=== PATIENT | male | born 1970 | race Caucasian/White ===

== ENCOUNTER 2017-05-07 11:40 | Outpatient (RCR) | payer BC, MEDICAID, SELFPAY ==
[2017-05-07 12:07] VITALS: BP 186/104; PULSE 100; RESP 18; TEMP 37; BMI 49.4
[2017-05-07 15:03] LABS: Absolute Lymphocyte Count 4.07 X10^3/ul (0.83-4.51); Absolute Neutrophil Count 6.3 X10^3/uL (2.0-7.7); Basophil# 0.03 X10^3/uL; Basophil% 0.3 % (0-1); Eosinophil# 0.48 X10^3/uL; Eosinophils% 4.2 % (0-5); Hematocrit 38.5 % (40-54); Hemoglobin 11.8 g/dl (13.0-16.5); Lymphocyte # 4.07 X10^3/ul (4.0); Lymphocyte % 35.3 % (19-41); Mean Corp Hgb Conc 30.6 g/gl (32-36); Mean Platelet Vol. 10.4 fl (6.2-12.0); Monocyte# 0.61 X10^3/uL; Monocyte% 5.3 % (0-10); Neutrophil # 6.29 X10^3/uL (2.7-7.7); Neutrophil % 54.5 % (47-70); Platelet Count 363 K/mm3 (150-450); RBC Distribution Width CV 15.9 % (11.6-14.6); RBC Distribution Width SD 49.7 fl (35.1-43.9); Red Blood Count 4.53 M/mm3 (4.6-6.2); White Blood Count 11.5 K/mm3 (4.4-11.0)
[2017-05-07 15:06] LABS: POSITIVE COUNT NO; POSITIVE DIFFERENTIAL NO; POSITIVE MORPHOLOGY NO
[2017-05-07 15:35] LABS: Hemoglobin A1c 9.8 % (4.2-6.3)
[2017-05-07 15:57] LABS: ALB/GLOB Ratio 0.7 RATIO (0.9-2.4); AST(SGOT) 13 U/L (15-37); Alanine Aminotransfer ALT/SGPT 30 U/L (12-78); Albumin, Serum 3.3 g/dL (3.4-5.0); Alkaline Phosphatase 163 U/L (45-117); Anion Gap 9 (5-15); BUN 18 mg/dL (7-18); Calcium,Total 9.5 mg/dL (8.5-10.1); Chloride 103 mmol/L (98-107); Creatinine, Serum 0.82 mg/dL (0.70-1.30); EST Glomerular Filtration Rate 108 mL/min (>60); Est Glom Filt Rate - Afr Amer 131 mL/min (>60); Estimated Creatinine Clearance 141.14 ml/min; Glucose 158 mg/dL (70-110); Potassium 4.2 mmol/L (3.5-5.1); Prealbumin 22.4 mg/dL (20.0-40.0); Protein, Total 8.3 g/dL (6.4-8.2); Sodium Level 138 mmol/L (136-145)
--- NOTE | 2017-05-07 18:00 | PCM.WC.HP ---
(1) Diabetes mellitus type 2 in obese Status: Acute Current Visit: Yes Code(s): E11.69 - Type 2 diabetes mellitus with other specified complication; E66.9 - Obesity, unspecified (2) Edema of right lower extremity Status: Acute Current Visit: Yes Code(s): R60.0 - Localized edema (3) Ulcer of right lower extremity Status: Acute Current Visit: Yes Code(s): L97.919 - Non-pressure chronic ulcer of unspecified part of right lower leg with unspecified severity (4) Diabetic foot ulcer Status: Acute Current Visit: Yes Code(s): E11.621 - Type 2 diabetes mellitus with foot ulcer; L97.509 - Non-pressure chronic ulcer of other part of unspecified foot with unspecified severity (5) Morbid obesity Status: Chronic Current Visit: Yes Code(s): E66.01 - Morbid (severe) obesity due to excess calories History of Present Illness Date of Service: 05/07/17 Chief Complaint: Right lower extremity ulcers. Right Foot Ulcer. History of Wound: Mr Gracia is a 46-year-old with past medical history of morbid obesity, hypertension, diabetes mellitus type II, left AKA and factor V Leiden deficiency. He was referred here by his primary care physician due to right lower extremity ulcers. Patient is unsure of the onset of the ulcers however he went in to see his PCP on the april and was subsequently referred here. Since discovered by his PCP he states that he has used a Band-Aid and bacitracin dressing over it. He denies any obvious discharge from the sites. He also denies tenderness around the area. He reports poorly controlled blood sugars over time with his last A1c being around 8.5. Per patient his left BKA was due to a spider bite infection. Past Medical History Past Medical History: Chronic Problems History of left below knee amputation (Chronic) Allergic rhinitis (Chronic) Morbid obesity (Chronic) GERD (gastroesophageal reflux disease) (Chronic) HTN (hypertension) (Chronic) Diabetes (Chronic) Surgical History: - - left bka. Allergies/Adverse Reactions: Allergies dapagliflozin propanediol [From [facility]] Adverse Reaction (Verified 09/23/16 09:57) Other Home Medications: Ambulatory Orders Medication Instructions Recorded Cetirizine HCl [Zyrtec] 10 mg PO DAILY 01/17/16 Hydrochlorothiazide [Hctz] 25 mg PO DAILY 01/17/16 Insulin Aspart [Novolog Flexpen] 30 unit SQ TIDCM 01/17/16 Insulin Glargine,Hum.rec.anlog 90 unit SQ BID 01/17/16 [Lantus] Lisinopril [Zestril] 40 mg PO DAILY 01/17/16 BuPROPion (XL) [Wellbutrin Xl] 150 mg PO DAILY #30 tablet.xl 01/18/16 Esomeprazole Mag Trihydrate 20 mg PO BID 05/07/17 [Nexium] Furosemide [Lasix] 40 mg PO DAILY 05/07/17 Metoprolol Tartrate 25 mg PO BID 05/07/17 Rivaroxaban [Xarelto] 20 mg PO DAILY 05/07/17 clindamycin HCl 300 mg capsule 300 mg PO Q6H #40 cap 05/09/17 - Family History Maternal - - mother with blood clots Sibling - - 2 sister with blood clots. Smoking Status: Never smoker Review of Systems Constitutional: Denies: Anorexia, Chills, Malaise Eyes: Denies: Pain, Redness, Vision Change HEENT: Denies: Difficulty Hearing, Difficulty Swallowing, Head Aches Cardiovascular: Denies: Claudication, Chest Tightness Respiratory: Denies: Hemoptysis, Shortness of Breath Gastrointestinal: Denies: Abdominal Pain, Hematemesis, Vomiting Skin: Reports: Dryness. Denies: Jaundice Neurological: Denies: Difficulty swallowing, Focal weakness - Physical Exam Vital Signs Temp Pulse Resp BP 98.6 F 100 18 186/104 H 05/07/17 12:07 05/07/17 12:07 05/07/17 12:07 05/07/17 12:07 General: Alert, Oriented x3, Cooperative, No apparent distress HEENT: Atraumatic, Normocephalic Oral: Dry Mucosa Neck: Supple, No JVD Lungs: Clear to auscultation, Normal air movement Cardiovascular: Regular rate, Regular Rhythm Abdomen: Non Tender, Obese Extremities: - - Barely pitting edema extending from the right foot to the knee. Stasis dermatitis present. Distal plascencia and lateral leg ulcers noted. Wound Measurements and Assessment WC - Nurse 1 - General Ulcer Measurement Start: 05/07/17 11:56 Freq: Status: Active Protocol: Activity Type Activity Date Activity User E-Sign Co-Sign Detail Recorded Client Recorded Date Recorded By Document 05/07/17 12:07 [facility] [id number] 05/07/17 12:35 [facility] 05/07/17 12:07 Wound Center Nurse 1 [Ulcer Assessment Protocol: WC.WD.LOC] #4- RT GR TOE PLANTAR ASPECT -Combined with other wound No -Current Size (cm) - Length 1 -Current Size (cm) - Width 0.1 -Current Size (cm) - Depth 0.1 -Total Square Cm 0.1 -Date of Last Picture (Recall this 05/07/17 field) -Photo Taken Yes -Epithelialization None Present -Tunneling No -Undermining/Tunneling No -Exudate Amt None Present (0 %) -Wound Margin Distinct, Outline Attached -Granulation Amt Large (67-100%) -Granulation Quality [place] -Slough/Fibrin No -Necrosis Amt None Present (0 %) -Structure Exposed None/Limited to Skin Breakdown -Texture (Any-wound Skin Appearance) Callus Scarring -Moisture (Any-wound Skin Appearance Dry/Scaly ) -Color (Any-wound Skin Appearance) Assessed -Temperature (Any-wound Skin No Abnormality Appearance) (Pt Warm) -Tenderness on Palpation (Any-wound No Skin Appearance) -Ulcer Cleansing Wound Cleanser -Foul Odor after Cleansing No -Anesthetic Used 4% Lidocaine Solution #3- RT LOWER PLASCENCIA -Combined with other wound No -Current Size (cm) - Length 0.5 -Current Size (cm) - Width 0.4 -Current Size (cm) - Depth 0.2 -Total Square Cm 0.20 -Date of Last Picture (Recall this 05/07/17 field) -Photo Taken Yes -Epithelialization None Present -Tunneling No -Undermining/Tunneling No -Exudate Amt Small (1-33%) -Exudate Type Serous -Wound Margin Distinct, Outline Attached -Granulation Amt None Present (0 %) -Slough/Fibrin Yes -Necrosis Amt Large (67-100%) -Necrotic Tissue Type Adherent Slough -Structure Exposed None/Limited to Skin Breakdown -Texture (Any-wound Skin Appearance) Scarring -Moisture (Any-wound Skin Appearance Maceration ) Weeping Dry/Scaly -Color (Any-wound Skin Appearance) Erythema -Temperature (Any-wound Skin No Abnormality Appearance) (Pt Warm) -Tenderness on Palpation (Any-wound No Skin Appearance) -Ulcer Cleansing Wound Cleanser -Foul Odor after Cleansing No -Anesthetic Used 4% Lidocaine Solution #2- RT LOWER LAT LEG INFERIOR -Combined with other wound No -Current Size (cm) - Length 3.3 -Current Size (cm) - Width 2.4 -Current Size (cm) - Depth 0.2 -Total Square Cm 7.92 -Date of Last Picture (Recall this 05/07/17 field) -Photo Taken Yes -Epithelialization None Present -Tunneling No -Undermining/Tunneling No -Exudate Amt Medium (34-66%) -Exudate Type Serosanguineous -Wound Margin Distinct, Outline Attached -Granulation Amt None Present (0 %) -Slough/Fibrin Yes -Necrosis Amt Large (67-100%) -Necrotic Tissue Type Adherent Slough -Structure Exposed N/A -Texture (Any-wound Skin Appearance) Scarring -Moisture (Any-wound Skin Appearance Maceration ) Weeping Dry/Scaly -Color (Any-wound Skin Appearance) Erythema -Temperature (Any-wound Skin No Abnormality Appearance) (Pt Warm) -Tenderness on Palpation (Any-wound No Skin Appearance) -Ulcer Cleansing Wound Cleanser -Foul Odor after Cleansing No -Anesthetic Used 4% Lidocaine Solution #1- RT LOWER LATERAL LEG SUPERIOR -Combined with other wound No -Current Size (cm) - Length 2.5 -Current Size (cm) - Width 1.1 -Current Size (cm) - Depth 0.2 -Total Square Cm 2.75 -Date of Last Picture (Recall this 05/07/17 field) -Photo Taken Yes -Epithelialization None Present -Tunneling No -Undermining/Tunneling No -Exudate Amt Medium (34-66%) -Exudate Type Serosanguineous -Wound Margin Distinct, Outline Attached -Granulation Amt None Present (0 %) -Slough/Fibrin Yes -Necrosis Amt Large (67-100%) -Necrotic Tissue Type Adherent Slough -Structure Exposed N/A -Texture (Any-wound Skin Appearance) Scarring -Moisture (Any-wound Skin Appearance Maceration ) Weeping Dry/Scaly -Color (Any-wound Skin Appearance) Erythema -Temperature (Any-wound Skin No Abnormality Appearance) (Pt Warm) -Tenderness on Palpation (Any-wound No Skin Appearance) -Ulcer Cleansing Wound Cleanser -Foul Odor after Cleansing No -Anesthetic Used 4% Lidocaine Solution [Edema Assessment] -Lower Limb Edema Present Yes -Right Calf (cm) 52.1 -Right Ankle (cm) 31.6 WC - Nurse 2 - General Ulcer CM Notes Start: 05/07/17 11:56 Freq: Status: Active Protocol: Activity Type Activity Date Activity User E-Sign Co-Sign Detail Recorded Client Recorded Date Recorded By Document 05/07/17 13:29 DV [id number] 05/07/17 13:35 DV 05/07/17 13:29 Wound Center Nurse 2 [Procedure/Treatment] #4- RT GR TOE PLANTAR ASPECT -Time 13:30 -Correct Patient Yes -Correct Side, Site, Position Yes -Correct Procedure Yes -Procedure Performed Yes -Type of Procedure Debridement -Clinical Debridement Subcutaneous -Post Debridement Size (cm) - Length 1.4 -Post Debridement Size (cm) - Width 0.1 -Post Debridement Size (cm) - Depth 0.1 -Total Square Cm 0.14 -Wound/Ulcer Outcome Not Healed -Ulcer Cleansing Rinsed/ Irrigated with Saline -Foul Odor after Cleansing No -Bioengineered Tissue No -Cetacaine [place] No -Bleeding Controlled with Pressure -Treatment Response Procedure Tolerated Well #3- RT LOWER PLASCENCIA -Time 13:31 -Correct Patient Yes -Correct Side, Site, Position Yes -Correct Procedure Yes -Procedure Performed Yes -Type of Procedure Debridement -Clinical Debridement Subcutaneous -Post Debridement Size (cm) - Length 0.6 -Post Debridement Size (cm) - Width 0.6 -Post Debridement Size (cm) - Depth 0.2 -Total Square Cm 0.36 -Wound/Ulcer Outcome Not Healed -Ulcer Cleansing Rinsed/ Irrigated with Saline -Foul Odor after Cleansing No -Bioengineered Tissue No -Cetacaine [place] No -Bleeding Controlled with Pressure -Treatment Response Procedure Tolerated Well #2- RT LOWER LAT LEG INFERIOR -Time 13:32 -Correct Patient Yes -Correct Side, Site, Position Yes -Correct Procedure Yes -Procedure Performed Yes -Type of Procedure Debridement -Clinical Debridement Subcutaneous -Post Debridement Size (cm) - Length 3.5 -Post Debridement Size (cm) - Width 2.6 -Post Debridement Size (cm) - Depth 0.2 -Total Square Cm 9.10 -Wound/Ulcer Outcome Not Healed -Ulcer Cleansing Rinsed/ Irrigated with Saline -Foul Odor after Cleansing No -Bioengineered Tissue No -Cetacaine [place] No -Bleeding Controlled with Pressure -Treatment Response Procedure Tolerated Well #1- RT LOWER LATERAL LEG SUPERIOR -Time 13:32 -Correct Patient Yes -Correct Side, Site, Position Yes -Correct Procedure Yes -Procedure Performed Yes -Type of Procedure Debridement -Clinical Debridement Subcutaneous -Post Debridement Size (cm) - Length 2.8 -Post Debridement Size (cm) - Width 1.4 -Post Debridement Size (cm) - Depth 0.2 -Total Square Cm 3.92 -Wound/Ulcer Outcome Not Healed -Ulcer Cleansing Rinsed/ Irrigated with Saline -Foul Odor after Cleansing No -Bioengineered Tissue No -Cetacaine [place] No -Bleeding Controlled with Pressure -Treatment Response Procedure Tolerated Well [See Physician Procedure note for Specifics] Pain Scale: 0-10 Numeric [Pain] -Is Patient Pain Free? Yes Musculoskeletal: No Muscle Wasting Debridement Note Post-Debridement Measurements/Treatment WC - Nurse 2 - General Ulcer CM Notes Start: 05/07/17 11:56 Freq: Status: Active Protocol: Activity Type Activity Date Activity User E-Sign Co-Sign Detail Recorded Client Recorded Date Recorded By Document 05/07/17 13:29 DV [id number] 05/07/17 13:35 DV 05/07/17 13:29 Wound Center Nurse 2 #4- RT GR TOE PLANTAR ASPECT -Time 13:30 -Correct Patient Yes -Correct Side, Site, Position Yes -Correct Procedure Yes -Procedure Performed Yes -Type of Procedure Debridement -Clinical Debridement Subcutaneous -Post Debridement Size (cm) - Length 1.4 -Post Debridement Size (cm) - Width 0.1 -Post Debridement Size (cm) - Depth 0.1 -Total Square Cm 0.14 -Wound/Ulcer Outcome Not Healed -Ulcer Cleansing Rinsed/ Irrigated with Saline -Foul Odor after Cleansing No -Bioengineered Tissue No -Cetacaine [place] No -Bleeding Controlled with Pressure -Treatment Response Procedure Tolerated Well #3- RT LOWER PLASCENCIA -Time 13:31 -Correct Patient Yes -Correct Side, Site, Position Yes -Correct Procedure Yes -Procedure Performed Yes -Type of Procedure Debridement -Clinical Debridement Subcutaneous -Post Debridement Size (cm) - Length 0.6 -Post Debridement Size (cm) - Width 0.6 -Post Debridement Size (cm) - Depth 0.2 -Total Square Cm 0.36 -Wound/Ulcer Outcome Not Healed -Ulcer Cleansing Rinsed/ Irrigated with Saline -Foul Odor after Cleansing No -Bioengineered Tissue No -Cetacaine [place] No -Bleeding Controlled with Pressure -Treatment Response Procedure Tolerated Well #2- RT LOWER LAT LEG INFERIOR -Time 13:32 -Correct Patient Yes -Correct Side, Site, Position Yes -Correct Procedure Yes -Procedure Performed Yes -Type of Procedure Debridement -Clinical Debridement Subcutaneous -Post Debridement Size (cm) - Length 3.5 -Post Debridement Size (cm) - Width 2.6 -Post Debridement Size (cm) - Depth 0.2 -Total Square Cm 9.10 -Wound/Ulcer Outcome Not Healed -Ulcer Cleansing Rinsed/ Irrigated with Saline -Foul Odor after Cleansing No -Bioengineered Tissue No -Cetacaine [place] No -Bleeding Controlled with Pressure -Treatment Response Procedure Tolerated Well #1- RT LOWER LATERAL LEG SUPERIOR -Time 13:32 -Correct Patient Yes -Correct Side, Site, Position Yes -Correct Procedure Yes -Procedure Performed Yes -Type of Procedure Debridement -Clinical Debridement Subcutaneous -Post Debridement Size (cm) - Length 2.8 -Post Debridement Size (cm) - Width 1.4 -Post Debridement Size (cm) - Depth 0.2 -Total Square Cm 3.92 -Wound/Ulcer Outcome Not Healed -Ulcer Cleansing Rinsed/ Irrigated with Saline -Foul Odor after Cleansing No -Bioengineered Tissue No -Cetacaine [place] No -Bleeding Controlled with Pressure -Treatment Response Procedure Tolerated Well Pain Scale: 0-10 Numeric Is Patient Pain Free? Yes Wound debrided: Inferior lateral leg ulcer Laterality: Right Type of Debridement: Excisional debridement Anesthesia Used: 4% Lidocaine Solution Depth: Down to and including healthy tissue, in the subcutaneous layer Percentage of wound debrided: 100 Instrument Used: 7mm curette, Forceps Tissue Removed: Eschar, Slough, Fibrin Severity: Fat Layer Exposed Amount of bleeding with debridement: Mild Bleeding Controlled with: Pressure Patient tolerated procedure well - Additional Wound Wound debrided: Superior lateral leg ulcer Laterality: Right Type of Debridement: Excisional debridement Anesthesia Used: 4% Lidocaine Solution Depth: Down to and including healthy tissue, in the subcutaneous layer Percentage of wound debrided: 100 Instrument Used: 5mm curette Tissue Removed: Slough,Fibrin Severity: Fat Layer Exposed Amount of bleeding with debridement: Mild Bleeding Controlled with: Pressure Patient tolerated procedure: Patient tolerated procedure well - Additional Wound Wound debrided: Distal Plascencia Ulcer Type of Debridement: Excisional debridement Anesthesia Used: 4% Lidocaine Solution Depth: Down to and including healthy tissue, in the subcutaneous layer Percentage of wound debrided: 100 Instrument Used: 5mm curette Tissue Removed: Slough, Biofilm Amount of bleeding with debridement: Mild Bleeding Controlled with: Compression and gauze Patient tolerated procedure: Patient tolerated procedure well - Additional Wound Wound debrided: Right Plantar Fissure/Ulcer Type of Debridement: Excisional debridement Anesthesia Used: 4% Lidocaine Solution Depth: Down to and including healthy tissue, in the subcutaneous layer Percentage of wound debrided: 100 Instrument Used: #15 blade Tissue Removed: Callus, Slough Amount of bleeding with debridement: Mild Bleeding Controlled with: Compression and gauze Patient tolerated procedure: Patient tolerated procedure well Assessment/Plan Active Problems Diabetes mellitus type 2 in obese (Acute) Edema of right lower extremity (Acute) Ulcer of right lower extremity (Acute) Diabetic foot ulcer (Acute) Morbid obesity (Chronic) Assessment: Right Lower extremity Ulcers most likely Venous Ulcers. DFU Grade 1 of right foot. Stasis Dermatitis of Right Lower Extremity. Poorly Controlled DM type II. Plan: Mr. Gracia presents here for wound care after being referred by his primary care physician. He is not sure of the onset and progression of his right lower extremity ulcers. He has 3 different right lower extremity ulcers most likely venous as earlier stated. He also has a right DFU grade 1. Debridement of all 4 ulcers were done today. Refer to debridement note for details. Blood work including a CBC, CMP, A1c, CRP and prealbumin were ordered. Cultures were also taken of the lateral leg inferior and superior ulcers. Venous and arterial studies requested. Apply Santyl daily to right lateral distal leg ulcers. Apply Aquacel to distal plascencia and plantar ulcers. Patient was advised on adequate/optimal blood sugar control. High protein diet. Elevate lower extremity when in bed and when seated. Avoid idle standing. Weight management. Exercise daily. Follow-up in 1 week. This note was generated with [employer] software. It may contain incorrect words, spelling, and punctuation that were not noted in checking the note before signing.
== END 2017-05-11 23:59 ==
LOC: WC 11:40
PROVIDERS: Visit Provider Internal Medicine
DX: E11.621 Type 2 diabetes mellitus with foot ulcer (principal); L97.812 Non-pressure chronic ulcer of other part of right lower leg with fat layer exposed; E11.65 Type 2 diabetes mellitus with hyperglycemia; E66.01 Morbid (severe) obesity due to excess calories; L84 Corns and callosities; R60.0 Localized edema; I87.2 Venous insufficiency (chronic) (peripheral); D68.51 Activated protein C resistance; I10 Essential (primary) hypertension; K21.9 Gastro-esophageal reflux disease without esophagitis; Z79.4 Long term (current) use of insulin; Z68.42 Body mass index [BMI] 45.0-49.9, adult; Z71.3 Dietary counseling and surveillance; Z89.612 Acquired absence of left leg above knee; Z79.899 Other long term (current) drug therapy; Z79.01 Long term (current) use of anticoagulants; L97.412 Non-pressure chronic ulcer of right heel and midfoot with fat layer exposed
CPT/HCPCS: 87070; 87184; 11042; 80053; 83036; 84134; 85025; 86140; 87075; 87077; 87186; 87205; 99213; G0463

== ENCOUNTER 2017-05-29 09:30 | Outpatient (RCR) | payer BC, MEDICAID, SELFPAY ==
[2017-05-12 01:45] VITALS: BP 186/104; PULSE 100; RESP 18; TEMP 37; BMI 49.4
[2017-05-14 08:46] VITALS: BP 184/112; PULSE 108; RESP 18; TEMP 37.4; BMI 49.4
--- NOTE | 2017-05-14 17:29 | PCM.WC.PN ---
(1) Diabetes mellitus type 2 in obese Status: Acute Current Visit: Yes Code(s): E11.69 - Type 2 diabetes mellitus with other specified complication; E66.9 - Obesity, unspecified (2) Edema of right lower extremity Status: Acute Current Visit: Yes Code(s): R60.0 - Localized edema (3) Ulcer of right lower extremity Status: Acute Current Visit: Yes Code(s): L97.919 - Non-pressure chronic ulcer of unspecified part of right lower leg with unspecified severity (4) Morbid obesity Status: Chronic Current Visit: Yes Code(s): E66.01 - Morbid (severe) obesity due to excess calories Type of Wound Date of Service: 05/14/17 Chief Complaint: Right lower extremity ulcers. Right Foot Ulcer. History of Wound: Mr Gracia is a 46-year-old with past medical history of morbid obesity, hypertension, diabetes mellitus type II, left AKA and factor V Leiden deficiency. He was referred here by his primary care physician due to right lower extremity ulcers. Patient is unsure of the onset of the ulcers however he went in to see his PCP on the april and was subsequently referred here. Since discovered by his PCP he states that he has used a Band-Aid and bacitracin dressing over it. He denies any obvious discharge from the sites. He also denies tenderness around the area. He reports poorly controlled blood sugars over time with his last A1c being around 8.5. Per patient his left BKA was due to a spider bite infection. Progress of Wound: No new complaints. Wound dressings daily as instructed. Also currently on clindamycin. - Physical Exam Vital Signs Temp Pulse Resp BP 99.3 F H 108 H 18 184/112 H 05/14/17 08:46 05/14/17 08:46 05/14/17 08:46 05/14/17 08:46 General: Alert, Oriented x3, Cooperative, No apparent distress HEENT: Atraumatic, Normocephalic Oral: Moist Mucosa Neck: Supple Lungs: Normal air movement Cardiovascular: Regular rate Extremities: No cyanosis, Edema Wound Measurements and Assessment WC - Nurse 1 - General Ulcer Measurement Start: 05/14/17 08:46 Freq: Status: Active Protocol: Activity Type Activity Date Activity User E-Sign Co-Sign Detail Recorded Client Recorded Date Recorded By Document 05/14/17 08:46 MW [id number] 05/14/17 09:02 MW 05/14/17 08:46 Wound Center Nurse 1 [Ulcer Assessment Protocol: WC.WD.LOC] #4- RT GR TOE Stanton PLANTAR ASPECT -Combined with other wound No -Current Size (cm) - Length 0 -Current Size (cm) - Width 0 -Current Size (cm) - Depth 0 -Total Square Cm 0 -Photo Taken Yes -Epithelialization Large 67-100% -Tunneling No -Undermining/Tunneling No -Circular Undermining No -Exudate Amt None Present (0 %) -Wound Margin Distinct, Outline Attached -Granulation Amt Large (67-100%) -Granulation Quality [place] -Slough/Fibrin No -Necrosis Amt None Present (0 %) -Structure Exposed N/A -Texture (Any-wound Skin Appearance) Assessed Callus -Moisture (Any-wound Skin Appearance Assessed ) -Color (Any-wound Skin Appearance) Assessed -Temperature (Any-wound Skin No Abnormality Appearance) (Pt Warm) -Tenderness on Palpation (Any-wound No Skin Appearance) -Ulcer Cleansing Rinsed/ Irrigated with Saline -Foul Odor after Cleansing No #3- RT LOWER PLASCENCIA -Combined with other wound No -Current Size (cm) - Length 0.6 -Current Size (cm) - Width 0.6 -Current Size (cm) - Depth 0.1 -Total Square Cm 0.36 -Photo Taken No -Epithelialization Small 1-33% -Tunneling No -Undermining/Tunneling No -Circular Undermining No -Exudate Amt Small (1-33%) -Exudate Type Serosanguineous -Wound Margin Distinct, Outline Attached -Granulation Amt Small (1-33%) -Granulation Quality [place] -Slough/Fibrin Yes -Necrosis Amt Large (67-100%) -Necrotic Tissue Type Adherent Slough -Structure Exposed N/A -Texture (Any-wound Skin Appearance) Assessed -Moisture (Any-wound Skin Appearance Assessed ) -Color (Any-wound Skin Appearance) Assessed -Temperature (Any-wound Skin No Abnormality Appearance) (Pt Warm) -Tenderness on Palpation (Any-wound No Skin Appearance) -Ulcer Cleansing Rinsed/ Irrigated with Saline -Foul Odor after Cleansing No -Anesthetic Used 5% Lidocaine Gel #2- INFERIOR RLE (Lateral) -Combined with other wound No -Current Size (cm) - Length 3.2 -Current Size (cm) - Width 2.5 -Current Size (cm) - Depth 0.1 -Total Square Cm 8.00 -Photo Taken No -Epithelialization Small 1-33% -Tunneling No -Undermining/Tunneling No -Circular Undermining No -Classification - Thickness Full Thickness without Exposed Support Structure -Exudate Amt Small (1-33%) -Exudate Type Serosanguineous -Wound Margin Distinct, Outline Attached -Granulation Amt Small (1-33%) -Granulation Quality [place] -Slough/Fibrin Yes -Necrosis Amt Large (67-100%) -Necrotic Tissue Type Adherent Slough -Structure Exposed N/A -Texture (Any-wound Skin Appearance) Assessed -Moisture (Any-wound Skin Appearance Assessed ) Dry/Scaly -Color (Any-wound Skin Appearance) Assessed Erythema -Temperature (Any-wound Skin No Abnormality Appearance) (Pt Warm) -Tenderness on Palpation (Any-wound No Skin Appearance) -Ulcer Cleansing Rinsed/ Irrigated with Saline -Foul Odor after Cleansing No -Anesthetic Used 5% Lidocaine Gel #1- SUPERIOR RLE (Lateral) -Combined with other wound No -Current Size (cm) - Length 2.3 -Current Size (cm) - Width 1.1 -Current Size (cm) - Depth 0.1 -Total Square Cm 2.53 -Photo Taken No -Epithelialization Small 1-33% -Tunneling No -Undermining/Tunneling No -Circular Undermining No -Classification - Thickness Full Thickness without Exposed Support Structure -Exudate Amt Small (1-33%) -Exudate Type Serosanguineous -Wound Margin Distinct, Outline Attached -Granulation Amt Small (1-33%) -Granulation Quality [place] -Slough/Fibrin Yes -Necrosis Amt Large (67-100%) -Necrotic Tissue Type Eschar -Structure Exposed N/A -Texture (Any-wound Skin Appearance) Assessed -Moisture (Any-wound Skin Appearance Assessed ) -Color (Any-wound Skin Appearance) Assessed Erythema -Temperature (Any-wound Skin No Abnormality Appearance) (Pt Warm) -Tenderness on Palpation (Any-wound No Skin Appearance) -Ulcer Cleansing Rinsed/ Irrigated with Saline -Foul Odor after Cleansing No -Anesthetic Used 5% Lidocaine Gel [Edema Assessment] -Lower Limb Edema Present Yes -Right Calf (cm) 52.7 -Right Ankle (cm) 30.6 WC - Nurse 2 - General Ulcer CM Notes Start: 05/14/17 08:46 Freq: Status: Active Protocol: Activity Type Activity Date Activity User E-Sign Co-Sign Detail Recorded Client Recorded Date Recorded By Document 05/14/17 09:25 DV [id number] 05/14/17 10:24 DV 05/14/17 09:25 Wound Center Nurse 2 [Procedure/Treatment] #4- RT GR TOE Stanton PLANTAR ASPECT -Time 09:30 -Correct Patient Yes -Correct Side, Site, Position Yes -Correct Procedure Yes -Procedure Performed No -Post Debridement Size (cm) - Length 0 -Post Debridement Size (cm) - Width 0 -Post Debridement Size (cm) - Depth 0 -Total Square Cm 0 -Wound/Ulcer Outcome Healed- Epithelialized #3- RT LOWER PLASCENCIA -Time 09:29 -Correct Patient Yes -Correct Side, Site, Position Yes -Correct Procedure Yes -Procedure Performed Yes -Type of Procedure Debridement -Clinical Debridement Subcutaneous -Post Debridement Size (cm) - Length 0.6 -Post Debridement Size (cm) - Width 0.6 -Post Debridement Size (cm) - Depth 0.2 -Total Square Cm 0.36 -Wound/Ulcer Outcome Not Healed -Ulcer Cleansing Rinsed/ Irrigated with Saline -Foul Odor after Cleansing No -Bioengineered Tissue No -Cetacaine [place] No -Bleeding Controlled with Pressure -Treatment Response Procedure Tolerated Well #2- INFERIOR RLE (Lateral) -Time 09:29 -Correct Patient Yes -Correct Side, Site, Position Yes -Correct Procedure Yes -Procedure Performed Yes -Type of Procedure Debridement -Clinical Debridement Subcutaneous -Post Debridement Size (cm) - Length 3.8 -Post Debridement Size (cm) - Width 2.8 -Post Debridement Size (cm) - Depth 0.2 -Total Square Cm 10.64 -Wound/Ulcer Outcome Not Healed -Ulcer Cleansing Rinsed/ Irrigated with Saline -Foul Odor after Cleansing No -Bioengineered Tissue No -Cetacaine [place] No -Bleeding Controlled with Pressure -Treatment Response Procedure Tolerated Well #1- SUPERIOR RLE (Lateral) -Time 09:30 -Correct Patient Yes -Correct Side, Site, Position Yes -Correct Procedure Yes -Procedure Performed Yes -Type of Procedure Debridement -Clinical Debridement Subcutaneous -Post Debridement Size (cm) - Length 2.3 -Post Debridement Size (cm) - Width 1.4 -Post Debridement Size (cm) - Depth 0.2 -Total Square Cm 3.22 -Wound/Ulcer Outcome Not Healed -Ulcer Cleansing Rinsed/ Irrigated with Saline -Foul Odor after Cleansing No -Bioengineered Tissue No -Cetacaine [place] No -Bleeding Controlled with Pressure -Treatment Response Procedure Tolerated Well [See Physician Procedure note for Specifics] Musculoskeletal: No Muscle Wasting Neurological: Cranial nerves II-XII grossly intact Debridement Note Post-Debridement Measurements/Treatment WC - Nurse 2 - General Ulcer CM Notes Start: 05/14/17 08:46 Freq: Status: Active Protocol: Activity Type Activity Date Activity User E-Sign Co-Sign Detail Recorded Client Recorded Date Recorded By Document 05/14/17 09:25 DV [id number] 05/14/17 10:24 DV 05/14/17 09:25 Wound Center Nurse 2 #4- RT GR TOE Stanton PLANTAR ASPECT -Time 09:30 -Correct Patient Yes -Correct Side, Site, Position Yes -Correct Procedure Yes -Procedure Performed No -Post Debridement Size (cm) - Length 0 -Post Debridement Size (cm) - Width 0 -Post Debridement Size (cm) - Depth 0 -Total Square Cm 0 -Wound/Ulcer Outcome Healed- Epithelialized #3- RT LOWER PLASCENCIA -Time 09:29 -Correct Patient Yes -Correct Side, Site, Position Yes -Correct Procedure Yes -Procedure Performed Yes -Type of Procedure Debridement -Clinical Debridement Subcutaneous -Post Debridement Size (cm) - Length 0.6 -Post Debridement Size (cm) - Width 0.6 -Post Debridement Size (cm) - Depth 0.2 -Total Square Cm 0.36 -Wound/Ulcer Outcome Not Healed -Ulcer Cleansing Rinsed/ Irrigated with Saline -Foul Odor after Cleansing No -Bioengineered Tissue No -Cetacaine [place] No -Bleeding Controlled with Pressure -Treatment Response Procedure Tolerated Well #2- INFERIOR RLE (Lateral) -Time 09:29 -Correct Patient Yes -Correct Side, Site, Position Yes -Correct Procedure Yes -Procedure Performed Yes -Type of Procedure Debridement -Clinical Debridement Subcutaneous -Post Debridement Size (cm) - Length 3.8 -Post Debridement Size (cm) - Width 2.8 -Post Debridement Size (cm) - Depth 0.2 -Total Square Cm 10.64 -Wound/Ulcer Outcome Not Healed -Ulcer Cleansing Rinsed/ Irrigated with Saline -Foul Odor after Cleansing No -Bioengineered Tissue No -Cetacaine [place] No -Bleeding Controlled with Pressure -Treatment Response Procedure Tolerated Well #1- SUPERIOR RLE (Lateral) -Time 09:30 -Correct Patient Yes -Correct Side, Site, Position Yes -Correct Procedure Yes -Procedure Performed Yes -Type of Procedure Debridement -Clinical Debridement Subcutaneous -Post Debridement Size (cm) - Length 2.3 -Post Debridement Size (cm) - Width 1.4 -Post Debridement Size (cm) - Depth 0.2 -Total Square Cm 3.22 -Wound/Ulcer Outcome Not Healed -Ulcer Cleansing Rinsed/ Irrigated with Saline -Foul Odor after Cleansing No -Bioengineered Tissue No -Cetacaine [place] No -Bleeding Controlled with Pressure -Treatment Response Procedure Tolerated Well Wound debrided: Right Lateral Inferior ulcer Wound Grade/Stage: Wall Stage 1 Type of Debridement: Excisional debridement Anesthesia Used: 5% Lidocaine Gel Depth: Down to and including healthy tissue, in the subcutaneous layer Percentage of wound debrided: 100 Instrument Used: 7mm curette Tissue Removed: Slough, Fibrin Amount of bleeding with debridement: Mild Bleeding Controlled with: Pressure Patient tolerated procedure well - Additional Wound Wound debrided: Right Lateral Superior Wound Wound Grade/Stage: Wall Stage 1 Type of Debridement: Excisional debridement Anesthesia Used: 5% Lidocaine Gel Depth: Down to and including healthy tissue, in the subcutaneous layer Percentage of wound debrided: 100 Instrument Used: 5mm curette Tissue Removed: Slough,Fibrin Amount of bleeding with debridement: Mild Bleeding Controlled with: Pressure Patient tolerated procedure: Patient tolerated procedure well - Additional Wound Wound debrided: Right Plascencia Wound Type of Debridement: Excisional debridement Anesthesia Used: 5% Lidocaine Gel Depth: Down to and including healthy tissue, in the subcutaneous layer Percentage of wound debrided: 100 Instrument Used: 3mm curette Tissue Removed: Slough Amount of bleeding with debridement: Mild Bleeding Controlled with: Pressure Patient tolerated procedure: Patient tolerated procedure well Assessment/Plan Active Problems Diabetes mellitus type 2 in obese (Acute) Edema of right lower extremity (Acute) Ulcer of right lower extremity (Acute) Morbid obesity (Chronic) Assessment: Right Lower extremity Ulcers most likely Venous Ulcers. DFU Grade 1 of right foot - Resolved. Stasis Dermatitis of Right Lower Extremity. Poorly Controlled DM type II. Plan: Plantar DFU has resolved. Lateral right leg ulcers with some improvement. Cultures significant for MRSA sensitive to clindamycin. He has started clindamycin already. His CRP was also significantly elevated. His A1c was 9.8 suggestive of poorly controlled diabetes. He also continues to have significantly elevated blood pressures here. He however states that at home and in his physician's office his blood pressure is within normal and reports compliance with his medication. I did discuss with the patient about following up with his primary care physicians about management of these chronic conditions. Continue Santyl daily to right lateral distal leg ulcers. Apply Aquacel to distal plascencai. Patient was advised on adequate/optimal blood sugar control. High protein diet. Elevate lower extremity when in bed and when seated. Avoid idle standing. Weight management. Exercise daily. Follow-up in 1 week. This note was generated with [employer] dictation software. It may contain incorrect words, spelling, and punctuation that were not noted in checking the note before signing.
--- NOTE | 2017-05-15 13:01 | VDLE_ITS ---
Reason For Study: Non-healing wound RIGHT LEFT GSV is normal. CFV is compressible, spontaneous, phasic, CFV is compressible, spontaneous, phasic, competent, and demonstrates normal competent and demonstrates normal augmentation. augmentation. FV is compressible, spontaneous, phasic, competent and demonstrates normal augmentation. POP V is compressible, spontaneous, phasic, competent and demonstrates normal augmentation. T/P Trunk is compressible. PTV is compressible. RT PerV is compressible. SFJ competent GSV competent SSV competent. Procedure Exam performed in department. Technically difficult due to body habitus. A preliminary report was called and/or faxed to [facility]. Interpretation Summary Deep veins of the right lower extremity are patent and compressible segmentally. There is no evidence of right lower extremity deep vein thrombosis. Valvular competence appears intact within the proximal deep venous system on the right . The right greater saphenous vein appears patent and compressible segmentally. The right sapheno-femoral junction is competent . The right greater saphenous vein appears segmentally competent. The right small saphenous vein is patent and competent. Ordering Physician: Sulema Knox Performed By: Cris Diaz RVT
--- NOTE | 2017-05-17 07:55 | LEAS_ITS ---
Arterial Study - Arterial Study Arterial Study: This is a 46-year-old male with a history of diabetes mellitus, hypertension, Leiden factor V abnormality, morbid obesity, and a prior left below-knee amputation. The patient presents with chronic nonhealing wounds to the right lower extremity. Suspecting the presence of atherosclerotic peripheral arterial occlusive disease, the patient was brought to the noninvasive vascular laboratory at this time for the purpose of noninvasive lower extremity arterial assessment. Doppler signal assessment was used to evaluate the right dorsalis pedis pulse. A triphasic waveform was noted. The right posterior tibial artery Doppler signal could not be obtained. Segmental limb pressures were obtained on the right. The right ankle pressure, as determined by dorsalis pedis pulse, was measured at 188 mmHg. The right digital pressure was measured at 176 mmHg. Pulse-volume recordings were obtained segmentally within the right lower extremity. Waveform amplitudes appeared to be satisfactory at low thigh, calf, and ankle levels, though slightly diminished at digital level. The resting right ankle-brachial index was calculated to be 1.21. The right digital-brachial index was calculated to be 1.14. Impression: Based upon the findings of this noninvasive lower extremity arterial study, there is no evidence of significant arterial occlusive disease in the right lower extremity. A triphasic waveform was noted at ankle level on the right. The resting right ankle-brachial index is normal. The right digital -brachial index is also normal.
[2017-05-22 09:23] VITALS: BP 158/97; PULSE 92; RESP 18; TEMP 37.4; BMI 49.4
--- NOTE | 2017-05-22 19:13 | PCM.WC.PN ---
(1) Diabetes mellitus type 2 in obese Status: Acute Current Visit: Yes Code(s): E11.69 - Type 2 diabetes mellitus with other specified complication; E66.9 - Obesity, unspecified (2) Edema of right lower extremity Status: Acute Current Visit: Yes Code(s): R60.0 - Localized edema (3) Ulcer of right lower extremity Status: Acute Current Visit: Yes Code(s): L97.919 - Non-pressure chronic ulcer of unspecified part of right lower leg with unspecified severity (4) Morbid obesity Status: Chronic Current Visit: Yes Code(s): E66.01 - Morbid (severe) obesity due to excess calories Type of Wound Date of Service: 05/22/17 Chief Complaint: Right lower extremity ulcers. Right Foot Ulcer. History of Wound: Mr Gracia is a 46-year-old with past medical history of morbid obesity, hypertension, diabetes mellitus type II, left AKA and factor V Leiden deficiency. He was referred here by his primary care physician due to right lower extremity ulcers. Patient is unsure of the onset of the ulcers however he went in to see his PCP on the april and was subsequently referred here. Since discovered by his PCP he states that he has used a Band-Aid and bacitracin dressing over it. He denies any obvious discharge from the sites. He also denies tenderness around the area. He reports poorly controlled blood sugars over time with his last A1c being around 8.5. Per patient his left BKA was due to a spider bite infection. Progress of Wound: No new complaints. Wound dressings daily as instructed. Discontinued clindamycin due to intolerable effects. - Physical Exam Vital Signs Temp Pulse Resp BP 99.3 F H 92 18 158/97 H 05/22/17 09:23 05/22/17 09:23 05/22/17 09:23 05/22/17 09:23 General: Alert, Oriented x3, Cooperative, No apparent distress HEENT: Atraumatic, Normocephalic Oral: Moist Mucosa Neck: Supple Lungs: Normal air movement Cardiovascular: Regular rate Extremities: Edema Skin: Ulcer/ Wound - Lower extremity Wound Measurements and Assessment WC - Nurse 1 - General Ulcer Measurement Start: 05/14/17 08:46 Freq: Status: Active Protocol: Activity Type Activity Date Activity User E-Sign Co-Sign Detail Recorded Client Recorded Date Recorded By Document 05/22/17 09:23 [facility] [id number] 05/22/17 09:38 [facility] 05/22/17 09:23 Wound Center Nurse 1 [Ulcer Assessment Protocol: WC.WD.LOC] #3 Right Plascencia -Combined with other wound No -Current Size (cm) - Length 0.6 -Current Size (cm) - Width 0.9 -Current Size (cm) - Depth 0.1 -Total Square Cm 0.54 -Photo Taken No -Epithelialization None Present -Tunneling No -Undermining/Tunneling No -Exudate Amt Small (1-33%) -Exudate Type Serous -Wound Margin Distinct, Outline Attached -Granulation Amt None Present (0 %) -Slough/Fibrin Yes -Necrosis Amt Large (67-100%) -Necrotic Tissue Type Adherent Slough -Structure Exposed N/A -Texture (Any-wound Skin Appearance) Scarring -Moisture (Any-wound Skin Appearance Weeping ) Dry/Scaly -Color (Any-wound Skin Appearance) Erythema Hemosiderin Staining -Temperature (Any-wound Skin No Abnormality Appearance) (Pt Warm) -Tenderness on Palpation (Any-wound No Skin Appearance) -Ulcer Cleansing Wound Cleanser -Foul Odor after Cleansing No -Anesthetic Used 5% Lidocaine Gel #2- INFERIOR RLE (Lateral) -Combined with other wound No -Current Size (cm) - Length 4 -Current Size (cm) - Width 2.4 -Current Size (cm) - Depth 0.2 -Total Square Cm 9.6 -Photo Taken No -Epithelialization None Present -Tunneling No -Undermining/Tunneling No -Exudate Amt Medium (34-66%) -Exudate Type Serosanguineous -Wound Margin Distinct, Outline Attached -Granulation Amt Small (1-33%) -Granulation Quality Red -Slough/Fibrin Yes -Necrosis Amt Large (67-100%) -Necrotic Tissue Type Adherent Slough -Texture (Any-wound Skin Appearance) Scarring -Moisture (Any-wound Skin Appearance Maceration ) Dry/Scaly -Color (Any-wound Skin Appearance) Erythema Hemosiderin Staining -Temperature (Any-wound Skin No Abnormality Appearance) (Pt Warm) -Tenderness on Palpation (Any-wound No Skin Appearance) -Ulcer Cleansing Wound Cleanser -Foul Odor after Cleansing No -Anesthetic Used 5% Lidocaine Gel #1- SUPERIOR RLE (Lateral) -Combined with other wound No -Current Size (cm) - Length 2.8 -Current Size (cm) - Width 1.6 -Current Size (cm) - Depth 0.2 -Total Square Cm 4.48 -Photo Taken No -Epithelialization None Present -Tunneling No -Undermining/Tunneling No -Exudate Amt Small (1-33%) -Exudate Type Serosanguineous -Wound Margin Distinct, Outline Attached -Granulation Amt Small (1-33%) -Granulation Quality Red -Slough/Fibrin Yes -Necrosis Amt Large (67-100%) -Necrotic Tissue Type Adherent Slough -Texture (Any-wound Skin Appearance) Scarring -Moisture (Any-wound Skin Appearance Maceration ) Dry/Scaly -Color (Any-wound Skin Appearance) Erythema Hemosiderin Staining -Temperature (Any-wound Skin No Abnormality Appearance) (Pt Warm) -Tenderness on Palpation (Any-wound No Skin Appearance) -Ulcer Cleansing Wound Cleanser -Foul Odor after Cleansing No -Anesthetic Used 5% Lidocaine Gel [Edema Assessment] -Lower Limb Edema Present Yes -Right Calf (cm) 52.6 -Right Ankle (cm) 30 WC - Nurse 2 - General Ulcer CM Notes Start: 05/14/17 08:46 Freq: Status: Active Protocol: Activity Type Activity Date Activity User E-Sign Co-Sign Detail Recorded Client Recorded Date Recorded By Document 05/22/17 09:45 [facility] [id number] 05/22/17 10:04 MW Document 05/22/17 10:03 DV [id number] 05/22/17 10:12 DV 05/22/17 05/22/17 09:45 10:03 Wound Center Nurse 2 [Procedure/Treatment] #3 Right Plascencia -Time 10:06 10:03 -Correct Patient Yes -Correct Side, Site, Position Yes -Correct Procedure Yes -Procedure Performed Yes -Type of Procedure Debridement -Clinical Debridement Subcutaneous -Post Debridement Size (cm) - Length 0.4 -Post Debridement Size (cm) - Width 0.4 -Post Debridement Size (cm) - Depth 0.2 -Total Square Cm 0.16 -Wound/Ulcer Outcome Not Healed -Ulcer Cleansing Rinsed/ Irrigated with Saline -Foul Odor after Cleansing No -Bioengineered Tissue No -Cetacaine [place] No -Bleeding Controlled with Pressure -Treatment Response Procedure Tolerated Well #2- INFERIOR RLE (Lateral) -Time 10:05 -Correct Patient Yes -Correct Side, Site, Position Yes -Correct Procedure Yes -Procedure Performed Yes -Type of Procedure Debridement -Clinical Debridement Subcutaneous -Post Debridement Size (cm) - Length 4.0 -Post Debridement Size (cm) - Width 2.8 -Post Debridement Size (cm) - Depth 0.2 -Total Square Cm 11.20 -Wound/Ulcer Outcome Not Healed -Ulcer Cleansing Rinsed/ Irrigated with Saline -Foul Odor after Cleansing No -Bioengineered Tissue No -Cetacaine [place] No -Bleeding Controlled with Pressure -Treatment Response Procedure Tolerated Well #1- SUPERIOR RLE (Lateral) -Time 10:07 -Correct Patient Yes -Correct Side, Site, Position Yes -Correct Procedure Yes -Procedure Performed Yes -Type of Procedure Debridement -Clinical Debridement Subcutaneous -Post Debridement Size (cm) - Length 2.0 -Post Debridement Size (cm) - Width 1.6 -Post Debridement Size (cm) - Depth 0.2 -Total Square Cm 3.20 -Wound/Ulcer Outcome Not Healed -Ulcer Cleansing Rinsed/ Irrigated with Saline -Foul Odor after Cleansing No -Bioengineered Tissue No -Cetacaine [place] No -Bleeding Controlled with Pressure -Treatment Response Procedure Tolerated Well [See Physician Procedure note for Specifics] Pain Scale: 0-10 Numeric [Pain] -Is Patient Pain Free? Yes Musculoskeletal: No Muscle Wasting Neurological: Cranial nerves II-XII grossly intact Debridement Note Post-Debridement Measurements/Treatment WC - Nurse 2 - General Ulcer CM Notes Start: 05/14/17 08:46 Freq: Status: Active Protocol: Activity Type Activity Date Activity User E-Sign Co-Sign Detail Recorded Client Recorded Date Recorded By Document 05/14/17 09:25 DV [id number] 05/14/17 10:24 DV Document 05/22/17 09:45 [facility] [id number] 05/22/17 10:04 MW Document 05/22/17 10:03 DV [id number] 05/22/17 10:12 DV 05/14/17 05/22/17 05/22/17 09:25 09:45 10:03 Wound Center Nurse 2 #4- RT GR TOE FISSURE PLANTAR ASPECT -Time 09:30 -Correct Patient Yes -Correct Side, Site, Position Yes -Correct Procedure Yes -Procedure Performed No -Post Debridement Size (cm) - Length 0 -Post Debridement Size (cm) - Width 0 -Post Debridement Size (cm) - Depth 0 -Total Square Cm 0 -Wound/Ulcer Outcome Healed- Epithelialized #3 Right Plascencia -Time 09:29 10:06 10:03 -Correct Patient Yes Yes -Correct Side, Site, Position Yes Yes -Correct Procedure Yes Yes -Procedure Performed Yes Yes -Type of Procedure Debridement Debridement -Clinical Debridement Subcutaneous Subcutaneous -Post Debridement Size (cm) - Length 0.6 0.4 -Post Debridement Size (cm) - Width 0.6 0.4 -Post Debridement Size (cm) - Depth 0.2 0.2 -Total Square Cm 0.36 0.16 -Wound/Ulcer Outcome Not Healed Not Healed -Ulcer Cleansing Rinsed/ Rinsed/ Irrigated with Irrigated with Saline Saline -Foul Odor after Cleansing No No -Bioengineered Tissue No No -Cetacaine [place] No No -Bleeding Controlled with Pressure Pressure -Treatment Response Procedure Procedure Tolerated Well Tolerated Well #2- INFERIOR RLE (Lateral) -Time : 10:05 -Correct Patient Yes Yes -Correct Side, Site, Position Yes Yes -Correct Procedure Yes Yes -Procedure Performed Yes Yes -Type of Procedure Debridement Debridement -Clinical Debridement Subcutaneous Subcutaneous -Post Debridement Size (cm) - Length 3.8 4.0 -Post Debridement Size (cm) - Width 2.8 2.8 -Post Debridement Size (cm) - Depth 0.2 0.2 -Total Square Cm 10.64 11.20 -Wound/Ulcer Outcome Not Healed Not Healed -Ulcer Cleansing Rinsed/ Rinsed/ Irrigated with Irrigated with Saline Saline -Foul Odor after Cleansing No No -Bioengineered Tissue No No -Cetacaine [place] No No -Bleeding Controlled with Pressure Pressure -Treatment Response Procedure Procedure Tolerated Well Tolerated Well #1- SUPERIOR RLE (Lateral) -Time 09:30 10:07 -Correct Patient Yes Yes -Correct Side, Site, Position Yes Yes -Correct Procedure Yes Yes -Procedure Performed Yes Yes -Type of Procedure Debridement Debridement -Clinical Debridement Subcutaneous Subcutaneous -Post Debridement Size (cm) - Length 2.3 2.0 -Post Debridement Size (cm) - Width 1.4 1.6 -Post Debridement Size (cm) - Depth 0.2 0.2 -Total Square Cm 3.22 3.20 -Wound/Ulcer Outcome Not Healed Not Healed -Ulcer Cleansing Rinsed/ Rinsed/ Irrigated with Irrigated with Saline Saline -Foul Odor after Cleansing No No -Bioengineered Tissue No No -Cetacaine [place] No No -Bleeding Controlled with Pressure Pressure -Treatment Response Procedure Procedure Tolerated Well Tolerated Well Pain Scale: 0-10 Numeric Is Patient Pain Free? Yes Wound debrided: Right Inferior leg ulcer Type of Debridement: Excisional debridement Anesthesia Used: 5% Lidocaine Gel Depth: Down to and including healthy tissue, in the subcutaneous layer Percentage of wound debrided: 100 Instrument Used: 7mm curette Tissue Removed: Slough, FIbrin Severity: Fat Layer Exposed Amount of bleeding with debridement: Mild Bleeding Controlled with: Pressure Patient tolerated procedure well - Additional Wound Wound debrided: Right Superior Leg ulcer Type of Debridement: Excisional debridement Anesthesia Used: 5% Lidocaine Gel Depth: Down to and including healthy tissue, in the subcutaneous layer Percentage of wound debrided: 100 Instrument Used: 7mm curette Tissue Removed: Slough, Fibrin Severity: Fat Layer Exposed Amount of bleeding with debridement: Mild Bleeding Controlled with: Pressure Patient tolerated procedure: Patient tolerated procedure well - Additional Wound Wound debrided: Right Plascencia Wound Type of Debridement: Excisional debridement Anesthesia Used: 5% Lidocaine Gel Depth: Down to and including healthy tissue, in the subcutaneous layer Percentage of wound debrided: 100 Instrument Used: 3mm curette Tissue Removed: Slough Amount of bleeding with debridement: Mild Bleeding Controlled with: Pressure Patient tolerated procedure: Patient tolerated procedure well Assessment/Plan Active Problems Diabetes mellitus type 2 in obese (Acute) Edema of right lower extremity (Acute) Ulcer of right lower extremity (Acute) Morbid obesity (Chronic) Assessment: Right Lower extremity Ulcers most likely Venous Ulcers. DFU Grade 1 of right foot - Resolved. Stasis Dermatitis of Right Lower Extremity. Poorly Controlled DM type II. Plan: No significant change in wound size. Patient attests to daily dressing as recommended. However, he discontinued his clindamycin due to intolerable side effects. Culture grew MRSA which is sensitive to levofloxacin. Will start on levofloxacin 750 mg daily for 1 week. His venous and vascular studies also reviewed no insufficiency. Double layer tubi obstetrics/gynecology nurse to right lower extremity. Continue Santyl daily to right lateral distal leg ulcers. Apply Aquacel to distal plascencia. Patient was advised on adequate/optimal blood sugar control. High protein diet. Elevate lower extremity when in bed and when seated. Avoid idle standing. Weight management. Exercise daily. Follow-up in 1 week. This note was generated with [employer] software. It may contain incorrect words, spelling, and punctuation that were not noted in checking the note before signing.
--- NOTE | 2017-05-22 19:20 | PN.PCM_ITS ---
(1) Diabetes mellitus type 2 in obese Status: Acute Current Visit: Yes Code(s): E11.69 - Type 2 diabetes mellitus with other specified complication; E66.9 - Obesity, unspecified (2) Edema of right lower extremity Status: Acute Current Visit: Yes Code(s): R60.0 - Localized edema (3) Ulcer of right lower extremity Status: Acute Current Visit: Yes Code(s): L97.919 - Non-pressure chronic ulcer of unspecified part of right lower leg with unspecified severity (4) Morbid obesity Status: Chronic Current Visit: Yes Code(s): E66.01 - Morbid (severe) obesity due to excess calories Type of Wound Date of Service: 05/22/17 Chief Complaint: Right lower extremity ulcers. Right Foot Ulcer. History of Wound: Mr Gracia is a 46-year-old with past medical history of morbid obesity, hypertension, diabetes mellitus type II, left AKA and factor V Leiden deficiency. He was referred here by his primary care physician due to right lower extremity ulcers. Patient is unsure of the onset of the ulcers however he went in to see his PCP on the april and was subsequently referred here. Since discovered by his PCP he states that he has used a Band- Aid and bacitracin dressing over it. He denies any obvious discharge from the sites. He also denies tenderness around the area. He reports poorly controlled blood sugars over time with his last A1c being around 8.5. Per patient his left BKA was due to a spider bite infection. Progress of Wound: No new complaints. Wound dressings daily as instructed. Discontinued clindamycin due to intolerable effects. - Physical Exam Vital Signs Temp Pulse Resp BP 99.3 F H 92 18 158/97 H 05/22/17 09:23 05/22/17 09:23 05/22/17 09:23 05/22/17 09:23 General: Alert, Oriented x3, Cooperative, No apparent distress HEENT: Atraumatic, Normocephalic Oral: Moist Mucosa Neck: Supple Lungs: Normal air movement Cardiovascular: Regular rate Extremities: Edema Skin: Ulcer/ Wound - Lower extremity Wound Measurements and Assessment WC - Nurse 1 - General Ulcer Measurement Start: 05/14/17 08:46 Freq: Status: Active Protocol: Activity Type Activity Date Activity User E-Sign Co-Sign Detail Recorded Client Recorded Date Recorded By Document 05/22/17 09:23 [facility] [id number] 05/22/17 09:38 [facility] 05/22/17 09:23 Wound Center Nurse 1 [Ulcer Assessment Protocol: WC.WD.LOC] #3 Right Plascencia -Combined with other wound No -Current Size (cm) - Length 0.6 -Current Size (cm) - Width 0.9 -Current Size (cm) - Depth 0.1 -Total Square Cm 0.54 -Photo Taken No -Epithelialization None Present -Tunneling No -Undermining/Tunneling No -Exudate Amt Small (1-33%) -Exudate Type Serous -Wound Margin Distinct, Outline Attached -Granulation Amt None Present (0 %) -Slough/Fibrin Yes -Necrosis Amt Large (67-100%) -Necrotic Tissue Type Adherent Slough -Structure Exposed N/A -Texture (Any-wound Skin Appearance) Scarring -Moisture (Any-wound Skin Appearance Weeping ) Dry/Scaly -Color (Any-wound Skin Appearance) Erythema Hemosiderin Staining -Temperature (Any-wound Skin No Abnormality Appearance) (Pt Warm) -Tenderness on Palpation (Any-wound No Skin Appearance) -Ulcer Cleansing Wound Cleanser -Foul Odor after Cleansing No -Anesthetic Used 5% Lidocaine Gel #2- INFERIOR RLE (Lateral) -Combined with other wound No -Current Size (cm) - Length 4 -Current Size (cm) - Width 2.4 -Current Size (cm) - Depth 0.2 -Total Square Cm 9.6 -Photo Taken No -Epithelialization None Present -Tunneling No -Undermining/Tunneling No -Exudate Amt Medium (34-66%) -Exudate Type Serosanguineous -Wound Margin Distinct, Outline Attached -Granulation Amt Small (1-33%) -Granulation Quality Red -Slough/Fibrin Yes -Necrosis Amt Large (67-100%) -Necrotic Tissue Type Adherent Slough -Texture (Any-wound Skin Appearance) Scarring -Moisture (Any-wound Skin Appearance Maceration ) Dry/Scaly -Color (Any-wound Skin Appearance) Erythema Hemosiderin Staining -Temperature (Any-wound Skin No Abnormality Appearance) (Pt Warm) -Tenderness on Palpation (Any-wound No Skin Appearance) -Ulcer Cleansing Wound Cleanser -Foul Odor after Cleansing No -Anesthetic Used 5% Lidocaine Gel #1- SUPERIOR RLE (Lateral) -Combined with other wound No -Current Size (cm) - Length 2.8 -Current Size (cm) - Width 1.6 -Current Size (cm) - Depth 0.2 -Total Square Cm 4.48 -Photo Taken No -Epithelialization None Present -Tunneling No -Undermining/Tunneling No -Exudate Amt Small (1-33%) -Exudate Type Serosanguineous -Wound Margin Distinct, Outline Attached -Granulation Amt Small (1-33%) -Granulation Quality Red -Slough/Fibrin Yes -Necrosis Amt Large (67-100%) -Necrotic Tissue Type Adherent Slough -Texture (Any-wound Skin Appearance) Scarring -Moisture (Any-wound Skin Appearance Maceration ) Dry/Scaly -Color (Any-wound Skin Appearance) Erythema Hemosiderin Staining -Temperature (Any-wound Skin No Abnormality Appearance) (Pt Warm) -Tenderness on Palpation (Any-wound No Skin Appearance) -Ulcer Cleansing Wound Cleanser -Foul Odor after Cleansing No -Anesthetic Used 5% Lidocaine Gel [Edema Assessment] -Lower Limb Edema Present Yes -Right Calf (cm) 52.6 -Right Ankle (cm) 30 WC - Nurse 2 - General Ulcer CM Notes Start: 05/14/17 08:46 Freq: Status: Active Protocol: Activity Type Activity Date Activity User E-Sign Co-Sign Detail Recorded Client Recorded Date Recorded By Document 05/22/17 09:45 MW [id number] 05/22/17 10:04 MW Document 05/22/17 10:03 DV [id number] 05/22/17 10:12 DV 05/22/17 05/22/17 09:45 10:03 Wound Center Nurse 2 [Procedure/Treatment] #3 Right Plascencia -Time 10:06 10:03 -Correct Patient Yes -Correct Side, Site, Position Yes -Correct Procedure Yes -Procedure Performed Yes -Type of Procedure Debridement -Clinical Debridement Subcutaneous -Post Debridement Size (cm) - Length 0.4 -Post Debridement Size (cm) - Width 0.4 -Post Debridement Size (cm) - Depth 0.2 -Total Square Cm 0.16 -Wound/Ulcer Outcome Not Healed -Ulcer Cleansing Rinsed/ Irrigated with Saline -Foul Odor after Cleansing No -Bioengineered Tissue No -Cetacaine [place] No -Bleeding Controlled with Pressure -Treatment Response Procedure Tolerated Well #2- INFERIOR RLE (Lateral) -Time 10:05 -Correct Patient Yes -Correct Side, Site, Position Yes -Correct Procedure Yes -Procedure Performed Yes -Type of Procedure Debridement -Clinical Debridement Subcutaneous -Post Debridement Size (cm) - Length 4.0 -Post Debridement Size (cm) - Width 2.8 -Post Debridement Size (cm) - Depth 0.2 -Total Square Cm 11.20 -Wound/Ulcer Outcome Not Healed -Ulcer Cleansing Rinsed/ Irrigated with Saline -Foul Odor after Cleansing No -Bioengineered Tissue No -Cetacaine [place] No -Bleeding Controlled with Pressure -Treatment Response Procedure Tolerated Well #1- SUPERIOR RLE (Lateral) -Time 10:07 -Correct Patient Yes -Correct Side, Site, Position Yes -Correct Procedure Yes -Procedure Performed Yes -Type of Procedure Debridement -Clinical Debridement Subcutaneous -Post Debridement Size (cm) - Length 2.0 -Post Debridement Size (cm) - Width 1.6 -Post Debridement Size (cm) - Depth 0.2 -Total Square Cm 3.20 -Wound/Ulcer Outcome Not Healed -Ulcer Cleansing Rinsed/ Irrigated with Saline -Foul Odor after Cleansing No -Bioengineered Tissue No -Cetacaine [place] No -Bleeding Controlled with Pressure -Treatment Response Procedure Tolerated Well [See Physician Procedure note for Specifics] Pain Scale: 0-10 Numeric [Pain] -Is Patient Pain Free? Yes Musculoskeletal: No Muscle Wasting Neurological: Cranial nerves II-XII grossly intact Debridement Note Post-Debridement Measurements/Treatment WC - Nurse 2 - General Ulcer CM Notes Start: 05/14/17 08:46 Freq: Status: Active Protocol: Activity Type Activity Date Activity User E-Sign Co-Sign Detail Recorded Client Recorded Date Recorded By Document 05/14/17 09:25 DV [id number] 05/14/17 10:24 DV Document 05/22/17 09:45 MW [id number] 05/22/17 10:04 MW Document 05/22/17 10:03 DV [id number] 05/22/17 10:12 DV 05/14/17 05/22/17 05/22/17 09:25 09:45 10:03 Wound Center Nurse 2 #4- RT GR TOE FISSURE PLANTAR ASPECT -Time 09:30 -Correct Patient Yes -Correct Side, Site, Position Yes -Correct Procedure Yes -Procedure Performed No -Post Debridement Size (cm) - Length 0 -Post Debridement Size (cm) - Width 0 -Post Debridement Size (cm) - Depth 0 -Total Square Cm 0 -Wound/Ulcer Outcome Healed- Epithelialized #3 Right Plascencia -Time 09:29 10:06 10:03 -Correct Patient Yes Yes -Correct Side, Site, Position Yes Yes -Correct Procedure Yes Yes -Procedure Performed Yes Yes -Type of Procedure Debridement Debridement -Clinical Debridement Subcutaneous Subcutaneous -Post Debridement Size (cm) - Length 0.6 0.4 -Post Debridement Size (cm) - Width 0.6 0.4 -Post Debridement Size (cm) - Depth 0.2 0.2 -Total Square Cm 0.36 0.16 -Wound/Ulcer Outcome Not Healed Not Healed -Ulcer Cleansing Rinsed/ Rinsed/ Irrigated with Irrigated with Saline Saline -Foul Odor after Cleansing No No -Bioengineered Tissue No No -Cetacaine [place] No No -Bleeding Controlled with Pressure Pressure -Treatment Response Procedure Procedure Tolerated Well Tolerated Well #2- INFERIOR RLE (Lateral) -Time : 10:05 -Correct Patient Yes Yes -Correct Side, Site, Position Yes Yes -Correct Procedure Yes Yes -Procedure Performed Yes Yes -Type of Procedure Debridement Debridement -Clinical Debridement Subcutaneous Subcutaneous -Post Debridement Size (cm) - Length 3.8 4.0 -Post Debridement Size (cm) - Width 2.8 2.8 -Post Debridement Size (cm) - Depth 0.2 0.2 -Total Square Cm 10.64 11.20 -Wound/Ulcer Outcome Not Healed Not Healed -Ulcer Cleansing Rinsed/ Rinsed/ Irrigated with Irrigated with Saline Saline -Foul Odor after Cleansing No No -Bioengineered Tissue No No -Cetacaine [place] No No -Bleeding Controlled with Pressure Pressure -Treatment Response Procedure Procedure Tolerated Well Tolerated Well #1- SUPERIOR RLE (Lateral) -Time 09:30 10:07 -Correct Patient Yes Yes -Correct Side, Site, Position Yes Yes -Correct Procedure Yes Yes -Procedure Performed Yes Yes -Type of Procedure Debridement Debridement -Clinical Debridement Subcutaneous Subcutaneous -Post Debridement Size (cm) - Length 2.3 2.0 -Post Debridement Size (cm) - Width 1.4 1.6 -Post Debridement Size (cm) - Depth 0.2 0.2 -Total Square Cm 3.22 3.20 -Wound/Ulcer Outcome Not Healed Not Healed -Ulcer Cleansing Rinsed/ Rinsed/ Irrigated with Irrigated with Saline Saline -Foul Odor after Cleansing No No -Bioengineered Tissue No No -Cetacaine [place] No No -Bleeding Controlled with Pressure Pressure -Treatment Response Procedure Procedure Tolerated Well Tolerated Well Pain Scale: 0-10 Numeric Is Patient Pain Free? Yes Wound debrided: Right Inferior leg ulcer Type of Debridement: Excisional debridement Anesthesia Used: 5% Lidocaine Gel Depth: Down to and including healthy tissue, in the subcutaneous layer Percentage of wound debrided: 100 Instrument Used: 7mm curette Tissue Removed: Slough, FIbrin Severity: Fat Layer Exposed Amount of bleeding with debridement: Mild Bleeding Controlled with: Pressure Patient tolerated procedure well - Additional Wound Wound debrided: Right Superior Leg ulcer Type of Debridement: Excisional debridement Anesthesia Used: 5% Lidocaine Gel Depth: Down to and including healthy tissue, in the subcutaneous layer Percentage of wound debrided: 100 Instrument Used: 7mm curette Tissue Removed: Slough, Fibrin Severity: Fat Layer Exposed Amount of bleeding with debridement: Mild Bleeding Controlled with: Pressure Patient tolerated procedure: Patient tolerated procedure well - Additional Wound Wound debrided: Right Plascencia Wound Type of Debridement: Excisional debridement Anesthesia Used: 5% Lidocaine Gel Depth: Down to and including healthy tissue, in the subcutaneous layer Percentage of wound debrided: 100 Instrument Used: 3mm curette Tissue Removed: Slough Amount of bleeding with debridement: Mild Bleeding Controlled with: Pressure Patient tolerated procedure: Patient tolerated procedure well Assessment/Plan Active Problems Diabetes mellitus type 2 in obese (Acute) Edema of right lower extremity (Acute) Ulcer of right lower extremity (Acute) Morbid obesity (Chronic) Assessment: Right Lower extremity Ulcers most likely Venous Ulcers. DFU Grade 1 of right foot - Resolved. Stasis Dermatitis of Right Lower Extremity. Poorly Controlled DM type II. Plan: No significant change in wound size. Patient attests to daily dressing as recommended. However, he discontinued his clindamycin due to intolerable side effects. Culture grew MRSA which is sensitive to levofloxacin. Will start on levofloxacin 750 mg daily for 1 week. His venous and vascular studies also reviewed no insufficiency. Double layer tubi drapery hand to right lower extremity. Continue Santyl daily to right lateral distal leg ulcers. Apply Aquacel to distal plascencia. Patient was advised on adequate/optimal blood sugar control. High protein diet. Elevate lower extremity when in bed and when seated. Avoid idle standing. Weight management. Exercise daily. Follow-up in 1 week. This note was generated with [employer] software. It may contain incorrect words, spelling, and punctuation that were not noted in checking the note before signing.
[2017-05-29 09:34] VITALS: BP 156/104; PULSE 94; RESP 20; TEMP 36.4; BMI 49.4
--- NOTE | 2017-05-29 10:42 | PCM.WC.PN ---
(1) Diabetes mellitus type 2 in obese Status: Acute Current Visit: Yes Code(s): E11.69 - Type 2 diabetes mellitus with other specified complication; E66.9 - Obesity, unspecified (2) Edema of right lower extremity Status: Acute Current Visit: Yes Code(s): R60.0 - Localized edema (3) Ulcer of right lower extremity Status: Acute Current Visit: Yes Code(s): L97.919 - Non-pressure chronic ulcer of unspecified part of right lower leg with unspecified severity (4) Morbid obesity Status: Chronic Current Visit: Yes Code(s): E66.01 - Morbid (severe) obesity due to excess calories Type of Wound Date of Service: 05/29/17 Chief Complaint: Right lower extremity ulcers. Right Foot Ulcer. History of Wound: Mr Gracia is a 46-year-old with past medical history of morbid obesity, hypertension, diabetes mellitus type II, left AKA and factor V Leiden deficiency. He was referred here by his primary care physician due to right lower extremity ulcers. Patient is unsure of the onset of the ulcers however he went in to see his PCP on the april and was subsequently referred here. Since discovered by his PCP he states that he has used a Band-Aid and bacitracin dressing over it. He denies any obvious discharge from the sites. He also denies tenderness around the area. He reports poorly controlled blood sugars over time with his last A1c being around 8.5. Per patient his left BKA was due to a spider bite infection. Progress of Wound: No new complaints. Stable wound - Physical Exam Vital Signs Temp Pulse Resp BP 97.5 F L 94 20 H 156/104 H 05/29/17 09:34 05/29/17 09:34 05/29/17 09:34 05/29/17 09:34 General: Alert, Oriented x3, Cooperative, No apparent distress HEENT: Atraumatic, Normocephalic Oral: Moist Mucosa Neck: Supple Lungs: Normal air movement Cardiovascular: Tachycardic Extremities: No cyanosis, Edema Skin: Ulcer/ Wound Wound Measurements and Assessment WC - Nurse 1 - General Ulcer Measurement Start: 05/14/17 08:46 Freq: Status: Active Protocol: Activity Type Activity Date Activity User E-Sign Co-Sign Detail Recorded Client Recorded Date Recorded By Document 05/29/17 09:34 DL [id number] 05/29/17 09:47 DL 05/29/17 09:34 Wound Center Nurse 1 [Ulcer Assessment Protocol: WC.WD.LOC] #3 Right Ibrahim -Current Size (cm) - Length 0.1 -Current Size (cm) - Width 0.1 -Current Size (cm) - Depth 0.1 -Total Square Cm 0.01 -Photo Taken No -Exudate Amt Small (1-33%) -Exudate Type Serosanguineous -Wound Margin Flat & Intact -Granulation Amt None Present (0 %) -Granulation Quality [place] -Necrosis Amt Small (1-33%) -Necrotic Tissue Type Adherent Slough -Structure Exposed N/A -Texture (Any-wound Skin Appearance) Scarring -Moisture (Any-wound Skin Appearance Dry/Scaly ) -Color (Any-wound Skin Appearance) Hemosiderin Staining -Temperature (Any-wound Skin No Abnormality Appearance) (Pt Warm) -Ulcer Cleansing Rinsed/ Irrigated with Saline -Foul Odor after Cleansing No -Anesthetic Used 4% Lidocaine Solution #2- INFERIOR RLE (Lateral) -Current Size (cm) - Length 4 -Current Size (cm) - Width 2.8 -Current Size (cm) - Depth 0.2 -Total Square Cm 11.2 -Photo Taken No -Exudate Amt Small (1-33%) -Exudate Type Serosanguineous -Wound Margin Distinct, Outline Attached -Granulation Amt Medium (34-66%) -Granulation Quality Red -Necrosis Amt Medium (34-66%) -Necrotic Tissue Type Adherent Slough -Structure Exposed N/A -Texture (Any-wound Skin Appearance) Scarring -Moisture (Any-wound Skin Appearance Dry/Scaly ) -Color (Any-wound Skin Appearance) Erythema Hemosiderin Staining -Temperature (Any-wound Skin No Abnormality Appearance) (Pt Warm) -Ulcer Cleansing Rinsed/ Irrigated with Saline -Foul Odor after Cleansing No -Anesthetic Used 4% Lidocaine Solution #1- SUPERIOR RLE (Lateral) -Current Size (cm) - Length 2.2 -Current Size (cm) - Width 1.4 -Current Size (cm) - Depth 0.2 -Total Square Cm 3.08 -Photo Taken No -Exudate Amt Small (1-33%) -Exudate Type Serous -Wound Margin Distinct, Outline Attached -Granulation Amt None Present (0 %) -Necrosis Amt Large (67-100%) -Necrotic Tissue Type Adherent Slough -Structure Exposed N/A -Texture (Any-wound Skin Appearance) Scarring -Moisture (Any-wound Skin Appearance Dry/Scaly ) -Color (Any-wound Skin Appearance) Erythema Hemosiderin Staining -Temperature (Any-wound Skin No Abnormality Appearance) (Pt Warm) -Ulcer Cleansing Rinsed/ Irrigated with Saline -Foul Odor after Cleansing No -Anesthetic Used 4% Lidocaine Solution [Edema Assessment] -Right Calf (cm) 50.3 -Right Ankle (cm) 30.3 WC - Nurse 2 - General Ulcer CM Notes Start: 05/14/17 08:46 Freq: Status: Active Protocol: Activity Type Activity Date Activity User E-Sign Co-Sign Detail Recorded Client Recorded Date Recorded By Document 05/29/17 10:18 DV [id number] 05/29/17 10:30 DV 05/29/17 10:18 Wound Center Nurse 2 [Procedure/Treatment] #7 Left Lower Leg Edema / Excoriation -Time 10:19 -Correct Patient Yes -Correct Side, Site, Position Yes -Procedure Performed No #4- RT GR TOE FISSURE PLANTAR ASPECT -Time 10:19 -Correct Patient Yes -Correct Side, Site, Position Yes -Correct Procedure Yes -Procedure Performed Yes -Type of Procedure Debridement -Clinical Debridement Subcutaneous -Post Debridement Size (cm) - Length 0.2 -Post Debridement Size (cm) - Width 1.2 -Post Debridement Size (cm) - Depth 0.1 -Total Square Cm 0.24 -Wound/Ulcer Outcome Not Healed -Ulcer Cleansing Rinsed/ Irrigated with Saline -Foul Odor after Cleansing No -Bioengineered Tissue No -Cetacaine Rupert No -Bleeding Controlled with Pressure -Treatment Response Procedure Tolerated Well #3 Right Ibrahim -Time 10:20 -Correct Patient Yes -Correct Side, Site, Position Yes -Correct Procedure Yes -Procedure Performed Yes -Type of Procedure Debridement -Clinical Debridement Subcutaneous -Post Debridement Size (cm) - Length 0.3 -Post Debridement Size (cm) - Width 0.3 -Post Debridement Size (cm) - Depth 0.2 -Total Square Cm 0.09 -Wound/Ulcer Outcome Not Healed -Ulcer Cleansing Rinsed/ Irrigated with Saline -Foul Odor after Cleansing No -Bioengineered Tissue No -Cetacaine Rupert No -Bleeding Controlled with Pressure -Treatment Response Procedure Tolerated Well #2- INFERIOR RLE (Lateral) -Time 10:20 -Correct Patient Yes -Correct Side, Site, Position Yes -Correct Procedure Yes -Procedure Performed Yes -Type of Procedure Debridement -Clinical Debridement Subcutaneous -Post Debridement Size (cm) - Length 3.8 -Post Debridement Size (cm) - Width 2.8 -Post Debridement Size (cm) - Depth 0.2 -Total Square Cm 10.64 -Wound/Ulcer Outcome Not Healed -Ulcer Cleansing Not Cleansed -Foul Odor after Cleansing No -Bioengineered Tissue No -Cetacaine Rupert No -Bleeding Controlled with Pressure -Treatment Response Procedure Tolerated Well #1- SUPERIOR RLE (Lateral) -Time 10:20 -Correct Patient Yes -Correct Side, Site, Position Yes -Correct Procedure Yes -Procedure Performed Yes -Type of Procedure Debridement -Clinical Debridement Subcutaneous -Post Debridement Size (cm) - Length 2.3 -Post Debridement Size (cm) - Width 1.4 -Post Debridement Size (cm) - Depth 0.2 -Total Square Cm 3.22 -Wound/Ulcer Outcome Not Healed -Ulcer Cleansing Rinsed/ Irrigated with Saline -Foul Odor after Cleansing No -Bioengineered Tissue No -Cetacaine Rupert No -Bleeding Controlled with Pressure -Treatment Response Procedure Tolerated Well [See Physician Procedure note for Specifics] Pain Scale: 0-10 Numeric [Pain] -Is Patient Pain Free? Yes Musculoskeletal: No Muscle Wasting Neurological: Cranial nerves II-XII grossly intact Debridement Note Post-Debridement Measurements/Treatment WC - Nurse 2 - General Ulcer CM Notes Start: 05/14/17 08:46 Freq: Status: Active Protocol: Activity Type Activity Date Activity User E-Sign Co-Sign Detail Recorded Client Recorded Date Recorded By Document 05/14/17 09:25 DV [id number] 05/14/17 10:24 DV Document 05/22/17 09:45 MW [id number] 05/22/17 10:04 MW Document 05/22/17 10:03 DV [id number] 05/22/17 10:12 DV Document 05/29/17 10:18 DV [id number] 05/29/17 10:30 DV 05/14/17 05/22/17 05/22/17 09:25 09:45 10:03 Wound Center Nurse 2 #7 Left Lower Leg Edema / Excoriation -Time -Correct Patient -Correct Side, Site, Position -Procedure Performed #4- RT GR TOE FISSURE PLANTAR ASPECT -Time 09:30 -Correct Patient Yes -Correct Side, Site, Position Yes -Correct Procedure Yes -Procedure Performed No -Type of Procedure -Clinical Debridement -Post Debridement Size (cm) - Length 0 -Post Debridement Size (cm) - Width 0 -Post Debridement Size (cm) - Depth 0 -Total Square Cm 0 -Wound/Ulcer Outcome Healed- Epithelialized -Ulcer Cleansing -Foul Odor after Cleansing -Bioengineered Tissue -Cetacaine Rupert -Bleeding Controlled with -Treatment Response #3 Right Ibrahim -Time : 10:06 10:03 -Correct Patient Yes Yes -Correct Side, Site, Position Yes Yes -Correct Procedure Yes Yes -Procedure Performed Yes Yes -Type of Procedure Debridement Debridement -Clinical Debridement Subcutaneous Subcutaneous -Post Debridement Size (cm) - Length 0.6 0.4 -Post Debridement Size (cm) - Width 0.6 0.4 -Post Debridement Size (cm) - Depth 0.2 0.2 -Total Square Cm 0.36 0.16 -Wound/Ulcer Outcome Not Healed Not Healed -Ulcer Cleansing Rinsed/ Rinsed/ Irrigated with Irrigated with Saline Saline -Foul Odor after Cleansing No No -Bioengineered Tissue No No -Cetacaine Rupert No No -Bleeding Controlled with Pressure Pressure -Treatment Response Procedure Procedure Tolerated Well Tolerated Well #2- INFERIOR RLE (Lateral) -Time : 10:05 -Correct Patient Yes Yes -Correct Side, Site, Position Yes Yes -Correct Procedure Yes Yes -Procedure Performed Yes Yes -Type of Procedure Debridement Debridement -Clinical Debridement Subcutaneous Subcutaneous -Post Debridement Size (cm) - Length 3.8 4.0 -Post Debridement Size (cm) - Width 2.8 2.8 -Post Debridement Size (cm) - Depth 0.2 0.2 -Total Square Cm 10.64 11.20 -Wound/Ulcer Outcome Not Healed Not Healed -Ulcer Cleansing Rinsed/ Rinsed/ Irrigated with Irrigated with Saline Saline -Foul Odor after Cleansing No No -Bioengineered Tissue No No -Cetacaine Rupert No No -Bleeding Controlled with Pressure Pressure -Treatment Response Procedure Procedure Tolerated Well Tolerated Well #1- SUPERIOR RLE (Lateral) -Time 09:30 10:07 -Correct Patient Yes Yes -Correct Side, Site, Position Yes Yes -Correct Procedure Yes Yes -Procedure Performed Yes Yes -Type of Procedure Debridement Debridement -Clinical Debridement Subcutaneous Subcutaneous -Post Debridement Size (cm) - Length 2.3 2.0 -Post Debridement Size (cm) - Width 1.4 1.6 -Post Debridement Size (cm) - Depth 0.2 0.2 -Total Square Cm 3.22 3.20 -Wound/Ulcer Outcome Not Healed Not Healed -Ulcer Cleansing Rinsed/ Rinsed/ Irrigated with Irrigated with Saline Saline -Foul Odor after Cleansing No No -Bioengineered Tissue No No -Cetacaine Rupert No No -Bleeding Controlled with Pressure Pressure -Treatment Response Procedure Procedure Tolerated Well Tolerated Well Pain Scale: 0-10 Numeric Is Patient Pain Free? Yes 05/29/17 10:18 Wound Center Nurse 2 #7 Left Lower Leg Edema / Excoriation -Time 10:19 -Correct Patient Yes -Correct Side, Site, Position Yes -Procedure Performed No #4- RT GR TOE FISSURE PLANTAR ASPECT -Time 10:19 -Correct Patient Yes -Correct Side, Site, Position Yes -Correct Procedure Yes -Procedure Performed Yes -Type of Procedure Debridement -Clinical Debridement Subcutaneous -Post Debridement Size (cm) - Length 0.2 -Post Debridement Size (cm) - Width 1.2 -Post Debridement Size (cm) - Depth 0.1 -Total Square Cm 0.24 -Wound/Ulcer Outcome Not Healed -Ulcer Cleansing Rinsed/ Irrigated with Saline -Foul Odor after Cleansing No -Bioengineered Tissue No -Cetacaine Rupert No -Bleeding Controlled with Pressure -Treatment Response Procedure Tolerated Well #3 Right Ibrahim -Time 10:20 -Correct Patient Yes -Correct Side, Site, Position Yes -Correct Procedure Yes -Procedure Performed Yes -Type of Procedure Debridement -Clinical Debridement Subcutaneous -Post Debridement Size (cm) - Length 0.3 -Post Debridement Size (cm) - Width 0.3 -Post Debridement Size (cm) - Depth 0.2 -Total Square Cm 0.09 -Wound/Ulcer Outcome Not Healed -Ulcer Cleansing Rinsed/ Irrigated with Saline -Foul Odor after Cleansing No -Bioengineered Tissue No -Cetacaine Rupert No -Bleeding Controlled with Pressure -Treatment Response Procedure Tolerated Well #2- INFERIOR RLE (Lateral) -Time 10:20 -Correct Patient Yes -Correct Side, Site, Position Yes -Correct Procedure Yes -Procedure Performed Yes -Type of Procedure Debridement -Clinical Debridement Subcutaneous -Post Debridement Size (cm) - Length 3.8 -Post Debridement Size (cm) - Width 2.8 -Post Debridement Size (cm) - Depth 0.2 -Total Square Cm 10.64 -Wound/Ulcer Outcome Not Healed -Ulcer Cleansing Not Cleansed -Foul Odor after Cleansing No -Bioengineered Tissue No -Cetacaine Rupert No -Bleeding Controlled with Pressure -Treatment Response Procedure Tolerated Well #1- SUPERIOR RLE (Lateral) -Time 10:20 -Correct Patient Yes -Correct Side, Site, Position Yes -Correct Procedure Yes -Procedure Performed Yes -Type of Procedure Debridement -Clinical Debridement Subcutaneous -Post Debridement Size (cm) - Length 2.3 -Post Debridement Size (cm) - Width 1.4 -Post Debridement Size (cm) - Depth 0.2 -Total Square Cm 3.22 -Wound/Ulcer Outcome Not Healed -Ulcer Cleansing Rinsed/ Irrigated with Saline -Foul Odor after Cleansing No -Bioengineered Tissue No -Cetacaine Rupert No -Bleeding Controlled with Pressure -Treatment Response Procedure Tolerated Well Pain Scale: 0-10 Numeric Is Patient Pain Free? Yes Wound debrided: Right Lower Extremity Inferior wound Type of Debridement: Excisional debridement Anesthesia Used: 4% Lidocaine Solution Depth: Down to and including healthy tissue, in the subcutaneous layer Percentage of wound debrided: 100 Instrument Used: 7mm curette Tissue Removed: Slough, Biofilm Amount of bleeding with debridement: Mild Bleeding Controlled with: Pressure Patient tolerated procedure well - Additional Wound Wound debrided: Right Lower Extremity Superior wound Type of Debridement: Excisional debridement Anesthesia Used: 4% Lidocaine Solution Depth: Down to and including healthy tissue, in the subcutaneous layer Percentage of wound debrided: 100 Instrument Used: 7mm curette Tissue Removed: Slough, Biofilm Amount of bleeding with debridement: Mild Bleeding Controlled with: Pressure Patient tolerated procedure: Patient tolerated procedure well - Additional Wound Wound debrided: Right Ibrahim wound Type of Debridement: Excisional debridement Anesthesia Used: 4% Lidocaine Solution Depth: Down to and including healthy tissue, in the subcutaneous layer Percentage of wound debrided: 100 Instrument Used: 5mm curette Tissue Removed: Slough Amount of bleeding with debridement: Mild Bleeding Controlled with: Pressure - Additional Wound Wound debrided: Right Foot Fissure Anesthesia Used: 4% Lidocaine Solution Depth: Down to and including healthy tissue Percentage of wound debrided: 100 Instrument Used: 5mm curette Tissue Removed: Slough, Callus Amount of bleeding with debridement: Mild Bleeding Controlled with: Pressure Patient tolerated procedure: Patient tolerated procedure well Assessment/Plan Active Problems Diabetes mellitus type 2 in obese (Acute) Edema of right lower extremity (Acute) Ulcer of right lower extremity (Acute) Morbid obesity (Chronic) Assessment: Right Lower extremity Ulcers most likely Venous Ulcers. DFU Grade 1 of right foot - Reopened. Stasis Dermatitis of Right Lower Extremity - Resolving. Poorly Controlled DM type II. Plan: No significant progress of the wound with Santyl. Will switch dressing over to Aquacel extra to all wounds with Adaptic covering. Will also apply for Epifix as i believe patient would benefit from skin substitutes. Continue double layer tubi operating engineer to right lower extremity. Patient was advised on adequate/optimal blood sugar control. High protein diet. Elevate lower extremity when in bed and when seated. Avoid idle standing. Weight management. Exercise daily. Follow-up in 1 week. This note was generated with [employer] dictation software. It may contain incorrect words, spelling, and punctuation that were not noted in checking the note before signing.
--- NOTE | 2017-05-29 10:48 | PN.PCM_ITS ---
(1) Diabetes mellitus type 2 in obese Status: Acute Current Visit: Yes Code(s): E11.69 - Type 2 diabetes mellitus with other specified complication; E66.9 - Obesity, unspecified (2) Edema of right lower extremity Status: Acute Current Visit: Yes Code(s): R60.0 - Localized edema (3) Ulcer of right lower extremity Status: Acute Current Visit: Yes Code(s): L97.919 - Non-pressure chronic ulcer of unspecified part of right lower leg with unspecified severity (4) Morbid obesity Status: Chronic Current Visit: Yes Code(s): E66.01 - Morbid (severe) obesity due to excess calories Type of Wound Date of Service: 05/29/17 Chief Complaint: Right lower extremity ulcers. Right Foot Ulcer. History of Wound: Mr Gracia is a 46-year-old with past medical history of morbid obesity, hypertension, diabetes mellitus type II, left AKA and factor V Leiden deficiency. He was referred here by his primary care physician due to right lower extremity ulcers. Patient is unsure of the onset of the ulcers however he went in to see his PCP on the april and was subsequently referred here. Since discovered by his PCP he states that he has used a Band- Aid and bacitracin dressing over it. He denies any obvious discharge from the sites. He also denies tenderness around the area. He reports poorly controlled blood sugars over time with his last A1c being around 8.5. Per patient his left BKA was due to a spider bite infection. Progress of Wound: No new complaints. Stable wound - Physical Exam Vital Signs Temp Pulse Resp BP 97.5 F L 94 20 H 156/104 H 05/29/17 09:34 05/29/17 09:34 05/29/17 09:34 05/29/17 09:34 General: Alert, Oriented x3, Cooperative, No apparent distress HEENT: Atraumatic, Normocephalic Oral: Moist Mucosa Neck: Supple Lungs: Normal air movement Cardiovascular: Tachycardic Extremities: No cyanosis, Edema Skin: Ulcer/ Wound Wound Measurements and Assessment WC - Nurse 1 - General Ulcer Measurement Start: 05/14/17 08:46 Freq: Status: Active Protocol: Activity Type Activity Date Activity User E-Sign Co-Sign Detail Recorded Client Recorded Date Recorded By Document 05/29/17 09:34 DL [id number] 05/29/17 09:47 DL 05/29/17 09:34 Wound Center Nurse 1 [Ulcer Assessment Protocol: WC.WD.LOC] #3 Right Ibrahim -Current Size (cm) - Length 0.1 -Current Size (cm) - Width 0.1 -Current Size (cm) - Depth 0.1 -Total Square Cm 0.01 -Photo Taken No -Exudate Amt Small (1-33%) -Exudate Type Serosanguineous -Wound Margin Flat & Intact -Granulation Amt None Present (0 %) -Granulation Quality Smarr -Necrosis Amt Small (1-33%) -Necrotic Tissue Type Adherent Slough -Structure Exposed N/A -Texture (Any-wound Skin Appearance) Scarring -Moisture (Any-wound Skin Appearance Dry/Scaly ) -Color (Any-wound Skin Appearance) Hemosiderin Staining -Temperature (Any-wound Skin No Abnormality Appearance) (Pt Warm) -Ulcer Cleansing Rinsed/ Irrigated with Saline -Foul Odor after Cleansing No -Anesthetic Used 4% Lidocaine Solution #2- INFERIOR RLE (Lateral) -Current Size (cm) - Length 4 -Current Size (cm) - Width 2.8 -Current Size (cm) - Depth 0.2 -Total Square Cm 11.2 -Photo Taken No -Exudate Amt Small (1-33%) -Exudate Type Serosanguineous -Wound Margin Distinct, Outline Attached -Granulation Amt Medium (34-66%) -Granulation Quality Red -Necrosis Amt Medium (34-66%) -Necrotic Tissue Type Adherent Slough -Structure Exposed N/A -Texture (Any-wound Skin Appearance) Scarring -Moisture (Any-wound Skin Appearance Dry/Scaly ) -Color (Any-wound Skin Appearance) Erythema Hemosiderin Staining -Temperature (Any-wound Skin No Abnormality Appearance) (Pt Warm) -Ulcer Cleansing Rinsed/ Irrigated with Saline -Foul Odor after Cleansing No -Anesthetic Used 4% Lidocaine Solution #1- SUPERIOR RLE (Lateral) -Current Size (cm) - Length 2.2 -Current Size (cm) - Width 1.4 -Current Size (cm) - Depth 0.2 -Total Square Cm 3.08 -Photo Taken No -Exudate Amt Small (1-33%) -Exudate Type Serous -Wound Margin Distinct, Outline Attached -Granulation Amt None Present (0 %) -Necrosis Amt Large (67-100%) -Necrotic Tissue Type Adherent Slough -Structure Exposed N/A -Texture (Any-wound Skin Appearance) Scarring -Moisture (Any-wound Skin Appearance Dry/Scaly ) -Color (Any-wound Skin Appearance) Erythema Hemosiderin Staining -Temperature (Any-wound Skin No Abnormality Appearance) (Pt Warm) -Ulcer Cleansing Rinsed/ Irrigated with Saline -Foul Odor after Cleansing No -Anesthetic Used 4% Lidocaine Solution [Edema Assessment] -Right Calf (cm) 50.3 -Right Ankle (cm) 30.3 WC - Nurse 2 - General Ulcer CM Notes Start: 05/14/17 08:46 Freq: Status: Active Protocol: Activity Type Activity Date Activity User E-Sign Co-Sign Detail Recorded Client Recorded Date Recorded By Document 05/29/17 10:18 DV [id number] 05/29/17 10:30 DV 05/29/17 10:18 Wound Center Nurse 2 [Procedure/Treatment] #7 Left Lower Leg Edema / Excoriation -Time 10:19 -Correct Patient Yes -Correct Side, Site, Position Yes -Procedure Performed No #4- RT GR TOE FISSURE PLANTAR ASPECT -Time 10:19 -Correct Patient Yes -Correct Side, Site, Position Yes -Correct Procedure Yes -Procedure Performed Yes -Type of Procedure Debridement -Clinical Debridement Subcutaneous -Post Debridement Size (cm) - Length 0.2 -Post Debridement Size (cm) - Width 1.2 -Post Debridement Size (cm) - Depth 0.1 -Total Square Cm 0.24 -Wound/Ulcer Outcome Not Healed -Ulcer Cleansing Rinsed/ Irrigated with Saline -Foul Odor after Cleansing No -Bioengineered Tissue No -Cetacaine [place] No -Bleeding Controlled with Pressure -Treatment Response Procedure Tolerated Well #3 Right Ibrahim -Time 10:20 -Correct Patient Yes -Correct Side, Site, Position Yes -Correct Procedure Yes -Procedure Performed Yes -Type of Procedure Debridement -Clinical Debridement Subcutaneous -Post Debridement Size (cm) - Length 0.3 -Post Debridement Size (cm) - Width 0.3 -Post Debridement Size (cm) - Depth 0.2 -Total Square Cm 0.09 -Wound/Ulcer Outcome Not Healed -Ulcer Cleansing Rinsed/ Irrigated with Saline -Foul Odor after Cleansing No -Bioengineered Tissue No -Cetacaine [place] No -Bleeding Controlled with Pressure -Treatment Response Procedure Tolerated Well #2- INFERIOR RLE (Lateral) -Time 10:20 -Correct Patient Yes -Correct Side, Site, Position Yes -Correct Procedure Yes -Procedure Performed Yes -Type of Procedure Debridement -Clinical Debridement Subcutaneous -Post Debridement Size (cm) - Length 3.8 -Post Debridement Size (cm) - Width 2.8 -Post Debridement Size (cm) - Depth 0.2 -Total Square Cm 10.64 -Wound/Ulcer Outcome Not Healed -Ulcer Cleansing Not Cleansed -Foul Odor after Cleansing No -Bioengineered Tissue No -Cetacaine [place] No -Bleeding Controlled with Pressure -Treatment Response Procedure Tolerated Well #1- SUPERIOR RLE (Lateral) -Time 10:20 -Correct Patient Yes -Correct Side, Site, Position Yes -Correct Procedure Yes -Procedure Performed Yes -Type of Procedure Debridement -Clinical Debridement Subcutaneous -Post Debridement Size (cm) - Length 2.3 -Post Debridement Size (cm) - Width 1.4 -Post Debridement Size (cm) - Depth 0.2 -Total Square Cm 3.22 -Wound/Ulcer Outcome Not Healed -Ulcer Cleansing Rinsed/ Irrigated with Saline -Foul Odor after Cleansing No -Bioengineered Tissue No -Cetacaine [place] No -Bleeding Controlled with Pressure -Treatment Response Procedure Tolerated Well [See Physician Procedure note for Specifics] Pain Scale: 0-10 Numeric [Pain] -Is Patient Pain Free? Yes Musculoskeletal: No Muscle Wasting Neurological: Cranial nerves II-XII grossly intact Debridement Note Post-Debridement Measurements/Treatment WC - Nurse 2 - General Ulcer CM Notes Start: 05/14/17 08:46 Freq: Status: Active Protocol: Activity Type Activity Date Activity User E-Sign Co-Sign Detail Recorded Client Recorded Date Recorded By Document 05/14/17 09:25 DV [id number] 05/14/17 10:24 DV Document 05/22/17 09:45 MW [id number] 05/22/17 10:04 MW Document 05/22/17 10:03 DV [id number] 05/22/17 10:12 DV Document 05/29/17 10:18 DV [id number] 05/29/17 10:30 DV 05/14/17 05/22/17 05/22/17 09:25 09:45 10:03 Wound Center Nurse 2 #7 Left Lower Leg Edema / Excoriation -Time -Correct Patient -Correct Side, Site, Position -Procedure Performed #4- RT GR TOE FISSURE PLANTAR ASPECT -Time 09:30 -Correct Patient Yes -Correct Side, Site, Position Yes -Correct Procedure Yes -Procedure Performed No -Type of Procedure -Clinical Debridement -Post Debridement Size (cm) - Length 0 -Post Debridement Size (cm) - Width 0 -Post Debridement Size (cm) - Depth 0 -Total Square Cm 0 -Wound/Ulcer Outcome Healed- Epithelialized -Ulcer Cleansing -Foul Odor after Cleansing -Bioengineered Tissue -Cetacaine [place] -Bleeding Controlled with -Treatment Response #3 Right Ibrahim -Time : 10:06 10:03 -Correct Patient Yes Yes -Correct Side, Site, Position Yes Yes -Correct Procedure Yes Yes -Procedure Performed Yes Yes -Type of Procedure Debridement Debridement -Clinical Debridement Subcutaneous Subcutaneous -Post Debridement Size (cm) - Length 0.6 0.4 -Post Debridement Size (cm) - Width 0.6 0.4 -Post Debridement Size (cm) - Depth 0.2 0.2 -Total Square Cm 0.36 0.16 -Wound/Ulcer Outcome Not Healed Not Healed -Ulcer Cleansing Rinsed/ Rinsed/ Irrigated with Irrigated with Saline Saline -Foul Odor after Cleansing No No -Bioengineered Tissue No No -Cetacaine [place] No No -Bleeding Controlled with Pressure Pressure -Treatment Response Procedure Procedure Tolerated Well Tolerated Well #2- INFERIOR RLE (Lateral) -Time : 10:05 -Correct Patient Yes Yes -Correct Side, Site, Position Yes Yes -Correct Procedure Yes Yes -Procedure Performed Yes Yes -Type of Procedure Debridement Debridement -Clinical Debridement Subcutaneous Subcutaneous -Post Debridement Size (cm) - Length 3.8 4.0 -Post Debridement Size (cm) - Width 2.8 2.8 -Post Debridement Size (cm) - Depth 0.2 0.2 -Total Square Cm 10.64 11.20 -Wound/Ulcer Outcome Not Healed Not Healed -Ulcer Cleansing Rinsed/ Rinsed/ Irrigated with Irrigated with Saline Saline -Foul Odor after Cleansing No No -Bioengineered Tissue No No -Cetacaine [place] No No -Bleeding Controlled with Pressure Pressure -Treatment Response Procedure Procedure Tolerated Well Tolerated Well #1- SUPERIOR RLE (Lateral) -Time 09:30 10:07 -Correct Patient Yes Yes -Correct Side, Site, Position Yes Yes -Correct Procedure Yes Yes -Procedure Performed Yes Yes -Type of Procedure Debridement Debridement -Clinical Debridement Subcutaneous Subcutaneous -Post Debridement Size (cm) - Length 2.3 2.0 -Post Debridement Size (cm) - Width 1.4 1.6 -Post Debridement Size (cm) - Depth 0.2 0.2 -Total Square Cm 3.22 3.20 -Wound/Ulcer Outcome Not Healed Not Healed -Ulcer Cleansing Rinsed/ Rinsed/ Irrigated with Irrigated with Saline Saline -Foul Odor after Cleansing No No -Bioengineered Tissue No No -Cetacaine [place] No No -Bleeding Controlled with Pressure Pressure -Treatment Response Procedure Procedure Tolerated Well Tolerated Well Pain Scale: 0-10 Numeric Is Patient Pain Free? Yes 05/29/17 10:18 Wound Center Nurse 2 #7 Left Lower Leg Edema / Excoriation -Time 10:19 -Correct Patient Yes -Correct Side, Site, Position Yes -Procedure Performed No #4- RT GR TOE FISSURE PLANTAR ASPECT -Time 10:19 -Correct Patient Yes -Correct Side, Site, Position Yes -Correct Procedure Yes -Procedure Performed Yes -Type of Procedure Debridement -Clinical Debridement Subcutaneous -Post Debridement Size (cm) - Length 0.2 -Post Debridement Size (cm) - Width 1.2 -Post Debridement Size (cm) - Depth 0.1 -Total Square Cm 0.24 -Wound/Ulcer Outcome Not Healed -Ulcer Cleansing Rinsed/ Irrigated with Saline -Foul Odor after Cleansing No -Bioengineered Tissue No -Cetacaine [place] No -Bleeding Controlled with Pressure -Treatment Response Procedure Tolerated Well #3 Right Ibrahim -Time 10:20 -Correct Patient Yes -Correct Side, Site, Position Yes -Correct Procedure Yes -Procedure Performed Yes -Type of Procedure Debridement -Clinical Debridement Subcutaneous -Post Debridement Size (cm) - Length 0.3 -Post Debridement Size (cm) - Width 0.3 -Post Debridement Size (cm) - Depth 0.2 -Total Square Cm 0.09 -Wound/Ulcer Outcome Not Healed -Ulcer Cleansing Rinsed/ Irrigated with Saline -Foul Odor after Cleansing No -Bioengineered Tissue No -Cetacaine [place] No -Bleeding Controlled with Pressure -Treatment Response Procedure Tolerated Well #2- INFERIOR RLE (Lateral) -Time 10:20 -Correct Patient Yes -Correct Side, Site, Position Yes -Correct Procedure Yes -Procedure Performed Yes -Type of Procedure Debridement -Clinical Debridement Subcutaneous -Post Debridement Size (cm) - Length 3.8 -Post Debridement Size (cm) - Width 2.8 -Post Debridement Size (cm) - Depth 0.2 -Total Square Cm 10.64 -Wound/Ulcer Outcome Not Healed -Ulcer Cleansing Not Cleansed -Foul Odor after Cleansing No -Bioengineered Tissue No -Cetacaine [place] No -Bleeding Controlled with Pressure -Treatment Response Procedure Tolerated Well #1- SUPERIOR RLE (Lateral) -Time 10:20 -Correct Patient Yes -Correct Side, Site, Position Yes -Correct Procedure Yes -Procedure Performed Yes -Type of Procedure Debridement -Clinical Debridement Subcutaneous -Post Debridement Size (cm) - Length 2.3 -Post Debridement Size (cm) - Width 1.4 -Post Debridement Size (cm) - Depth 0.2 -Total Square Cm 3.22 -Wound/Ulcer Outcome Not Healed -Ulcer Cleansing Rinsed/ Irrigated with Saline -Foul Odor after Cleansing No -Bioengineered Tissue No -Cetacaine [place] No -Bleeding Controlled with Pressure -Treatment Response Procedure Tolerated Well Pain Scale: 0-10 Numeric Is Patient Pain Free? Yes Wound debrided: Right Lower Extremity Inferior wound Type of Debridement: Excisional debridement Anesthesia Used: 4% Lidocaine Solution Depth: Down to and including healthy tissue, in the subcutaneous layer Percentage of wound debrided: 100 Instrument Used: 7mm curette Tissue Removed: Slough, Biofilm Amount of bleeding with debridement: Mild Bleeding Controlled with: Pressure Patient tolerated procedure well - Additional Wound Wound debrided: Right Lower Extremity Superior wound Type of Debridement: Excisional debridement Anesthesia Used: 4% Lidocaine Solution Depth: Down to and including healthy tissue, in the subcutaneous layer Percentage of wound debrided: 100 Instrument Used: 7mm curette Tissue Removed: Slough, Biofilm Amount of bleeding with debridement: Mild Bleeding Controlled with: Pressure Patient tolerated procedure: Patient tolerated procedure well - Additional Wound Wound debrided: Right Ibrahim wound Type of Debridement: Excisional debridement Anesthesia Used: 4% Lidocaine Solution Depth: Down to and including healthy tissue, in the subcutaneous layer Percentage of wound debrided: 100 Instrument Used: 5mm curette Tissue Removed: Slough Amount of bleeding with debridement: Mild Bleeding Controlled with: Pressure - Additional Wound Wound debrided: Right Foot Fissure Anesthesia Used: 4% Lidocaine Solution Depth: Down to and including healthy tissue Percentage of wound debrided: 100 Instrument Used: 5mm curette Tissue Removed: Slough, Callus Amount of bleeding with debridement: Mild Bleeding Controlled with: Pressure Patient tolerated procedure: Patient tolerated procedure well Assessment/Plan Active Problems Diabetes mellitus type 2 in obese (Acute) Edema of right lower extremity (Acute) Ulcer of right lower extremity (Acute) Morbid obesity (Chronic) Assessment: Right Lower extremity Ulcers most likely Venous Ulcers. DFU Grade 1 of right foot - Reopened. Stasis Dermatitis of Right Lower Extremity - Resolving. Poorly Controlled DM type II. Plan: No significant progress of the wound with Santyl. Will switch dressing over to Aquacel extra to all wounds with Adaptic covering. Will also apply for Epifix as i believe patient would benefit from skin substitutes. Continue double layer [employer] to right lower extremity. Patient was advised on adequate/optimal blood sugar control. High protein diet. Elevate lower extremity when in bed and when seated. Avoid idle standing. Weight management. Exercise daily. Follow-up in 1 week. This note was generated with [employer] dictation software. It may contain incorrect words, spelling, and punctuation that were not noted in checking the note before signing.
== END 2017-06-11 23:59 ==
LOC: WC 09:30
PROVIDERS: Visit Provider Internal Medicine
DX: E11.622 Type 2 diabetes mellitus with other skin ulcer (principal); R60.0 Localized edema; E66.01 Morbid (severe) obesity due to excess calories; Z68.42 Body mass index [BMI] 45.0-49.9, adult; Z71.3 Dietary counseling and surveillance; M79.89 Other specified soft tissue disorders; R09.89 Other specified symptoms and signs involving the circulatory and respiratory systems; D68.51 Activated protein C resistance; I10 Essential (primary) hypertension; Z89.612 Acquired absence of left leg above knee; E11.65 Type 2 diabetes mellitus with hyperglycemia; I87.2 Venous insufficiency (chronic) (peripheral); L97.812 Non-pressure chronic ulcer of other part of right lower leg with fat layer exposed
CPT/HCPCS: 11042; 87070; 87075; 87077; 87186; 87205; 93923; 93971

== ENCOUNTER 2017-06-19 11:00 | Outpatient (RCR) | payer BC, MEDICAID, SELFPAY ==
[2017-06-12 00:59] VITALS: BP 156/104; PULSE 94; RESP 20; TEMP 36.4; BMI 49.4
[2017-06-12 10:50] VITALS: BP 169/97; PULSE 84; RESP 18; TEMP 37; BMI 49.4
--- NOTE | 2017-06-12 17:38 | PCM.WC.PN ---
(1) Diabetes mellitus type 2 in obese Status: Acute Code(s): E11.69 - Type 2 diabetes mellitus with other specified complication; E66.9 - Obesity, unspecified (2) Diabetic foot ulcer Status: Acute Code(s): E11.621 - Type 2 diabetes mellitus with foot ulcer; L97.509 - Non-pressure chronic ulcer of other part of unspecified foot with unspecified severity (3) Edema of right lower extremity Status: Acute Code(s): R60.0 - Localized edema (4) Ulcer of right lower extremity Status: Acute Code(s): L97.919 - Non-pressure chronic ulcer of unspecified part of right lower leg with unspecified severity (5) Morbid obesity Status: Chronic Code(s): E66.01 - Morbid (severe) obesity due to excess calories Type of Wound Date of Service: 06/12/17 Chief Complaint: Right lower extremity ulcers. Right Foot Ulcer. History of Wound: Mr Gracia is a 46-year-old with past medical history of morbid obesity, hypertension, diabetes mellitus type II, left AKA and factor V Leiden deficiency. He was referred here by his primary care physician due to right lower extremity ulcers. Patient is unsure of the onset of the ulcers however he went in to see his PCP on the april and was subsequently referred here. Since discovered by his PCP he states that he has used a Band-Aid and bacitracin dressing over it. He denies any obvious discharge from the sites. He also denies tenderness around the area. He reports poorly controlled blood sugars over time with his last A1c being around 8.5. Per patient his left BKA was due to a spider bite infection. Progress of Wound: He has not been here in 2 weeks. Had the flu last week. No new complaints today. - Physical Exam Vital Signs Temp Pulse Resp BP 98.6 F 84 18 169/97 H 06/12/17 10:50 06/12/17 10:50 06/12/17 10:50 06/12/17 10:50 General: Alert, Oriented x3, Cooperative, No apparent distress HEENT: Atraumatic, Normocephalic Oral: Moist Mucosa Neck: Supple Lungs: Normal air movement Cardiovascular: Regular rate Extremities: No cyanosis, Edema Skin: Ulcer/ Wound Wound Measurements and Assessment WC - Nurse 1 - General Ulcer Measurement Start: 06/12/17 10:50 Freq: Status: Active Protocol: Activity Type Activity Date Activity User E-Sign Co-Sign Detail Recorded Client Recorded Date Recorded By Document 06/12/17 10:50 [facility] [id number] 06/12/17 11:04 [facility] 06/12/17 10:50 Wound Center Nurse 1 [Ulcer Assessment Protocol: WC.WD.LOC] #4- RT GR TOE FISSURE [place]ANTAR ASPECT -Combined with other wound No -Current Size (cm) - Length 0.1 -Current Size (cm) - Width 0.1 -Current Size (cm) - Depth 0.1 -Total Square Cm 0.01 -Photo Taken No -Tunneling No -Undermining/Tunneling No -Circular Undermining No -Classification - Thickness Full Thickness without Exposed Support Structure -Exudate Amt None Present (0 %) -Wound Margin Distinct, Outline Attached -Granulation Amt Medium (34-66%) -Granulation Quality [place] -Slough/Fibrin Yes -Necrosis Amt Small (1-33%) -Necrotic Tissue Type Adherent Slough -Structure Exposed N/A -Texture (Any-wound Skin Appearance) Assessed -Moisture (Any-wound Skin Appearance Assessed ) -Color (Any-wound Skin Appearance) Assessed -Temperature (Any-wound Skin No Abnormality Appearance) (Pt Warm) -Tenderness on Palpation (Any-wound No Skin Appearance) -Ulcer Cleansing Rinsed/ Irrigated with Saline -Foul Odor after Cleansing No -Anesthetic Used 5% Lidocaine Gel #3 Right [place] -Combined with other wound No -Current Size (cm) - Length 0 -Current Size (cm) - Width 0 -Current Size (cm) - Depth 0 -Total Square Cm 0 -Photo Taken Yes -Tunneling No -Undermining/Tunneling No -Circular Undermining No -Wound Margin Distinct, Outline Attached -Granulation Amt Large (67-100%) -Granulation Quality [place] -Slough/Fibrin No -Necrosis Amt None Present (0 %) -Texture (Any-wound Skin Appearance) Assessed -Moisture (Any-wound Skin Appearance Assessed ) -Color (Any-wound Skin Appearance) Assessed -Temperature (Any-wound Skin No Abnormality Appearance) (Pt Warm) -Tenderness on Palpation (Any-wound No Skin Appearance) #2- INFERIOR RLE (Lateral) -Combined with other wound No -Current Size (cm) - Length 4 -Current Size (cm) - Width 2.9 -Current Size (cm) - Depth 0.3 -Total Square Cm 11.6 -Photo Taken No -Epithelialization Small 1-33% -Tunneling No -Undermining/Tunneling No -Circular Undermining No -Classification - Thickness Full Thickness without Exposed Support Structure -Exudate Amt Small (1-33%) -Exudate Type Serosanguineous -Wound Margin Thickened & Rolled Under -Granulation Amt Small (1-33%) -Granulation Quality [place] -Slough/Fibrin Yes -Necrosis Amt Large (67-100%) -Necrotic Tissue Type Adherent Slough -Structure Exposed N/A -Texture (Any-wound Skin Appearance) Assessed -Moisture (Any-wound Skin Appearance Assessed ) -Color (Any-wound Skin Appearance) Assessed -Temperature (Any-wound Skin No Abnormality Appearance) (Pt Warm) -Tenderness on Palpation (Any-wound No Skin Appearance) -Ulcer Cleansing Rinsed/ Irrigated with Saline -Foul Odor after Cleansing No -Anesthetic Used 5% Lidocaine Gel #1- SUPERIOR RLE (Lateral) -Combined with other wound No -Current Size (cm) - Length 2.2 -Current Size (cm) - Width 1.5 -Current Size (cm) - Depth 0.3 -Total Square Cm 3.30 -Photo Taken No -Epithelialization Small 1-33% -Tunneling No -Undermining/Tunneling No -Circular Undermining No -Classification - Thickness Full Thickness without Exposed Support Structure -Exudate Amt Small (1-33%) -Exudate Type Serosanguineous -Wound Margin Thickened & Rolled Under -Granulation Amt Small (1-33%) -Granulation Quality [place] -Slough/Fibrin Yes -Necrosis Amt Large (67-100%) -Necrotic Tissue Type Adherent Slough -Structure Exposed N/A -Texture (Any-wound Skin Appearance) Assessed -Moisture (Any-wound Skin Appearance Assessed ) -Color (Any-wound Skin Appearance) Assessed -Temperature (Any-wound Skin No Abnormality Appearance) (Pt Warm) -Tenderness on Palpation (Any-wound No Skin Appearance) -Ulcer Cleansing Rinsed/ Irrigated with Saline -Foul Odor after Cleansing No -Anesthetic Used 5% Lidocaine Gel [Edema Assessment] -Lower Limb Edema Present Yes -Right Calf (cm) 54.1 -Right Ankle (cm) 31.7 WC - Nurse 2 - General Ulcer CM Notes Start: 06/12/17 10:50 Freq: Status: Active Protocol: Activity Type Activity Date Activity User E-Sign Co-Sign Detail Recorded Client Recorded Date Recorded By Document 06/12/17 12:17 DV [id number] 06/12/17 12:25 DV 06/12/17 12:17 Wound Center Nurse 2 [Procedure/Treatment] #4- RT GR TOE FISSURE PLANTAR ASPECT -Time 12:21 -Correct Patient Yes -Procedure Performed No -Post Debridement Size (cm) - Length 0 -Post Debridement Size (cm) - Width 0 -Post Debridement Size (cm) - Depth 0 -Total Square Cm 0 -Wound/Ulcer Outcome Healed- Epithelialized #3 Right Ibrahim -Time 12:22 -Correct Patient Yes -Procedure Performed No -Post Debridement Size (cm) - Length 0 -Post Debridement Size (cm) - Width 0 -Post Debridement Size (cm) - Depth 0 -Total Square Cm 0 -Wound/Ulcer Outcome Healed- Epithelialized #2- INFERIOR RLE (Lateral) -Time 12:19 -Correct Patient Yes -Correct Side, Site, Position Yes -Correct Procedure Yes -Procedure Performed Yes -Type of Procedure Debridement -Clinical Debridement Subcutaneous -Post Debridement Size (cm) - Length 4.0 -Post Debridement Size (cm) - Width 2.8 -Post Debridement Size (cm) - Depth 0.3 -Total Square Cm 11.20 -Wound/Ulcer Outcome Not Healed -Ulcer Cleansing Rinsed/ Irrigated with Saline -Foul Odor after Cleansing No -Bioengineered Tissue No -Cetacaine [place] No -Bleeding Controlled with Pressure -Treatment Response Procedure Tolerated Well #1- SUPERIOR RLE (Lateral) -Time 12:18 -Correct Patient Yes -Correct Side, Site, Position Yes -Correct Procedure Yes -Procedure Performed Yes -Type of Procedure Debridement -Clinical Debridement Subcutaneous -Post Debridement Size (cm) - Length 2.1 -Post Debridement Size (cm) - Width 1.6 -Post Debridement Size (cm) - Depth 0.2 -Total Square Cm 3.36 -Wound/Ulcer Outcome Not Healed -Ulcer Cleansing Rinsed/ Irrigated with Saline -Foul Odor after Cleansing No -Bioengineered Tissue No -Cetacaine [place] No -Bleeding Controlled with Pressure -Treatment Response Procedure Tolerated Well [See Physician Procedure note for Specifics] Pain Scale: 0-10 Numeric [Pain] -Is Patient Pain Free? Yes Neurological: Cranial nerves II-XII grossly intact Psych/Mental Status: Normal Affect Debridement Note Post-Debridement Measurements/Treatment WC - Nurse 2 - General Ulcer CM Notes Start: 06/12/17 10:50 Freq: Status: Active Protocol: Activity Type Activity Date Activity User E-Sign Co-Sign Detail Recorded Client Recorded Date Recorded By Document 06/12/17 12:17 DV [id number] 06/12/17 12:25 DV 06/12/17 12:17 Wound Center Nurse 2 #4- RT GR TOE FISSURE PLANTAR ASPECT -Time 12:21 -Correct Patient Yes -Procedure Performed No -Post Debridement Size (cm) - Length 0 -Post Debridement Size (cm) - Width 0 -Post Debridement Size (cm) - Depth 0 -Total Square Cm 0 -Wound/Ulcer Outcome Healed- Epithelialized #3 Right Ibrahim -Time 12:22 -Correct Patient Yes -Procedure Performed No -Post Debridement Size (cm) - Length 0 -Post Debridement Size (cm) - Width 0 -Post Debridement Size (cm) - Depth 0 -Total Square Cm 0 -Wound/Ulcer Outcome Healed- Epithelialized #2- INFERIOR RLE (Lateral) -Time 12:19 -Correct Patient Yes -Correct Side, Site, Position Yes -Correct Procedure Yes -Procedure Performed Yes -Type of Procedure Debridement -Clinical Debridement Subcutaneous -Post Debridement Size (cm) - Length 4.0 -Post Debridement Size (cm) - Width 2.8 -Post Debridement Size (cm) - Depth 0.3 -Total Square Cm 11.20 -Wound/Ulcer Outcome Not Healed -Ulcer Cleansing Rinsed/ Irrigated with Saline -Foul Odor after Cleansing No -Bioengineered Tissue No -Cetacaine [place] No -Bleeding Controlled with Pressure -Treatment Response Procedure Tolerated Well #1- SUPERIOR RLE (Lateral) -Time 12:18 -Correct Patient Yes -Correct Side, Site, Position Yes -Correct Procedure Yes -Procedure Performed Yes -Type of Procedure Debridement -Clinical Debridement Subcutaneous -Post Debridement Size (cm) - Length 2.1 -Post Debridement Size (cm) - Width 1.6 -Post Debridement Size (cm) - Depth 0.2 -Total Square Cm 3.36 -Wound/Ulcer Outcome Not Healed -Ulcer Cleansing Rinsed/ Irrigated with Saline -Foul Odor after Cleansing No -Bioengineered Tissue No -Cetacaine [place] No -Bleeding Controlled with Pressure -Treatment Response Procedure Tolerated Well Pain Scale: 0-10 Numeric Is Patient Pain Free? Yes Wound debrided: Right lateral leg superior Wound Grade/Stage: Wall II Type of Debridement: Excisional debridement Anesthesia Used: 5% Lidocaine Gel Depth: Down to and including healthy tissue, in the subcutaneous layer Percentage of wound debrided: 100 Instrument Used: 5mm curette Tissue Removed: Soft, fibrin and devitalized tissue Severity: Fat Layer Exposed Amount of bleeding with debridement: Mild Bleeding Controlled with: Pressure Patient tolerated procedure well - Additional Wound Wound debrided: Right lateral leg inferior Wound Grade/Stage: Wall II Type of Debridement: Excisional debridement Anesthesia Used: 5% Lidocaine Gel Depth: Down to and including healthy tissue, in the subcutaneous layer Percentage of wound debrided: 100 Instrument Used: 5mm curette Tissue Removed: Slough, fibrin and devitalized tissue Severity: Fat Layer Exposed Amount of bleeding with debridement: Mild Bleeding Controlled with: Pressure Patient tolerated procedure: Patient tolerated procedure well Assessment/Plan Assessment: Right Lower extremity Ulcers most Ulcers. Wall II. DFU Grade 1 of right foot - Healed. Stasis Dermatitis of Right Lower Extremity - Resolving. Poorly Controlled DM type II. Plan: Patient has not been here in 2 weeks and has not had any supplies. He states the supplies were just delivered about 2 days prior to his visit. I believe he has inconsistently dressed his wound. No significant progress also no deterioration since last visit. Still significant edema. Debridement done as documented above. Continue Aquacel silver daily with Adaptic covering. Cultures did grow strep agalactiae due to his history of poorly controlled diabetes I believe he will benefit from antibiotics. Prescription for Augmentin for 7 days given. Still in the process of getting Purapply/Skin Sub.. Edema management with SurePress. Patient was advised on adequate/optimal blood sugar control. he is following up with endocrinology. High protein diet. Elevate lower extremity when in bed and when seated. Avoid idle standing. Weight management. Exercise daily. Follow-up in 1 week. This note was generated with [employer] software. It may contain incorrect words, spelling, and punctuation that were not noted in checking the note before signing.
--- NOTE | 2017-06-12 17:45 | PN.PCM_ITS ---
(1) Diabetes mellitus type 2 in obese Status: Acute Code(s): E11.69 - Type 2 diabetes mellitus with other specified complication; E66.9 - Obesity, unspecified (2) Diabetic foot ulcer Status: Acute Code(s): E11.621 - Type 2 diabetes mellitus with foot ulcer; L97.509 - Non-pressure chronic ulcer of other part of unspecified foot with unspecified severity (3) Edema of right lower extremity Status: Acute Code(s): R60.0 - Localized edema (4) Ulcer of right lower extremity Status: Acute Code(s): L97.919 - Non-pressure chronic ulcer of unspecified part of right lower leg with unspecified severity (5) Morbid obesity Status: Chronic Code(s): E66.01 - Morbid (severe) obesity due to excess calories Type of Wound Date of Service: 06/12/17 Chief Complaint: Right lower extremity ulcers. Right Foot Ulcer. History of Wound: Mr Gracia is a 46-year-old with past medical history of morbid obesity, hypertension, diabetes mellitus type II, left AKA and factor V Leiden deficiency. He was referred here by his primary care physician due to right lower extremity ulcers. Patient is unsure of the onset of the ulcers however he went in to see his PCP on the april and was subsequently referred here. Since discovered by his PCP he states that he has used a Band- Aid and bacitracin dressing over it. He denies any obvious discharge from the sites. He also denies tenderness around the area. He reports poorly controlled blood sugars over time with his last A1c being around 8.5. Per patient his left BKA was due to a spider bite infection. Progress of Wound: He has not been here in 2 weeks. Had the flu last week. No new complaints today. - Physical Exam Vital Signs Temp Pulse Resp BP 98.6 F 84 18 169/97 H 06/12/17 10:50 06/12/17 10:50 06/12/17 10:50 06/12/17 10:50 General: Alert, Oriented x3, Cooperative, No apparent distress HEENT: Atraumatic, Normocephalic Oral: Moist Mucosa Neck: Supple Lungs: Normal air movement Cardiovascular: Regular rate Extremities: No cyanosis, Edema Skin: Ulcer/ Wound Wound Measurements and Assessment WC - Nurse 1 - General Ulcer Measurement Start: 06/12/17 10:50 Freq: Status: Active Protocol: Activity Type Activity Date Activity User E-Sign Co-Sign Detail Recorded Client Recorded Date Recorded By Document 06/12/17 10:50 [facility] [id number] 06/12/17 11:04 [facility] 06/12/17 10:50 Wound Center Nurse 1 [Ulcer Assessment Protocol: WC.WD.LOC] #4- RT GR TOE FISSURE PLANTAR ASPECT -Combined with other wound No -Current Size (cm) - Length 0.1 -Current Size (cm) - Width 0.1 -Current Size (cm) - Depth 0.1 -Total Square Cm 0.01 -Photo Taken No -Tunneling No -Undermining/Tunneling No -Circular Undermining No -Classification - Thickness Full Thickness without Exposed Support Structure -Exudate Amt None Present (0 %) -Wound Margin Distinct, Outline Attached -Granulation Amt Medium (34-66%) -Granulation Quality [place] -Slough/Fibrin Yes -Necrosis Amt Small (1-33%) -Necrotic Tissue Type Adherent Slough -Structure Exposed N/A -Texture (Any-wound Skin Appearance) Assessed -Moisture (Any-wound Skin Appearance Assessed ) -Color (Any-wound Skin Appearance) Assessed -Temperature (Any-wound Skin No Abnormality Appearance) (Pt Warm) -Tenderness on Palpation (Any-wound No Skin Appearance) -Ulcer Cleansing Rinsed/ Irrigated with Saline -Foul Odor after Cleansing No -Anesthetic Used 5% Lidocaine Gel #3 Right Ibrahim -Combined with other wound No -Current Size (cm) - Length 0 -Current Size (cm) - Width 0 -Current Size (cm) - Depth 0 -Total Square Cm 0 -Photo Taken Yes -Tunneling No -Undermining/Tunneling No -Circular Undermining No -Wound Margin Distinct, Outline Attached -Granulation Amt Large (67-100%) -Granulation Quality [place] -Slough/Fibrin No -Necrosis Amt None Present (0 %) -Texture (Any-wound Skin Appearance) Assessed -Moisture (Any-wound Skin Appearance Assessed ) -Color (Any-wound Skin Appearance) Assessed -Temperature (Any-wound Skin No Abnormality Appearance) (Pt Warm) -Tenderness on Palpation (Any-wound No Skin Appearance) #2- INFERIOR RLE (Lateral) -Combined with other wound No -Current Size (cm) - Length 4 -Current Size (cm) - Width 2.9 -Current Size (cm) - Depth 0.3 -Total Square Cm 11.6 -Photo Taken No -Epithelialization Small 1-33% -Tunneling No -Undermining/Tunneling No -Circular Undermining No -Classification - Thickness Full Thickness without Exposed Support Structure -Exudate Amt Small (1-33%) -Exudate Type Serosanguineous -Wound Margin Thickened & Rolled Under -Granulation Amt Small (1-33%) -Granulation Quality [place] -Slough/Fibrin Yes -Necrosis Amt Large (67-100%) -Necrotic Tissue Type Adherent Slough -Structure Exposed N/A -Texture (Any-wound Skin Appearance) Assessed -Moisture (Any-wound Skin Appearance Assessed ) -Color (Any-wound Skin Appearance) Assessed -Temperature (Any-wound Skin No Abnormality Appearance) (Pt Warm) -Tenderness on Palpation (Any-wound No Skin Appearance) -Ulcer Cleansing Rinsed/ Irrigated with Saline -Foul Odor after Cleansing No -Anesthetic Used 5% Lidocaine Gel #1- SUPERIOR RLE (Lateral) -Combined with other wound No -Current Size (cm) - Length 2.2 -Current Size (cm) - Width 1.5 -Current Size (cm) - Depth 0.3 -Total Square Cm 3.30 -Photo Taken No -Epithelialization Small 1-33% -Tunneling No -Undermining/Tunneling No -Circular Undermining No -Classification - Thickness Full Thickness without Exposed Support Structure -Exudate Amt Small (1-33%) -Exudate Type Serosanguineous -Wound Margin Thickened & Rolled Under -Granulation Amt Small (1-33%) -Granulation Quality [place] -Slough/Fibrin Yes -Necrosis Amt Large (67-100%) -Necrotic Tissue Type Adherent Slough -Structure Exposed N/A -Texture (Any-wound Skin Appearance) Assessed -Moisture (Any-wound Skin Appearance Assessed ) -Color (Any-wound Skin Appearance) Assessed -Temperature (Any-wound Skin No Abnormality Appearance) (Pt Warm) -Tenderness on Palpation (Any-wound No Skin Appearance) -Ulcer Cleansing Rinsed/ Irrigated with Saline -Foul Odor after Cleansing No -Anesthetic Used 5% Lidocaine Gel [Edema Assessment] -Lower Limb Edema Present Yes -Right Calf (cm) 54.1 -Right Ankle (cm) 31.7 WC - Nurse 2 - General Ulcer CM Notes Start: 06/12/17 10:50 Freq: Status: Active Protocol: Activity Type Activity Date Activity User E-Sign Co-Sign Detail Recorded Client Recorded Date Recorded By Document 06/12/17 12:17 DV [id number] 06/12/17 12:25 DV 06/12/17 12:17 Wound Center Nurse 2 [Procedure/Treatment] #4- RT GR TOE FISSURE PLANTAR ASPECT -Time 12:21 -Correct Patient Yes -Procedure Performed No -Post Debridement Size (cm) - Length 0 -Post Debridement Size (cm) - Width 0 -Post Debridement Size (cm) - Depth 0 -Total Square Cm 0 -Wound/Ulcer Outcome Healed- Epithelialized #3 Right Ibrahim -Time 12:22 -Correct Patient Yes -Procedure Performed No -Post Debridement Size (cm) - Length 0 -Post Debridement Size (cm) - Width 0 -Post Debridement Size (cm) - Depth 0 -Total Square Cm 0 -Wound/Ulcer Outcome Healed- Epithelialized #2- INFERIOR RLE (Lateral) -Time 12:19 -Correct Patient Yes -Correct Side, Site, Position Yes -Correct Procedure Yes -Procedure Performed Yes -Type of Procedure Debridement -Clinical Debridement Subcutaneous -Post Debridement Size (cm) - Length 4.0 -Post Debridement Size (cm) - Width 2.8 -Post Debridement Size (cm) - Depth 0.3 -Total Square Cm 11.20 -Wound/Ulcer Outcome Not Healed -Ulcer Cleansing Rinsed/ Irrigated with Saline -Foul Odor after Cleansing No -Bioengineered Tissue No -Cetacaine Stonewall No -Bleeding Controlled with Pressure -Treatment Response Procedure Tolerated Well #1- SUPERIOR RLE (Lateral) -Time 12:18 -Correct Patient Yes -Correct Side, Site, Position Yes -Correct Procedure Yes -Procedure Performed Yes -Type of Procedure Debridement -Clinical Debridement Subcutaneous -Post Debridement Size (cm) - Length 2.1 -Post Debridement Size (cm) - Width 1.6 -Post Debridement Size (cm) - Depth 0.2 -Total Square Cm 3.36 -Wound/Ulcer Outcome Not Healed -Ulcer Cleansing Rinsed/ Irrigated with Saline -Foul Odor after Cleansing No -Bioengineered Tissue No -Cetacaine Stonewall No -Bleeding Controlled with Pressure -Treatment Response Procedure Tolerated Well [See Physician Procedure note for Specifics] Pain Scale: 0-10 Numeric [Pain] -Is Patient Pain Free? Yes Neurological: Cranial nerves II-XII grossly intact Psych/Mental Status: Normal Affect Debridement Note Post-Debridement Measurements/Treatment WC - Nurse 2 - General Ulcer CM Notes Start: 06/12/17 10:50 Freq: Status: Active Protocol: Activity Type Activity Date Activity User E-Sign Co-Sign Detail Recorded Client Recorded Date Recorded By Document 06/12/17 12:17 DV [id number] 06/12/17 12:25 DV 06/12/17 12:17 Wound Center Nurse 2 #4- RT GR TOE FISSURE PLANTAR ASPECT -Time 12:21 -Correct Patient Yes -Procedure Performed No -Post Debridement Size (cm) - Length 0 -Post Debridement Size (cm) - Width 0 -Post Debridement Size (cm) - Depth 0 -Total Square Cm 0 -Wound/Ulcer Outcome Healed- Epithelialized #3 Right Ibrahim -Time 12:22 -Correct Patient Yes -Procedure Performed No -Post Debridement Size (cm) - Length 0 -Post Debridement Size (cm) - Width 0 -Post Debridement Size (cm) - Depth 0 -Total Square Cm 0 -Wound/Ulcer Outcome Healed- Epithelialized #2- INFERIOR RLE (Lateral) -Time 12:19 -Correct Patient Yes -Correct Side, Site, Position Yes -Correct Procedure Yes -Procedure Performed Yes -Type of Procedure Debridement -Clinical Debridement Subcutaneous -Post Debridement Size (cm) - Length 4.0 -Post Debridement Size (cm) - Width 2.8 -Post Debridement Size (cm) - Depth 0.3 -Total Square Cm 11.20 -Wound/Ulcer Outcome Not Healed -Ulcer Cleansing Rinsed/ Irrigated with Saline -Foul Odor after Cleansing No -Bioengineered Tissue No -Cetacaine Stonewall No -Bleeding Controlled with Pressure -Treatment Response Procedure Tolerated Well #1- SUPERIOR RLE (Lateral) -Time 12:18 -Correct Patient Yes -Correct Side, Site, Position Yes -Correct Procedure Yes -Procedure Performed Yes -Type of Procedure Debridement -Clinical Debridement Subcutaneous -Post Debridement Size (cm) - Length 2.1 -Post Debridement Size (cm) - Width 1.6 -Post Debridement Size (cm) - Depth 0.2 -Total Square Cm 3.36 -Wound/Ulcer Outcome Not Healed -Ulcer Cleansing Rinsed/ Irrigated with Saline -Foul Odor after Cleansing No -Bioengineered Tissue No -Cetacaine Stonewall No -Bleeding Controlled with Pressure -Treatment Response Procedure Tolerated Well Pain Scale: 0-10 Numeric Is Patient Pain Free? Yes Wound debrided: Right lateral leg superior Wound Grade/Stage: Wall II Type of Debridement: Excisional debridement Anesthesia Used: 5% Lidocaine Gel Depth: Down to and including healthy tissue, in the subcutaneous layer Percentage of wound debrided: 100 Instrument Used: 5mm curette Tissue Removed: Soft, fibrin and devitalized tissue Severity: Fat Layer Exposed Amount of bleeding with debridement: Mild Bleeding Controlled with: Pressure Patient tolerated procedure well - Additional Wound Wound debrided: Right lateral leg inferior Wound Grade/Stage: Wall II Type of Debridement: Excisional debridement Anesthesia Used: 5% Lidocaine Gel Depth: Down to and including healthy tissue, in the subcutaneous layer Percentage of wound debrided: 100 Instrument Used: 5mm curette Tissue Removed: Slough, fibrin and devitalized tissue Severity: Fat Layer Exposed Amount of bleeding with debridement: Mild Bleeding Controlled with: Pressure Patient tolerated procedure: Patient tolerated procedure well Assessment/Plan Assessment: Right Lower extremity Ulcers most Ulcers. Wall II. DFU Grade 1 of right foot - Healed. Stasis Dermatitis of Right Lower Extremity - Resolving. Poorly Controlled DM type II. Plan: Patient has not been here in 2 weeks and has not had any supplies. He states the supplies were just delivered about 2 days prior to his visit. I believe he has inconsistently dressed his wound. No significant progress also no deterioration since last visit. Still significant edema. Debridement done as documented above. Continue Aquacel silver daily with Adaptic covering. Cultures did grow strep agalactiae due to his history of poorly controlled diabetes I believe he will benefit from antibiotics. Prescription for Augmentin for 7 days given. Still in the process of getting Purapply/Skin Sub.. Edema management with SurePress. Patient was advised on adequate/ optimal blood sugar control. he is following up with endocrinology. High protein diet. Elevate lower extremity when in bed and when seated. Avoid idle standing. Weight management. Exercise daily. Follow-up in 1 week. This note was generated with [employer]ams[employer] software. It may contain incorrect words, spelling, and punctuation that were not noted in checking the note before signing.
== END 2017-07-09 23:59 ==
LOC: WC 11:00
PROVIDERS: Visit Provider Internal Medicine
DX: E11.621 Type 2 diabetes mellitus with foot ulcer (principal); R60.0 Localized edema; E66.01 Morbid (severe) obesity due to excess calories; Z68.42 Body mass index [BMI] 45.0-49.9, adult; Z71.3 Dietary counseling and surveillance; L97.812 Non-pressure chronic ulcer of other part of right lower leg with fat layer exposed; D68.51 Activated protein C resistance; I10 Essential (primary) hypertension; Z89.512 Acquired absence of left leg below knee; E11.65 Type 2 diabetes mellitus with hyperglycemia; E11.51 Type 2 diabetes mellitus with diabetic peripheral angiopathy without gangrene
CPT/HCPCS: 11042

== ENCOUNTER 2018-11-05 12:00 | Outpatient (RCR) | payer MEDICAID, SELFPAY ==
--- NOTE | 2018-07-22 13:59 | HP.PTEVAL_ITS ---
Patient's Visit Information MARK GRIFFIN is a 48 year old M referred to Physical Therapy by CHANTAL HARRIS with a diagnosis of BILATERAL KNEE AMPUTATION. Date of Evaluation: 07/22/18 Physical Therapist: Noel Jreonimo PT, Cert MDT, [facility] - Visit Plan Frequency: 2x /Week Duration: 8WEEKS Plan: INTIATE WALKING IN ll BAR TRANSTION TO WALKER ABLE,TRANSFERS ,BALANCE TRAINING,BLE/BUE STRENGTHENING,ENDURANCE. S/P BILATERAL BKA. W/C LEVEL WITH MOBLITY - Subjective Findings: This 48 y/o male presenst to physical therapy with S/P bilateral below knee amputation.Patient underwent s/p left BKA 2016,then most recent under s/p BKA 11/[address] Cannon at [facility] .Patient d/c to [facility] for about 1 month. Patient d/c to home with sister who is a nurse. Parient uses slide board for transfers to bed and w/c to bedside commode.Patient has walk in shower but is sponge, Patient Independant with dressing. HOME SITUTATION with ramp for entrance. Patient denies parathesia/tingling, No phatom pain left none on right. Patient unable to ambulate since recent s/p right BKA. Patient had bacterial infection. Patient bilateral BKA affects QOL function ,unable to ambulate ,and ADL'S.DME: bedside commode,walker ,QC, old w/c. SOCIAL: lives ith sister. VOCATION: disablity - Objective POSTURE: posterior pelvic tilt. MOBLITY: w/c manual. AROM: knee flexion 0- 100 degrees ,hip flexion 95 degrees,abd 40 degrees. MMT: quads/hams 4/5 ,hip flexion 4-/5,abd 4-/5. NEURO: sensation intact. BALANCE: sitting balance good -. BED MOBLITY: supine-sit mod Independant. TRANSFERS: slide to WC-MAT CGA,sit -carpenter assistant installer ll bars max assist ,with min assist of 2 person. GAIT: ambulated in ll bars 10 'x1 with CGA with w/c follow. STANDING BALNCE: poor+ in ll bars - Goals Goal 1:: Patient to be HEP. Goal Time Frame: 6-8 Weeks Goal 2:: Patient to improve sit-stand transfers with SBA. Goal Time Frame: 6-8 Weeks Goal 3:: Patient improve gait with fww 100 'x2 with SBA with bilateral prothesis Goal Time Frame: 6-8 Weeks Goal 4:: Patient improve LFES score by 10 points to improve QOL Goal Time Frame: 6-8 Weeks Goal 5:: Patient to improve standing balance with fww fair Goal Time Frame: 6-8 Weeks - Rehabilitation Potential Physical Therapy Diagnosis: Patient has biltateral s/p BKA with impairments with unbale to ambulate with FWW,decrease trsnafers,stength ,balance impairs ADL'S thus benifit from skilled PT . Patient also will benifit from manual w/c. Rehabilitation Potential: Fair - Anticipated Interventions Patient/Client Instruction: Educate patient on: Condition, Plan of Care For the Purpose of:: To improve muscle performance and motor function, To improve ability to perform ADL's, To increase tolerance to activity/condition/position, To improve performance and independence with ADL's, To improve ability of physical actions for home/community/work/leisure, To improve gait and locomotor functions, To improve endurance, To improve balance, To improve safety with gait, To assume or resume ADL's, To prevent re-injury, To improve tolerance to ADL's Therapeutic Exercise to Include: Strength training, Endurance training, Balance training, Gait and locomotor training For the Purpose of:: To increase oxygenation perfusion, To improve muscle performance and motor function, To improve ability to perform ADL's, To increase tolerance to activity/condition/position, To improve performance and independence with ADL's, To decrease level of supervision to perform tasks, To improve ability of physical actions for home/community/work/leisure, To improve gait and locomotor functions, To improve endurance, To improve balance, To improve safety with gait, To assume or resume ADL's, To improve ability to perform tasks related to life management, To improve tolerance to ADL's Functional Training to Include: Gait training For the Purpose of:: To improve muscle performance and motor function, To improve ability to perform ADL's, To increase tolerance to activity/condition/position, To decrease level of supervision to perform tasks, To improve ability of physical actions for home/community/work/leisure, To improve gait and locomotor functions, To improve endurance, To improve balance, To improve ability to perform tasks related to life management Thank you for the opportunity to evaluate your patient. For Medicare and Medicare HMO plans, please review the plan of care and approve it. It will need to be FAXED BACK to us at [phone] for Medicare purposes. For Medicare only, by signing this I certify the plan of care. Please let me know if there are questions or concerns regarding this plan of care. Physician Signature: Date:
--- NOTE | 2019-01-15 15:40 | HP.PTDCNRP_ITS ---
HP - Discharge Summary (1) - Patient Information MARK GRIFFIN was seen in my office for initial evaluation on 07/22/18. The following Plan of Care was established for this patient: Initial Frequency: 2x /Week Initial Duration: 8WEEKS - Anticipated Interventions Patient/Client Instruction: Educate patient on: Condition, Plan of Care For the Purpose of:: To improve muscle performance and motor function, To impro ve ability to perform ADL's, To increase tolerance to activity/condition/position, To improve performance and independence with ADL's, To improve ability of physical actions for home/community/work/leisure, To improve gait and locomotor functions, To improve endurance, To improve balance, To improve safety with gait, To assume or resume ADL's, To prevent re-injury, To improve tolerance to ADL's Therapeutic Exercise to Include: Strength training, Endurance training, Balance training, Gait and locomotor training For the Purpose of:: To increase oxygenation perfusion, To improve muscle performance and motor function, To improve ability to perform ADL's, To increase tolerance to activity/condition/position, To improve performance and independen ce with ADL's, To decrease level of supervision to perform tasks, To improve ability of physical actions for home/community/work/leisure, To improve gait and locomotor functions, To improve endurance, To improve balance, To improve safety with gait, To assume or resume ADL's, To improve ability to perform tasks related to life management, To improve tolerance to ADL's Functional Training to Include: Gait training For the Purpose of:: To improve muscle performance and motor function, To improve ability to perform ADL's, To increase tolerance to activity/condition/position, To decrease level of supervision to perform tasks, To improve ability of physical actions for home/community/work/leisure, To improve gait and locomotor functions, To improve endurance, To improve balance, To improve ability to perform tasks related to life management This patient was last seen in our office 07/22/18. Pertinent comments regarding their Physical therapy will appear below: Patient seen for PT for bilateral BKA for strengthening ,gait,transfers and balance. Pateint progresses well with ambulating with FWW and increasing endurance.Thus is d/c from PT. At this point I will be discontinuing this patient from physical therapy. I would be happy to see this patient again in the future if found appropriate by the physician. Thank you! Noel Jeronimo, PT, Cert MDT, [facility]
== END 2018-11-05 19:00 | disposition home or self-care (01) ==
LOC: PT 12:00
DX: Z89.512 Acquired absence of left leg below knee (principal); Z89.511 Acquired absence of right leg below knee
CPT/HCPCS: 97110; 97116; 97163

== ENCOUNTER 2019-10-07 11:47 | Outpatient (RCR) | payer MEDICAID, SELFPAY ==
[2019-10-07 12:30] VITALS: BP 174/76; PULSE 66; RESP 18; TEMP 37.3; BMI 48.0
--- NOTE | 2019-10-07 13:38 | PCM.WC.HP ---
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 (2) Diabetes mellitus type 2 in obese Status: Chronic Current Visit: Yes Code(s): E11.69 - Type 2 diabetes mellitus with other specified complication; E66.9 - Obesity, unspecified (3) Ulcer of right lower extremity Status: Chronic Current Visit: Yes Code(s): L97.919 - Non-pressure chronic ulcer of unspecified part of right lower leg with unspecified severity (4) Morbid obesity Status: Chronic Current Visit: Yes Code(s): E66.01 - Morbid (severe) obesity due to excess calories History of Present Illness Date of Service: 10/07/19 Chief Complaint: Right stump Ulcer History of Wound: Mr. Gracia is a 49 yo last seen here about 2 years ago. 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 He initially had a left lower extremity amputation. Over the last couple of weeks, he reports increased drainage from the stump area. States it worsened with the warmer weather. he had televisits with his PCP howeever measures so far no helpful. History of Type 2 DM and Last A1C about 3 months ago was 8 per patient. He feels well and denies chills, fever, nausea, vomiting or change in bowel habit. 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 Diabetes mellitus type 2 in obese (Chronic) Ulcer of right lower extremity (Chronic) History of left below knee amputation (Chronic) Allergic rhinitis (Chronic) Morbid obesity (Chronic) GERD (gastroesophageal reflux disease) (Chronic) HTN (hypertension) (Chronic) Diabetes (Chronic) Surgical History: - - left bka. Allergies/Adverse Reactions: Allergies dapagliflozin propanediol [From [facility]] Adverse Reaction (Verified 08/05/17 13:01) Other Home Medications: Ambulatory Orders Medication Instructions Recorded Hydrochlorothiazide [Hctz] 25 mg PO DAILY 01/17/16 Lisinopril [Zestril] 40 mg PO DAILY 01/17/16 Rivaroxaban [Xarelto] 20 mg PO DAILY 05/07/17 allopurinol 100 mg tablet 100 mg PO BID tab 06/10/17 Humulin R U-500 (Conc) Kwikpen 500 135 unit SC .COMPLEX #18 ml NS 07/16/17 unit/mL (3 mL) subcutaneous metoprolol tartrate 100 mg tablet 100 mg PO BID 07/16/17 - Family History Maternal Family History: Family History (Last Reviewed 08/05/17 @ 13:02 by Brooklyn Pleitez) Unknown Arthritis Cancer Diabetes Heart disease Hypertension CVA (cerebral vascular accident) - - mother with blood clots Sibling Family History: Family History (Last Reviewed 08/05/17 @ 13:02 by Brooklyn Pleitez) Unknown Arthritis Cancer Diabetes Heart disease Hypertension CVA (cerebral vascular accident) - - 2 sister with blood clots. Smoking Status: Never smoker Review of Systems Constitutional: Denies: Anorexia, Chills, Fever Eyes: Denies: Blurred vision, Pain, Redness HEENT: Denies: Difficulty Hearing, Difficulty Swallowing Cardiovascular: Denies: Chest Pain, Claudication Respiratory: Denies: Cough, Hemoptysis Gastrointestinal: Denies: Abdominal Pain, Hematemesis, Vomiting Genitourinary: Denies: Dysuria Skin: Denies: Jaundice - Physical Exam Vital Signs Temp Pulse Resp BP 99.1 F 66 18 174/76 H 10/07/19 12:30 10/07/19 12:30 10/07/19 12:30 10/07/19 12:30 General: Alert, Oriented x3, Cooperative, No apparent distress HEENT: Atraumatic, Normocephalic Oral: Moist Mucosa Neck: Supple Lungs: Normal air movement Cardiovascular: Regular rate, Regular Rhythm, Normal S1, Normal S2 Abdomen: Soft, Non Tender, Obese Extremities: No cyanosis Skin: Ulcer/ Wound Wound Measurements and Assessment WC - Nurse 1 - General Ulcer Measurement Start: 10/07/19 12:24 Freq: Status: Active Protocol: Activity Type Activity Date Activity User E-Sign Co-Sign Detail Recorded Client Recorded Date Recorded By Document 10/07/19 12:30 DV [id number] 10/07/19 12:36 DV 10/07/19 12:30 Wound Center Nurse 1 [Ulcer Assessment] #5 Right Stump Cluster -Combined with other wound No -Current Size (cm) - Length 9.0 -Current Size (cm) - Width 6.5 -Current Size (cm) - Depth 0.1 -Total Square Cm 58.50 -Date of Last Picture (Recall this 10/07/19 field) -Photo Taken Yes -Epithelialization None Present -Tunneling No -Undermining/Tunneling No -Circular Undermining No -Classification - Thickness Full Thickness without Exposed Support Structure -Exudate Amt Large -Exudate Type Serosanguineous -Wound Margin Indistinct, Non -Visible -Granulation Amt None Present (0 %) -Granulation Quality N/A -Slough/Fibrin Yes -Necrosis Amt Small (1-33%) -Necrotic Tissue Type Adherent Slough -Structure Exposed None/Limited to Skin Breakdown -Texture (Any-wound Skin Appearance) Assessed, Localized Edema ,Scarring,Rash -Color (Any-wound Skin Appearance) No Abnormality, Assessed -Temperature (Any-wound Skin No Abnormality Appearance) (Pt Warm) -Foul Odor after Cleansing Yes -Anesthetic Used 4% Lidocaine Solution Musculoskeletal: No Muscle Wasting Neurological: Cranial nerves II-XII grossly intact Psych/Mental Status: Normal Affect Debridement Note Wound debrided: Right Stump Anesthesia Used: 4% Lidocaine Solution Depth: Down to and including healthy tissue, in the subcutaneous layer Percentage of wound debrided: 100 Instrument Used: 5mm curette Tissue Removed: Slough and devitalized tissue Severity: Fat Layer Exposed Amount of bleeding with debridement: Mild Bleeding Controlled with: Pressure Patient tolerated procedure well Assessment/Plan Active Problems (Last Reviewed 08/05/17 @ 13:02 by Brooklyn Pleitez) 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 Diabetes mellitus type 2 in obese (Chronic) Ulcer of right lower extremity (Chronic) Morbid obesity (Chronic) Assessment: Same as above. Plan: Debridement done as documented above. Procedure was well-tolerated. Cultures taken due to significant foul order. X-ray also ordered to rule out possible stump infection/osteomyelitis. CBC, CMP, CRP, ESR and A1c ordered. For now, Aquasol extra twice daily. Absorbent dressing over top to help with drainage. He was advised to hold off using his prosthesis due to increased risk for irritation. Optimal diabetes control also strongly recommended. Increase protein intake. His questions were answered and he was advised to call with any further questions or concerns. Follow-up in a week. This note was generated with [employer] dictation software. It may contain incorrect words, spelling, and punctuation that were not noted in checking the note before signing. Multi Select Codes - Visit Charges Office Visit/Consults: 81159 OV L4 Est - Integumentary Integumentary CPT Codes: 83371 Milagros subq tissue 20 sq cm/< - Please refer to clinical note for sq cm debrided.
--- NOTE | 2019-10-07 13:57 | RAD_ITS ---
STUDY: X-RAY - RIGHT KNEE REASON FOR EXAM: Male, 49 years old. RT STUMP ULCER TECHNIQUE: 3 view(s) of the knee. COMPARISON: None. FINDINGS: The patient is status post below knee amputation. Diffuse soft tissue swelling. Faint calcifications in the distal portion of the stump. RAD/Knee 1 or 2 Views IMPRESSION: Status post below knee amputation with diffuse soft tissue swelling and the faint calcifications along the distal portion of the stump. Electronically Signed: Tad Dubois, at 15:40 EDT , Service support ,
[2019-10-07 14:56] LABS: Absolute Lymphocyte Count 4.63 X10^3/uL (0.83-4.51); Absolute Neutrophil Count 7.3 X10^3/uL (2.0-7.7); Basophil# 0.08 X10^3/uL; Basophil% 0.6 % (0-1); Eosinophil# 0.29 X10^3/uL; Eosinophils% 2.2 % (0-5); Hematocrit 39.8 % (40-54); Hemoglobin 11.7 g/dL (13.0-16.5); Lymphocyte # 4.63 X10^3/ul (4.0); Lymphocyte % 34.9 % (19-41); Mean Corp Hgb Conc 29.4 g/dL (32-36); Mean Corpuscular Hgb 24.5 pg (27.0-32.0); Mean Corpuscular Volume 83.3 fL (80-94); Mean Platelet Vol. 10.5 fl (6.2-12.0); Monocyte# 0.93 X10^3/uL; NRBC Flagged by Analyzer 0.2 % (0-5); Neutrophil # 7.27 X10^3/uL (2.7-7.7); Neutrophil % 54.8 % (47-70); Platelet Count 409 K/mm3 (150-450); RBC Distribution Width CV 15.9 % (11.6-14.6); RBC Distribution Width SD 47.9 fl (35.1-43.9); Red Blood Count 4.78 M/mm3 (4.6-6.2); White Blood Count 13.3 K/mm3 (4.4-11.0)
[2019-10-07 15:17] LABS: Erythrocyte Sedimentation Rate 74 mm/hr (0-15)
[2019-10-07 15:22] LABS: Hemoglobin A1c 9.2 % (3.8-5.6)
[2019-10-07 16:03] LABS: ALB/GLOB Ratio 0.7 RATIO (0.9-2.4); AST(SGOT) 12 U/L (15-37); Alanine Aminotransfer ALT/SGPT 24 U/L (16-61); Albumin, Serum 3.4 g/dL (3.2-5.0); Alkaline Phosphatase 173 U/L (45-117); Anion Gap 6 (5-15); BUN 33 mg/dL (7-18); BUN/Creat Ratio 23.9 RATIO (10-20); Calcium,Total 9.1 mg/dL (8.5-10.1); Chloride 106 mmol/L (98-107); Creatinine, Serum 1.38 mg/dL (0.70-1.30); EST Glomerular Filtration Rate 59 mL/min (>60); Est Glom Filt Rate - Afr Amer 71 mL/min (>60); Estimated Creatinine Clearance 81.24 ml/min; Globulin 5.2 g/dL (2.2-4.2); Glucose 93 mg/dL (74-106); Protein, Total 8.6 g/dL (6.4-8.2); Sodium Level 138 mmol/L (136-145)
== END 2019-10-10 23:59 ==
LOC: WC 11:47
PROVIDERS: Referring Provider Internal Medicine; Visit Provider Internal Medicine
DX: E11.621 Type 2 diabetes mellitus with foot ulcer (principal); R60.0 Localized edema; E66.01 Morbid (severe) obesity due to excess calories; Z68.42 Body mass index [BMI] 45.0-49.9, adult; L97.812 Non-pressure chronic ulcer of other part of right lower leg with fat layer exposed; I10 Essential (primary) hypertension; K21.9 Gastro-esophageal reflux disease without esophagitis; Z82.3 Family history of stroke; Z82.49 Family history of ischemic heart disease and other diseases of the circulatory system; Z89.512 Acquired absence of left leg below knee; Z89.611 Acquired absence of right leg above knee
CPT/HCPCS: 11042; 36415; 73560; 80053; 83036; 85025; 85652; 86140; 87070; 87075; 87076; 87077; 87186; 87205; 99212; G0463

== ENCOUNTER 2019-11-04 11:30 | Outpatient (RCR) | payer MEDICAID, SELFPAY ==
[2019-10-11 00:36] VITALS: BP 174/76; PULSE 66; RESP 18; TEMP 37.3
[2019-10-14 10:08] VITALS: BP 175/94; PULSE 69; RESP 18; TEMP 36.8; BMI 48.0
--- NOTE | 2019-10-14 12:15 | PCM.WC.PN ---
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 (2) Diabetes mellitus type 2 in obese Status: Chronic Current Visit: Yes Code(s): E11.69 - Type 2 diabetes mellitus with other specified complication; E66.9 - Obesity, unspecified (3) Morbid obesity Status: Chronic Current Visit: Yes Code(s): E66.01 - Morbid (severe) obesity due to excess calories Type of Wound Date of Service: 10/14/19 Chief Complaint: Right stump Ulcer History of Wound: Mr. Gracia is a 49 yo last seen here about 2 years ago. 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 He initially had a left lower extremity amputation. Over the last couple of weeks, he reports increased drainage from the stump area. States it worsened with the warmer weather. he had televisits with his PCP howeever measures so far no helpful. History of Type 2 DM and Last A1C about 3 months ago was 8 per patient. He feels well and denies chills, fever, nausea, vomiting or change in bowel habit. Progress of Wound: No new concerns. Foul smell significantly improved. Drainage also said to have improved. - Physical Exam Vital Signs Temp Pulse Resp BP 98.2 F 69 18 175/94 H 10/14/19 10:08 10/14/19 10:08 10/14/19 10:08 10/14/19 10:08 General: Alert, Oriented x3, Cooperative, No apparent distress HEENT: Atraumatic, Normocephalic Oral: Moist Mucosa Neck: Supple Lungs: Normal air movement Abdomen: Non Tender, Obese Extremities: No cyanosis, Edema Skin: Ulcer/ Wound Wound Measurements and Assessment WC - Nurse 1 - General Ulcer Measurement Start: 10/14/19 10:08 Freq: Status: Active Protocol: Activity Type Activity Date Activity User E-Sign Co-Sign Detail Recorded Client Recorded Date Recorded By Document 10/14/19 10:08 DV [id number] 10/14/19 10:12 DV 10/14/19 10:08 Wound Center Nurse 1 [Ulcer Assessment] #5 Right Stump Cluster -Combined with other wound No -Current Size (cm) - Length 9.2 -Current Size (cm) - Width 8.2 -Current Size (cm) - Depth 0.1 -Total Square Cm 75.44 WC - Nurse 2 - General Ulcer CM Notes Start: 10/14/19 10:08 Freq: Status: Active Protocol: Activity Type Activity Date Activity User E-Sign Co-Sign Detail Recorded Client Recorded Date Recorded By Document 10/14/19 10:36 MW [id number] 10/14/19 10:41 MW 10/14/19 10:36 Wound Center Nurse 2 [Procedure/Treatment] -Time 10:39 -Correct Patient Yes -Correct Side, Site, Position Yes -Correct Procedure Yes -Procedure Performed Yes -Type of Procedure Debridement -Clinical Debridement Subcutaneous -Post Debridement Size (cm) - Length 9.0 -Post Debridement Size (cm) - Width 7.0 -Post Debridement Size (cm) - Depth 0.1 -Total Square Cm 63.00 -Wound/Ulcer Outcome Not Healed -Ulcer Cleansing Rinsed/ Irrigated with Saline -Foul Odor after Cleansing No -Bioengineered Tissue No -Bleeding Controlled with Pressure -Offloading No -Treatment Response Procedure Tolerated Well [See Physician Procedure note for Specifics] Pain Scale: 0-10 Numeric [Pain] -Is Patient Pain Free? Yes Musculoskeletal: No Muscle Wasting Neurological: Cranial nerves II-XII grossly intact Psych/Mental Status: Normal Affect Debridement Note Post-Debridement Measurements/Treatment JANETT - Nurse 2 - General Ulcer CM Notes Start: 10/14/19 10:08 Freq: Status: Active Protocol: Activity Type Activity Date Activity User E-Sign Co-Sign Detail Recorded Client Recorded Date Recorded By Document 10/14/19 10:36 MW [id number] 10/14/19 10:41 MW 10/14/19 10:36 Wound Center Nurse 2 #5 Right Stump Cluster -Time 10:39 -Correct Patient Yes -Correct Side, Site, Position Yes -Correct Procedure Yes -Procedure Performed Yes -Type of Procedure Debridement -Clinical Debridement Subcutaneous -Post Debridement Size (cm) - Length 9.0 -Post Debridement Size (cm) - Width 7.0 -Post Debridement Size (cm) - Depth 0.1 -Total Square Cm 63.00 -Wound/Ulcer Outcome Not Healed -Ulcer Cleansing Rinsed/ Irrigated with Saline -Foul Odor after Cleansing No -Bioengineered Tissue No -Bleeding Controlled with Pressure -Offloading No -Treatment Response Procedure Tolerated Well Pain Scale: 0-10 Numeric Is Patient Pain Free? 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 Diabetes mellitus type 2 in obese (Chronic) Morbid obesity (Chronic) Assessment: Same as above. Plan: Debridement done as documented above. Procedure was well-tolerated. Improvement noted in the past week. Drainage has improved as well. Cultures and labs reviewed. X-ray also reviewed. No concern for osteomyelitis but soft tissue edema. Elevated CRP and ESR as well. Will start on cefdinir and metronidazole per culture and sensitivity. Continue Aquacel extra daily to twice daily with Adaptic over top. He was advised to hold off using his prosthesis due to increased risk for irritation. Optimal diabetes control also strongly recommended. Increase protein intake. His questions were answered and he was advised to call with any further questions or concerns. Follow-up in a week. This note was generated with [employer] software. It may contain incorrect words, spelling, and punctuation that were not noted in checking the note before signing. [id number]: [id number] Milagros subq tissue 20 sq cm/< Add On Codes: [id number] Milagros subq tissue add-on - Additional Sq Cm debrided, please refer to clinical note.
--- NOTE | 2019-10-14 12:55 | WC ---
Spoke with the [facility] ([phone]) They are shipping his supplies today 10/14/19
[2019-10-21 11:34] VITALS: BP 149/79; PULSE 61; RESP 18; TEMP 37; BMI 48.0
--- NOTE | 2019-10-21 13:53 | PCM.WC.PN ---
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 (2) Diabetes mellitus type 2 in obese Status: Chronic Current Visit: Yes Code(s): E11.69 - Type 2 diabetes mellitus with other specified complication; E66.9 - Obesity, unspecified (3) Morbid obesity Status: Chronic Current Visit: Yes Code(s): E66.01 - Morbid (severe) obesity due to excess calories Type of Wound Date of Service: 10/21/19 Chief Complaint: Right stump Ulcer History of Wound: Mr. Gracia is a 49 yo last seen here about 2 years ago. 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 He initially had a left lower extremity amputation. Over the last couple of weeks, he reports increased drainage from the stump area. States it worsened with the warmer weather. he had televisits with his PCP howeever measures so far no helpful. History of Type 2 DM and Last A1C about 3 months ago was 8 per patient. He feels well and denies chills, fever, nausea, vomiting or change in bowel habit. Progress of Wound: No new concerns. Significant area of dryness and minimal area of ulcertion noted. - Physical Exam Vital Signs Temp Pulse Resp BP 98.6 F 61 18 149/79 H 10/21/19 11:34 10/21/19 11:34 10/21/19 11:34 10/21/19 11:34 General: Alert, Oriented x3, Cooperative, No apparent distress HEENT: Atraumatic, Normocephalic Oral: Moist Mucosa Neck: Supple Lungs: Normal air movement Abdomen: Non Tender, Obese Extremities: No cyanosis Wound Measurements and Assessment WC - Nurse 1 - General Ulcer Measurement Start: 10/14/19 10:08 Freq: Status: Active Protocol: Activity Type Activity Date Activity User E-Sign Co-Sign Detail Recorded Client Recorded Date Recorded By Document 10/21/19 11:34 PL [id number] 10/21/19 11:50 PL 10/21/19 11:34 Wound Center Nurse 1 [Ulcer Assessment] #5 Right Stump Cluster -Current Size (cm) - Length 0.2 -Current Size (cm) - Width 0.2 -Current Size (cm) - Depth 0.1 -Total Square Cm 0.04 -Photo Taken No -Tunneling No -Undermining/Tunneling No -Circular Undermining No -Exudate Amt None Present -Granulation Amt Large (67-100%) -Granulation Quality Lely -Slough/Fibrin No -Texture (Any-wound Skin Appearance) No Abnormality -Moisture (Any-wound Skin Appearance No Abnormality ) -Color (Any-wound Skin Appearance) No Abnormality -Temperature (Any-wound Skin No Abnormality Appearance) (Pt Warm) -Ulcer Cleansing Rinsed/ Irrigated with Saline -Foul Odor after Cleansing No WC - Nurse 2 - General Ulcer CM Notes Start: 10/14/19 10:08 Freq: Status: Active Protocol: Activity Type Activity Date Activity User E-Sign Co-Sign Detail Recorded Client Recorded Date Recorded By Document 10/21/19 12:17 MW [id number] 10/21/19 12:18 MW 10/21/19 12:17 Wound Center Nurse 2 [Procedure/Treatment] -Time 12:18 -Correct Patient Yes -Correct Side, Site, Position Yes -Correct Procedure Yes -Procedure Performed No -Wound/Ulcer Outcome Not Healed -Ulcer Cleansing Rinsed/ Irrigated with Saline -Foul Odor after Cleansing No -Bioengineered Tissue No -Bleeding Controlled with NA -Offloading No -Treatment Response Procedure Tolerated Well [See Physician Procedure note for Specifics] Pain Scale: 0-10 Numeric [Pain] -Is Patient Pain Free? Yes Musculoskeletal: No Muscle Wasting Neurological: Cranial nerves II-XII grossly intact Psych/Mental Status: Normal Affect Debridement Note Post-Debridement Measurements/Treatment WC - Nurse 2 - General Ulcer CM Notes Start: 10/14/19 10:08 Freq: Status: Active Protocol: Activity Type Activity Date Activity User E-Sign Co-Sign Detail Recorded Client Recorded Date Recorded By Document 10/14/19 10:36 MW [id number] 10/14/19 10:41 MW Document 10/21/19 12:17 MW [id number] 10/21/19 12:18 MW 10/14/19 10/21/19 10:36 12:17 Wound Center Nurse 2 #5 Right Stump Cluster -Time 10:39 12:18 -Correct Patient Yes Yes -Correct Side, Site, Position Yes Yes -Correct Procedure Yes Yes -Procedure Performed Yes No -Type of Procedure Debridement -Clinical Debridement Subcutaneous -Post Debridement Size (cm) - Length 9.0 -Post Debridement Size (cm) - Width 7.0 -Post Debridement Size (cm) - Depth 0.1 -Total Square Cm 63.00 -Wound/Ulcer Outcome Not Healed Not Healed -Ulcer Cleansing Rinsed/ Rinsed/ Irrigated with Irrigated with Saline Saline -Foul Odor after Cleansing No No -Bioengineered Tissue No No -Bleeding Controlled with Pressure NA -Offloading No No -Treatment Response Procedure Procedure Tolerated Well Tolerated Well Pain Scale: 0-10 Numeric Is Patient Pain Free? 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 Diabetes mellitus type 2 in obese (Chronic) Morbid obesity (Chronic) Assessment: Same as above. Plan: Improving. Area of dryness with minimal ulceration. No debridement completed today. Switch to aquaphor daily with adaptic over top. Change 3 - 4 x daily. He was advised to hold off using his prosthesis due to increased risk for irritation. Optimal diabetes control also strongly recommended. Increase protein intake. His questions were answered and he was advised to call with any further questions or concerns. Follow-up in 2 weeks. This note was generated with [employer] software. It may contain incorrect words, spelling, and punctuation that were not noted in checking the note before signing. Office Visits / Consults: [id number] REPLACED BY [facility] Est
[2019-11-04 11:35] VITALS: BP 133/81; PULSE 69; RESP 18; TEMP 37.1; BMI 48.0
--- NOTE | 2019-11-04 13:46 | PCM.WC.PN ---
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 (2) Diabetes mellitus type 2 in obese Status: Chronic Current Visit: Yes Code(s): E11.69 - Type 2 diabetes mellitus with other specified complication; E66.9 - Obesity, unspecified (3) Morbid obesity Status: Chronic Current Visit: Yes Code(s): E66.01 - Morbid (severe) obesity due to excess calories Type of Wound Date of Service: 11/04/19 Chief Complaint: Right stump Ulcer History of Wound: Mr. Gracia is a 49 yo last seen here about 2 years ago. 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 He initially had a left lower extremity amputation. Over the last couple of weeks, he reports increased drainage from the stump area. States it worsened with the warmer weather. he had televisits with his PCP howeever measures so far no helpful. History of Type 2 DM and Last A1C about 3 months ago was 8 per patient. He feels well and denies chills, fever, nausea, vomiting or change in bowel habit. Progress of Wound: Appears more moist today with some areas of breakdown. Patient states that he has been sweating a lot. - Physical Exam Vital Signs Temp Pulse Resp BP 98.7 F 69 18 133/81 H 11/04/19 11:35 11/04/19 11:35 11/04/19 11:35 11/04/19 11:35 General: Alert, Oriented x3, Cooperative, No apparent distress HEENT: Atraumatic, Normocephalic Oral: Moist Mucosa Neck: Supple Lungs: Normal air movement Abdomen: Non Tender, Obese Extremities: No cyanosis Skin: Ulcer/ Wound Wound Measurements and Assessment WC - Nurse 1 - General Ulcer Measurement Start: 10/14/19 10:08 Freq: Status: Active Protocol: Activity Type Activity Date Activity User E-Sign Co-Sign Detail Recorded Client Recorded Date Recorded By Document 11/04/19 11:35 [id number] 11/04/19 11:47 Document 11/04/19 11:49 [facility] [id number] 11/04/19 11:49 BMF 11/04/19 11/04/19 11:35 11:49 Wound Center Nurse 1 [Ulcer Assessment] #5 Right Stump Cluster -Combined with other wound No -Current Size (cm) - Length 0.1 -Current Size (cm) - Width 0.1 -Current Size (cm) - Depth 0.1 -Total Square Cm 0.01 -Date of Last Picture (Recall this 11/04/19 field) -Photo Taken Yes -Epithelialization Large 67-100% -Tunneling No -Undermining/Tunneling No -Circular Undermining No -Exudate Amt None Present -Slough/Fibrin Yes -Necrosis Amt Small (1-33%) -Necrotic Tissue Type Adherent Slough -Texture (Any-wound Skin Appearance) Assessed -Moisture (Any-wound Skin Appearance Assessed,Dry/ ) Scaly -Color (Any-wound Skin Appearance) Assessed -Temperature (Any-wound Skin No Abnormality Appearance) (Pt Warm) -Tenderness on Palpation (Any-wound No Skin Appearance) -Ulcer Cleansing soapy water -Foul Odor after Cleansing No -Anesthetic Used 4% Lidocaine Solution [Edema Assessment] -Lower Limb Edema Present Yes -Right Calf (cm) 46.3 WC - Nurse 2 - General Ulcer CM Notes Start: 10/14/19 10:08 Freq: Status: Active Protocol: Activity Type Activity Date Activity User E-Sign Co-Sign Detail Recorded Client Recorded Date Recorded By Document 11/04/19 12:15 DV [id number] 11/04/19 12:19 DV 11/04/19 12:15 Wound Center Nurse 2 [Procedure/Treatment] #5 Right Stump Cluster -Time 12:16 -Correct Patient Yes -Correct Side, Site, Position Yes -Correct Procedure Yes -Procedure Performed Yes -Type of Procedure Debridement -Clinical Debridement Subcutaneous -Post Debridement Size (cm) - Length 2.0 -Post Debridement Size (cm) - Width 5.0 -Post Debridement Size (cm) - Depth 0.1 -Total Square Cm 10.00 -Wound/Ulcer Outcome Not Healed -Ulcer Cleansing Rinsed/ Irrigated with Saline -Foul Odor after Cleansing No -Bleeding Controlled with Pressure -Offloading No -Treatment Response Procedure Tolerated Well [See Physician Procedure note for Specifics] Pain Scale: 0-10 Numeric [Pain] -Is Patient Pain Free? Yes Musculoskeletal: No Muscle Wasting Neurological: Cranial nerves II-XII grossly intact Psych/Mental Status: Normal Affect Debridement Note Post-Debridement Measurements/Treatment WC - Nurse 2 - General Ulcer CM Notes Start: 10/14/19 10:08 Freq: Status: Active Protocol: Activity Type Activity Date Activity User E-Sign Co-Sign Detail Recorded Client Recorded Date Recorded By Document 10/14/19 10:36 MW [id number] 10/14/19 10:41 MW Document 10/21/19 12:17 MW [id number] 10/21/19 12:18 MW Document 11/04/19 12:15 DV [id number] 11/04/19 12:19 DV 10/14/19 10/21/19 11/04/19 10:36 12:17 12:15 Wound Center Nurse 2 #5 Right Stump Cluster -Time 10:39 12:18 12:16 -Correct Patient Yes Yes Yes -Correct Side, Site, Position Yes Yes Yes -Correct Procedure Yes Yes Yes -Procedure Performed Yes No Yes -Type of Procedure Debridement Debridement -Clinical Debridement Subcutaneous Subcutaneous -Post Debridement Size (cm) - Length 9.0 2.0 -Post Debridement Size (cm) - Width 7.0 5.0 -Post Debridement Size (cm) - Depth 0.1 0.1 -Total Square Cm 63.00 10.00 -Wound/Ulcer Outcome Not Healed Not Healed Not Healed -Ulcer Cleansing Rinsed/ Rinsed/ Rinsed/ Irrigated with Irrigated with Irrigated with Saline Saline Saline -Foul Odor after Cleansing No No No -Bioengineered Tissue No No -Bleeding Controlled with Pressure NA Pressure -Offloading No No No -Treatment Response Procedure Procedure Procedure Tolerated Well Tolerated Well Tolerated Well Pain Scale: 0-10 Numeric Is Patient Pain Free? 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 Diabetes mellitus type 2 in obese (Chronic) Morbid obesity (Chronic) Assessment: Same as above. Plan: Now appears really moist with some/minimal area of breakdown. Debridement done as documented above, procedure was well-tolerated. Aquacel with Adaptic over top. He was advised to hold off using his prosthesis due to increased risk for irritation. Also advised to work closely with his prosthesis company ([employer]). Optimal diabetes control also strongly recommended. Increase protein intake. His questions were answered and he was advised to call with any further questions or concerns. Follow-up in 2 weeks me and in 1 week for nurse visit. This note was generated with [employer] dictation software. It may contain incorrect words, spelling, and punctuation that were not noted in checking the note before signing. [id number]: [id number] Milagros subq tissue 20 sq cm/<
== END 2019-11-09 23:59 ==
LOC: WC 11:30
PROVIDERS: Referring Provider Internal Medicine; Visit Provider Internal Medicine
DX: L97.112 Non-pressure chronic ulcer of right thigh with fat layer exposed (principal); E11.69 Type 2 diabetes mellitus with other specified complication; E66.01 Morbid (severe) obesity due to excess calories; Z89.611 Acquired absence of right leg above knee
CPT/HCPCS: 11042; 11045; 99213; G0463

== ENCOUNTER 2019-11-18 10:11 | Outpatient (RCR) | payer MEDICAID, SELFPAY ==
[2019-11-10 00:32] VITALS: BP 133/81; PULSE 69; RESP 18; TEMP 37.1
== END 2019-12-10 23:59 ==
LOC: WC 10:11
PROVIDERS: Referring Provider Internal Medicine; Visit Provider Internal Medicine
DX: Z09 Encounter for follow-up examination after completed treatment for conditions other than malignant neoplasm (principal)

== ENCOUNTER 2019-11-25 16:12 | Inpatient (IN) | payer MEDICAID, SELFPAY ==
[2019-11-25] VITALS (10 sets, daily range): BP systolic 117–143; BP diastolic 71–86; PULSE 73–78; RESP 18–28; TEMP 36.3–37.3; O2SAT 86–99; BMI 72.7; BMI 70.2
--- NOTE | 2019-11-25 16:35 | ED.DCSUM_ITS ---
History of Present Illness Chief Complaint: Complaint Informant: Patient Narrative: Patient is a 49-year-old male who presents to the emergency department for abdominal distention as well as feeling like he is not completely emptying his bladder. This is been present over the past 2 to 3 days. Denies ever having had before in the past. No known aggravating or relieving factors. Denies any abdominal pain. He has been slightly nauseous but denies vomiting. He has had a few episodes of diarrhea but this is been nonbloody and not black. He denies any dysuria or hematuria. He states whenever he is able to go he has no problems. He denies any fevers or chills. No shortness of breath. Does feel like the distention is pushing up on his diaphragm but denies any significant chest pain. Patient has a history of double leg amputations due to infections. He denies smoking, drinking or drug use. Past Medical History - Allergies and Home Meds Allergies/Adverse Reactions: Allergies dapagliflozin propanediol [From [facility]] Adverse Reaction (Verified 08/05/17 13:01) Other Primary Care Physician: Arian Couch MD [Primary Care Provider] - Past Medical History: - - Diabetes, hypertension Surgical History: - - left bka. Smoking Status: Never smoker Alcohol: None Drugs: None - Family History Maternal Family History: Family History (Last Reviewed 08/05/17 @ 13:02 by Brooklyn Pleitez) Unknown Arthritis Cancer Diabetes Heart disease Hypertension CVA (cerebral vascular accident) Family History: Reports: - - mother with blood clots Sibling Family History: Family History (Last Reviewed 08/05/17 @ 13:02 by Brooklyn Pleitez) Unknown Arthritis Cancer Diabetes Heart disease Hypertension CVA (cerebral vascular accident) Family History: Reports: - - 2 sister with blood clots. Review of Systems All systems negative except as indicated General: Denies: Chills, Fever, Sweats Eyes: Denies: Visual changes - bilaterally, Diplopia ENT: Denies: Rhinorrhea, Sore throat Cardiovascular: Denies: Chest pain, Palpitations Respiratory: Denies: Dyspnea, Cough, Dyspnea on exertion Gastrointestinal: Reports: - - Distention. Denies: Abdominal pain, Nausea, Vomiting, Diarrhea, Melena, Hematochezia Genitourinary: Denies: Dysuria, Hematuria, Frequency Musculoskeletal: Denies: Back pain, Extremity Pain Skin: Denies: Rash, Wounds Neurological: Denies: Headache, Weakness, Numbness Physical Exam Vital Signs/Narrative: Vital Signs Temp Pulse Resp BP Pulse Ox 11/25/19 16:16 97.3 F L 73 22 H 133/73 H 86 11/25/19 16:12 97.3 F L 74 22 H 133/73 H 98 Inital Vital Signs reviewed: Yes General: Well nourished, Well developed, Obese - Morbidly obese, No Acute Distress Head: Normocephalic, Atraumatic Eyes: Perrl, EOMI ENT: Moist mucous membranes, No rhinorrhea Neck: Supple, Nontender Cardiovascular: Regular rate, Regular rhythm, No murmurs Respiratory: No distress, CTA bilaterally, Chest nontender Abdomen: Nontender, - - Morbidly obese abdomen. Abdomen is distended. No significant pain with palpation. Exam is limited due to body habitus. Back: Nontender, Normal Inspection. Negative for: CVA tenderness, Spinal tenderness Extremities: Nontender, No edema, - - Bilateral leg amputation Skin: Normal color, No rash Neurological: Alert, Oriented x3, Cranial nerves II-XII grossly intact, Normal Strength, Normal Sensation Psychological: Normal affect, Normal Mood Diagnostic/Tx/Re-eval - EKG Initial EKG Interpretation: - - Rate of 76 bpm in normal sinus rhythm. RI interval of 224. Otherwise normal intervals. Normal axis. No ST elevations or depressions appreciated. No T wave abnormalities. No prior EKG for comparison. - Medical Decision Making Patient presents emerge department for feeling like his abdomen distended and cannot completely empty his bladder. Physical exam is difficult to assess due to body habitus. Upon arrival to the emergency department he had some hypoxia trying to get to the bed but this resolved once he sat down. Denies chest pain or shortness of breath. Will check basic lab work at this time pain he is denying any abdominal pain at this time. Fuentes catheter was inserted and over 1 L of urine was obtained. He is feeling better after the bladder is decompressed. His creatinine did double. His troponin is also elevated. This could likely be related to his acute urinary retention but I do want to bring him in the hospital to make sure his troponin is trending downward. EKG did not show any signs of acute ischemia. Low concern for PE and he is on Xarelto. If patient continues to have any hypoxia that he could benefit from a CTA once VIOLETTE resolves. Patient otherwise has been stable throughout ED stay. He is agreeable to staying in the hospital at this time. We will give a dose of aspirin here in the ED. ED Disposition - Plan for ED Patient: Disposition: Acute Care Hospital [facility] Diagnosis: Acute urinary retention, Acute kidney injury, Hyperglycemia, Elevated troponin Referrals: Arian Couch MD [Primary Care Provider] -
[2019-11-25 16:58] LABS: Bacteria 0 SEEN /hpf (None Seen); Mucous, Urine 0 SEEN /hpf (<or=2+)
[2019-11-25 17:00] LABS: Absolute Lymphocyte Count 4.91 X10^3/uL (0.83-4.51); Absolute Neutrophil Count 7.1 X10^3/uL (2.0-7.7); Basophil# 0.08 X10^3/uL; Basophil% 0.6 % (0-1); Eosinophil# 0.17 X10^3/uL; Eosinophils% 1.3 % (0-5); Hematocrit 40.9 % (40-54); Hemoglobin 11.7 g/dL (13.0-16.5); Lymphocyte # 4.91 X10^3/ul (4.0); Mean Corp Hgb Conc 28.6 g/dL (32-36); Mean Corpuscular Hgb 24.2 pg (27.0-32.0); Mean Corpuscular Volume 84.5 fL (80-94); Mean Platelet Vol. 10.6 fl (6.2-12.0); Monocyte# 0.92 X10^3/uL; Monocyte% 6.9 % (0-10); NRBC Flagged by Analyzer 0.3 % (0-5); Neutrophil # 7.08 X10^3/uL (2.7-7.7); Neutrophil % 53.4 % (47-70); Platelet Count 406 K/mm3 (150-450); RBC Distribution Width CV 17.6 % (11.6-14.6); RBC Distribution Width SD 52.2 fl (35.1-43.9); Red Blood Count 4.84 M/mm3 (4.6-6.2); White Blood Count 13.3 K/mm3 (4.4-11.0)
[2019-11-25 17:00] LABS: Color, Urine Yellow (Yellow); Glucose, Dipstick 250 mg/dl (Normal); Ketone-Dipstick Negative (Negative); Leukocyte Esterase-Dipstick Negative /ul (Negative); Nitrite-Dipstick Negative (Negative); Occult Blood-Urine Negative /ul (Negative); Protein-Dipstick 30 mg/dl (Negative); Specific Gravity, Urine 1.015 (1.002-1.030); Urine Bilirubin Dipstick Negative (Negative); Urine Clarity Clear (Clear); Urine Urobilinogen Normal (Normal)
[2019-11-25 17:16] LABS: ALB/GLOB Ratio 0.7 RATIO (0.9-2.4); AST(SGOT) 12 U/L (15-37); Alanine Aminotransfer ALT/SGPT 22 U/L (16-61); Albumin, Serum 3.5 g/dL (3.2-5.0); Alkaline Phosphatase 232 U/L (45-117); Anion Gap 6 (5-15); BUN 65 mg/dL (7-18); BUN/Creat Ratio 24.3 RATIO (10-20); Calcium,Total 8.3 mg/dL (8.5-10.1); Chloride 104 mmol/L (98-107); Creatinine, Serum 2.68 mg/dL (0.70-1.30); EST Glomerular Filtration Rate 27 mL/min (>60); Est Glom Filt Rate - Afr Amer 33 mL/min (>60); Estimated Creatinine Clearance 41.83 ml/min; Glucose 336 mg/dL (74-106); Lipase 65 U/L (73-393); Potassium 5.5 mmol/L (3.5-5.1); Protein, Total 8.5 g/dL (6.4-8.2); Sodium Level 133 mmol/L (136-145)
--- NOTE | 2019-11-25 17:35 | EKG12_ITS ---
Test Reason : Blood Pressure : / mmHG Vent. Rate : 076 BPM Atrial Rate : 076 BPM P-R Int : 224 ms QRS Dur : 098 ms QT Int : 392 ms P-R-T Axes : 089 015 100 degrees QTc Int : 441 ms Atrial Flutter Low voltage QRS Possible Inferior infarct , age undetermined Cannot rule out Anterior infarct , age undetermined Abnormal ECG Confirmed by MATTHEW LAURENT, DENISA ([id number]), editor producer HU ROMANO ([id number]) on 11/29/2019 11:00:28 AM Referred By: NOVA Confirmed By:DENISA CASTRO MD
[2019-11-25 17:52] LABS: Squamous Epithelial Cells - UA 0-5 SEEN /hpf (0-5)
[2019-11-25 17:53] LABS: White Blood Cells 0-5 SEEN /hpf (0-5)
[2019-11-25 17:55] LABS: Red Blood Cells-Urine 0-5 SEEN /hpf (0-5)
--- NOTE | 2019-11-25 17:57 | RAD_ITS ---
STUDY: X-RAY CHEST REASON FOR EXAM: Male, 49 years old. C/O DIFFICULTY URINATING, BLOATING IN ABD. TECHNIQUE: Portable chest COMPARISON: None. FINDINGS: There are mild bilateral pulmonary opacities. There is no demonstrated pleural abnormality. There is cardiomegaly. Normal mediastinum and wendy. Normal visualized pulmonary arteries. Normal visualized aortic arch and descending thoracic aorta. Normal visualized thoracic spine. Normal visualized ribs, clavicles, and shoulders. There is no demonstrated abnormality of the visualized soft tissue structures of the upper abdomen. RAD/Chest 1 View (Portable) IMPRESSION: Cardiomegaly Mild bilateral pulmonary opacities cannot exclude atypical viral pneumonia versus pulmonary venous congestion Electronically Signed: Vladimir Colin, at 18:22 EDT Tel , Service support ,
--- NOTE | 2019-11-25 18:29 | HP.PCM_ITS ---
History of Present Illness Date of Admission: 11/25/19 Chief Complaint: difficulty urinating The patient is a 49 year old M with an extensive PMH as outlined. He was admitted via the ED on 11/25/2019 with a complaint of inability to fully urinate and also feeling of abdominal distention. Patient states this has been going on for the past few days when he goes to the bathroom but feels like he is not able to fully urinate as the urine amount he passes a scanty. He denies any other symptoms and denies any burning with urination, any dark urine no blood in his urine. He denies any chest pain, nausea vomiting or diarrhea or decreased intake. Review of systems otherwise negative. In the ED, vitals showed temperature of 98 Fahrenheit with blood pressure of 142/86, respiratory rate of 18 and pulse rate of 74. He was saturating 97% on 2 L of oxygen. Sodium was 133 and potassium was 5.5 with creatinine of 2.68. Calcium was 8.3 and initial troponin was 0.362. BC showed WBC of 13.3 with hemoglobin of 11.7 and platelets of 406. Chest x-ray showed mild bilateral pulmonary opacities and cannot exclu de atypical viral pneumonia versus pulmonary vascular congestion. EKG showed normal sinus rhythm with first-degree heart block. He has been admitted to be managed for VIOLETTE and elevated troponin likely due to decreased clearance. 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 Diabetes mellitus type 2 in obese (Chronic) Ulcer of right lower extremity (Chronic) History of left below knee amputation (Chronic) Allergic rhinitis (Chronic) Morbid obesity (Chronic) GERD (gastroesophageal reflux disease) (Chronic) HTN (hypertension) (Chronic) Diabetes (Chronic) Medical History: Medical History (Last Reviewed 08/05/17 @ 13:02 by Brooklyn Pleitez) Diabetes type 2, uncontrolled E11.65 Dx : 2010 last exacerbation : DKA : never Hypoglycemic episode : never ER visit : never GERD (gastroesophageal reflux disease) K21.9 Gout M10.9 H/O blood clots Z86.718 Hearing problem H91.90 Neuropathy G62.9 Pneumonia J18.9 Seasonal allergies J30.2 HTN (hypertension) I10 Allergies dapagliflozin propanediol [From [facility]] Adverse Reaction (Verified 08/05/17 13:01) Other Home Medications: Ambulatory Orders Medication Instructions Recorded Hydrochlorothiazide [Hctz] 25 mg PO DAILY 01/17/16 Lisinopril [Zestril] 40 mg PO DAILY 01/17/16 metoprolol tartrate 100 mg tablet 100 mg PO BID 07/16/17 Allopurinol [Zyloprim] 300 mg PO DAILY 11/25/19 Atorvastatin Calcium [Lipitor] 40 mg PO QHS 11/25/19 Cetirizine HCl 10 mg PO DAILY 11/25/19 Esomeprazole Mag Trihydrate 20 mg PO DAILY 11/25/19 [Nexium] Insulin Regular, Human [Humulin R 135 unit SQ BIDAC 11/25/19 U-500 Kwikpen] Rivaroxaban [Xarelto] 20 mg PO DINNER 11/25/19 buPROPion XL [Wellbutrin Xl] 150 mg PO DAILY 11/25/19 metFORMIN HCl [Glucophage] 1,000 mg PO BIDCM 11/25/19 Surgical History: Surgical History (Last Reviewed 08/05/17 @ 13:02 by Brooklyn Pleitez) Amputated left leg Z89.612 Surgical History: - - left bka. Smoking Status: Never smoker Alcohol: None Drugs: None - *Family History Maternal Family History: Family History (Last Reviewed 08/05/17 @ 13:02 by Brooklyn Pleitez) Unknown Arthritis Cancer Diabetes Heart disease Hypertension CVA (cerebral vascular accident) History Items: - - mother with blood clots Sibling Family History: Family History (Last Reviewed 08/05/17 @ 13:02 by Brooklyn Pleitez) Unknown Arthritis Cancer Diabetes Heart disease Hypertension CVA (cerebral vascular accident) History Items: - - 2 sister with blood clots. Review of Systems Constitutional: Denies: Chills, Fever, Malaise, Weakness, Weight Change Eyes: Denies: Blurred vision HEENT: Denies: Head Aches, Sinus Congestion, Sinus Drainage Cardiovascular: Denies: Chest Pain, Palpitations Respiratory: Denies: Cough, Shortness of Breath, Shortness of breath at rest, Shortness of breath upon exertion, Sputum production Gastrointestinal: Denies: Abdominal Pain, Nausea, Vomiting Genitourinary: Denies: Dysuria Musculoskeletal: Denies: Joint Pain, Joint Tenderness Skin: Denies: Rash, Wounds Neurological: Denies: Numbness, Tingling, Focal weakness Psychiatric: Denies: Anxiety, Depression, Homicidal Ideations, Suicidal Ideations Hematologic/ Lymphatic: Denies: Easy Bruising, Easy Bleeding VTE Information - Inpt Only VTE Present on Admission: No VTE Pharm Prophylaxis ordered?: Yes Patient Problems: Active and Suspected Problems (Last Reviewed 08/05/17 @ 13:02 by Brooklyn Pleitez) Acute urinary retention (Acute) Acute kidney injury (Acute) Hyperglycemia (Acute) Elevated troponin (Acute) - Physical Exam Vitals/I&O's: Vital Signs Temp Pulse Resp BP Pulse Ox 97.3 F L 76 28 H 143/80 H 99 11/25/19 16:16 11/25/19 17:25 11/25/19 17:25 11/25/19 17:25 11/25/19 17:25 Oxygen Flow Rate (L/min) 2 Oxygen Delivery Method Nasal Cannula Weight: 597 lb 7.243 oz Body Mass Index (BMI) 72.7 Intake and Output for Last 24 Hours 11/23/19 11/24/19 11/25/19 23:59 23:59 23:59 Output Total 1000 / 1000 Balance -1000 / -1000 General: Alert, Oriented x3, Cooperative, - - super morbid obesity HEENT: Atraumatic, PERRLA, EOMI, Normocephalic Oral: Moist Mucosa Neck: Supple, No JVD, Negative Carotid Bruits, Negative Hepatojugular Reflux, No Nodes Lungs: - - decreased breath sounds bibasally, no wheezes or crackles. On 2L of oxygen. Cardiovascular: Regular rate, Regular Rhythm, Normal S1, Normal S2, No murmurs Abdomen: Bowel Sounds Present, Soft, Non Tender, Non-Distended, No Hepato- splenomegaly Extremities: No clubbing, No cyanosis, No edema, Capillary Refill Less than 3 Seconds Skin: No rashes, No breakdown Musculoskeletal: - - bilateral LE above knee amputation Lymphatic: No Cervical, Supraclavicular, or Inguinal Adenopathy Neurological: Cranial nerves II-XII grossly intact, Neuro grossly intact, Motor Exam 5/5 strength throughout Psych/Mental Status: Normal Affect, Appropriate, Alert and oriented to time, place, person, mood and affect Laboratory Results 07/16/20 16:36: WBC 13.3 H, RBC 4.84, Hgb 11.7 L, Hct 40.9, MCV 84.5, MCH 24.2 L , MCHC 28.6 L, RDW Std Deviation 52.2 H, RDW Coeff of Lucy 17.6 H, Plt Count 406, MPV 10.6, Immature Gran % (Auto) 0.800, Neut % (Auto) 53.4, Lymph % (Auto) 37 .0, [place] % (Auto) 6.9, Eos % (Auto) 1.3, Baso % (Auto) 0.6, Absolute Neuts (auto) 7.1, Absolute Lymphs (auto) 4.91 H, Nucleated RBC % 0.3 11/25/19 16:36: Sodium 133 L, Potassium 5.5 H, Chloride 104, Carbon Dioxide 23.0, Anion Gap 6, BUN 65 H, Creatinine 2.68 H, Estim Creat Clear Calc 41.83, Est GFR (MDRD) Af Amer 33 L, Est GFR (MDRD) Non-Af 27 L, BUN/Creatinine Ratio 24.3 H, Glucose 336 H, Calcium 8.3 L, Total Bilirubin 0.60, AST 12 L, ALT 22, Alkaline Phosphatase 232 H, Troponin I 0.362 H, Total Protein 8.5 H, Albumin 3.5, Globulin 5.0 H, Albumin/Globulin Ratio 0.7 L, Lipase 65 L 11/25/19 16:53: Urine Color Yellow, Urine Clarity Clear, Urine pH 5.0, Ur Specific [place] 1.015, Urine Protein 30 H, Urine Glucose (UA) 250 H, Urine Ketones Negative, Urine Occult Blood Negative, Urine Nitrite Negative, Urine Bilirubin Negative, Urine Urobilinogen Normal, Ur Leukocyte Esterase Negative, Urine RBC 0-5 SEEN, Urine WBC 0-5 SEEN, Ur Squamous Epith Cells 0-5 SEEN, Urine Bacteria 0 SEEN, Urine Mucus 0 SEEN Diagnostic Data Chest X-Ray 11/25/19 17:57 IMPRESSION: Cardiomegaly Mild bilateral pulmonary opacities cannot exclude atypical viral pneumonia versus pulmonary venous congestion Electronically Signed: Vladimir Colin, at 18:22 EDT Tel , Service support , Assessment/Plan All Active Problems (Last Reviewed 08/05/17 @ 13:02 by Brooklyn Pleitez) Acute urinary retention (Acute) Acute kidney injury (Acute) Hyperglycemia (Acute) Elevated troponin (Acute) Edema of right lower extremity (Acute) Diabetic foot ulcer (Acute) Bilateral pulmonary embolism (Acute) 49 y/o admitted with a complaint of inability to urinate 1. VIOLETTE likely obstructive * says he wasnt able to urinate; had catheter placed in the ED with drainage of over 1L of u rine * Cr is 2.68 * check urine electrolytes and renal USG * keep catheter in place. * if cr doesnt trend down, to consider nephrology consult * check TSH * 2. Hyperkalemia: due to VIOLETTE. K is 5.5. Give sodium kayexalate and monitor 3. Elevated troponin * Initial troponin was 0.362. This likely due to decreased clearance from VIOLETTE as patient has no cardiac symptoms whatsoever. * Will cycle troponins. EKG showed no acute ST changes. * Consider cardiology consult if creatinine trends upwards. * 4. History of DVT due to factor V Leiden deficiency: On Xarelto. 5. Type 2 diabetes mellitus: on regular insulin 135 units bid. ISS. Accuchecks achs. Hold metformin 6. Hypertension: on metoprolol and HCTZ. hold lisinopril o/a of VIOLETTE 7. Undiagnosed sleep apnea: * With patient's super morbid obesity, he likely has undiagnosed sleep apnea. * He was saturating at 86% with ambulation when he came in but when he rested saturation went up to the 90s. * He is currently on 2 L of oxygen. * CXR did show mild bilateral pulmonary opacities, cannote xclude atypica viral pneumonia vs pulmonary venous congestion. Wbc was 13.3, but it appears to be chronically elevated. Will check BNP as well. * Will need pulmonology follow-up upon discharge for diagnosis and management. * 8. Super morbid obesity: Complicates acute care, expected recovery and management. DVT prophylaxis: on xarelto. Will hold for now due to VIOLETTE. start heparin drip if needed Code status: full code * Patient counseled extensively about different types of CODE STATUS including full code, DNR CCA and DNR CCA. Patient elects to be full code. * Total [id number]-hf-[id number] time 17 minutes. Inpatient E&M: 22819 Init Hosp L3 Procedures: 67643 Advncd Care Plan 30 Min
[2019-11-25] MEDS: Aspirin 81 MG TAB.CHEW PO (18:33)
[2019-11-25] MEDS: 0.9% Normal Saline 1,000 ML 150 ML IV (20:48)
[2019-11-25] MEDS: 0.9% Saline Lock 10 ML Syringe IV (20:49)
[2019-11-25 21:25] LABS: BNP,B-Type NATRIURETIC PEPTIDE 111.3 pg/mL (0-100)
[2019-11-25] MEDS: Sodium Polystyrene Sulfonate 15 GM/60 ML UDC 30 GM PO (21:30)
[2019-11-25] MEDS: Insulin Lispro 100 UNIT/ML INSULN.PEN SC (21:38)
[2019-11-25] MEDS: Metoprolol Tartrate 100 MG Tablet PO (21:38)
[2019-11-25] MEDS: Atorvastatin Calcium 40 MG Tablet PO (21:39)
[2019-11-25 21:41] LABS: PSA,Total- Diagnostic 0.06 ng/mL (0.0-4.0)
[2019-11-25 22:56] LABS: Bedside Glucose 180 mg/dL (70-110)
[2019-11-25 23:03] LABS: International Normalized Ratio 1.2; Prothrombin Time (Protime)PT. 15.1 SECONDS (11.7-14.9)
[2019-11-25] MEDS: Heparin Injection (Vial) 5,000 UNIT/ML VIAL 15000 UNIT IV (23:49)
[2019-11-25] MEDS: HEPARIN/D5w 25,000 UNITS 25,000 UNITS/250 ML IV.SOLN. 22 UNITS IV (23:54)
[2019-11-25] MEDS: 0.9% Normal Saline 1,000 ML 125 ML IV (23:56)
[2019-11-26] VITALS (13 sets, daily range): BP systolic 97–130; BP diastolic 49–68; PULSE 73–77; RESP 18–22; TEMP 36.9–37.2; O2SAT 94–98
[2019-11-26 02:30] LABS: Probe Check PASS; Specimen Processing Control PASS
[2019-11-26 02:42] LABS: Absolute Lymphocyte Count 4.62 X10^3/uL (0.83-4.51); Absolute Neutrophil Count 9.3 X10^3/uL (2.0-7.7); Basophil# 0.08 X10^3/uL; Basophil% 0.5 % (0-1); Eosinophil# 0.26 X10^3/uL; Eosinophils% 1.7 % (0-5); Hematocrit 38.3 % (40-54); Hemoglobin 10.9 g/dL (13.0-16.5); Lymphocyte # 4.62 X10^3/ul (4.0); Lymphocyte % 29.8 % (19-41); Mean Corp Hgb Conc 28.5 g/dL (32-36); Mean Corpuscular Volume 84.4 fL (80-94); Mean Platelet Vol. 10.8 fl (6.2-12.0); Monocyte# 1.11 X10^3/uL; Monocyte% 7.2 % (0-10); NRBC Flagged by Analyzer 0.2 % (0-5); Neutrophil # 9.33 X10^3/uL (2.7-7.7); Neutrophil % 60.2 % (47-70); Platelet Count 379 K/mm3 (150-450); RBC Distribution Width CV 17.1 % (11.6-14.6); RBC Distribution Width SD 52.1 fl (35.1-43.9); Red Blood Count 4.54 M/mm3 (4.6-6.2); White Blood Count 15.5 K/mm3 (4.4-11.0)
[2019-11-26 03:00] LABS: Anion Gap 6 (5-15); BUN 68 mg/dL (7-18); BUN/Creat Ratio 27.4 RATIO (10-20); Calcium,Total 7.9 mg/dL (8.5-10.1); Chloride 108 mmol/L (98-107); Creatinine, Serum 2.48 mg/dL (0.70-1.30); EST Glomerular Filtration Rate 30 mL/min (>60); Est Glom Filt Rate - Afr Amer 36 mL/min (>60); Estimated Creatinine Clearance 45.21 ml/min; Glucose 224 mg/dL (74-106); Potassium 5.8 mmol/L (3.5-5.1); Sodium Level 135 mmol/L (136-145)
--- NOTE | 2019-11-26 05:55 | EKG12_ITS ---
Test Reason : AM EKG Blood Pressure : / mmHG Vent. Rate : 072 BPM Atrial Rate : 079 BPM P-R Int : 198 ms QRS Dur : 086 ms QT Int : 386 ms P-R-T Axes : 074 042 091 degrees QTc Int : 422 ms Sinus rhythm with marked sinus arrhythmia Low voltage QRS Borderline ECG When compared with ECG of 25-NOV-2019 17:53, MANUAL COMPARISON REQUIRED, DATA IS UNCONFIRMED Confirmed by MATTHEW LAURENT, DENISA ([id number]), market editor HU ROMANO ([id number]) on 11/29/2019 11:10:53 AM Referred By: MARQUISE Confirmed By:DENISA CASTRO MD
--- NOTE | 2019-11-26 05:55 | ECHOCS_ITS ---
Reason For Study: Elevated troponin Procedure This was a 2D Doppler, Color Flow transthoracic echocardiogram. The study was technically difficult. The study was technically limited. Exam performed portable in patient room. Left Ventricle Normal LV size. Left ventricular systolic function is normal. No regional wall motion abnormalities noted. Right Ventricle The right ventricle is not well visualized. Atria The left atrium is not well visualized. The right atrium is not well visualized. Mitral Valve Mitral valve not well visualized. Tricuspid Valve The tricuspid valve is not well visualized. Great Vessels The pulmonary is not well visualized. Pericardium/Pleural No pericardial effusion. Medication Diluted definity 2ml given slow IV push to enhance endocardial definition. MMode/2D Measurements & Calculations LVIDd: 4.4 cm IVSd: 1.4 cm Ao root diam: 4.3 cm LVIDs: 2.9 cm LVPWd: 2.0 cm FS: 34.8 % LA dimension(2D): 5.4 cm Doppler Measurements & Calculations MV E max manolo: 84.2 cm/sec Ao V2 max: 102.9 cm/sec PA V2 max: 78.3 cm/sec Ao max P.2 mmHg TR max manolo: 267.7 cm/sec TR max P.7 mmHg Interpretation Summary Normal LV size. Left ventricular systolic function is normal. The study was technically limited. The study was technically difficult. Limited views were obtained. Contrast injection was performed. Ordering Physician: Princess Maki Referring Physician: Arian Couch Performed By: Elizabeth Flores RDCS
--- NOTE | 2019-11-26 06:12 | NURSING ---
This RN removed pt prosthetic bases from legs. Legs wiped down with bath wipes. Insides of bases wiped with bath wipes and left on table to dry.
[2019-11-26 06:13] LABS: Partial Thromboplast Time 55.5 Seconds (24.1-36.2)
[2019-11-26] MEDS: 0.9% Normal Saline 1,000 ML 125 ML IV ×2 (08:20→17:05)
[2019-11-26 08:40] LABS: Bedside Glucose 260 mg/dL (70-110)
[2019-11-26] MEDS: Insulin Lispro 100 UNIT/ML INSULN.PEN SC ×4 (09:32→21:25)
[2019-11-26] MEDS: Loratadine 10 MG Tablet PO (09:32)
[2019-11-26] MEDS: Pantoprazole Sodium 20 MG Tablet PO (09:32)
[2019-11-26] MEDS: Aspirin 81 MG TAB.CHEW PO (09:32)
[2019-11-26] MEDS: Glucerna Shake 120 ML LIQUID 60 ML PO (09:33)
[2019-11-26] MEDS: buPROPion (XL) 150 MG TABLET.XL PO (09:34)
[2019-11-26] MEDS: Metoprolol Tartrate 100 MG Tablet PO (09:34)
[2019-11-26] MEDS: Allopurinol 300 MG Tablet PO (09:34)
--- NOTE | 2019-11-26 09:47 | CT_ITS ---
STUDY: CT ABDOMEN AND PELVIS WITHOUT CONTRAST REASON FOR EXAM: Male, 49 years old. HYDRONEPHROSIS? AB PAIN AND DYSURIA RADIATION DOSAGE (If Supplied By Facility): CTDIvol = ( 19.72 ) mGy, DLP = ( 2574.50 ) mGycm TECHNIQUE: Transaxial images were obtained from the dome of the diaphragm to the symphysis pubis without oral contrast, and without intravenous contrast. Sagittal and coronal images were reconstructed. Limited examination due to the patient''s body habitus. Individualized dose optimization techniques were used for this CT. COMPARISON: None. FINDINGS: Small right pleural effusion with right basilar atelectasis and/or infiltration. Coronary artery calcification. Normal liver. Findings suggestive of gallstones. Normal spleen. Normal pancreas. Normal bilateral adrenal glands. Normal right kidney. Normal left kidney. No evidence of hydronephrosis. Normal visualized stomach. Normal small intestine. Normal colon. The appendix is visualized and appears normal. CT/Abdomen/Pelvis without Cont IMPRESSION: Limited examination. No evidence of hydronephrosis. Small right pleural effusion with right basilar atelectasis and/or infiltration. Findings suggestive of gallstones. Electronically Signed: Tad Dubois, at 10:53 EDT , Service support ,
[2019-11-26] MEDS: Sodium Polystyrene Sulfonate 15 GM/60 ML UDC 30 GM PO (10:33)
[2019-11-26] MEDS: Tamsulosin HCl 0.4 MG Capsule PO (10:33)
[2019-11-26] MEDS: HEPARIN/D5w 25,000 UNITS 25,000 UNITS/250 ML IV.SOLN. 22 UNITS IV (11:42)
--- NOTE | 2019-11-26 11:53 | PN_ITS ---
<Cesia Blanchard - Last Filed: 11/26/19 12:13> Patient Problems: Active and Suspected Problems (Last Reviewed 08/05/17 @ 13:02 by Brooklyn Pleitez) Acute urinary retention (Acute) Acute kidney injury (Acute) Hyperglycemia (Acute) Elevated troponin (Acute) Subjective: Patient seen and examined. Denies abdominal pain. Fuentes in place and draining. Denies history of difficulty urinating. Denies shortness of breath, chest pain. - Physical Exam Vitals/I&O's: Vital Signs Temp Pulse Resp BP Pulse Ox 98.6 F 73 18 117/67 96 11/26/19 09:29 11/26/19 11:07 11/26/19 09:29 11/26/19 09:29 11/26/19 09:29 Oxygen Flow Rate (L/min) 2 Oxygen Delivery Method Nasal Cannula Weight: 589 lb 9.6 oz Body Mass Index (BMI) 70.2 Intake and Output for Last 24 Hours 11/24/19 11/25/19 11/26/19 23:59 23:59 23:59 Intake Total 760 / 760 1450.0 / 1450.0 Output Total 1400 / 1400 100 / 100 Balance -640 / -640 1350.0 / 1350.0 General: Alert, Oriented x3, Cooperative HEENT: Atraumatic, PERRLA, EOMI, Normocephalic Oral: Dry Mucosa Neck: Supple, No JVD, Negative Carotid Bruits Lungs: Clear to auscultation, Diminished Cardiovascular: Regular rate, No murmurs Abdomen: Bowel Sounds Present, Soft, Non Tender, Non-Distended, Obese Extremities: No clubbing, No cyanosis, No edema Skin: No rashes, No breakdown Musculoskeletal: No Tenderness to Palpation of Joints or Extremities, - - BL AKA Neurological: Cranial nerves II-XII grossly intact, Neuro grossly intact Psych/Mental Status: Normal Affect, Appropriate Laboratory Results 11/25/19 16:36: WBC 13.3 H, RBC 4.84, Hgb 11.7 L, Hct 40.9, MCV 84.5, MCH 24.2 L , MCHC 28.6 L, RDW Std Deviation 52.2 H, RDW Coeff of Lucy 17.6 H, Plt Count 406, MPV 10.6, Immature Gran % (Auto) 0.800, Neut % (Auto) 53.4, Lymph % (Auto) 37.0, [place] % (Auto) 6.9, Eos % (Auto) 1.3, Baso % (Auto) 0.6, Absolute Neuts (auto) 7.1, Absolute Lymphs (auto) 4.91 H, Nucleated RBC % 0.3 11/25/19 16:36: Sodium 133 L, Potassium 5.5 H, Chloride 104, Carbon Dioxide 23.0, Anion Gap 6, BUN 65 H, Creatinine 2.68 H, Estim Creat Clear Calc 41.83, Est GFR (MDRD) Af Amer 33 L, Est GFR (MDRD) Non-Af 27 L, BUN/Creatinine Ratio 24.3 H, Glucose 336 H, Calcium 8.3 L, Total Bilirubin 0.60, AST 12 L, ALT 22, Alkaline Phosphatase 232 H, Troponin I 0.362 H, Total Protein 8.5 H, Albumin 3.5, Globulin 5.0 H, Albumin/Globulin Ratio 0.7 L, Lipase 65 L 11/25/19 16:53: Urine Color Yellow, Urine Clarity Clear, Urine pH 5.0, Ur Specific Marcell 1.015, Urine Protein 30 H, Urine Glucose (UA) 250 H, Urine Ketones Negative, Urine Occult Blood Negative, Urine Nitrite Negative, Urine Bilirubin Negative, Urine Urobilinogen Normal, Ur Leukocyte Esterase Negative, Urine RBC 0-5 SEEN, Urine WBC 0-5 SEEN, Ur Squamous Epith Cells 0-5 SEEN, Urine Bacteria 0 SEEN, Urine Mucus 0 SEEN 11/25/19 20:30: Troponin I 0.366 H, Total PSA 0.06 11/25/19 20:30: B-Natriuretic Peptide 111.3 H 11/25/19 21:37: POC Glucose 180 H 11/25/19 22:40: Troponin I 0.371 H 11/25/19 22:40: PT 15.1 H, INR 1.2, APTT 26.0 11/25/19 23:38: COVID-19 (ELLY) Not Detected 11/26/19 02:33: Sodium 135 L, Potassium 5.8 H, Chloride 108 H, Carbon Dioxide 21.0, Anion Gap 6, BUN 68 H, Creatinine 2.48 H, Estim Creat Clear Calc 45.21, Est GFR (MDRD) Af Amer 36 L, Est GFR (MDRD) Non-Af 30 L, BUN/Creatinine Ratio 27.4 H, Glucose 224 H, Calcium 7.9 L 11/26/19 02:33: WBC 15.5 H, RBC 4.54 L, Hgb 10.9 L, Hct 38.3 L, MCV 84.4, MCH 24.0 L, MCHC 28.5 L, RDW Std Deviation 52.1 H, RDW Coeff of Lucy 17.1 H, Plt Count 379, MPV 10.8, Immature Gran % (Auto) 0.600, Neut % (Auto) 60.2, Lymph % (Auto) 29.8, [place] % (Auto) 7.2, Eos % (Auto) 1.7, Baso % (Auto) 0.5, Absolute Neuts (auto) 9.3 H, Absolute Lymphs (auto) 4.62 H, Nucleated RBC % 0.2 11/26/19 02:33: Troponin I 0.215 H 11/26/19 05:50: APTT 55.5 H 11/26/19 08:10: POC Glucose 260 H Current Medications Allopurinol (Zyloprim) 300 mg PO DAILY [facility] Last Admin: 11/26/19 09:34 Dose: 300 mg Documented by: Aspirin (Aspirin, Baby) 81 mg PO DAILY@0800 [facility] Last Admin: 11/26/19 09:32 Dose: 81 mg Documented by: Atorvastatin Calcium (Lipitor) 40 mg PO QHS [facility] Last Admin: 11/25/19 21:39 Dose: 40 mg Documented by: Bupropion HCl (Wellbutrin Xl) 150 mg PO DAILY [facility] Last Admin: 11/26/19 09:34 Dose: 150 mg Documented by: Dextrose (D50w Syringe) 0 gm IV X1 PRN; Protocol PRN Reason: Hypoglycemia Glucagon () 1 mg IM .X1 PRN PRN Reason: Hypoglycemia Heparin Sodium (Porcine) (Heparin Na) 0 unit IV UD PRN; Protocol Sodium Chloride () 250 mls @ 15 mls/hr IV .[id number] PRN PRN Reason: Saline Flush Sodium Chloride () 250 mls @ 15 mls/hr IV .[id number] PRN PRN Reason: Additional IVPB Infusion Sodium Chloride () 1,000 mls @ 125 mls/hr IV .Q8H [facility] Last Admin: 11/26/19 08:20 Dose: 125 mls/hr Documented by: Heparin Sodium/Dextrose () 25,000 units in 250 mls @ 22 mls/hr IV .[id number] [facility]; Protocol Last Admin: 11/26/19 11:42 Dose: 2,200 units/hr, 22 mls/hr Documented by: Insulin Human Lispro (Humalog Kwikpen ([facility])) 0 unit SC ACHS [facility]; Protocol Last Admin: 11/26/19 11:36 Dose: 6 u Documented by: Insulin Human Regular (Humulin R U-500 ([facility])) 135 units SC BIDAC [facility] Last Admin: 11/26/19 09:33 Dose: 135 units Documented by: Loratadine (Claritin) 10 mg PO DAILY [facility] Last Admin: 11/26/19 09:32 Dose: 10 mg Documented by: Metoprolol Tartrate (Lopressor (Beta Ezra)) 100 mg PO BID [facility] Last Admin: 11/26/19 09:34 Dose: 100 mg Documented by: Nitroglycerin (Nitrostat) 0.4 mg SUBLINGUAL Q5M PRN PRN Reason: CARDIAC/CHEST PAIN Nutritional Formula (Lactose Free) (Glucerna Shake) 60 ml PO TIDCM [facility] Last Admin: 11/26/19 11:37 Dose: Not Given Documented by: Nystatin (Mycostatin Powder) 1 applic TOPICAL BID [facility]; Protocol Pantoprazole Sodium (Protonix) 20 mg PO DAILY [facility] Last Admin: 11/26/19 09:32 Dose: 20 mg Documented by: Sodium Chloride () 10 - 40 ml IV UD PRN PRN Reason: SALINE FLUSH Last Admin: 11/25/19 20:49 Dose: 10 ml Documented by: Tamsulosin HCl (Flomax) 0.4 mg PO DAILY@1730 [facility] Last Admin: 11/26/19 10:33 Dose: 0.4 mg Documented by: Medical Necessity - Tobacco Use Smoking Status: Never smoker Assessment/Plan All Active Problems (Last Reviewed 08/05/17 @ 13:02 by Brooklyn Pleitez) Acute urinary retention (Acute) Acute kidney injury (Acute) Hyperglycemia (Acute) Elevated troponin (Acute) Edema of right lower extremity (Acute) Diabetic foot ulcer (Acute) Bilateral pulmonary embolism (Acute) 1. Acute kidney injury with hyperkalemia, suspect obstructive uropathy-patient presented with urinary retention. Fuentes placed on admission with 1 L of urine drained. Repeat Kayexalate given for potassium 5.8. Creatinine trending down. CT of abdomen and pelvis shows no evidence of hydronephrosis, small right pleural effusion with right basilar atelectasis. Gallstones. Initiated on Flomax. Continue Fuentes with voiding trial prior to discharge. Renal ultrasound pending. Trend BMP. Urine studies pending. 2. Abnormal troponin-troponin did not trend. EKG without ST-T changes. Patient denies chest pain, shortness of breath or other cardiac symptoms. Echocardiogram pending. 3. Acute hypoxia with small right pleural effusion-suspect secondary to mild fluid overload related to #1. Continue supplement oxygen to maintain O2 at or above 90%. Patient may have chronic hypoxia related to MAICOL and super morbid obesity as well. 4. Type 2 diabetes mellitus-metformin on hold. Accu-Cheks with sliding scale insulin. Continue home insulin regimen. 5. Hypertension-stable. HCTZ, lisinopril on hold due to acute kidney injury. Continue metoprolol regimen. 6. Hyperlipidemia-continue statin. 7. Factor V Leiden deficiency-on Xarelto. Xarelto on hold pending improvement in kidney function. Continue heparin drip. 8. MAICOL-continue home CPAP regimen. 9. Super morbid obesity-encouraged diet and lifestyle modifications. Dietitian consult. 10. 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 Complicated by super morbid obesity. PT/OT. 11. Depression-continue bupropion regimen. 12. Gout-continue allopurinol. 13. GERD-continue omeprazole regimen. 14. Mild leukocytosis-appears chronic. No evidence of infectious etiology. DVT prophylaxis-heparin drip, continue home Xarelto regimen when kidney function improves. This patient was seen by JESS Huynh under the supervision of Dr. Barrera. <Lenin Barrera - Last Filed: 11/26/19 14:27> - Physical Exam Vitals/I&O's: Vital Signs Temp Pulse Resp BP Pulse Ox 98.6 F 73 18 117/67 96 11/26/19 09:29 11/26/19 11:07 11/26/19 09:29 11/26/19 09:29 11/26/19 09:29 Oxygen Flow Rate (L/min) 2 Oxygen Delivery Method Nasal Cannula Weight: 267.438 kg Body Mass Index (BMI) 70.2 Intake and Output for Last 24 Hours 11/24/19 11/25/19 11/26/19 23:59 23:59 23:59 Intake Total 760 / 760 1473.1 / 1473.1 Output Total 1400 / 1400 100 / 100 Balance -640 / -640 1373.1 / 1373.1 Laboratory Results 11/25/19 16:36: WBC 13.3 H, RBC 4.84, Hgb 11.7 L, Hct 40.9, MCV 84.5, MCH 24.2 L , MCHC 28.6 L, RDW Std Deviation 52.2 H, RDW Coeff of Lucy 17.6 H, Plt Count 406, MPV 10.6, Immature Gran % (Auto) 0.800, Neut % (Auto) 53.4, Lymph % (Auto) 37.0, [place] % (Auto) 6.9, Eos % (Auto) 1.3, Baso % (Auto) 0.6, Absolute Neuts (auto) 7.1, Absolute Lymphs (auto) 4.91 H, Nucleated RBC % 0.3 11/25/19 16:36: Sodium 133 L, Potassium 5.5 H, Chloride 104, Carbon Dioxide 23.0, Anion Gap 6, BUN 65 H, Creatinine 2.68 H, Estim Creat Clear Calc 41.83, Est GFR (MDRD) Af Amer 33 L, Est GFR (MDRD) Non-Af 27 L, BUN/Creatinine Ratio 24.3 H, Glucose 336 H, Calcium 8.3 L, Total Bilirubin 0.60, AST 12 L, ALT 22, Alkaline Phosphatase 232 H, Troponin I 0.362 H, Total Protein 8.5 H, Albumin 3.5, Globulin 5.0 H, Albumin/Globulin Ratio 0.7 L, Lipase 65 L 11/25/19 16:53: Urine Color Yellow, Urine Clarity Clear, Urine pH 5.0, Ur Specific Marcell 1.015, Urine Protein 30 H, Urine Glucose (UA) 250 H, Urine Ketones Negative, Urine Occult Blood Negative, Urine Nitrite Negative, Urine Bilirubin Negative, Urine Urobilinogen Normal, Ur Leukocyte Esterase Negative, Urine RBC 0-5 SEEN, Urine WBC 0-5 SEEN, Ur Squamous Epith Cells 0-5 SEEN, Urine Bacteria 0 SEEN, Urine Mucus 0 SEEN 11/25/19 20:30: Troponin I 0.366 H, Total PSA 0.06 11/25/19 20:30: B-Natriuretic Peptide 111.3 H 11/25/19 21:37: POC Glucose 180 H 11/25/19 22:40: Troponin I 0.371 H 11/25/19 22:40: PT 15.1 H, INR 1.2, APTT 26.0 11/25/19 23:38: COVID-19 (ELLY) Not Detected 11/26/19 02:33: Sodium 135 L, Potassium 5.8 H, Chloride 108 H, Carbon Dioxide 21.0, Anion Gap 6, BUN 68 H, Creatinine 2.48 H, Estim Creat Clear Calc 45.21, Est GFR (MDRD) Af Amer 36 L, Est GFR (MDRD) Non-Af 30 L, BUN/Creatinine Ratio 27.4 H, Glucose 224 H, Calcium 7.9 L 11/26/19 02:33: WBC 15.5 H, RBC 4.54 L, Hgb 10.9 L, Hct 38.3 L, MCV 84.4, MCH 24.0 L, MCHC 28.5 L, RDW Std Deviation 52.1 H, RDW Coeff of Lucy 17.1 H, Plt Count 379, MPV 10.8, Immature Gran % (Auto) 0.600, Neut % (Auto) 60.2, Lymph % (Auto) 29.8, [place] % (Auto) 7.2, Eos % (Auto) 1.7, Baso % (Auto) 0.5, Absolute Neuts (auto) 9.3 H, Absolute Lymphs (auto) 4.62 H, Nucleated RBC % 0.2 11/26/19 02:33: Troponin I 0.215 H 11/26/19 05:50: APTT 55.5 H 11/26/19 08:10: POC Glucose 260 H 11/26/19 11:35: POC Glucose 313 H 11/26/19 12:02: APTT 39.8 H Current Medications Allopurinol (Zyloprim) 300 mg PO DAILY [facility] Last Admin: 11/26/19 09:34 Dose: 300 mg Documented by: Aspirin (Aspirin, Baby) 81 mg PO DAILY@0800 [facility] Last Admin: 11/26/19 09:32 Dose: 81 mg Documented by: Atorvastatin Calcium (Lipitor) 40 mg PO QHS [facility] Last Admin: 11/25/19 21:39 Dose: 40 mg Documented by: Bupropion HCl (Wellbutrin Xl) 150 mg PO DAILY [facility] Last Admin: 11/26/19 09:34 Dose: 150 mg Documented by: Dextrose (D50w Syringe) 0 gm IV X1 PRN; Protocol PRN Reason: Hypoglycemia Glucagon () 1 mg IM .X1 PRN PRN Reason: Hypoglycemia Heparin Sodium (Porcine) (Heparin Na) 0 unit IV UD PRN; Protocol Last Admin: 11/26/19 12:44 Dose: 5,000 unit Documented by: Sodium Chloride () 250 mls @ 15 mls/hr IV .[id number] PRN PRN Reason: Saline Flush Sodium Chloride () 250 mls @ 15 mls/hr IV .[id number] PRN PRN Reason: Additional IVPB Infusion Sodium Chloride () 1,000 mls @ 125 mls/hr IV .Q8H [facility] Last Admin: 11/26/19 08:20 Dose: 125 mls/hr Documented by: Heparin Sodium/Dextrose () 25,000 units in 250 mls @ 22 mls/hr IV .[id number] [facility]; Protocol Last Titration: 11/26/19 12:45 Dose: 2,400 units/hr, 24 mls/hr Documented by: Insulin Human Lispro (Humalog Kwikpen ([facility])) 0 unit SC ACHS [facility]; Protocol Last Admin: 11/26/19 11:36 Dose: 6 u Documented by: Insulin Human Regular (Humulin R U-500 ([facility])) 135 units SC BIDAC [facility] Last Admin: 11/26/19 09:33 Dose: 135 units Documented by: Loratadine (Claritin) 10 mg PO DAILY [facility] Last Admin: 11/26/19 09:32 Dose: 10 mg Documented by: Metoprolol Tartrate (Lopressor (Beta Ezra)) 100 mg PO BID [facility] Last Admin: 11/26/19 09:34 Dose: 100 mg Documented by: Nitroglycerin (Nitrostat) 0.4 mg SUBLINGUAL Q5M PRN PRN Reason: CARDIAC/CHEST PAIN Nystatin (Mycostatin Powder) 1 applic TOPICAL BID [facility]; Protocol Pantoprazole Sodium (Protonix) 20 mg PO DAILY [facility] Last Admin: 11/26/19 09:32 Dose: 20 mg Documented by: Sodium Chloride () 10 - 40 ml IV UD PRN PRN Reason: SALINE FLUSH Last Admin: 11/25/19 20:49 Dose: 10 ml Documented by: Tamsulosin HCl (Flomax) 0.4 mg PO DAILY@1730 [facility] Last Admin: 11/26/19 10:33 Dose: 0.4 mg Documented by: Assessment/Plan This patient was seen in conjunction with JESS Huynh . I have independently interviewed and examined the patient and reviewed pertinent historical, laboratory, and other data. Please refer to JESS Huynh note for details of this patient's presentation, findings, and recommendations. I have reviewed JESS Huynh note and concur with documented findings. In brief, patient is a 49-year-old gentleman admitted with abdominal pain. Found to be in acute kidney injury suspected to be secondary to urinary retention Fuentes catheter was placed admitted to monitored bed for further management Physical Examination: GENERAL: cooperative HEENT: Atraumatic; EYES; Anicteric, Normal Conjunctiva NECK; supple, normal thyroid, RESPIRATORY: Diminished to auscultation CARDIOVASCULAR: Regular S1 S2, GI: soft, normoactive bowel sounds, : No Renal angle tenderness; EXTREMITIES: Bilateral AKA NEURO: Awake; no lateralizing signs. SKIN: No Rash PSYCH; Flat affect Assessment: 1. Acute kidney injury 2. Obstructive uropathy 3. Hyperkalemia 4. Elevated troponin secondary to demand ischemia 5. Diabetes mellitus type 2 6. Essential hypertension 7. Factor V Leyden deficiency on Xarelto 8. Dyslipidemia 9. Morbid obesity with BMI of 71.8 10. Depression 11. Gout 12. Suspected obstructive sleep apnea 13. GERD Recommendations: 1. I have discussed the results of my overview and impressions with the patient 2. Options for management were reviewed Inpatient E&M: [id number] [facility] L[facility]
[2019-11-26 12:05] LABS: Bedside Glucose 313 mg/dL (70-110)
[2019-11-26 12:20] LABS: Partial Thromboplast Time 39.8 Seconds (24.1-36.2)
[2019-11-26] MEDS: Heparin Injection (Vial) 5,000 UNIT/ML VIAL IV ×2 (12:44→19:53)
--- NOTE | 2019-11-26 13:00 | CASEMGMT ---
RN JOSE ROASTMASTER CM to room to meet with patient for initial transition planning/care coordination assessment. RN JOSE introduced self and role at [facility]. Pt voices understanding and consents to assessment at this time. Pt resting in bed in no distress at this time. Pt is A/O at this time and answers all questions appropriately. Care providers, pharmacy, and demographics verified/updated at this time. PCP: Dr Couch--@ [facility] in [place] Specialists: none Preferred Pharmacy: [facility] Insurance: [employer] Prescription Benefit: Yes Living Will/HPOA: Pt does not currently have LW/HCPOA and declines info at this time. Pt made aware that he can contact as an out-pt and make appt in the future if he decides he would like to talk with someone about this or would like to utilize [facility] social work for advanced directive completion. Given Route [employer] card with information and contact number. Pt expresses understanding. LNOK: SisterYolande Living Arrangements: Lives with his sister, his sister's 2 kids, and his nephew, Armand, who he is legal guardian for. Armand's mother (pt's other sister) . Pt states he is independent w/ADL's and he and his family share home mgmt tasks. Transportation: Sister DME: Has: Bilat leg prosthetics, raised toilet seat, cane, grab bars, walker, w/c, CPAP, glucometer. Pt states no need for further DME at this time. HHC/SNF: Hx of [facility] and HHC-does not remember name of agency. Pt declines need for HHC or OP therapy. Pt wishes to return home and states has no concerns with going home at time of discharge. CM to follow for any discharge planning/needs. Pt voices no concerns/needs at this time. Advised pt to ask for CM if any questions/concerns/needs arise. Voices understanding. PLAN: Home w/family support and discharge plans in place. Jared PENALOZA RN, CM
[2019-11-26 15:28] LABS: Urea Nitrogen, Urine 173 mg/dL (NO RANGE EST.)
[2019-11-26 16:31] LABS: Bedside Glucose 358 mg/dL (70-110)
[2019-11-26 19:36] LABS: Partial Thromboplast Time 46.8 Seconds (24.1-36.2)
[2019-11-26] MEDS: HEPARIN/D5w 25,000 UNITS 25,000 UNITS/250 ML IV.SOLN. 25 UNITS IV (21:22)
[2019-11-26] MEDS: Atorvastatin Calcium 40 MG Tablet PO (21:26)
[2019-11-26] MEDS: Nystatin Powder 15gm Bottle 1 APPLIC TOPICAL (21:28)
[2019-11-26 21:41] LABS: Bedside Glucose 252 mg/dL (70-110)
[2019-11-27] VITALS (12 sets, daily range): BP systolic 90–123; BP diastolic 43–73; PULSE 56–79; RESP 18; TEMP 36.3–36.7; O2SAT 92–98
[2019-11-27] MEDS: 0.9% Normal Saline 1,000 ML 125 ML IV ×2 (00:59→08:06)
[2019-11-27 02:59] LABS: Partial Thromboplast Time 49.8 Seconds (24.1-36.2)
[2019-11-27 03:07] LABS: Anion Gap 5 (5-15); BUN 76 mg/dL (7-18); BUN/Creat Ratio 23.7 RATIO (10-20); Calcium,Total 7.9 mg/dL (8.5-10.1); Chloride 107 mmol/L (98-107); Creatinine, Serum 3.21 mg/dL (0.70-1.30); EST Glomerular Filtration Rate 22 mL/min (>60); Est Glom Filt Rate - Afr Amer 27 mL/min (>60); Estimated Creatinine Clearance 34.93 ml/min; Glucose 164 mg/dL (74-106); Potassium 5.3 mmol/L (3.5-5.1); Sodium Level 136 mmol/L (136-145)
[2019-11-27 03:11] LABS: Hematocrit 36.2 % (40-54); Hemoglobin 10.4 g/dL (13.0-16.5); Mean Corp Hgb Conc 28.7 g/dL (32-36); Mean Corpuscular Hgb 24.6 pg (27.0-32.0); Mean Corpuscular Volume 85.6 fL (80-94); Mean Platelet Vol. 10.7 fl (6.2-12.0); Platelet Count 372 K/mm3 (150-450); RBC Distribution Width CV 17.4 % (11.6-14.6); RBC Distribution Width SD 53.8 fl (35.1-43.9); Red Blood Count 4.23 M/mm3 (4.6-6.2); White Blood Count 13.5 K/mm3 (4.4-11.0)
[2019-11-27 03:12] LABS: Scan Indicated on CBC? Y/N NO
[2019-11-27] MEDS: Heparin Injection (Vial) 5,000 UNIT/ML VIAL IV ×2 (03:37→17:51)
--- NOTE | 2019-11-27 04:49 | NURSING ---
Pt Heparin gtt was placed on hold and then resumed at 2500 units/hr until this RN could clarify with physician whether it was okay to run heparin gtt at 2600 units/hr as the pump flagged the rate and above upper limit.
[2019-11-27] MEDS: HEPARIN/D5w 25,000 UNITS 25,000 UNITS/250 ML IV.SOLN. 26 UNITS IV (08:07)
[2019-11-27] MEDS: Aspirin 81 MG TAB.CHEW PO (08:13)
[2019-11-27 08:20] LABS: Bedside Glucose 123 mg/dL (70-110)
[2019-11-27] MEDS: Metoprolol Tartrate 100 MG Tablet PO (09:04)
[2019-11-27] MEDS: Allopurinol 300 MG Tablet PO (09:04)
[2019-11-27] MEDS: buPROPion (XL) 150 MG TABLET.XL PO (09:04)
[2019-11-27] MEDS: Pantoprazole Sodium 20 MG Tablet PO (09:04)
[2019-11-27] MEDS: Loratadine 10 MG Tablet PO (09:05)
[2019-11-27] MEDS: Nystatin Powder 15gm Bottle 1 APPLIC TOPICAL ×2 (09:06→21:19)
[2019-11-27 10:35] LABS: Partial Thromboplast Time 48.5 Seconds (24.1-36.2)
--- NOTE | 2019-11-27 10:37 | PN_ITS ---
<Cesia Blanchard - Last Filed: 11/27/19 11:02> Patient Problems: Active and Suspected Problems (Last Reviewed 08/05/17 @ 13:02 by Brooklyn Pleitez) Acute urinary retention (Acute) Acute kidney injury (Acute) Hyperglycemia (Acute) Elevated troponin (Acute) Subjective: Patient seen and examined. Denies current complaints. Creatinine increased today. Nephrology consulted. - Physical Exam Vitals/I&O's: Vital Signs Temp Pulse Resp BP Pulse Ox 97.4 F L 79 18 123/73 H 98 11/27/19 08:30 11/27/19 09:04 11/27/19 08:30 11/27/19 09:04 11/27/19 08:30 Oxygen Flow Rate (L/min) 2 Oxygen Delivery Method Nasal Cannula Weight: 589 lb 9.597 oz Body Mass Index (BMI) 70.2 Intake and Output for Last 24 Hours 11/25/19 11/26/19 11/27/19 23:59 23:59 23:59 Intake Total 760 / 760 3700.0 / 3700.0 2782.91 / 2782.91 Output Total 1400 / 1400 325 / 325 75 / 75 Balance -640 / -640 3375.0 / 3375.0 2707.91 / 2707.91 General: Alert, Oriented x3, Cooperative HEENT: Atraumatic, PERRLA, EOMI, Normocephalic Neck: Supple, No JVD, Negative Carotid Bruits Lungs: Clear to auscultation, Diminished Cardiovascular: Regular rate, No murmurs Abdomen: Bowel Sounds Present, Soft, Non Tender, Non-Distended, Obese Extremities: No clubbing, No cyanosis, No edema, Capillary Refill Less than 3 Seconds Skin: No rashes, No breakdown Musculoskeletal: No Tenderness to Palpation of Joints or Extremities, - - BL AKA Neurological: Cranial nerves II-XII grossly intact, Neuro grossly intact Psych/Mental Status: Normal Affect, Appropriate Laboratory Results 11/26/19 08:30: Urine Creatinine 388.00 11/26/19 08:30: Urine Urea Nitrogen 173 11/26/19 11:35: POC Glucose 313 H 11/26/19 12:02: APTT 39.8 H 11/26/19 15:51: POC Glucose 358 H 11/26/19 19:15: APTT 46.8 H 11/26/19 21:11: POC Glucose 252 H 11/27/19 02:37: WBC 13.5 H, RBC 4.23 L, Hgb 10.4 L, Hct 36.2 L, MCV 85.6, MCH 24.6 L, MCHC 28.7 L, RDW Std Deviation 53.8 H, RDW Coeff of Lucy 17.4 H, Plt Count 372, MPV 10.7 11/27/19 02:37: Sodium 136, Potassium 5.3 H, Chloride 107, Carbon Dioxide 24.0, Anion Gap 5, BUN 76 H, Creatinine 3.21 H, Estim Creat Clear Calc 34.93, Est GFR (MDRD) Af Amer 27 L, Est GFR (MDRD) Non-Af 22 L, BUN/Creatinine Ratio 23.7 H, Glucose 164 H, Calcium 7.9 L 11/27/19 02:37: APTT 49.8 H 11/27/19 08:11: POC Glucose 123 H 11/27/19 10:11: APTT 48.5 H Current Medications Allopurinol (Zyloprim) 300 mg PO DAILY [facility] Last Admin: 11/27/19 09:04 Dose: 300 mg Documented by: Aspirin (Aspirin, Baby) 81 mg PO DAILY@0800 [facility] Last Admin: 11/27/19 08:13 Dose: 81 mg Documented by: Atorvastatin Calcium (Lipitor) 40 mg PO QHS [facility] Last Admin: 11/26/19 21:26 Dose: 40 mg Documented by: Bupropion HCl (Wellbutrin Xl) 150 mg PO DAILY [facility] Last Admin: 11/27/19 09:04 Dose: 150 mg Documented by: Dextrose (D50w Syringe) 0 gm IV X1 PRN; Protocol PRN Reason: Hypoglycemia Glucagon () 1 mg IM .X1 PRN PRN Reason: Hypoglycemia Heparin Sodium (Porcine) (Heparin Na) 0 unit IV UD PRN; Protocol Last Admin: 11/27/19 03:37 Dose: 1,000 unit Documented by: Sodium Chloride () 250 mls @ 15 mls/hr IV .[id number] PRN PRN Reason: Saline Flush Sodium Chloride () 250 mls @ 15 mls/hr IV .[id number] PRN PRN Reason: Additional IVPB Infusion Sodium Chloride () 1,000 mls @ 125 mls/hr IV .Q8H [facility] Last Admin: 11/27/19 08:06 Dose: 125 mls/hr Documented by: Heparin Sodium/Dextrose () 25,000 units in 250 mls @ 22 mls/hr IV .[id number] [facility]; Protocol Last Admin: 11/27/19 08:07 Dose: 2,600 units/hr, 26 mls/hr Documented by: Sodium Chloride () 250 mls @ 15 mls/hr IV .[id number] PRN PRN Reason: Saline Flush Sodium Chloride () 250 mls @ 15 mls/hr IV .[id number] PRN PRN Reason: Additional IVPB Infusion Insulin Human Lispro (Humalog Kwikpen ([facility])) 0 unit SC ACHS [facility]; Protocol Last Admin: 11/27/19 08:12 Dose: Not Given Documented by: Insulin Human Regular (Humulin R U-500 ([facility])) 135 units SC BIDAC [facility] Last Admin: 11/27/19 08:13 Dose: 135 units Documented by: Loratadine (Claritin) 10 mg PO DAILY [facility] Last Admin: 11/27/19 09:05 Dose: 10 mg Documented by: Metoprolol Tartrate (Lopressor (Beta Ezra)) 100 mg PO BID [facility] Last Admin: 11/27/19 09:04 Dose: 100 mg Documented by: Nitroglycerin (Nitrostat) 0.4 mg SUBLINGUAL Q5M PRN PRN Reason: CARDIAC/CHEST PAIN Nystatin (Mycostatin Powder) 1 applic TOPICAL BID [facility]; Protocol Last Admin: 11/27/19 09:06 Dose: 1 applicatio Documented by: Pantoprazole Sodium (Protonix) 20 mg PO DAILY [facility] Last Admin: 11/27/19 09:04 Dose: 20 mg Documented by: Sodium Chloride () 10 - 40 ml IV UD PRN PRN Reason: SALINE FLUSH Last Admin: 11/25/19 20:49 Dose: 10 ml Documented by: Sodium Chloride () 10 - 40 ml IV UD PRN PRN Reason: SALINE FLUSH Tamsulosin HCl (Flomax) 0.4 mg PO DAILY@1730 [facility] Last Admin: 11/26/19 10:33 Dose: 0.4 mg Documented by: Medical Necessity - Tobacco Use Smoking Status: Never smoker Assessment/Plan All Active Problems (Last Reviewed 08/05/17 @ 13:02 by Brooklyn Pleitez) Acute urinary retention (Acute) Acute kidney injury (Acute) Hyperglycemia (Acute) Elevated troponin (Acute) Edema of right lower extremity (Acute) Diabetic foot ulcer (Acute) Bilateral pulmonary embolism (Acute) 1. Acute kidney injury with hyperkalemia, suspect obstructive uropathy-patient presented with urinary retention. Fuentes placed on admission with 1 L of urine drained. Potassium trending down. CT of abdomen and pelvis shows no evidence of hydronephrosis, small right pleural effusion with right basilar atelectasis. Gallstones. Initiated on Flomax. Continue Fuentes with voiding trial prior to discharge. Urine sodium pending to complete FENA. Given increased creatinine this morning, nephrology consult placed. 2. Abnormal troponin-troponin did not trend. EKG without ST-T changes. Patient denies chest pain, shortness of breath or other cardiac symptoms. Echocardiogram demonstrates normal left ventricular systolic function. No regional wall motion abnormalities. Technically difficult study due to patient habitus. 3. Acute hypoxia with small right pleural effusion-suspect secondary to mild fluid overload related to #1. Continue supplement oxygen to maintain O2 at or above 90%. Patient may have chronic hypoxia related to MAICOL and super morbid obesity as well. Will complete home oxygen testing prior to discharge. 4. Type 2 diabetes mellitus-metformin on hold. Accu-Cheks with sliding scale insulin. Continue home insulin regimen. 5. Hypertension-stable. HCTZ, lisinopril on hold due to acute kidney injury. Continue metoprolol regimen. 6. Hyperlipidemia-continue statin. 7. Factor V Leiden deficiency-on Xarelto. Xarelto on hold pending improvement in kidney function. Continue heparin drip. 8. MAICOL-continue home CPAP regimen. 9. Super morbid obesity-encouraged diet and lifestyle modifications. Dietitian consult. 10. 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 Complicated by super morbid obesity. PT/OT. 11. Depression-continue bupropion regimen. 12. Gout-continue allopurinol. 13. GERD-continue omeprazole regimen. 14. Mild leukocytosis-appears chronic. No evidence of infectious etiology. DVT prophylaxis-heparin drip, continue home Xarelto regimen when kidney function improves. This patient was seen by JESS Huynh under the supervision of Dr. Barrera. <Lenin Barrera - Last Filed: 11/27/19 11:41> - Physical Exam Vitals/I&O's: Vital Signs Temp Pulse Resp BP Pulse Ox 97.4 F L 79 18 123/73 H 98 11/27/19 08:30 11/27/19 09:04 11/27/19 08:30 11/27/19 09:04 11/27/19 08:30 Oxygen Flow Rate (L/min) 2 Oxygen Delivery Method Nasal Cannula Weight: 267.438 kg Body Mass Index (BMI) 70.2 Intake and Output for Last 24 Hours 11/25/19 11/26/19 11/27/19 23:59 23:59 23:59 Intake Total 760 / 760 3700.0 / 3700.0 2850.94 / 2850.94 Output Total 1400 / 1400 325 / 325 75 / 75 Balance -640 / -640 3375.0 / 3375.0 2775.94 / 2775.94 Laboratory Results 11/26/19 08:30: Urine Creatinine 388.00 11/26/19 08:30: Urine Urea Nitrogen 173 11/26/19 11:35: POC Glucose 313 H 11/26/19 12:02: APTT 39.8 H 11/26/19 15:51: POC Glucose 358 H 11/26/19 19:15: APTT 46.8 H 11/26/19 21:11: POC Glucose 252 H 11/27/19 02:37: WBC 13.5 H, RBC 4.23 L, Hgb 10.4 L, Hct 36.2 L, MCV 85.6, MCH 24.6 L, MCHC 28.7 L, RDW Std Deviation 53.8 H, RDW Coeff of Lucy 17.4 H, Plt Count 372, MPV 10.7 11/27/19 02:37: Sodium 136, Potassium 5.3 H, Chloride 107, Carbon Dioxide 24.0, Anion Gap 5, BUN 76 H, Creatinine 3.21 H, Estim Creat Clear Calc 34.93, Est GFR (MDRD) Af Amer 27 L, Est GFR (MDRD) Non-Af 22 L, BUN/Creatinine Ratio 23.7 H, Glucose 164 H, Calcium 7.9 L 11/27/19 02:37: APTT 49.8 H 11/27/19 08:11: POC Glucose 123 H 11/27/19 10:11: APTT 48.5 H Current Medications Allopurinol (Zyloprim) 300 mg PO DAILY [facility] Last Admin: 11/27/19 09:04 Dose: 300 mg Documented by: Aspirin (Aspirin, Baby) 81 mg PO DAILY@0800 [facility] Last Admin: 11/27/19 08:13 Dose: 81 mg Documented by: Atorvastatin Calcium (Lipitor) 40 mg PO QHS [facility] Last Admin: 11/26/19 21:26 Dose: 40 mg Documented by: Bupropion HCl (Wellbutrin Xl) 150 mg PO DAILY [facility] Last Admin: 11/27/19 09:04 Dose: 150 mg Documented by: Dextrose (D50w Syringe) 0 gm IV X1 PRN; Protocol PRN Reason: Hypoglycemia Glucagon () 1 mg IM .X1 PRN PRN Reason: Hypoglycemia Heparin Sodium (Porcine) (Heparin Na) 0 unit IV UD PRN; Protocol Last Admin: 11/27/19 03:37 Dose: 1,000 unit Documented by: Sodium Chloride () 250 mls @ 15 mls/hr IV .[id number] PRN PRN Reason: Saline Flush Sodium Chloride () 250 mls @ 15 mls/hr IV .[id number] PRN PRN Reason: Additional IVPB Infusion Sodium Chloride () 1,000 mls @ 125 mls/hr IV .Q8H [facility] Last Admin: 11/27/19 08:06 Dose: 125 mls/hr Documented by: Heparin Sodium/Dextrose () 25,000 units in 250 mls @ 22 mls/hr IV .[id number] [facility]; Protocol Last Titration: 11/27/19 10:44 Dose: 2,700 units/hr, 27 mls/hr Documented by: Sodium Chloride () 250 mls @ 15 mls/hr IV .[id number] PRN PRN Reason: Saline Flush Sodium Chloride () 250 mls @ 15 mls/hr IV .[id number] PRN PRN Reason: Additional IVPB Infusion Insulin Human Lispro (Humalog Kwikpen ([facility])) 0 unit SC ACHS [facility]; Protocol Last Admin: 11/27/19 08:12 Dose: Not Given Documented by: Insulin Human Regular (Humulin R U-500 ([facility])) 135 units SC BIDAC [facility] Last Admin: 11/27/19 08:13 Dose: 135 units Documented by: Loratadine (Claritin) 10 mg PO DAILY [facility] Last Admin: 11/27/19 09:05 Dose: 10 mg Documented by: Metoprolol Tartrate (Lopressor (Beta Ezra)) 100 mg PO BID [facility] Last Admin: 11/27/19 09:04 Dose: 100 mg Documented by: Nitroglycerin (Nitrostat) 0.4 mg SUBLINGUAL Q5M PRN PRN Reason: CARDIAC/CHEST PAIN Nystatin (Mycostatin Powder) 1 applic TOPICAL BID [facility]; Protocol Last Admin: 11/27/19 09:06 Dose: 1 applicatio Documented by: Pantoprazole Sodium (Protonix) 20 mg PO DAILY [facility] Last Admin: 11/27/19 09:04 Dose: 20 mg Documented by: Sodium Chloride () 10 - 40 ml IV UD PRN PRN Reason: SALINE FLUSH Last Admin: 11/25/19 20:49 Dose: 10 ml Documented by: Sodium Chloride () 10 - 40 ml IV UD PRN PRN Reason: SALINE FLUSH Tamsulosin HCl (Flomax) 0.4 mg PO DAILY@1730 [facility] Last Admin: 11/26/19 10:33 Dose: 0.4 mg Documented by: Assessment/Plan This patient was seen in conjunction with JESS Huynh . I have independently interviewed and examined the patient and reviewed pertinent historical, laboratory, and other data. Please refer to JESS Huynh note for details of this patient's presentation, findings, and recommendations. I have reviewed JESS Huynh note and concur with documented findings. In brief, patient is a 49-year-old gentleman admitted with abdominal pain. Found to be in acute kidney injury suspected to be secondary to urinary retention Fuentes catheter was placed admitted to monitored bed for further management 11/27/2019: Patient seen kidney function did worsen, consult subsequently placed to nephrology Physical Examination: GENERAL: cooperative HEENT: Atraumatic; EYES; Anicteric, Normal Conjunctiva NECK; supple, normal thyroid, RESPIRATORY: Diminished to auscultation CARDIOVASCULAR: Regular S1 S2, GI: soft, normoactive bowel sounds, : No Renal angle tenderness; EXTREMITIES: Bilateral AKA NEURO: Awake; no lateralizing signs. SKIN: No Rash PSYCH; Flat affect Assessment: 1. Acute kidney injury 2. Obstructive uropathy 3. Hyperkalemia 4. Elevated troponin secondary to demand ischemia 5. Diabetes mellitus type 2 6. Essential hypertension 7. Factor V Leyden deficiency on Xarelto 8. Dyslipidemia 9. Morbid obesity with BMI of 71.8 10. Depression 11. Gout 12. Suspected obstructive sleep apnea 13. GERD Recommendations: 1. I have discussed the results of my overview and impressions with the patient 2. Options for management were reviewed Inpatient E&M: [id number] [facility] [email or web address] Hosp L3
[2019-11-27] MEDS: Insulin Lispro 100 UNIT/ML INSULN.PEN SC ×3 (11:52→21:13)
[2019-11-27 12:05] LABS: Bedside Glucose 184 mg/dL (70-110)
[2019-11-27] MEDS: Tamsulosin HCl 0.4 MG Capsule PO (16:20)
[2019-11-27 17:08] LABS: Urine Sodium 17 mmol/L (Not Establ.)
[2019-11-27 17:18] LABS: Partial Thromboplast Time 43.2 Seconds (24.1-36.2)
[2019-11-27 17:31] LABS: Bedside Glucose 185 mg/dL (70-110)
[2019-11-27] MEDS: HEPARIN/D5w 25,000 UNITS 25,000 UNITS/250 ML IV.SOLN. 28 UNITS IV (17:39)
--- NOTE | 2019-11-27 18:09 | CON.PCM_ITS ---
Consultation - Renal PCP/ Referring MD: Requesting physician: [] Primary care physician: Dr. Arian Couch MD - History of Present Illness History of Present Illness: The patient is a 49 year old M PMH of morbid obesity , B/L AKA,DM, HTN. Pt presented because he was not able to urinate. Pt was found to have VIOLETTE with Cr 2.6 mg/dL at presentation Kidney function improved with putting rodriguez cath with 1L of immediate urine return. IVF NS started at 125 cc/hr Kidney function holley improved to 2.5 mg/dL next day however, SCr increased to 3.2 today. oliguric. brown dark urine in rodriguez cath CT abd/pelvis is negative for hydronephrosis No IV contrast exposure. No NSAIDs use ROS: 12 systems review is negative - Allergies Allergies: Allergies sulfamethoxazole [From Bactrim] Allergy (Verified 11/25/19 20:07) NEEDS FOLLOW-UP trimethoprim [From Bactrim] Allergy (Verified 11/25/19 20:07) NEEDS FOLLOW-UP dapagliflozin propanediol [From Farxiga] Adverse Reaction (Verified 08/05/17 13:01) Other - Current Medications Current Medications: Current Medications Allopurinol (Zyloprim) 300 mg PO DAILY [facility] Last Admin: 11/27/19 09:04 Dose: 300 mg Documented by: Aspirin (Aspirin, Baby) 81 mg PO DAILY@0800 [facility] Last Admin: 11/27/19 08:13 Dose: 81 mg Documented by: Atorvastatin Calcium (Lipitor) 40 mg PO QHS [facility] Last Admin: 11/26/19 21:26 Dose: 40 mg Documented by: Bupropion HCl (Wellbutrin Xl) 150 mg PO DAILY [facility] Last Admin: 11/27/19 09:04 Dose: 150 mg Documented by: Dextrose (D50w Syringe) 0 gm IV X1 PRN; Protocol PRN Reason: Hypoglycemia Glucagon () 1 mg IM .X1 PRN PRN Reason: Hypoglycemia Heparin Sodium (Porcine) (Heparin Na) 0 unit IV UD PRN; Protocol Last Admin: 11/27/19 17:51 Dose: 1,000 unit Documented by: Heparin Sodium/Dextrose () 25,000 units in 250 mls @ 22 mls/hr IV .[id number]; Protocol Last Admin: 11/27/19 17:39 Dose: 2,800 units/hr, 28 mls/hr Documented by: Sodium Chloride () 250 mls @ 15 mls/hr IV .[id number] PRN PRN Reason: Additional IVPB Infusion Insulin Human Lispro (Humalog Kwikpen ([facility])) 0 unit SC ACHS [facility]; Protocol Last Admin: 11/27/19 16:21 Dose: 2 u Documented by: Insulin Human Regular (Humulin R U-500 ([facility])) 135 units SC BIDAC [facility] Last Admin: 11/27/19 16:22 Dose: 135 units Documented by: Loratadine (Claritin) 10 mg PO DAILY [facility] Last Admin: 11/27/19 09:05 Dose: 10 mg Documented by: Metoprolol Tartrate (Lopressor (Beta Ezra)) 100 mg PO BID [facility] Last Admin: 11/27/19 09:04 Dose: 100 mg Documented by: Nitroglycerin (Nitrostat) 0.4 mg SUBLINGUAL Q5M PRN PRN Reason: CARDIAC/CHEST PAIN Nystatin (Mycostatin Powder) 1 applic TOPICAL BID [facility]; Protocol Last Admin: 11/27/19 09:06 Dose: 1 applicatio Documented by: Pantoprazole Sodium (Protonix) 20 mg PO DAILY [facility] Last Admin: 11/27/19 09:04 Dose: 20 mg Documented by: Sodium Chloride () 10 - 40 ml IV UD PRN PRN Reason: SALINE FLUSH Tamsulosin HCl (Flomax) 0.4 mg PO DAILY@1730 [facility] Last Admin: 11/27/19 16:20 Dose: 0.4 mg Documented by: - Past Medical History Past Medical History (Chronic Problems): Chronic Problems (Last Reviewed 08/05/17 @ 13:02 by Brooklyn Pleitez) 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 Diabetes mellitus type 2 in obese (Chronic) Ulcer of right lower extremity (Chronic) History of left below knee amputation (Chronic) Allergic rhinitis (Chronic) Morbid obesity (Chronic) GERD (gastroesophageal reflux disease) (Chronic) HTN (hypertension) (Chronic) Diabetes (Chronic) - Past Surgical History Surgical History: - - left bka. - Social History Smoking Status: Never smoker Alcohol: None Drugs: None - Family History Maternal Family History: Family History (Last Reviewed 08/05/17 @ 13:02 by Brooklyn Pleitez) Unknown Arthritis Cancer Diabetes Heart disease Hypertension CVA (cerebral vascular accident) History Items: - - mother with blood clots Sibling Family History: Family History (Last Reviewed 08/05/17 @ 13:02 by Brooklyn Pleitez) Unknown Arthritis Cancer Diabetes Heart disease Hypertension CVA (cerebral vascular accident) History Items: - - 2 sister with blood clots. Patient Problems: Active and Suspected Problems (Last Reviewed 08/05/17 @ 13:02 by Brooklyn Pleitez) Acute urinary retention (Acute) Acute kidney injury (Acute) Hyperglycemia (Acute) Elevated troponin (Acute) - Physical Exam Vitals/I&O's: Vital Signs Temp Pulse Resp BP Pulse Ox 97.6 F L 77 18 109/62 94 11/27/19 14:30 11/27/19 14:30 11/27/19 14:30 11/27/19 14:30 11/27/19 14:30 Oxygen Flow Rate (L/min) 1 Oxygen Delivery Method Nasal Cannula Weight: 267.438 kg Body Mass Index (BMI) 70.2 Intake and Output for Last 24 Hours 11/25/19 11/26/19 11/27/19 23:59 23:59 23:59 Intake Total 760 / 760 3700.0 / 3700.0 4632.91 / 4632.91 Output Total 1400 / 1400 325 / 325 375 / 375 Balance -640 / -640 3375.0 / 3375.0 4257.91 / 4257.91 General: Alert, Oriented x3 HEENT: Atraumatic Neck: Supple, No JVD Lungs: Clear to auscultation, Normal air movement, No rhonchi, No wheeze Cardiovascular: Regular rate, Regular Rhythm, Normal S1, Normal S2 Abdomen: Bowel Sounds Present, Non Tender, - - abdominal wall edema Extremities: No edema - +1 edema of his thighs Skin: No rashes Musculoskeletal: No Tenderness to Palpation of Joints or Extremities Lymphatic: No Cervical, Supraclavicular, or Inguinal Adenopathy Neurological: Neuro grossly intact Psych/Mental Status: Appropriate Laboratory Results 11/26/19 16:40: Ur Random Sodium 11/26/19 19:15: APTT 46.8 H 11/26/19 21:11: POC Glucose 252 H 11/27/19 02:37: WBC 13.5 H, RBC 4.23 L, Hgb 10.4 L, Hct 36.2 L, MCV 85.6, MCH 24.6 L, MCHC 28.7 L, RDW Std Deviation 53.8 H, RDW Coeff of Lucy 17.4 H, Plt Count 372, MPV 10.7 11/27/19 02:37: Sodium 136, Potassium 5.3 H, Chloride 107, Carbon Dioxide 24.0, Anion Gap 5, BUN 76 H, Creatinine 3.21 H, Estim Creat Clear Calc 34.93, Est GFR (MDRD) Af Amer 27 L, Est GFR (MDRD) Non-Af 22 L, BUN/Creatinine Ratio 23.7 H, Glucose 164 H, Calcium 7.9 L 11/27/19 02:37: APTT 49.8 H 11/27/19 08:11: POC Glucose 123 H 11/27/19 10:11: APTT 48.5 H 11/27/19 11:50: POC Glucose 184 H 11/27/19 16:18: POC Glucose 185 H 11/27/19 16:40: Ur Random Sodium Pending 11/27/19 17:01: APTT 43.2 H Current Medications Allopurinol (Zyloprim) 300 mg PO DAILY [facility] Last Admin: 11/27/19 09:04 Dose: 300 mg Documented by: Aspirin (Aspirin, Baby) 81 mg PO DAILY@0800 [facility] Last Admin: 11/27/19 08:13 Dose: 81 mg Documented by: Atorvastatin Calcium (Lipitor) 40 mg PO QHS [facility] Last Admin: 11/26/19 21:26 Dose: 40 mg Documented by: Bupropion HCl (Wellbutrin Xl) 150 mg PO DAILY [facility] Last Admin: 11/27/19 09:04 Dose: 150 mg Documented by: Dextrose (D50w Syringe) 0 gm IV X1 PRN; Protocol PRN Reason: Hypoglycemia Glucagon () 1 mg IM .X1 PRN PRN Reason: Hypoglycemia Heparin Sodium (Porcine) (Heparin Na) 0 unit IV UD PRN; Protocol Last Admin: 11/27/19 17:51 Dose: 1,000 unit Documented by: Heparin Sodium/Dextrose () 25,000 units in 250 mls @ 22 mls/hr IV .[id number] [facility]; Protocol Last Admin: 11/27/19 17:39 Dose: 2,800 units/hr, 28 mls/hr Documented by: Sodium Chloride () 250 mls @ 15 mls/hr IV .[id number] PRN PRN Reason: Additional IVPB Infusion Insulin Human Lispro (Humalog Kwikpen ([facility])) 0 unit SC ACHS [facility]; Protocol Last Admin: 11/27/19 16:21 Dose: 2 u Documented by: Insulin Human Regular (Humulin R U-500 ([facility])) 135 units SC BIDAC [facility] Last Admin: 11/27/19 16:22 Dose: 135 units Documented by: Loratadine (Claritin) 10 mg PO DAILY [facility] Last Admin: 11/27/19 09:05 Dose: 10 mg Documented by: Metoprolol Tartrate (Lopressor (Beta Ezra)) 100 mg PO BID [facility] Last Admin: 11/27/19 09:04 Dose: 100 mg Documented by: Nitroglycerin (Nitrostat) 0.4 mg SUBLINGUAL Q5M PRN PRN Reason: CARDIAC/CHEST PAIN Nystatin (Mycostatin Powder) 1 applic TOPICAL BID [facility]; Protocol Last Admin: 11/27/19 09:06 Dose: 1 applicatio Documented by: Pantoprazole Sodium (Protonix) 20 mg PO DAILY [facility] Last Admin: 11/27/19 09:04 Dose: 20 mg Documented by: Sodium Chloride () 10 - 40 ml IV UD PRN PRN Reason: SALINE FLUSH Tamsulosin HCl (Flomax) 0.4 mg PO DAILY@1730 [facility] Last Admin: 11/27/19 16:20 Dose: 0.4 mg Documented by: Assessment/Plan All Active Problems (Last Reviewed 08/05/17 @ 13:02 by Brooklyn Pleitez) Acute urinary retention (Acute) Acute kidney injury (Acute) Hyperglycemia (Acute) Elevated troponin (Acute) Edema of right lower extremity (Acute) Diabetic foot ulcer (Acute) Bilateral pulmonary embolism (Acute) 1- VIOLETTE on CKD stage 3. Baseline SCR ~ 1.12 Sep 2019 CKD is likely DNP UA showed 30 protein. FeUrea 1.7% indicating prerenal azotemia Will resume IV NS at 150 cc/hr Avoid diuretics Continue holding ACEI No need for UTILITY DRIVER Continue to monitor RFP daily 2- HTN: well controlled continue holding ACEI/HCTZ Might add Norvasc if BP increases 3- Acute urinary retention continue rodriguez cath 4- edema likely from right side HF right ventricle was not visualized by echo Monitor while on IVF Thank you for the consult Renal team will continue to follow Please call if any question at [phone] Toribio Soto MD
[2019-11-27] MEDS: Furosemide 40 MG/4 ML Vial IV (18:20)
[2019-11-27] MEDS: 0.9% Saline Lock 10 ML Syringe IV (18:21)
[2019-11-27 18:42] LABS: Urine Sodium 19 mmol/L (Not Establ.)
[2019-11-27] MEDS: 0.9% Normal Saline 1,000 ML 150 ML IV (18:44)
--- NOTE | 2019-11-27 18:56 | NURSING ---
Fuentes flushed per Dr. Soto order w/ sterile saline 20cc. Saline inserted w/ no resistance and then drained through Fuentes catheter.
[2019-11-27] MEDS: Atorvastatin Calcium 40 MG Tablet PO (21:14)
[2019-11-27 22:10] LABS: Bedside Glucose 181 mg/dL (70-110)
[2019-11-28] VITALS (16 sets, daily range): BP systolic 95–133; BP diastolic 43–70; PULSE 73–81; RESP 18; TEMP 36.3–36.9; O2SAT 93–96
[2019-11-28 00:11] LABS: Partial Thromboplast Time 52.4 Seconds (24.1-36.2)
[2019-11-28] MEDS: Heparin Injection (Vial) 5,000 UNIT/ML VIAL IV ×2 (00:49→15:38)
[2019-11-28] MEDS: 0.9% Normal Saline 1,000 ML 150 ML IV ×4 (01:31→22:44)
[2019-11-28] MEDS: HEPARIN/D5w 25,000 UNITS 25,000 UNITS/250 ML IV.SOLN. 29 UNITS IV ×2 (03:17→11:51)
[2019-11-28 06:52] LABS: Hemoglobin 10.1 g/dL (13.0-16.5); Mean Corp Hgb Conc 28.1 g/dL (32-36); Mean Corpuscular Hgb 24.5 pg (27.0-32.0); Mean Corpuscular Volume 87.4 fL (80-94); Mean Platelet Vol. 10.3 fl (6.2-12.0); Platelet Count 328 K/mm3 (150-450); RBC Distribution Width SD 56.8 fl (35.1-43.9); Red Blood Count 4.12 M/mm3 (4.6-6.2); White Blood Count 13.3 K/mm3 (4.4-11.0)
[2019-11-28 07:01] LABS: Partial Thromboplast Time 58.1 Seconds (24.1-36.2)
[2019-11-28 07:13] LABS: Anion Gap 6 (5-15); BUN 84 mg/dL (7-18); Calcium,Total 7.7 mg/dL (8.5-10.1); Chloride 107 mmol/L (98-107); EST Glomerular Filtration Rate 17 mL/min (>60); Est Glom Filt Rate - Afr Amer 21 mL/min (>60); Estimated Creatinine Clearance 28.03 ml/min; Glucose 165 mg/dL (74-106); Potassium 5.9 mmol/L (3.5-5.1); Sodium Level 135 mmol/L (136-145)
[2019-11-28] MEDS: Insulin Lispro 100 UNIT/ML INSULN.PEN SC ×2 (07:56→11:50)
[2019-11-28] MEDS: Pantoprazole Sodium 20 MG Tablet PO (09:19)
[2019-11-28] MEDS: Loratadine 10 MG Tablet PO (09:19)
[2019-11-28] MEDS: Allopurinol 300 MG Tablet PO (09:19)
[2019-11-28] MEDS: buPROPion (XL) 150 MG TABLET.XL PO (09:19)
[2019-11-28] MEDS: Aspirin 81 MG TAB.CHEW PO (09:19)
[2019-11-28] MEDS: Nystatin Powder 15gm Bottle 1 APPLIC TOPICAL ×2 (11:50→21:46)
[2019-11-28 11:54] LABS: Anion Gap 9 (5-15); BUN 84 mg/dL (7-18); BUN/Creat Ratio 21.2 RATIO (10-20); Calcium,Total 7.5 mg/dL (8.5-10.1); Chloride 105 mmol/L (98-107); Creatinine, Serum 3.96 mg/dL (0.70-1.30); EST Glomerular Filtration Rate 17 mL/min (>60); Est Glom Filt Rate - Afr Amer 21 mL/min (>60); Estimated Creatinine Clearance 28.31 ml/min; Glucose 174 mg/dL (74-106); Potassium 5.5 mmol/L (3.5-5.1); Sodium Level 134 mmol/L (136-145)
--- NOTE | 2019-11-28 12:38 | PCM.PROGNOTE ---
<Cesia Blanchard - Last Filed: 11/28/19 12:45> Patient Problems: Active and Suspected Problems (Last Reviewed 08/05/17 @ 13:02 by Brooklyn Pleitez) Acute urinary retention (Acute) Acute kidney injury (Acute) Hyperglycemia (Acute) Elevated troponin (Acute) Subjective: Patient seen and examined. States he is uncomfortable due to sitting in bed. Discussed with PT assisting patient up to chair. Otherwise patient denies complaints. - Physical Exam Vitals/I&O's: Vital Signs Temp Pulse Resp BP Pulse Ox 97.7 F L 76 18 95/47 L 96 11/28/19 07:30 11/28/19 11:00 11/28/19 07:30 11/28/19 10:04 11/28/19 07:30 Oxygen Flow Rate (L/min) 2 Oxygen Delivery Method Nasal Cannula Weight: 589 lb 9.597 oz Body Mass Index (BMI) 70.2 Intake and Output for Last 24 Hours 11/26/19 11/27/19 11/28/19 23:59 23:59 23:59 Intake Total 3700.0 / 3700.0 4732.91 / 4732.91 2738.43 / 2738.43 Output Total 325 / 325 475 / 475 150 / 150 Balance 3375.0 / 3375.0 4257.91 / 4257.91 2588.43 / 2588.43 General: Alert, Oriented x3, Cooperative HEENT: Atraumatic, PERRLA, EOMI, Normocephalic Neck: Supple, No JVD, Negative Carotid Bruits Lungs: Clear to auscultation, Diminished Cardiovascular: Regular rate, No murmurs Abdomen: Bowel Sounds Present, Soft, Non Tender, Non-Distended, Obese Extremities: No clubbing, No cyanosis, No edema Skin: No rashes, No breakdown Musculoskeletal: No Tenderness to Palpation of Joints or Extremities, - - Bilateral AKA Neurological: Cranial nerves II-XII grossly intact, Neuro grossly intact Psych/Mental Status: Normal Affect, Appropriate Laboratory Results 11/26/19 16:40: Ur Random Sodium 11/27/19 16:18: POC Glucose 185 H 11/27/19 16:40: Ur Random Sodium 11/27/19 17:01: APTT 43.2 H 11/27/19 21:10: POC Glucose 181 H 11/27/19 23:48: APTT 52.4 H 11/28/19 06:40: WBC 13.3 H, RBC 4.12 L, Hgb 10.1 L, Hct 36.0 L, MCV 87.4, MCH 24.5 L, MCHC 28.1 L, RDW Std Deviation 56.8 H, RDW Coeff of Lucy 18.0 H, Plt Count 328, MPV 10.3 11/28/19 06:40: Sodium 135 L, Potassium 5.9 H, Chloride 107, Carbon Dioxide 22.0, Anion Gap 6, BUN 84 H, Creatinine 4.00 H, Estim Creat Clear Calc 28.03, Est GFR (MDRD) Af Amer 21 L, Est GFR (MDRD) Non-Af 17 L, BUN/Creatinine Ratio 21.0 H, Glucose 165 H, Calcium 7.7 L 11/28/19 06:40: APTT 58.1 H 11/28/19 11:33: Sodium 134 L, Potassium 5.5 H, Chloride 105, Carbon Dioxide 20.0 L, Anion Gap 9, BUN 84 H, Creatinine 3.96 H, Estim Creat Clear Calc 28.31, Est GFR (MDRD) Af Amer 21 L, Est GFR (MDRD) Non-Af 17 L, BUN/Creatinine Ratio 21.2 H, Glucose 174 H, Calcium 7.5 L Current Medications Allopurinol (Zyloprim) 300 mg PO DAILY [facility] Last Admin: 11/28/19 09:19 Dose: 300 mg Documented by: Aspirin (Aspirin, Baby) 81 mg PO DAILY@0800 [facility] Last Admin: 11/28/19 09:19 Dose: 81 mg Documented by: Atorvastatin Calcium (Lipitor) 40 mg PO QHS [facility] Last Admin: 11/27/19 21:14 Dose: 40 mg Documented by: Bupropion HCl (Wellbutrin Xl) 150 mg PO DAILY [facility] Last Admin: 11/28/19 09:19 Dose: 150 mg Documented by: Dextrose (D50w Syringe) 0 gm IV X1 PRN; Protocol PRN Reason: Hypoglycemia Glucagon () 1 mg IM .X1 PRN PRN Reason: Hypoglycemia Heparin Sodium (Porcine) (Heparin Na) 0 unit IV UD PRN; Protocol Last Admin: 11/28/19 00:49 Dose: 1,000 unit Documented by: Heparin Sodium/Dextrose () 25,000 units in 250 mls @ 22 mls/hr IV .[id number] [facility]; Protocol Last Admin: 11/28/19 11:51 Dose: 2,900 units/hr, 29 mls/hr Documented by: Sodium Chloride () 250 mls @ 15 mls/hr IV .[id number] PRN PRN Reason: Additional IVPB Infusion Sodium Chloride () 1,000 mls @ 150 mls/hr IV .[id number] [facility] Last Admin: 11/28/19 09:17 Dose: 150 mls/hr Documented by: Insulin Human Lispro (Humalog Kwikpen ([facility])) 0 unit SC ACHS [facility]; Protocol Last Admin: 11/28/19 11:50 Dose: 2 u Documented by: Insulin Human Regular (Humulin R U-500 ([facility])) 135 units SC BIDAC [facility] Last Admin: 11/28/19 07:57 Dose: 135 units Documented by: Loratadine (Claritin) 10 mg PO DAILY [facility] Last Admin: 11/28/19 09:19 Dose: 10 mg Documented by: Metoprolol Tartrate (Lopressor (Beta Ezra)) 100 mg PO BID [facility] Last Admin: 11/28/19 10:04 Dose: Not Given Documented by: Nitroglycerin (Nitrostat) 0.4 mg SUBLINGUAL Q5M PRN PRN Reason: CARDIAC/CHEST PAIN Nystatin (Mycostatin Powder) 1 applic TOPICAL BID [facility]; Protocol Last Admin: 11/28/19 11:50 Dose: 1 applicatio Documented by: Pantoprazole Sodium (Protonix) 20 mg PO DAILY [facility] Last Admin: 11/28/19 09:19 Dose: 20 mg Documented by: Sodium Chloride () 10 - 40 ml IV UD PRN PRN Reason: SALINE FLUSH Last Admin: 11/27/19 18:21 Dose: 10 ml Documented by: Tamsulosin HCl (Flomax) 0.4 mg PO DAILY@1730 [facility] Last Admin: 11/27/19 16:20 Dose: 0.4 mg Documented by: Medical Necessity - Tobacco Use Smoking Status: Never smoker Assessment/Plan All Active Problems (Last Reviewed 08/05/17 @ 13:02 by Brooklyn Pleitez) Acute urinary retention (Acute) Acute kidney injury (Acute) Hyperglycemia (Acute) Elevated troponin (Acute) Edema of right lower extremity (Acute) Diabetic foot ulcer (Acute) Bilateral pulmonary embolism (Acute) 1. Acute kidney injury with hyperkalemia on chronic kidney disease stage III, acute urinary retention-patient presented with urinary retention. Fuentes placed on admission with 1 L of urine drained. CT of abdomen and pelvis shows no evidence of hydronephrosis, small right pleural effusion with right basilar atelectasis. Gallstones. Initiated on Flomax. Continue Fuentes with voiding trial prior to discharge. FENA 1.7%. Nephrology consulted. Continue IV fluids per nephrology as suspect prerenal. Trend BMP. 2. Abnormal troponin-troponin did not trend. EKG without ST-T changes. Patient denies chest pain, shortness of breath or other cardiac symptoms. Echocardiogram demonstrates normal left ventricular systolic function. No regional wall motion abnormalities. Technically difficult study due to patient habitus. 3. Acute hypoxia with small right pleural effusion-suspect secondary to mild fluid overload related to #1. Continue supplement oxygen to maintain O2 at or above 90%. Patient may have chronic hypoxia related to MAICOL and super morbid obesity as well. Will complete home oxygen testing prior to discharge. Patient denies shortness of breath. 4. Type 2 diabetes mellitus-metformin on hold. Accu-Cheks with sliding scale insulin. Continue home insulin regimen. 5. Hypertension-stable. HCTZ, lisinopril on hold due to acute kidney injury. Continue metoprolol regimen. 6. Hyperlipidemia-continue statin. 7. Factor V Leiden deficiency-on Xarelto. Xarelto on hold pending improvement in kidney function. Continue heparin drip. 8. MAICOL-continue home CPAP regimen. 9. Super morbid obesity-encouraged diet and lifestyle modifications. Dietitian consult. 10. 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 Complicated by super morbid obesity. PT/OT. 11. Depression-continue bupropion regimen. 12. Gout-continue allopurinol. 13. GERD-continue omeprazole regimen. 14. Mild leukocytosis-appears chronic. No evidence of infectious etiology. DVT prophylaxis-heparin drip, continue home Xarelto regimen when kidney function improves. This patient was seen by JESS Huynh under the supervision of Dr. Barrera. <Lenin Barrera - Last Filed: 11/28/19 13:34> - Physical Exam Vitals/I&O's: Vital Signs Temp Pulse Resp BP Pulse Ox 97.7 F L 76 18 95/47 L 96 11/28/19 07:30 11/28/19 11:00 11/28/19 07:30 11/28/19 10:04 11/28/19 07:30 Oxygen Flow Rate (L/min) 2 Oxygen Delivery Method Nasal Cannula Weight: 267.438 kg Body Mass Index (BMI) 70.2 Intake and Output for Last 24 Hours 11/26/19 11/27/19 11/28/19 23:59 23:59 23:59 Intake Total 3700.0 / 3700.0 4732.91 / 4732.91 2738.43 / 2738.43 Output Total 325 / 325 475 / 475 150 / 150 Balance 3375.0 / 3375.0 4257.91 / 4257.91 2588.43 / 2588.43 Laboratory Results 11/26/19 16:40: Ur Random Sodium 11/27/19 16:18: POC Glucose 185 H 11/27/19 16:40: Ur Random Sodium 11/27/19 17:01: APTT 43.2 H 11/27/19 21:10: POC Glucose 181 H 11/27/19 23:48: APTT 52.4 H 11/28/19 06:40: WBC 13.3 H, RBC 4.12 L, Hgb 10.1 L, Hct 36.0 L, MCV 87.4, MCH 24.5 L, MCHC 28.1 L, RDW Std Deviation 56.8 H, RDW Coeff of Lucy 18.0 H, Plt Count 328, MPV 10.3 11/28/19 06:40: Sodium 135 L, Potassium 5.9 H, Chloride 107, Carbon Dioxide 22.0, Anion Gap 6, BUN 84 H, Creatinine 4.00 H, Estim Creat Clear Calc 28.03, Est GFR (MDRD) Af Amer 21 L, Est GFR (MDRD) Non-Af 17 L, BUN/Creatinine Ratio 21.0 H, Glucose 165 H, Calcium 7.7 L 11/28/19 06:40: APTT 58.1 H 11/28/19 11:33: Sodium 134 L, Potassium 5.5 H, Chloride 105, Carbon Dioxide 20.0 L, Anion Gap 9, BUN 84 H, Creatinine 3.96 H, Estim Creat Clear Calc 28.31, Est GFR (MDRD) Af Amer 21 L, Est GFR (MDRD) Non-Af 17 L, BUN/Creatinine Ratio 21.2 H, Glucose 174 H, Calcium 7.5 L Current Medications Allopurinol (Zyloprim) 300 mg PO DAILY [facility] Last Admin: 11/28/19 09:19 Dose: 300 mg Documented by: Aspirin (Aspirin, Baby) 81 mg PO DAILY@0800 [facility] Last Admin: 11/28/19 09:19 Dose: 81 mg Documented by: Atorvastatin Calcium (Lipitor) 40 mg PO QHS [facility] Last Admin: 11/27/19 21:14 Dose: 40 mg Documented by: Bupropion HCl (Wellbutrin Xl) 150 mg PO DAILY [facility] Last Admin: 11/28/19 09:19 Dose: 150 mg Documented by: Dextrose (D50w Syringe) 0 gm IV X1 PRN; Protocol PRN Reason: Hypoglycemia Glucagon () 1 mg IM .X1 PRN PRN Reason: Hypoglycemia Heparin Sodium (Porcine) (Heparin Na) 0 unit IV UD PRN; Protocol Last Admin: 11/28/19 00:49 Dose: 1,000 unit Documented by: Heparin Sodium/Dextrose () 25,000 units in 250 mls @ 22 mls/hr IV .[id number] [facility]; Protocol Last Admin: 11/28/19 11:51 Dose: 2,900 units/hr, 29 mls/hr Documented by: Sodium Chloride () 250 mls @ 15 mls/hr IV .[id number] PRN PRN Reason: Additional IVPB Infusion Sodium Chloride () 1,000 mls @ 150 mls/hr IV .Q6H40M [facility] Last Admin: 11/28/19 09:17 Dose: 150 mls/hr Documented by: Insulin Human Lispro (Humalog Kwikpen ([facility])) 0 unit SC ACHS [facility]; Protocol Last Admin: 11/28/19 11:50 Dose: 2 u Documented by: Insulin Human Regular (Humulin R U-500 ([facility])) 135 units SC BIDAC [facility] Last Admin: 11/28/19 07:57 Dose: 135 units Documented by: Loratadine (Claritin) 10 mg PO DAILY [facility] Last Admin: 11/28/19 09:19 Dose: 10 mg Documented by: Metoprolol Tartrate (Lopressor (Beta Ezra)) 100 mg PO BID [facility] Last Admin: 11/28/19 10:04 Dose: Not Given Documented by: Nitroglycerin (Nitrostat) 0.4 mg SUBLINGUAL Q5M PRN PRN Reason: CARDIAC/CHEST PAIN Nystatin (Mycostatin Powder) 1 applic TOPICAL BID [facility]; Protocol Last Admin: 11/28/19 11:50 Dose: 1 applicatio Documented by: Pantoprazole Sodium (Protonix) 20 mg PO DAILY [facility] Last Admin: 11/28/19 09:19 Dose: 20 mg Documented by: Sodium Chloride () 10 - 40 ml IV UD PRN PRN Reason: SALINE FLUSH Last Admin: 11/27/19 18:21 Dose: 10 ml Documented by: Tamsulosin HCl (Flomax) 0.4 mg PO DAILY@1730 [facility] Last Admin: 11/27/19 16:20 Dose: 0.4 mg Documented by: Assessment/Plan This patient was seen in conjunction with JESS Huynh . I have independently interviewed and examined the patient and reviewed pertinent historical, laboratory, and other data. Please refer to JESS Huynh note for details of this patient's presentation, findings, and recommendations. I have reviewed JESS Huynh note and concur with documented findings. In brief, patient is a 49-year-old gentleman admitted with abdominal pain. Found to be in acute kidney injury suspected to be secondary to urinary retention Fuentes catheter was placed admitted to monitored bed for further management 11/27/2019: Patient seen kidney function did worsen, consult subsequently placed to nephrology 11/28/2019: Patient seen, kidney function continues to worsen. Potassium up to 5.9. An order was given for patient to receive Kayexalate repeat potassium ordered for subsequent monitoring Physical Examination: GENERAL: cooperative HEENT: Atraumatic; EYES; Anicteric, Normal Conjunctiva NECK; supple, normal thyroid, RESPIRATORY: Diminished to auscultation CARDIOVASCULAR: Regular S1 S2, GI: soft, normoactive bowel sounds, : No Renal angle tenderness; EXTREMITIES: Bilateral AKA NEURO: Awake; no lateralizing signs. SKIN: No Rash PSYCH; Flat affect Assessment: 1. Acute kidney injury 2. Obstructive uropathy 3. Hyperkalemia 4. Elevated troponin secondary to demand ischemia 5. Diabetes mellitus type 2 6. Essential hypertension 7. Factor V Leyden deficiency on Xarelto 8. Dyslipidemia 9. Morbid obesity with BMI of 71.8 10. Depression 11. Gout 12. Suspected obstructive sleep apnea 13. GERD Recommendations: 1. I have discussed the results of my overview and impressions with the patient 2. Options for management were reviewed Inpatient E&M: [id number] [facility] L[facility]
[2019-11-28 13:58] LABS: Partial Thromboplast Time 52.5 Seconds (24.1-36.2)
[2019-11-28] MEDS: Sodium Polystyrene Sulfonate 15 GM/60 ML UDC 30 GM PO (14:57)
[2019-11-28] MEDS: Tamsulosin HCl 0.4 MG Capsule PO (16:06)
[2019-11-28 16:51] LABS: Anion Gap 8 (5-15); BUN 88 mg/dL (7-18); BUN/Creat Ratio 23.6 RATIO (10-20); Calcium,Total 7.5 mg/dL (8.5-10.1); Chloride 106 mmol/L (98-107); Creatinine, Serum 3.73 mg/dL (0.70-1.30); EST Glomerular Filtration Rate 19 mL/min (>60); Est Glom Filt Rate - Afr Amer 23 mL/min (>60); Estimated Creatinine Clearance 30.06 ml/min; Glucose 156 mg/dL (74-106); Potassium 5.2 mmol/L (3.5-5.1); Sodium Level 135 mmol/L (136-145)
[2019-11-28 17:03] LABS: Bedside Glucose 177 mg/dL (70-110)
[2019-11-28 17:03] LABS: Bedside Glucose 153 mg/dL (70-110)
[2019-11-28 17:03] LABS: Bedside Glucose 157 mg/dL (70-110)
[2019-11-28 17:05] LABS: Bedside Glucose 146 mg/dL (70-110)
[2019-11-28] MEDS: HEPARIN/D5w 25,000 UNITS 25,000 UNITS/250 ML IV.SOLN. 30 UNITS IV (21:29)
[2019-11-28] MEDS: Atorvastatin Calcium 40 MG Tablet PO (21:46)
[2019-11-28 21:54] LABS: Partial Thromboplast Time 53.2 Seconds (24.1-36.2)
[2019-11-28 22:51] LABS: Bedside Glucose 90 mg/dL (70-110)
[2019-11-29] VITALS (13 sets, daily range): BP systolic 98–141; BP diastolic 68–85; PULSE 71–89; RESP 20–22; TEMP 36.6–36.8; O2SAT 93–96
--- NOTE | 2019-11-29 01:06 | PCM.HOSP.N ---
Hospitalist Note Discussed patient case with pharmacy as ongoing heparin drip which has never been therapeutic secondary to his morbidly obese status, currently at max allowance on pump. Reviewed renal function and history with pharmacist and he recommended d/c heparin drip and transition to eliquis 2.5 mg BID with first dose now.
[2019-11-29] MEDS: APIXABAN 2.5 MG TABLET PO ×3 (01:21→22:17)
[2019-11-29] MEDS: 0.9% Normal Saline 1,000 ML 150 ML IV ×2 (05:03→11:49)
[2019-11-29 07:01] LABS: Anion Gap 8 (5-15); BUN 88 mg/dL (7-18); BUN/Creat Ratio 24.9 RATIO (10-20); Calcium,Total 7.1 mg/dL (8.5-10.1); Chloride 107 mmol/L (98-107); Creatinine, Serum 3.53 mg/dL (0.70-1.30); EST Glomerular Filtration Rate 20 mL/min (>60); Est Glom Filt Rate - Afr Amer 24 mL/min (>60); Estimated Creatinine Clearance 31.76 ml/min; Glucose 83 mg/dL (74-106); Potassium 4.9 mmol/L (3.5-5.1); Sodium Level 136 mmol/L (136-145)
[2019-11-29 07:01] LABS: Bedside Glucose 85 mg/dL (70-110)
[2019-11-29] MEDS: Aspirin 81 MG TAB.CHEW PO (09:21)
[2019-11-29] MEDS: Nystatin Powder 15gm Bottle 1 APPLIC TOPICAL (09:22)
[2019-11-29] MEDS: Pantoprazole Sodium 20 MG Tablet PO (09:22)
[2019-11-29] MEDS: Allopurinol 300 MG Tablet PO (09:22)
[2019-11-29] MEDS: buPROPion (XL) 150 MG TABLET.XL PO (09:22)
[2019-11-29] MEDS: Metoprolol Tartrate 100 MG Tablet PO ×2 (09:25→22:18)
[2019-11-29] MEDS: Loratadine 10 MG Tablet PO (09:36)
--- NOTE | 2019-11-29 09:41 | CASEMGMT ---
Patient did not do well with therapy yesterday. LEE met with patient, introduced self and role at [facility]. SW asked about d/c plan as it sounds like he did not do well with therapy yesterday. He said he just needs to get up out of the bed. He also said when he doesn't have his prosthetics on for a little while his legs swell and it takes a little while for legs to fit back in appropriately. LEE told him SW will continue to follow in the event he needs a shelter. He said he hopes not. Marybeth HERCULES MSW
[2019-11-29 11:56] LABS: Bedside Glucose 135 mg/dL (70-110)
--- NOTE | 2019-11-29 13:11 | PN_ITS ---
<Cesia Blanchard - Last Filed: 11/29/19 13:15> Patient Problems: Active and Suspected Problems (Last Reviewed 08/05/17 @ 13:02 by Brooklyn Pleitez) Acute urinary retention (Acute) Acute kidney injury (Acute) Hyperglycemia (Acute) Elevated troponin (Acute) Subjective: Patient seen and examined. Voices frustration that he has not been able to get out of bed. PT has attempted multiple times. His prosthetics are not fitting currently due to stump swelling. Creatinine trending down. - Physical Exam Vitals/I&O's: Vital Signs Temp Pulse Resp BP Pulse Ox 98.0 F 86 20 H 121/68 H 94 11/29/19 09:35 11/29/19 09:35 11/29/19 09:35 11/29/19 09:35 11/29/19 09:35 Oxygen Flow Rate (L/min) 2 Oxygen Delivery Method Nasal Cannula Weight: 589 lb 9.597 oz Body Mass Index (BMI) 70.2 Intake and Output for Last 24 Hours 11/27/19 11/28/19 11/29/19 23:59 23:59 23:59 Intake Total 4732.91 / 4732.91 5415.93 / 5415.93 2595.5 / 2595.5 Output Total 475 / 475 425 / 475 1050 / 1050 Balance 4257.91 / 4257.91 4990.93 / 4940.93 1545.5 / 1545.5 General: Alert, Oriented x3, Cooperative HEENT: Atraumatic, PERRLA, EOMI, Normocephalic Neck: Supple, No JVD, Negative Carotid Bruits Lungs: Clear to auscultation, Normal air movement Cardiovascular: Regular rate, No murmurs Abdomen: Bowel Sounds Present, Soft, Non Tender, Non-Distended, Obese Extremities: No clubbing, No cyanosis, Edema - Nonpitting lower extremity Skin: No rashes, No breakdown Musculoskeletal: No Tenderness to Palpation of Joints or Extremities, - - Bilateral AKA Neurological: Cranial nerves II-XII grossly intact, Neuro grossly intact Psych/Mental Status: Normal Affect, Appropriate Laboratory Results 11/28/19 06:48: POC Glucose 153 H 11/28/19 07:54: POC Glucose 157 H 11/28/19 11:48: POC Glucose 177 H 11/28/19 13:35: APTT 52.5 H 11/28/19 16:02: POC Glucose 146 H 11/28/19 16:31: Sodium 135 L, Potassium 5.2 H, Chloride 106, Carbon Dioxide 2 1.0, Anion Gap 8, BUN 88 H, Creatinine 3.73 H, Estim Creat Clear Calc 30.06, Est GFR (MDRD) Af Amer 23 L, Est GFR (MDRD) Non-Af 19 L, BUN/Creatinine Ratio 23.6 H , Glucose 156 H, Calcium 7.5 L 11/28/19 21:33: POC Glucose 90 11/28/19 21:38: APTT 53.2 H 11/29/19 06:20: Sodium 136, Potassium 4.9, Chloride 107, Carbon Dioxide 21.0, Anion Gap 8, BUN 88 H, Creatinine 3.53 H, Estim Creat Clear Calc 31.76, Est GFR (MDRD) Af Amer 24 L, Est GFR (MDRD) Non-Af 20 L, BUN/Creatinine Ratio 24.9 H, Glucose 83, Calcium 7.1 L 11/29/19 06:54: POC Glucose 85 11/29/19 11:49: POC Glucose 135 H Current Medications Allopurinol (Zyloprim) 300 mg PO DAILY [facility] Last Admin: 11/29/19 09:22 Dose: 300 mg Documented by: Apixaban (Eliquis) 2.5 mg PO BID [facility] Last Admin: 11/29/19 09:22 Dose: 2.5 mg Documented by: Aspirin (Aspirin, Baby) 81 mg PO DAILY@0800 [facility] Last Admin: 11/29/19 09:21 Dose: 81 mg Documented by: Atorvastatin Calcium (Lipitor) 40 mg PO QHS [facility] Last Admin: 11/28/19 21:46 Dose: 40 mg Documented by: Bupropion HCl (Wellbutrin Xl) 150 mg PO DAILY [facility] Last Admin: 11/29/19 09:22 Dose: 150 mg Documented by: Dextrose (D50w Syringe) 0 gm IV X1 PRN; Protocol PRN Reason: Hypoglycemia Glucagon () 1 mg IM .X1 PRN PRN Reason: Hypoglycemia Sodium Chloride () 250 mls @ 15 mls/hr IV .[id number] PRN PRN Reason: Additional IVPB Infusion Sodium Chloride () 1,000 mls @ 150 mls/hr IV .Q6H40M [facility] Last Admin: 11/29/19 11:49 Dose: 150 mls/hr Documented by: Insulin Human Lispro (Humalog Kwikpen ([facility])) 0 unit SC ACHS [facility]; Protocol Last Admin: 11/29/19 11:50 Dose: Not Given Documented by: Insulin Human Regular (Humulin R U-500 ([facility])) 135 units SC BIDAC [facility] Last Admin: 11/29/19 09:37 Dose: Not Given Documented by: Loratadine (Claritin) 10 mg PO DAILY [facility] Last Admin: 11/29/19 09:36 Dose: 10 mg Documented by: Metoprolol Tartrate (Lopressor (Beta Ezra)) 100 mg PO BID [facility] Last Admin: 11/29/19 09:25 Dose: 100 mg Documented by: Nitroglycerin (Nitrostat) 0.4 mg SUBLINGUAL Q5M PRN PRN Reason: CARDIAC/CHEST PAIN Nystatin (Mycostatin Powder) 1 applic TOPICAL BID [facility]; Protocol Last Admin: 11/29/19 09:22 Dose: 1 applicatio Documented by: Pantoprazole Sodium (Protonix) 20 mg PO DAILY [facility] Last Admin: 11/29/19 09:22 Dose: 20 mg Documented by: Sodium Chloride () 10 - 40 ml IV UD PRN PRN Reason: SALINE FLUSH Last Admin: 11/27/19 18:21 Dose: 10 ml Documented by: Tamsulosin HCl (Flomax) 0.4 mg PO DAILY@1730 [facility] Last Admin: 11/28/19 16:06 Dose: 0.4 mg Documented by: Medical Necessity - Tobacco Use Smoking Status: Never smoker Assessment/Plan All Active Problems (Last Reviewed 08/05/17 @ 13:02 by Brooklyn Pleitez) Acute urinary retention (Acute) Acute kidney injury (Acute) Hyperglycemia (Acute) Elevated troponin (Acute) 1. Acute kidney injury with hyperkalemia on chronic kidney disease stage III, acute urinary retention-patient presented with urinary retention. Fuentes placed on admission with 1 L of urine drained. CT of abdomen and pelvis shows no evidence of hydronephrosis, small right pleural effusion with right basilar atelectasis. Gallstones. Initiated on Flomax. Continue Fuentes with voiding trial prior to discharge. FENA 1.7%. Nephrology consulted. Continue IV fluids per nephrology as suspect prerenal. Trend BMP. Creatinine trending down today. Will discuss case with nephrology today as patient's sister who is an [employer] reports frustration with slow improvement. 2. Abnormal troponin-troponin did not trend. EKG without ST-T changes. Patient denies chest pain, shortness of breath or other cardiac symptoms. Echocardiogram demonstrates normal left ventricular systolic function. No regional wall motion abnormalities. Technically difficult study due to patient habitus. 3. Acute hypoxia with small right pleural effusion-suspect secondary to mild fluid overload related to #1. Continue supplement oxygen to maintain O2 at or above 90%. Patient may have chronic hypoxia related to MAICOL and super morbid obesity as well. Will complete home oxygen testing prior to discharge. Patient denies shortness of breath. 4. Type 2 diabetes mellitus-metformin on hold. Accu-Cheks with sliding scale insulin. Continue home insulin regimen. 5. Hypertension-stable. HCTZ, lisinopril on hold due to acute kidney injury. Continue metoprolol regimen. 6. Hyperlipidemia-continue statin. 7. Factor V Leiden deficiency-transition from Xarelto to Eliquis given renal function. 8. MAICOL-continue home CPAP regimen. 9. Super morbid obesity-encouraged diet and lifestyle modifications. Dietitian consult. 10. 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 Complicated by super morbid obesity. PT/OT. 11. Depression-continue bupropion regimen. 12. Gout-continue allopurinol. 13. GERD-continue omeprazole regimen. 14. Mild leukocytosis-appears chronic. No evidence of infectious etiology. DVT prophylaxis-Eliquis This patient was seen by JESS Huynh under the supervision of Dr. Vnison. <Mari Vinson E - Last Filed: 11/29/19 13:30> - Physical Exam Vitals/I&O's: Vital Signs Temp Pulse Resp BP Pulse Ox 98.0 F 86 20 H 121/68 H 94 11/29/19 09:35 11/29/19 09:35 11/29/19 09:35 11/29/19 09:35 11/29/19 09:35 Oxygen Flow Rate (L/min) 2 Oxygen Delivery Method Nasal Cannula Weight: 589 lb 9.597 oz Body Mass Index (BMI) 70.2 Intake and Output for Last 24 Hours 11/27/19 11/28/19 11/29/19 23:59 23:59 23:59 Intake Total 4732.91 / 4732.91 5415.93 / 5415.93 2595.5 / 2595.5 Output Total 475 / 475 425 / 475 1050 / 1050 Balance 4257.91 / 4257.91 4990.93 / 4940.93 1545.5 / 1545.5 Laboratory Results 11/28/19 06:48: POC Glucose 153 H 11/28/19 07:54: POC Glucose 157 H 11/28/19 11:48: POC Glucose 177 H 11/28/19 13:35: APTT 52.5 H 11/28/19 16:02: POC Glucose 146 H 11/28/19 16:31: Sodium 135 L, Potassium 5.2 H, Chloride 106, Carbon Dioxide 21.0, Anion Gap 8, BUN 88 H, Creatinine 3.73 H, Estim Creat Clear Calc 30.06, Est GFR (MDRD) Af Amer 23 L, Est GFR (MDRD) Non-Af 19 L, BUN/Creatinine Ratio 2 3.6 H, Glucose 156 H, Calcium 7.5 L 11/28/19 21:33: POC Glucose 90 11/28/19 21:38: APTT 53.2 H 11/29/19 06:20: Sodium 136, Potassium 4.9, Chloride 107, Carbon Dioxide 21.0, Anion Gap 8, BUN 88 H, Creatinine 3.53 H, Estim Creat Clear Calc 31.76, Est GFR (MDRD) Af Amer 24 L, Est GFR (MDRD) Non-Af 20 L, BUN/Creatinine Ratio 24.9 H, Glucose 83, Calcium 7.1 L 11/29/19 06:54: POC Glucose 85 11/29/19 11:49: POC Glucose 135 H Current Medications Allopurinol (Zyloprim) 300 mg PO DAILY [facility] Last Admin: 11/29/19 09:22 Dose: 300 mg Documented by: Apixaban (Eliquis) 2.5 mg PO BID [facility] Last Admin: 11/29/19 09:22 Dose: 2.5 mg Documented by: Aspirin (Aspirin, Baby) 81 mg PO DAILY@0800 [facility] Last Admin: 11/29/19 09:21 Dose: 81 mg Documented by: Atorvastatin Calcium (Lipitor) 40 mg PO QHS [facility] Last Admin: 11/28/19 21:46 Dose: 40 mg Documented by: Bupropion HCl (Wellbutrin Xl) 150 mg PO DAILY [facility] Last Admin: 11/29/19 09:22 Dose: 150 mg Documented by: Dextrose (D50w Syringe) 0 gm IV X1 PRN; Protocol PRN Reason: Hypoglycemia Glucagon () 1 mg IM .X1 PRN PRN Reason: Hypoglycemia Sodium Chloride () 250 mls @ 15 mls/hr IV .[id number] PRN PRN Reason: Additional IVPB Infusion Sodium Chloride () 1,000 mls @ 150 mls/hr IV .Q6H40M [facility] Last Admin: 11/29/19 11:49 Dose: 150 mls/hr Documented by: Insulin Human Lispro (Humalog Kwikpen ([facility])) 0 unit SC ACHS [facility]; Protocol Last Admin: 11/29/19 11:50 Dose: Not Given Documented by: Insulin Human Regular (Humulin R U-500 ([facility])) 135 units SC BIDAC [facility] Last Admin: 11/29/19 09:37 Dose: Not Given Documented by: Loratadine (Claritin) 10 mg PO DAILY [facility] Last Admin: 11/29/19 09:36 Dose: 10 mg Documented by: Metoprolol Tartrate (Lopressor (Beta Ezra)) 100 mg PO BID [facility] Last Admin: 11/29/19 09:25 Dose: 100 mg Documented by: Nitroglycerin (Nitrostat) 0.4 mg SUBLINGUAL Q5M PRN PRN Reason: CARDIAC/CHEST PAIN Nystatin (Mycostatin Powder) 1 applic TOPICAL BID [facility]; Protocol Last Admin: 11/29/19 09:22 Dose: 1 applicatio Documented by: Pantoprazole Sodium (Protonix) 20 mg PO DAILY [facility] Last Admin: 11/29/19 09:22 Dose: 20 mg Documented by: Sodium Chloride () 10 - 40 ml IV UD PRN PRN Reason: SALINE FLUSH Last Admin: 11/27/19 18:21 Dose: 10 ml Documented by: Tamsulosin HCl (Flomax) 0.4 mg PO DAILY@1730 [facility] Last Admin: 11/28/19 16:06 Dose: 0.4 mg Documented by: Assessment/Plan Hospitalist note: I am seeing this patient in conjunction with Cesia Blanchard. I independently seen and examined the patient. Progress note above, laboratory data and imaging studies reviewed and I concur with above treatment plan. Apart from frustration being unable to get out of bed, he has no complaints. He has been on oxygen at 3 L. At home, he has been on CPAP at night only. He denied worsening shortness of breath. Denied abdominal pain, nausea or vomiting. His vital signs are stab le. - Physical Exam General: Alert, Oriented x3, Cooperative, No apparent distress. HEENT: Atraumatic, PERRLA, EOMI. Neck: Supple, No JVD, Negative Carotid Bruits, Trachea Midline, Thyroid Normal. Lungs: Diminished breath sounds bilateral, otherwise clear, No rhonchi, No wheeze, No rales. Cardiovascular: Regular rate, Regular Rhythm, Normal S1, Normal S2, PMI Normal. Abdomen: Bowel Sounds Present, Soft, Non Tender, Non-Distended, No Hepato- splenomegaly, morbidly obese. Extremities: Status post below right knee amputation, status post above left knee amputation, edema at the amputation stump bilaterally. Skin: No rashes, No breakdown Neurological: Cranial nerves are intact, neuro grossly intact Vital Signs are stable. Assessment and plan: #1 acute kidney injury/hyperkalemia: Unclear if this patient had a history of chronic kidney disease. Admission creatinine was 2.68, went up to 4 and it is trending down. Today's creatinine is 3.53. Patient does have small amount of urine output, urine is very dark, unsatisfactory urine output. CT scan abdomen pelvis without contrast revealed normal kidneys, no evidence of hydronephrosis, revealed small right pleural effusion. Nephrology on the case. Patient remained on IV fluids. Nephrotoxic medications held. Plan to continue same treatment, awaiting nephrology recommendations, repeat BMP tomorrow morning. #2 abnormal cardiac enzymes: Likely due to acute kidney injury. EKG revealed normal sinus rhythm, low voltage QRS, no acute segment changes. Troponin is trending down. 2D echocardiogram revealed normal LV size and function, no evidence of regional wall abnormalities. Patient denied any chest pain throughout admission. He is on aspirin, statins and metoprolol. No indication for any further cardiac work-up at this time. #3 hypoxia: Multifactorial secondary to #1 in addition to history of obstructive sleep apnea and morbid obesity. Patient uses CPAP at home at night mainly. He has been on oxygen, at 2 L. Plan as above. #5 other chronic medical problems: Stable, continue current medications as above. This note was generated with [employer] dictation software. It may contain incorrect words, spelling, and punctuation that were not noted in checking the note before signing. Inpatient E&M: 72297 Subs Hosp L2
--- NOTE | 2019-11-29 13:21 | PCM.PN.REN ---
Patient Problems: Active and Suspected Problems (Last Reviewed 08/05/17 @ 13:02 by Brooklyn Pleitez) Acute urinary retention (Acute) Acute kidney injury (Acute) Hyperglycemia (Acute) Elevated troponin (Acute) Subjective: no cp some sob - Physical Exam Vitals/I&O's: Vital Signs Temp Pulse Resp BP Pulse Ox 98.0 F 86 20 H 121/68 H 94 11/29/19 09:35 11/29/19 09:35 11/29/19 09:35 11/29/19 09:35 11/29/19 09:35 Oxygen Flow Rate (L/min) 2 Oxygen Delivery Method Nasal Cannula Weight: 267.438 kg Body Mass Index (BMI) 70.2 Intake and Output for Last 24 Hours 11/27/19 11/28/19 11/29/19 23:59 23:59 23:59 Intake Total 4732.91 / 4732.91 5415.93 / 5415.93 2595.5 / 2595.5 Output Total 475 / 475 425 / 475 1050 / 1050 Balance 4257.91 / 4257.91 4990.93 / 4940.93 1545.5 / 1545.5 General: Alert, Cooperative HEENT: Atraumatic Neck: Supple Lungs: Clear to auscultation Cardiovascular: Regular rate, Regular Rhythm, Normal S1, Normal S2 Abdomen: Soft, Non Tender, Obese Extremities: No clubbing Skin: No rashes Laboratory Results 11/28/19 06:48: POC Glucose 153 H 11/28/19 07:54: POC Glucose 157 H 11/28/19 11:48: POC Glucose 177 H 11/28/19 13:35: APTT 52.5 H 11/28/19 16:02: POC Glucose 146 H 11/28/19 16:31: Sodium 135 L, Potassium 5.2 H, Chloride 106, Carbon Dioxide 21.0, Anion Gap 8, BUN 88 H, Creatinine 3.73 H, Estim Creat Clear Calc 30.06, Est GFR (MDRD) Af Amer 23 L, Est GFR (MDRD) Non-Af 19 L, BUN/Creatinine Ratio 23.6 H, Glucose 156 H, Calcium 7.5 L 11/28/19 21:33: POC Glucose 90 11/28/19 21:38: APTT 53.2 H 11/29/19 06:20: Sodium 136, Potassium 4.9, Chloride 107, Carbon Dioxide 21.0, Anion Gap 8, BUN 88 H, Creatinine 3.53 H, Estim Creat Clear Calc 31.76, Est GFR (MDRD) Af Amer 24 L, Est GFR (MDRD) Non-Af 20 L, BUN/Creatinine Ratio 24.9 H, Glucose 83, Calcium 7.1 L 11/29/19 06:54: POC Glucose 85 11/29/19 11:49: POC Glucose 135 H Current Medications Allopurinol (Zyloprim) 300 mg PO DAILY [facility] Last Admin: 11/29/19 09:22 Dose: 300 mg Documented by: Apixaban (Eliquis) 2.5 mg PO BID [facility] Last Admin: 11/29/19 09:22 Dose: 2.5 mg Documented by: Aspirin (Aspirin, Baby) 81 mg PO DAILY@0800 [facility] Last Admin: 11/29/19 09:21 Dose: 81 mg Documented by: Atorvastatin Calcium (Lipitor) 40 mg PO QHS [facility] Last Admin: 11/28/19 21:46 Dose: 40 mg Documented by: Bupropion HCl (Wellbutrin Xl) 150 mg PO DAILY [facility] Last Admin: 11/29/19 09:22 Dose: 150 mg Documented by: Dextrose (D50w Syringe) 0 gm IV X1 PRN; Protocol PRN Reason: Hypoglycemia Glucagon () 1 mg IM .X1 PRN PRN Reason: Hypoglycemia Sodium Chloride () 250 mls @ 15 mls/hr IV .[id number] PRN PRN Reason: Additional IVPB Infusion Sodium Chloride () 1,000 mls @ 150 mls/hr IV .Q6H40M [facility] Last Admin: 11/29/19 11:49 Dose: 150 mls/hr Documented by: Insulin Human Lispro (Humalog Kwikpen ([facility])) 0 unit SC ACHS [facility]; Protocol Last Admin: 11/29/19 11:50 Dose: Not Given Documented by: Insulin Human Regular (Humulin R U-500 ([facility])) 135 units SC BIDAC [facility] Last Admin: 11/29/19 09:37 Dose: Not Given Documented by: Loratadine (Claritin) 10 mg PO DAILY [facility] Last Admin: 11/29/19 09:36 Dose: 10 mg Documented by: Metoprolol Tartrate (Lopressor (Beta Ezra)) 100 mg PO BID [facility] Last Admin: 11/29/19 09:25 Dose: 100 mg Documented by: Nitroglycerin (Nitrostat) 0.4 mg SUBLINGUAL Q5M PRN PRN Reason: CARDIAC/CHEST PAIN Nystatin (Mycostatin Powder) 1 applic TOPICAL BID [facility]; Protocol Last Admin: 11/29/19 09:22 Dose: 1 applicatio Documented by: Pantoprazole Sodium (Protonix) 20 mg PO DAILY [facility] Last Admin: 11/29/19 09:22 Dose: 20 mg Documented by: Sodium Chloride () 10 - 40 ml IV UD PRN PRN Reason: SALINE FLUSH Last Admin: 11/27/19 18:21 Dose: 10 ml Documented by: Tamsulosin HCl (Flomax) 0.4 mg PO DAILY@1730 [facility] Last Admin: 11/28/19 16:06 Dose: 0.4 mg Documented by: Medical Necessity - Tobacco Use Smoking Status: Never smoker Assessment/Plan All Active Problems (Last Reviewed 08/05/17 @ 13:02 by Brooklyn Pleitez) Acute urinary retention (Acute) Acute kidney injury (Acute) Hyperglycemia (Acute) Elevated troponin (Acute) Edema of right lower extremity (Acute) Diabetic foot ulcer (Acute) Bilateral pulmonary embolism (Acute) VIOLETTE CKD baseline 1.3 Proteinuria Obstructive uropathy the patient has some hypervolemia stop ivf check renal US repeat UA urology consult will need voiding trial and further eval of obstructive uropathy can use diuretics prn spot urine protein/creatinine avoid nephrotoxins BP ok d/w patient and CLAIMS ADJUSTER
[2019-11-29 14:06] LABS: BNP,B-Type NATRIURETIC PEPTIDE 74.4 pg/mL (0-100)
[2019-11-29 16:16] LABS: Mucous, Urine 0 SEEN /hpf (<or=2+); Squamous Epithelial Cells - UA 0 SEEN /hpf (0-5)
[2019-11-29 16:23] LABS: Color, Urine Red (Yellow); Glucose, Dipstick 100 mg/dl (Normal); Ketone-Dipstick 5 mg/dl (Negative); Leukocyte Esterase-Dipstick 25 /ul (Negative); Nitrite-Dipstick Negative (Negative); Occult Blood-Urine 250 /ul (Negative); Protein-Dipstick 500 mg/dl (Negative); Urine Bilirubin Dipstick Negative (Negative); Urine Clarity Turbid (Clear); Urine Urobilinogen Normal (Normal)
[2019-11-29] MEDS: Insulin Lispro 100 UNIT/ML INSULN.PEN SC ×2 (16:56→22:17)
[2019-11-29] MEDS: Tamsulosin HCl 0.4 MG Capsule PO (16:58)
[2019-11-29 17:03] LABS: Red Blood Cells-Urine > 100 SEEN /hpf (0-5); White Blood Cells 10-25 SEEN /hpf (0-5)
[2019-11-29 17:04] LABS: Bacteria 1+ /hpf (None Seen)
[2019-11-29 17:06] LABS: Bedside Glucose 210 mg/dL (70-110)
[2019-11-29 18:48] LABS: Protein, Urine (Random) 3595.7 mg/dL (<11.9)
[2019-11-29] MEDS: Atorvastatin Calcium 40 MG Tablet PO (22:18)
[2019-11-29 22:56] LABS: Bedside Glucose 212 mg/dL (70-110)
[2019-11-30] VITALS (14 sets, daily range): BP systolic 101–112; BP diastolic 54–65; PULSE 56–74; RESP 16–20; TEMP 36.6–36.7; O2SAT 94–96
[2019-11-30 06:40] LABS: Hematocrit 35.1 % (40-54); Hemoglobin 10.3 g/dL (13.0-16.5); Mean Corp Hgb Conc 29.3 g/dL (32-36); Mean Corpuscular Hgb 24.5 pg (27.0-32.0); Mean Corpuscular Volume 83.6 fL (80-94); Mean Platelet Vol. 10.6 fl (6.2-12.0); Platelet Count 358 K/mm3 (150-450); RBC Distribution Width CV 17.5 % (11.6-14.6); White Blood Count 12.4 K/mm3 (4.4-11.0)
[2019-11-30 07:23] LABS: Anion Gap 7 (5-15); BUN 104 mg/dL (7-18); BUN/Creat Ratio 29.5 RATIO (10-20); Calcium,Total 7.7 mg/dL (8.5-10.1); Chloride 108 mmol/L (98-107); Creatinine, Serum 3.52 mg/dL (0.70-1.30); EST Glomerular Filtration Rate 20 mL/min (>60); Est Glom Filt Rate - Afr Amer 24 mL/min (>60); Estimated Creatinine Clearance 31.85 ml/min; Glucose 194 mg/dL (74-106); Potassium 5.5 mmol/L (3.5-5.1); Sodium Level 135 mmol/L (136-145)
[2019-11-30] MEDS: Insulin Lispro 100 UNIT/ML INSULN.PEN SC ×3 (08:42→17:06)
[2019-11-30] MEDS: Pantoprazole Sodium 20 MG Tablet PO (08:43)
[2019-11-30] MEDS: Loratadine 10 MG Tablet PO (08:43)
[2019-11-30] MEDS: APIXABAN 2.5 MG TABLET PO ×2 (08:43→21:55)
[2019-11-30] MEDS: Allopurinol 300 MG Tablet PO (08:44)
[2019-11-30] MEDS: Nystatin Powder 15gm Bottle 1 APPLIC TOPICAL ×2 (08:44→21:55)
[2019-11-30] MEDS: Aspirin 81 MG TAB.CHEW PO (08:44)
[2019-11-30] MEDS: buPROPion (XL) 150 MG TABLET.XL PO (08:44)
[2019-11-30] MEDS: Metoprolol Tartrate 100 MG Tablet PO (08:46)
[2019-11-30 09:11] LABS: Bedside Glucose 226 mg/dL (70-110)
[2019-11-30] MEDS: Sodium Polystyrene Sulfonate 15 GM/60 ML UDC 30 GM PO (11:34)
[2019-11-30] MEDS: 0.9% Saline Lock 10 ML Syringe IV ×3 (11:35→17:13)
[2019-11-30 11:46] LABS: Bedside Glucose 211 mg/dL (70-110)
--- NOTE | 2019-11-30 12:25 | PN_ITS ---
<Cesia Blanchard - Last Filed: 11/30/19 12:46> Patient Problems: Active and Suspected Problems (Last Reviewed 08/05/17 @ 13:02 by Brooklyn Pleitez) Acute urinary retention (Acute) Acute kidney injury (Acute) Hyperglycemia (Acute) Elevated troponin (Acute) Subjective: Patient seen and examined. Reports he feels tired this morning. Complains of shortness of breath with repositioning while lying flat. Denies shortness of breath while sitting up at rest. - Physical Exam Vitals/I&O's: Vital Signs Temp Pulse Resp BP Pulse Ox 98.1 F 63 18 101/65 95 11/30/19 10:22 11/30/19 10:22 11/30/19 10:22 11/30/19 10:22 11/30/19 10:22 Oxygen Flow Rate (L/min) 2 Oxygen Delivery Method Nasal Cannula Weight: 589 lb 9.597 oz Body Mass Index (BMI) 70.2 Intake and Output for Last 24 Hours 11/28/19 11/29/19 11/30/19 23:59 23:59 23:59 Intake Total 5415.93 / 5415.93 3688.0 / 3688.0 360 / 360 Output Total 425 / 475 2000 / 1999 400 / 400 Balance 4990.93 / 4940.93 1688.0 / 1688.0 -40 / -40 General: Alert, Oriented x3, Cooperative HEENT: Atraumatic, PERRLA, EOMI, Normocephalic Neck: Supple, No JVD, Negative Carotid Bruits Lungs: Clear to auscultation, Normal air movement Abdomen: Bowel Sounds Present, Soft, Non Tender, Non-Distended, Obese Extremities: No clubbing, No cyanosis, Capillary Refill Less than 3 Seconds, Edema - Nonpitting lower extremity, abdominal Skin: No rashes, No breakdown Musculoskeletal: No Tenderness to Palpation of Joints or Extremities, - - Bilateral AKA Neurological: Cranial nerves II-XII grossly intact, Neuro grossly intact Psych/Mental Status: Normal Affect, Appropriate Laboratory Results 11/29/19 06:20: B-Natriuretic Peptide 74.4 11/29/19 16:55: POC Glucose 210 H 11/29/19 22:07: POC Glucose 212 H 11/29/19 : Urine Creatinine 49.40 11/29/19 : U Random Total Protein 3595.7 H 11/29/19 : Urine Color Red, Urine Clarity Turbid, Urine pH 7.0, Ur Specific Francis 1.010, Urine Protein 500 H, Urine Glucose (UA) 100 H, Urine Ketones 5 H, Urine Occult Blood 250 H, Urine Nitrite Negative, Urine Bilirubin Negative, Urine Urobilinogen Normal, Ur Leukocyte Esterase 25 H, Urine RBC > 100 SEEN, Urine WBC 10-25 SEEN, Ur Squamous Epith Cells 0 SEEN, Urine Bacteria 1+, Urine Mucus 0 SEEN 11/30/19 06:27: WBC 12.4 H, RBC 4.20 L, Hgb 10.3 L, Hct 35.1 L, MCV 83.6, MCH 24.5 L, MCHC 29.3 L, RDW Std Deviation 53.0 H, RDW Coeff of Lucy 17.5 H, Plt Count 358, MPV 10.6 11/30/19 06:27: Sodium 135 L, Potassium 5.5 H, Chloride 108 H, Carbon Dioxide 20.0 L, Anion Gap 7, BUN 104 H*, Creatinine 3.52 H, Estim Creat Clear Calc 31.85, Est GFR (MDRD) Af Amer 24 L, Est GFR (MDRD) Non-Af 20 L, BUN/Creatinine Ratio 29.5 H, Glucose 194 H, Calcium 7.7 L 11/30/19 08:40: POC Glucose 226 H 11/30/19 11:33: POC Glucose 211 H Current Medications Allopurinol (Zyloprim) 300 mg PO DAILY [facility] Last Admin: 11/30/19 08:44 Dose: 300 mg Documented by: Apixaban (Eliquis) 2.5 mg PO BID [facility] Last Admin: 11/30/19 08:43 Dose: 2.5 mg Documented by: Aspirin (Aspirin, Baby) 81 mg PO DAILY@0800 [facility] Last Admin: 11/30/19 08:44 Dose: 81 mg Documented by: Atorvastatin Calcium (Lipitor) 40 mg PO QHS [facility] Last Admin: 11/29/19 22:18 Dose: 40 mg Documented by: Bupropion HCl (Wellbutrin Xl) 150 mg PO DAILY [facility] Last Admin: 11/30/19 08:44 Dose: 150 mg Documented by: Dextrose (D50w Syringe) 0 gm IV X1 PRN; Protocol PRN Reason: Hypoglycemia Glucagon () 1 mg IM .X1 PRN PRN Reason: Hypoglycemia Sodium Chloride () 250 mls @ 15 mls/hr IV .[id number] PRN PRN Reason: Additional IVPB Infusion Insulin Human Lispro (Humalog Kwikpen (Bk)) 0 unit SC ACHS [facility]; Protocol Last Admin: 11/30/19 11:35 Dose: 4 u Documented by: Insulin Human Regular (Humulin R U-500 (Bk)) 135 units SC BIDAC [facility] Last Admin: 11/30/19 08:43 Dose: 135 units Documented by: Loratadine (Claritin) 10 mg PO DAILY [facility] Last Admin: 11/30/19 08:43 Dose: 10 mg Documented by: Metoprolol Tartrate (Lopressor (Beta Ezra)) 100 mg PO BID [facility] Last Admin: 11/30/19 08:46 Dose: 100 mg Documented by: Nitroglycerin (Nitrostat) 0.4 mg SUBLINGUAL Q5M PRN PRN Reason: CARDIAC/CHEST PAIN Nystatin (Mycostatin Powder) 1 applic TOPICAL BID [facility]; Protocol Last Admin: 11/30/19 08:44 Dose: 1 applicatio Documented by: Pantoprazole Sodium (Protonix) 20 mg PO DAILY [facility] Last Admin: 11/30/19 08:43 Dose: 20 mg Documented by: Sodium Chloride () 10 - 40 ml IV UD PRN PRN Reason: SALINE FLUSH Last Admin: 11/30/19 11:35 Dose: 10 ml Documented by: Tamsulosin HCl (Flomax) 0.4 mg PO DAILY@1730 [facility] Last Admin: 11/29/19 16:58 Dose: 0.4 mg Documented by: Medical Necessity - Tobacco Use Smoking Status: Never smoker Assessment/Plan All Active Problems (Last Reviewed 08/05/17 @ 13:02 by Brooklyn Pleitez) Acute urinary retention (Acute) Acute kidney injury (Acute) Hyperglycemia (Acute) Elevated troponin (Acute) 1. Acute kidney injury with hyperkalemia on chronic kidney disease stage III, acute urinary retention-patient presented with urinary retention. Fuentes placed on admission with 1 L of urine drained. CT of abdomen and pelvis shows no evidence of hydronephrosis, small right pleural effusion with right basilar atelectasis. Gallstones. Initiated on Flomax. Continue Fuentes with voiding trial prior to discharge. FENA 1.7%. Nephrology consulted. Creatinine slightly improved. Trend BMP. SPEP/UPEP/TRISTAN ordered. Given patient report of increased abdominal swelling and shortness of breath while lying flat, will give Lasix x1. Kayexalate x1 for hyperkalemia. 2. Abnormal troponin-troponin did not trend. EKG without ST-T changes. Patient denies chest pain, shortness of breath or other cardiac symptoms. Echocardiogram demonstrates normal left ventricular systolic function. No regional wall motion abnormalities. Technically difficult study due to patient habitus. 3. Acute hypoxia with small right pleural effusion-suspect secondary to mild fluid overload related to #1. Continue supplement oxygen to maintain O2 at or above 90%. Patient may have chronic hypoxia related to MAICOL and super morbid obesity as well. Will complete home oxygen testing prior to discharge. Will give Lasix x1 given increased dyspnea with position changes/lying flat. Repeat chest x-ray. 4. Type 2 diabetes mellitus-metformin on hold. Accu-Cheks with sliding scale insulin. Continue home insulin regimen. 5. Hypertension-stable. HCTZ, lisinopril on hold due to acute kidney injury. Continue metoprolol regimen. 6. Hyperlipidemia-continue statin. 7. Factor V Leiden deficiency-transition from Xarelto to Eliquis given renal function. 8. MAICOL-continue home CPAP regimen. 9. Super morbid obesity-encouraged diet and lifestyle modifications. Dietitian consult. 10. 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 Complicated by super morbid obesity. PT/OT. 11. Depression-continue bupropion regimen. 12. Gout-continue allopurinol. 13. GERD-continue omeprazole regimen. 14. Mild leukocytosis-appears chronic. No evidence of infectious etiology. DVT prophylaxis-Eliquis This patient was seen by JESS Huynh under the supervision of Dr. Vinson. <Mari Vinson E - Last Filed: 11/30/19 13:17> - Physical Exam Vitals/I&O's: Vital Signs Temp Pulse Resp BP Pulse Ox 98.1 F 63 18 101/65 95 11/30/19 10:22 11/30/19 10:22 11/30/19 10:22 11/30/19 10:22 11/30/19 10:22 Oxygen Flow Rate (L/min) 2 Oxygen Delivery Method Nasal Cannula Weight: 589 lb 9.597 oz Body Mass Index (BMI) 70.2 Intake and Output for Last 24 Hours 11/28/19 11/29/19 11/30/19 23:59 23:59 23:59 Intake Total 5415.93 / 5415.93 3688.0 / 3688.0 360 / 360 Output Total 425 / 475 1999 / 1999 400 / 400 Balance 4990.93 / 4940.93 1688.0 / 1688.0 -40 / -40 Laboratory Results 11/29/19 06:20: B-Natriuretic Peptide 74.4 11/29/19 16:55: POC Glucose 210 H 11/29/19 22:07: POC Glucose 212 H 11/29/19 : Urine Creatinine 49.40 11/29/19 : U Random Total Protein 3595.7 H 11/29/19 : Urine Color Red, Urine Clarity Turbid, Urine pH 7.0, Ur Specific Francis 1.010, Urine Protein 500 H, Urine Glucose (UA) 100 H, Urine Ketones 5 H, Urine Occult Blood 250 H, Urine Nitrite Negative, Urine Bilirubin Negative, Urine Urobilinogen Normal, Ur Leukocyte Esterase 25 H, Urine RBC > 100 SEEN, Urine WBC 10-25 SEEN, Ur Squamous Epith Cells 0 SEEN, Urine Bacteria 1+, Urine Mucus 0 SEEN 11/30/19 06:27: WBC 12.4 H, RBC 4.20 L, Hgb 10.3 L, Hct 35.1 L, MCV 83.6, MCH 24.5 L, MCHC 29.3 L, RDW Std Deviation 53.0 H, RDW Coeff of Lucy 17.5 H, Plt Count 358, MPV 10.6 11/30/19 06:27: Sodium 135 L, Potassium 5.5 H, Chloride 108 H, Carbon Dioxide 20.0 L, Anion Gap 7, BUN 104 H*, Creatinine 3.52 H, Estim Creat Clear Calc 31.85, Est GFR (MDRD) Af Amer 24 L, Est GFR (MDRD) Non-Af 20 L, BUN/Creatinine Ratio 29.5 H, Glucose 194 H, Calcium 7.7 L 11/30/19 08:40: POC Glucose 226 H 11/30/19 11:33: POC Glucose 211 H Current Medications Allopurinol (Zyloprim) 300 mg PO DAILY [facility] Last Admin: 11/30/19 08:44 Dose: 300 mg Documented by: Apixaban (Eliquis) 2.5 mg PO BID [facility] Last Admin: 11/30/19 08:43 Dose: 2.5 mg Documented by: Aspirin (Aspirin, Baby) 81 mg PO DAILY@0800 [facility] Last Admin: 11/30/19 08:44 Dose: 81 mg Documented by: Atorvastatin Calcium (Lipitor) 40 mg PO QHS [facility] Last Admin: 11/29/19 22:18 Dose: 40 mg Documented by: Bupropion HCl (Wellbutrin Xl) 150 mg PO DAILY [facility] Last Admin: 11/30/19 08:44 Dose: 150 mg Documented by: Dextrose (D50w Syringe) 0 gm IV X1 PRN; Protocol PRN Reason: Hypoglycemia Glucagon () 1 mg IM .X1 PRN PRN Reason: Hypoglycemia Sodium Chloride () 250 mls @ 15 mls/hr IV .[id number] PRN PRN Reason: Additional IVPB Infusion Insulin Human Lispro (Humalog Kwikpen ([facility])) 0 unit SC ACHS [facility]; Protocol Last Admin: 11/30/19 11:35 Dose: 4 u Documented by: Insulin Human Regular (Humulin R U-500 (Bk)) 135 units SC BIDAC [facility] Last Admin: 11/30/19 08:43 Dose: 135 units Documented by: Loratadine (Claritin) 10 mg PO DAILY [facility] Last Admin: 11/30/19 08:43 Dose: 10 mg Documented by: Metoprolol Tartrate (Lopressor (Beta Ezra)) 100 mg PO BID [facility] Last Admin: 11/30/19 08:46 Dose: 100 mg Documented by: Nitroglycerin (Nitrostat) 0.4 mg SUBLINGUAL Q5M PRN PRN Reason: CARDIAC/CHEST PAIN Nystatin (Mycostatin Powder) 1 applic TOPICAL BID [facility]; Protocol Last Admin: 11/30/19 08:44 Dose: 1 applicatio Documented by: Pantoprazole Sodium (Protonix) 20 mg PO DAILY [facility] Last Admin: 11/30/19 08:43 Dose: 20 mg Documented by: Sodium Chloride () 10 - 40 ml IV UD PRN PRN Reason: SALINE FLUSH Last Admin: 11/30/19 13:08 Dose: 10 ml Documented by: Tamsulosin HCl (Flomax) 0.4 mg PO DAILY@1730 [facility] Last Admin: 11/29/19 16:58 Dose: 0.4 mg Documented by: Assessment/Plan Hospitalist note: I am seeing this patient in conjunction with Cesia Blanchard. I independently seen and examined the patient. Progress note above, laboratory data reviewed and I concur with above plan. Patient complained of shortness of breath upon laying flat or trying to move. Apart from that, no new complaints. He has been afebrile, blood pressure and heart rate are stable, pulse ox is 95% on 2 L. - Physical Exam General: Alert, Oriented x3, Cooperative, No apparent distress. HEENT: Atraumatic, PERRLA, EOMI. Neck: Supple, No JVD, Negative Carotid Bruits, Trachea Midline, Thyroid Normal. Lungs: Diminished breath sounds bilateral, otherwise clear, No rhonchi, No wheeze, No rales. Cardiovascular: Regular rate, Regular Rhythm, Normal S1, Normal S2, PMI Normal. Abdomen: Bowel Sounds Present, Soft, Non Tender, Non-Distended, No Hepato- splenomegaly, morbidly obese. Extremities: Status post below right knee amputation, status post above left knee amputation, edema at the amputation stump bilaterally. Skin: No rashes, No breakdown Neurological: Cranial nerves are intact, neuro grossly intact Vital Signs are stable. Assessment and plan: #1 acute kidney injury/hyperkalemia: Unclear if this patient had a history of chronic kidney disease. Admission creatinine was 2.68, went up to 4 and it is trending down. Today's creatinine is 3.52, remained almost the same as yesterday but BUN is trending up. Potassium start to go up again which is 5.5 today. Patient does have small amount of urine output, urine is very dark, unsatisfactory urine output. CT scan abdomen pelvis without contrast revealed normal kidneys, no evidence of hydronephrosis, revealed small right pleural effusion. Nephrology on the case. Serum protein electrophoresis and urine protein electrophoresis ordered. Patient will receive IV Lasix as well as Kayexalate today, repeat BMP tomorrow morning. We are awaiting nephrology accommodations today. #2 abnormal cardiac enzymes: Likely due to acute kidney injury. EKG revealed normal sinus rhythm, low voltage QRS, no acute segment changes. Troponin is t rending down. 2D echocardiogram revealed normal LV size and function, no evidence of regional wall abnormalities. Patient denied any chest pain throughout admission. He is on aspirin, statins and metoprolol. No indication for any further cardiac work-up at this time. #3 hypoxia: Multifactorial secondary to #1 in addition to history of obstructive sleep apnea and morbid obesity. Patient uses CPAP at home at night mainly. He has been on oxygen, at 2 L. Plan as above. #5 other chronic medical problems: Stable, continue current medications as above. This note was generated with [employer] dictation software. It may contain incorrect words, spelling, and punctuation that were not noted in checking the note before signing. Inpatient E&M: 29587 Subs Hosp L2
--- NOTE | 2019-11-30 12:51 | RAD_ITS ---
STUDY: X-RAY CHEST REASON FOR EXAM: Male, 49 years old. Hypoxia TECHNIQUE: 2 AP portable views COMPARISON: 11/25/2019 FINDINGS: EKG leads overlie the chest Lungs are expanded, development of interstitial edema since the previous study suggesting pulmonary vascular congestion. There is no demonstrated pleural abnormality. Normal size heart. Normal mediastinum and wendy. Normal visualized pulmonary arteries. Normal visualized aortic arch and descending thoracic aorta. There are diffuse degenerative changes of the visualized thoracic spine. Normal visualized ribs, clavicles, and shoulders. There is no demonstrated abnormality of the visualized soft tissue structures of the upper abdomen. RAD/Chest 1 View (Portable) IMPRESSION: Development of diffuse interstitial edema since the previous study, follow-up recommended to assure resolution Electronically Signed: Braden Stringer MD at 13:14 EDT , Service support ,
[2019-11-30] MEDS: Furosemide 40 MG/4 ML Vial IV ×2 (13:08→17:13)
--- NOTE | 2019-11-30 13:15 | PN.RENAL_ITS ---
Patient Problems: Active and Suspected Problems (Last Reviewed 08/05/17 @ 13:02 by Brooklyn Pleitez) Acute urinary retention (Acute) Acute kidney injury (Acute) Hyperglycemia (Acute) Elevated troponin (Acute) Subjective: has some orthopnea no n/v - Physical Exam Vitals/I&O's: Vital Signs Temp Pulse Resp BP Pulse Ox 98.1 F 63 18 101/65 95 11/30/19 10:22 11/30/19 10:22 11/30/19 10:22 11/30/19 10:22 11/30/19 10:22 Oxygen Flow Rate (L/min) 2 Oxygen Delivery Method Nasal Cannula Weight: 267.438 kg Body Mass Index (BMI) 70.2 Intake and Output for Last 24 Hours 11/28/19 11/29/19 11/30/19 23:59 23:59 23:59 Intake Total 5415.93 / 5415.93 3688.0 / 3688.0 360 / 360 Output Total 425 / 475 1999 / 1999 400 / 400 Balance 4990.93 / 4940.93 1688.0 / 1688.0 -40 / -40 General: Alert, Cooperative HEENT: Atraumatic, EOMI Neck: Supple Lungs: Clear to auscultation, Normal air movement Cardiovascular: Regular rate, Regular Rhythm, Normal S1, Normal S2 Abdomen: Bowel Sounds Present, Soft, Obese Extremities: - - b/l aka Laboratory Results 11/29/19 06:20: B-Natriuretic Peptide 74.4 11/29/19 16:55: POC Glucose 210 H 11/29/19 22:07: POC Glucose 212 H 11/29/19 : Urine Creatinine 49.40 11/29/19 : U Random Total Protein 3595.7 H 11/29/19 : Urine Color Red, Urine Clarity Turbid, Urine pH 7.0, Ur Specific [place] 1.010, Urine Protein 500 H, Urine Glucose (UA) 100 H, Urine Ketones 5 H, Urine Occult Blood 250 H, Urine Nitrite Negative, Urine Bilirubin Negative, Urine Urobilinogen Normal, Ur Leukocyte Esterase 25 H, Urine RBC > 100 SEEN, Urine WBC 10-25 SEEN, Ur Squamous Epith Cells 0 SEEN, Urine Bacteria 1+, Urine Mucus 0 SEEN 11/30/19 06:27: WBC 12.4 H, RBC 4.20 L, Hgb 10.3 L, Hct 35.1 L, MCV 83.6, MCH 24.5 L, MCHC 29.3 L, RDW Std Deviation 53.0 H, RDW Coeff of Lucy 17.5 H, Plt Count 358, MPV 10.6 11/30/19 06:27: Sodium 135 L, Potassium 5.5 H, Chloride 108 H, Carbon Dioxide 20.0 L, Anion Gap 7, BUN 104 H*, Creatinine 3.52 H, Estim Creat Clear Calc 31.85, Est GFR (MDRD) Af Amer 24 L, Est GFR (MDRD) Non-Af 20 L, BUN/Creatinine Ratio 29.5 H, Glucose 194 H, Calcium 7.7 L 11/30/19 08:40: POC Glucose 226 H 11/30/19 11:33: POC Glucose 211 H Current Medications Allopurinol (Zyloprim) 300 mg PO DAILY [facility] Last Admin: 11/30/19 08:44 Dose: 300 mg Documented by: Apixaban (Eliquis) 2.5 mg PO BID [facility] Last Admin: 11/30/19 08:43 Dose: 2.5 mg Documented by: Aspirin (Aspirin, Baby) 81 mg PO DAILY@0800 [facility] Last Admin: 11/30/19 08:44 Dose: 81 mg Documented by: Atorvastatin Calcium (Lipitor) 40 mg PO QHS [facility] Last Admin: 11/29/19 22:18 Dose: 40 mg Documented by: Bupropion HCl (Wellbutrin Xl) 150 mg PO DAILY [facility] Last Admin: 11/30/19 08:44 Dose: 150 mg Documented by: Dextrose (D50w Syringe) 0 gm IV X1 PRN; Protocol PRN Reason: Hypoglycemia Glucagon () 1 mg IM .X1 PRN PRN Reason: Hypoglycemia Sodium Chloride () 250 mls @ 15 mls/hr IV .[id number] PRN PRN Reason: Additional IVPB Infusion Insulin Human Lispro (Humalog Kwikpen ([facility])) 0 unit SC ACHS [facility]; Protocol Last Admin: 11/30/19 11:35 Dose: 4 u Documented by: Insulin Human Regular (Humulin R U-500 (Bk)) 135 units SC BIDAC [facility] Last Admin: 11/30/19 08:43 Dose: 135 units Documented by: Loratadine (Claritin) 10 mg PO DAILY [facility] Last Admin: 11/30/19 08:43 Dose: 10 mg Documented by: Metoprolol Tartrate (Lopressor (Beta Ezra)) 50 mg PO BID [facility] Nitroglycerin (Nitrostat) 0.4 mg SUBLINGUAL Q5M PRN PRN Reason: CARDIAC/CHEST PAIN Nystatin (Mycostatin Powder) 1 applic TOPICAL BID [facility]; Protocol Last Admin: 11/30/19 08:44 Dose: 1 applicatio Documented by: Pantoprazole Sodium (Protonix) 20 mg PO DAILY [facility] Last Admin: 11/30/19 08:43 Dose: 20 mg Documented by: Sodium Chloride () 10 - 40 ml IV UD PRN PRN Reason: SALINE FLUSH Last Admin: 11/30/19 13:08 Dose: 10 ml Documented by: Tamsulosin HCl (Flomax) 0.4 mg PO DAILY@1730 [facility] Last Admin: 11/29/19 16:58 Dose: 0.4 mg Documented by: Medical Necessity - Tobacco Use Smoking Status: Never smoker Assessment/Plan All Active Problems (Last Reviewed 08/05/17 @ 13:02 by Brooklyn Pleitez) Acute urinary retention (Acute) Acute kidney injury (Acute) Hyperglycemia (Acute) Elevated troponin (Acute) VIOLETTE multifactorial obstructive uropathy with possible superimposed prerenal VIOLETTE with ACEI/diuretic/possible HF CKD baseline 1.38 Hyperkalemia Proteinuria not nephrotic Obstructive uropathy the patient has some hypervolemia lasix iv Kayexalate 30 grams hold ACEI and hctz renal US cannot be done per radiology department urology consult will need voiding trial and further eval of obstructive uropathy can use diuretics prn spot urine protein/creatinine less than one gram check 24 hour collection spep upep check serologies further w/u per clinical course avoid nephrotoxins BP too low decrease metoprolol d/w patient and MUSIC WRITER
--- NOTE | 2019-11-30 15:34 | EKG12_ITS ---
Test Reason : ARRYTHMIA Blood Pressure : / mmHG Vent. Rate : 059 BPM Atrial Rate : 234 BPM P-R Int : 000 ms QRS Dur : 080 ms QT Int : 408 ms P-R-T Axes : 000 -36 067 degrees QTc Int : 403 ms Atrial fibrillation Left axis deviation Low voltage QRS Abnormal ECG When compared with ECG of 26-NOV-2019 05:23, Atrial fibrillation has replaced Sinus rhythm QRS axis Shifted left Confirmed by EUGENIO MINER ([id number]), legal editor SAHLINI HURT ([id number]) on 12/06/2019 12:44:47 PM Referred By: OLYA Confirmed By:EUGENIO MINER
--- NOTE | 2019-11-30 15:45 | CASEMGMT ---
Patient did not do well with therapy again today. SW spoke with patient and explained that his insurance can take awhile to give authorization for nursing homes. SW explained that he did not do well with therapy again today. SW explained it would be best if we planned for him to go to a [facility] and if he was better at discharge he could go home. However, if he doesn't improve enough to go home at least we have it in place. He was in agreement with this plan. He asked SW to call his sister regarding which facility. SW called patient's sister, Vanesa. SW explained above and she understood. She agreed with plan as she said he has to be able to do everything for himself of he cannot return to her home. She asked about [facility] and SW told her that he is over their weight limit. SW told her about a place in [place] that said they would be willing to look at the referral. She was okay with this referral being made. She also mentioned [facility] in [place]. She agreed to allow SW to make referrals to places that are willing to accept patients at patient's weight. LEE called [facility] and they would be willing to look at the referral. Phone number is [phone] and fax is [phone]. SW faxed referral. SW called [facility] and their weight limit is 350 lbs. LEE called [facility] and spoke with Edelmira. They are willing to look at the referral. Phone number is [phone] and fax is [phone]. LEE called [facility] and they would look at referral. LEE faxed referral to [facility]. Plan: SNF pending accepting facility and insurance approval. Referrals were sent out to 3 facilities. SW will continue to search for accepting facilities tomorrow. Marybeth HERCULES TAR WORKER
[2019-11-30] MEDS: Tamsulosin HCl 0.4 MG Capsule PO (17:06)
[2019-11-30 17:31] LABS: Bedside Glucose 202 mg/dL (70-110)
[2019-11-30 18:30] LABS: Anion Gap 8 (5-15); BUN 106 mg/dL (7-18); BUN/Creat Ratio 29.2 RATIO (10-20); Calcium,Total 7.7 mg/dL (8.5-10.1); Chloride 107 mmol/L (98-107); Creatinine, Serum 3.63 mg/dL (0.70-1.30); EST Glomerular Filtration Rate 19 mL/min (>60); Est Glom Filt Rate - Afr Amer 23 mL/min (>60); Estimated Creatinine Clearance 30.89 ml/min; Glucose 198 mg/dL (74-106); Potassium 5.4 mmol/L (3.5-5.1); Sodium Level 134 mmol/L (136-145)
[2019-11-30] MEDS: Atorvastatin Calcium 40 MG Tablet PO (21:55)
[2019-12-01] VITALS (14 sets, daily range): BP systolic 94–137; BP diastolic 54–66; PULSE 63–78; RESP 13–19; TEMP 36.1–36.6; O2SAT 92–97
--- NOTE | 2019-12-01 01:04 | NURSING ---
During nursing round at 00:40, this RN noted that Fuentes bag clamp was open; therefore urine drained into ice basin. 24 hour urine needing to be started over d/t urine mixing with water in basin.
[2019-12-01 01:11] LABS: Bedside Glucose 130 mg/dL (70-110)
[2019-12-01 05:38] LABS: Anion Gap 7 (5-15); BUN 109 mg/dL (7-18); BUN/Creat Ratio 27.5 RATIO (10-20); Calcium,Total 7.6 mg/dL (8.5-10.1); Chloride 106 mmol/L (98-107); Creatinine, Serum 3.96 mg/dL (0.70-1.30); EST Glomerular Filtration Rate 17 mL/min (>60); Est Glom Filt Rate - Afr Amer 21 mL/min (>60); Estimated Creatinine Clearance 28.31 ml/min; Glucose 68 mg/dL (74-106); Potassium 4.8 mmol/L (3.5-5.1); Sodium Level 134 mmol/L (136-145)
[2019-12-01 09:49] LABS: HIV - WCH Non-Reactive (Nonreactive)
--- NOTE | 2019-12-01 10:04 | CASEMGMT ---
LEE received a call from [facility][1] and they are not able to accept patient. LEE received a call from [facility] and they are not able to accept patient as they do not have any male beds available. LEE called [facility] and [facility]. They were willing to look at the referral so referral faxed to both places. LEE also called [facility] and [facility] and they are not able to accept patient due to him being over their weight limit. LEE still has referrals out to [facility], [facility], [facility], and [facility]. LEE will continue to work on placement for patient. Marybeth HERCULES MSW
[2019-12-01] MEDS: APIXABAN 2.5 MG TABLET PO ×2 (10:53→21:19)
[2019-12-01] MEDS: Allopurinol 300 MG Tablet PO (10:53)
[2019-12-01] MEDS: Metoprolol Tartrate 50 MG Tablet PO ×2 (10:53→21:18)
[2019-12-01] MEDS: Loratadine 10 MG Tablet PO (10:54)
[2019-12-01] MEDS: Pantoprazole Sodium 20 MG Tablet PO (10:54)
[2019-12-01] MEDS: Aspirin 81 MG TAB.CHEW PO (10:54)
[2019-12-01] MEDS: Nystatin Powder 15gm Bottle 1 APPLIC TOPICAL ×2 (10:54→21:20)
[2019-12-01] MEDS: buPROPion (XL) 150 MG TABLET.XL PO (10:54)
--- NOTE | 2019-12-01 10:54 | CASEMGMT ---
Addendum entered by Marybeth Dejesus 12/01/19 11:23: Received call from [facility] and they are not able to accept patient. SW called [facility] and [facility] and [facility] are willing to look at the referral. LEE faxed referral to [facility]. Marybeth HERCULES LEAF CONDITIONER Addendum entered by Marybeth Dejesus 12/01/19 11:02: SW called [facility] regarding referral and they are full until the end of next week. Marybeth CARROLL Original Note: SW left a message for [facility] regarding referral. SW called [facility] and they were willing to look at the referral. SW faxed referral to [facility]. Marybeth CARROLL
[2019-12-01 11:21] LABS: Bedside Glucose 104 mg/dL (70-110)
--- NOTE | 2019-12-01 12:31 | PCM.PN.REN ---
Patient Problems: Active and Suspected Problems (Last Reviewed 08/05/17 @ 13:02 by Brooklyn Pleitez) Acute urinary retention (Acute) Acute kidney injury (Acute) Hyperglycemia (Acute) Elevated troponin (Acute) Subjective: no more sob no cp - Physical Exam Vitals/I&O's: Vital Signs Temp Pulse Resp BP Pulse Ox 97.8 F 78 18 135/66 H 95 12/01/19 10:41 12/01/19 12:11 12/01/19 10:41 12/01/19 10:53 12/01/19 10:41 Oxygen Flow Rate (L/min) 2 Oxygen Delivery Method Nasal Cannula Weight: 267.438 kg Body Mass Index (BMI) 70.2 Intake and Output for Last 24 Hours 11/29/19 11/30/19 12/01/19 23:59 23:59 23:59 Intake Total 3688.0 / 3688.0 1220 / 1220 120 / 120 Output Total 2000 / 2000 600 / 600 75 / 75 Balance 1688.0 / 1688.0 620 / 620 45 / 45 General: Alert, Cooperative HEENT: Atraumatic, EOMI Oral: Moist Mucosa Neck: Supple Lungs: Clear to auscultation, Normal air movement Cardiovascular: Regular rate, Regular Rhythm, Normal S1, Normal S2 Abdomen: Bowel Sounds Present, Soft, Non Tender Extremities: No clubbing Skin: No rashes Laboratory Results 11/30/19 13:04: Total Protein (PEP) Pending, Albumin (PEP) Pending, Globulin (PEP) Pending, Albumin/Globulin (PEP) Pending, Bqmmy-6-Yginblsdk Pending, Schfl-4-Syebjkxcq Pending, Beta Globulins Pending, Gamma Globulins Pending, M-Sadiq Pending, Urine Total Protein Pending, Urine Albumin Pending, U Qudfp-1-Ioswprqh Pending, U Uvzbs-1-Acbgwuyv Pending, U Beta Globulin Pending, U Gamma Globulin Pending, U PEP M-Sadiq Pending, c-ANCA Antibody Pending, p-ANCA Antibody Pending, Glomerular Base Memb Ab Pending, Complement C3 Pending, Complement C4 Pending, Hepatitis A IgM Ab Pending, Hepatitis A Ab Total Pending, Hep Bs Antigen Pending, Hep B Core Total Ab Pending, Hep B Core IgM Ab Pending 11/30/19 13:04: TRISTAN Screen Pending, CANDI-1 Antibody Pending, SS-A/Ro IgG Antibody Pending, SS-B/La IgG Antibody Pending, Sm (Hinds) Antibody Pending, TRAINING ASSOCIATE Antibody Pending, Scl-70 Scleroderma Ab Pending, Double Strand DNA Ab Pending, Centromere B Antibody Pending 11/30/19 13:04: Hepatitis A IgM Ab Cancelled, Hepatitis A Ab Total Cancelled, Hepatitis A Interp Cancelled, Hep Bs Antigen Cancelled, Hep Bs Ag Confirmation Cancelled, Hep B Surface Ag Comm Cancelled, Hep Bs Antibody Interp Cancelled, Hep B Core Total Ab Cancelled, Hep B Core IgM Ab Cancelled, Hepatitis C Ab Confirm Cancelled, Hep C Confirm Com 1 Cancelled 11/30/19 13:04: HIV 1&2 Antibody Non-Reactive 11/30/19 13:04: RPR Pending 11/30/19 13:04: ANCA Immunofluorescen Cancelled, c-ANCA Antibody Cancelled, Atypical p-ANCA Cancelled, p-ANCA Antibody Cancelled, Glomerular Base Memb Ab Cancelled, Complement C3 Cancelled, Complement C4 Cancelled, Hepatitis A IgM Ab Cancelled, Hepatitis A Ab Total Cancelled, Hepatitis A Interp Cancelled, Hep Bs Antigen Cancelled, Hep Bs Ag Confirmation Cancelled, Hep B Surface Ag Comm Cancelled, Hep Bs Antibody Interp Cancelled, Hep B Core Total Ab Cancelled, Hep B Core IgM Ab Cancelled, Hepatitis C Ab Confirm Cancelled, Hep C Confirm Com 1 Cancelled 11/30/19 17:00: POC Glucose 202 H 11/30/19 17:30: Sodium 134 L, Potassium 5.4 H, Chloride 107, Carbon Dioxide 19.0 L, Anion Gap 8, BUN 106 H*, Creatinine 3.63 H, Estim Creat Clear Calc 30.89, Est GFR (MDRD) Af Amer 23 L, Est GFR (MDRD) Non-Af 19 L, BUN/Creatinine Ratio 29.2 H, Glucose 198 H, Calcium 7.7 L 11/30/19 21:47: POC Glucose 130 H 12/01/19 04:50: Sodium 134 L, Potassium 4.8, Chloride 106, Carbon Dioxide 21.0, Anion Gap 7, BUN 109 H*, Creatinine 3.96 H, Estim Creat Clear Calc 28.31, Est GFR (MDRD) Af Amer 21 L, Est GFR (MDRD) Non-Af 17 L, BUN/Creatinine Ratio 27.5 H, Glucose 68 L, Calcium 7.6 L 12/01/19 11:07: POC Glucose 104 Current Medications Allopurinol (Zyloprim) 300 mg PO DAILY [facility] Last Admin: 12/01/19 10:53 Dose: 300 mg Documented by: Apixaban (Eliquis) 2.5 mg PO BID [facility] Last Admin: 12/01/19 10:53 Dose: 2.5 mg Documented by: Aspirin (Aspirin, Baby) 81 mg PO DAILY@0800 [facility] Last Admin: 12/01/19 10:54 Dose: 81 mg Documented by: Atorvastatin Calcium (Lipitor) 40 mg PO QHS [facility] Last Admin: 11/30/19 21:55 Dose: 40 mg Documented by: Bupropion HCl (Wellbutrin Xl) 150 mg PO DAILY [facility] Last Admin: 12/01/19 10:54 Dose: 150 mg Documented by: Dextrose (D50w Syringe) 0 gm IV X1 PRN; Protocol PRN Reason: Hypoglycemia Glucagon () 1 mg IM .X1 PRN PRN Reason: Hypoglycemia Sodium Chloride () 250 mls @ 15 mls/hr IV .[id number] PRN PRN Reason: Additional IVPB Infusion Insulin Human Lispro (Humalog Kwikpen ([facility])) 0 unit SC ACHS [facility]; Protocol Last Admin: 12/01/19 11:08 Dose: Not Given Documented by: Insulin Human Regular (Humulin R U-500 ([facility])) 135 units SC BIDAC [facility] Last Admin: 12/01/19 10:52 Dose: Not Given Documented by: Loratadine (Claritin) 10 mg PO DAILY [facility] Last Admin: 12/01/19 10:54 Dose: 10 mg Documented by: Metoprolol Tartrate (Lopressor (Beta Ezra)) 50 mg PO BID [facility] Last Admin: 12/01/19 10:53 Dose: 50 mg Documented by: Nitroglycerin (Nitrostat) 0.4 mg SUBLINGUAL Q5M PRN PRN Reason: CARDIAC/CHEST PAIN Nystatin (Mycostatin Powder) 1 applic TOPICAL BID [facility]; Protocol Last Admin: 12/01/19 10:54 Dose: 1 applicatio Documented by: Pantoprazole Sodium (Protonix) 20 mg PO DAILY [facility] Last Admin: 12/01/19 10:54 Dose: 20 mg Documented by: Sodium Chloride () 10 - 40 ml IV UD PRN PRN Reason: SALINE FLUSH Last Admin: 11/30/19 17:13 Dose: 10 ml Documented by: Tamsulosin HCl (Flomax) 0.4 mg PO DAILY@1730 [facility] Last Admin: 11/30/19 17:06 Dose: 0.4 mg Documented by: Medical Necessity - Tobacco Use Smoking Status: Never smoker Assessment/Plan All Active Problems (Last Reviewed 08/05/17 @ 13:02 by Brooklyn Pleitez) Acute urinary retention (Acute) Acute kidney injury (Acute) Hyperglycemia (Acute) Elevated troponin (Acute) VIOLETTE multifactorial obstructive uropathy with possible superimposed prerenal VIOLETTE with ACEI/diuretic/possible HF CKD baseline 1.38 Hyperkalemia Proteinuria not nephrotic Obstructive uropathy Scr 3.9 slighly worse not uremic no emergent need for dialysis K in normal range now 4.8 hold ACEI and hctz renal US cannot be done per radiology department urology consult will need voiding trial and further eval of obstructive uropathy can use diuretics prn f/u 24 hour collection spep upep f/u pending serologies further w/u per clinical course avoid nephrotoxins the patient will like to proceed with renal biopsy and second opinion at [facility]. Will initiate transfer.Hopefully renal biopsy can be performed there considering his BMI and the need for a longer biopsy needle. d/w patient and EVI
--- NOTE | 2019-12-01 13:26 | CASEMGMT ---
Addendum entered by Marybeth Dejesus 12/01/19 13:53: SW received a call from [facility] and they are not able to accept patient. Marybeth CARROLL Original Note: SW received a phone call from Maria Antonia at [facility] and they are not able to accept patient. SW also received a phone call from [facility] and they cannot accept patient. Marybeth HERCULES DOUGHNUT GLAZIER
--- NOTE | 2019-12-01 13:29 | PCM.PROGNOTE ---
<SantoCesia - Last Filed: 12/01/19 14:03> Subjective: Patient seen and examined. No new complaints. Urine output declining. Creatinine trending up. Nephrology discussed with patient transfer to [facility] for additional renal testing, patient in agreement. Awaiting acceptance at [facility]. - Physical Exam Vitals/I&O's: Vital Signs Temp Pulse Resp BP Pulse Ox 97.8 F 78 18 135/66 H 95 12/01/19 10:41 12/01/19 12:11 12/01/19 10:41 12/01/19 10:53 12/01/19 10:41 Oxygen Flow Rate (L/min) 2 Oxygen Delivery Method Nasal Cannula Weight: 589 lb 9.597 oz Body Mass Index (BMI) 70.2 Intake and Output for Last 24 Hours 11/29/19 11/30/19 12/01/19 23:59 23:59 23:59 Intake Total 3688.0 / 3688.0 1220 / 1220 120 / 120 Output Total 1999 / 1999 600 / 600 75 / 75 Balance 1688.0 / 1688.0 620 / 620 45 / 45 General: Alert, Oriented x3, Cooperative HEENT: Atraumatic, PERRLA, EOMI, Normocephalic Neck: Supple, No JVD, Negative Carotid Bruits Lungs: Clear to auscultation, Normal air movement Cardiovascular: Regular rate, No murmurs Abdomen: Bowel Sounds Present, Soft, Non Tender, Non-Distended, Obese Extremities: No clubbing, No cyanosis, No edema, Capillary Refill Less than 3 Seconds, - - Bilateral AKA Skin: No rashes, No breakdown Musculoskeletal: No Tenderness to Palpation of Joints or Extremities Neurological: Cranial nerves II-XII grossly intact, Neuro grossly intact Psych/Mental Status: Normal Affect, Appropriate Laboratory Results 11/30/19 13:04: Total Protein (PEP) Pending, Albumin (PEP) Pending, Globulin (PEP) Pending, Albumin/Globulin (PEP) Pending, Uveec-0-Aiuedmove Pending, Foioh-1-Aacezkslo Pending, Beta Globulins Pending, Gamma Globulins Pending, M-Sadiq Pending, Urine Total Protein Pending, Urine Albumin Pending, U Iagrp-7-Yzrudjja Pending, U Hwvse-7-Pvvsindl Pending, U Beta Globulin Pending, U Gamma Globulin Pending, U PEP M-Sadiq Pending, c-ANCA Antibody Pending, p-ANCA Antibody Pending, Glomerular Base Memb Ab Pending, Complement C3 Pending, Complement C4 Pending, Hepatitis A IgM Ab Pending, Hepatitis A Ab Total Pending, Hep Bs Antigen Pending, Hep B Core Total Ab Pending, Hep B Core IgM Ab Pending 11/30/19 13:04: Hepatitis A IgM Ab Cancelled, Hepatitis A Ab Total Cancelled, Hepatitis A Interp Cancelled, Hep Bs Antigen Cancelled, Hep Bs Ag Confirmation Cancelled, Hep B Surface Ag Comm Cancelled, Hep Bs Antibody Interp Cancelled, Hep B Core Total Ab Cancelled, Hep B Core IgM Ab Cancelled, Hepatitis C Ab Confirm Cancelled, Hep C Confirm Com 1 Cancelled 11/30/19 13:04: HIV 1&2 Antibody Non-Reactive 11/30/19 13:04: RPR Pending 11/30/19 13:04: ANCA Immunofluorescen Cancelled, c-ANCA Antibody Cancelled, Atypical p-ANCA Cancelled, p-ANCA Antibody Cancelled, Glomerular Base Memb Ab Cancelled, Complement C3 Cancelled, Complement C4 Cancelled, Hepatitis A IgM Ab Cancelled, Hepatitis A Ab Total Cancelled, Hepatitis A Interp Cancelled, Hep Bs Antigen Cancelled, Hep Bs Ag Confirmation Cancelled, Hep B Surface Ag Comm Cancelled, Hep Bs Antibody Interp Cancelled, Hep B Core Total Ab Cancelled, Hep B Core IgM Ab Cancelled, Hepatitis C Ab Confirm Cancelled, Hep C Confirm Com 1 Cancelled 11/30/19 17:00: POC Glucose 202 H 11/30/19 17:30: Sodium 134 L, Potassium 5.4 H, Chloride 107, Carbon Dioxide 19.0 L, Anion Gap 8, BUN 106 H*, Creatinine 3.63 H, Estim Creat Clear Calc 30.89, Est GFR (MDRD) Af Amer 23 L, Est GFR (MDRD) Non-Af 19 L, BUN/Creatinine Ratio 29.2 H, Glucose 198 H, Calcium 7.7 L 11/30/19 21:47: POC Glucose 130 H 12/01/19 04:50: Sodium 134 L, Potassium 4.8, Chloride 106, Carbon Dioxide 21.0, Anion Gap 7, BUN 109 H*, Creatinine 3.96 H, Estim Creat Clear Calc 28.31, Est GFR (MDRD) Af Amer 21 L, Est GFR (MDRD) Non-Af 17 L, BUN/Creatinine Ratio 27.5 H, Glucose 68 L, Calcium 7.6 L 12/01/19 11:07: POC Glucose 104 Current Medications Allopurinol (Zyloprim) 300 mg PO DAILY [facility] Last Admin: 12/01/19 10:53 Dose: 300 mg Documented by: Apixaban (Eliquis) 2.5 mg PO BID [facility] Last Admin: 12/01/19 10:53 Dose: 2.5 mg Documented by: Aspirin (Aspirin, Baby) 81 mg PO DAILY@0800 [facility] Last Admin: 12/01/19 10:54 Dose: 81 mg Documented by: Atorvastatin Calcium (Lipitor) 40 mg PO QHS [facility] Last Admin: 11/30/19 21:55 Dose: 40 mg Documented by: Bupropion HCl (Wellbutrin Xl) 150 mg PO DAILY [facility] Last Admin: 12/01/19 10:54 Dose: 150 mg Documented by: Dextrose (D50w Syringe) 0 gm IV X1 PRN; Protocol PRN Reason: Hypoglycemia Glucagon () 1 mg IM .X1 PRN PRN Reason: Hypoglycemia Sodium Chloride () 250 mls @ 15 mls/hr IV .[id number] PRN PRN Reason: Additional IVPB Infusion Insulin Human Lispro (Humalog Kwikpen ([facility])) 0 unit SC ACHS [facility]; Protocol Last Admin: 12/01/19 11:08 Dose: Not Given Documented by: Insulin Human Regular (Humulin R U-500 ([facility])) 135 units SC BIDAC [facility] Last Admin: 12/01/19 10:52 Dose: Not Given Documented by: Loratadine (Claritin) 10 mg PO DAILY [facility] Last Admin: 12/01/19 10:54 Dose: 10 mg Documented by: Metoprolol Tartrate (Lopressor (Beta Ezra)) 50 mg PO BID [facility] Last Admin: 12/01/19 10:53 Dose: 50 mg Documented by: Nitroglycerin (Nitrostat) 0.4 mg SUBLINGUAL Q5M PRN PRN Reason: CARDIAC/CHEST PAIN Nystatin (Mycostatin Powder) 1 applic TOPICAL BID [facility]; Protocol Last Admin: 12/01/19 10:54 Dose: 1 applicatio Documented by: Pantoprazole Sodium (Protonix) 20 mg PO DAILY [facility] Last Admin: 12/01/19 10:54 Dose: 20 mg Documented by: Sodium Chloride () 10 - 40 ml IV UD PRN PRN Reason: SALINE FLUSH Last Admin: 11/30/19 17:13 Dose: 10 ml Documented by: Tamsulosin HCl (Flomax) 0.4 mg PO DAILY@1730 [facility] Last Admin: 11/30/19 17:06 Dose: 0.4 mg Documented by: Medical Necessity - Tobacco Use Smoking Status: Never smoker Assessment/Plan All Active Problems (Last Reviewed 08/05/17 @ 13:02 by Brooklyn Pleitez) Acute urinary retention (Acute) Acute kidney injury (Acute) Hyperglycemia (Acute) Elevated troponin (Acute) 1. Acute kidney injury with hyperkalemia on chronic kidney disease stage III, acute urinary retention-patient presented with urinary retention. Fuentes placed on admission with 1 L of urine drained. CT of abdomen and pelvis shows no evidence of hydronephrosis, small right pleural effusion with right basilar atelectasis. Gallstones. Initiated on Flomax. Continue Fuentes with voiding trial prior to discharge. FENA 1.7%. Nephrology consulted. SPEP/UPEP/TRISTAN/serologies pending. Lasix attempted yesterday with no significant urine output. Creatinine trending up. Urine output low. Discussed with nephrology and patient and plan to proceed with [facility] transfer for kidney biopsy and further evaluation. 2. Abnormal troponin-troponin did not trend. EKG without ST-T changes. Patient denies chest pain, shortness of breath or other cardiac symptoms. Echocardiogram demonstrates normal left ventricular systolic function. No regional wall motion abnormalities. Technically difficult study due to patient habitus. 3. Acute hypoxia with small right pleural effusion-suspect secondary to mild fluid overload related to #1. Continue supplement oxygen to maintain O2 at or above 90%. Patient may have chronic hypoxia related to MAICOL and super morbid obesity as well. 4. Type 2 diabetes mellitus-metformin on hold. Accu-Cheks with sliding scale insulin. Continue home insulin regimen. 5. Hypertension-stable. HCTZ, lisinopril on hold due to acute kidney injury. Continue metoprolol regimen. 6. Hyperlipidemia-continue statin. 7. Factor V Leiden deficiency-transition from Xarelto to Eliquis given renal function. 8. MAICOL-continue home CPAP regimen. 9. Super morbid obesity-encouraged diet and lifestyle modifications. Dietitian consult. 10. 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 Complicated by super morbid obesity. PT/OT. 11. Depression-continue bupropion regimen. 12. Gout-continue allopurinol. 13. GERD-continue omeprazole regimen. 14. Mild leukocytosis-appears chronic. No evidence of infectious etiology. DVT prophylaxis-Eliquis Discharge planning: Transfer to [facility] pending acceptance. This patient was seen by JESS Huynh under the supervision of Dr. Vinson. <Mari Vinson E - Last Filed: 12/01/19 14:18> - Physical Exam Vitals/I&O's: Vital Signs Temp Pulse Resp BP Pulse Ox 97.8 F 78 18 135/66 H 95 12/01/19 10:41 12/01/19 12:11 12/01/19 10:41 12/01/19 10:53 12/01/19 10:41 Oxygen Flow Rate (L/min) 2 Oxygen Delivery Method Nasal Cannula Weight: 589 lb 9.597 oz Body Mass Index (BMI) 70.2 Intake and Output for Last 24 Hours 11/29/19 11/30/19 12/01/19 23:59 23:59 23:59 Intake Total 3688.0 / 3688.0 1220 / 1220 120 / 120 Output Total 1999 / 1999 600 / 600 75 / 75 Balance 1688.0 / 1688.0 620 / 620 45 / 45 Microbiology Past 72 Hours 11/30/19 13:00 Urine Catheter - Catheter Urine Culture - Preliminary Staphylococcus aureus Laboratory Results 11/30/19 13:04: Total Protein (PEP) Pending, Albumin (PEP) Pending, Globulin (PEP) Pending, Albumin/Globulin (PEP) Pending, Rqquq-5-Deprdnigy Pending, Zyweh-1-Mloklsrbs Pending, Beta Globulins Pending, Gamma Globulins Pending, M-Sadiq Pending, Urine Total Protein Pending, Urine Albumin Pending, U Fpwrm-3-Issoqoef Pending, U Vpfbt-5-Vqiycneq Pending, U Beta Globulin Pending, U Gamma Globulin Pending, U PEP M-Sadiq Pending, c-ANCA Antibody Pending, p-ANCA Antibody Pending, Glomerular Base Memb Ab Pending, Complement C3 Pending, Complement C4 Pending, Hepatitis A IgM Ab Pending, Hepatitis A Ab Total Pending, Hep Bs Antigen Pending, Hep B Core Total Ab Pending, Hep B Core IgM Ab Pending 11/30/19 13:04: Hepatitis A IgM Ab Cancelled, Hepatitis A Ab Total Cancelled, Hepatitis A Interp Cancelled, Hep Bs Antigen Cancelled, Hep Bs Ag Confirmation Cancelled, Hep B Surface Ag Comm Cancelled, Hep Bs Antibody Interp Cancelled, Hep B Core Total Ab Cancelled, Hep B Core IgM Ab Cancelled, Hepatitis C Ab Confirm Cancelled, Hep C Confirm Com 1 Cancelled 11/30/19 13:04: HIV 1&2 Antibody Non-Reactive 11/30/19 13:04: RPR Pending 11/30/19 13:04: ANCA Immunofluorescen Cancelled, c-ANCA Antibody Cancelled, Atypical p-ANCA Cancelled, p-ANCA Antibody Cancelled, Glomerular Base Memb Ab Cancelled, Complement C3 Cancelled, Complement C4 Cancelled, Hepatitis A IgM Ab Cancelled, Hepatitis A Ab Total Cancelled, Hepatitis A Interp Cancelled, Hep Bs Antigen Cancelled, Hep Bs Ag Confirmation Cancelled, Hep B Surface Ag Comm Cancelled, Hep Bs Antibody Interp Cancelled, Hep B Core Total Ab Cancelled, Hep B Core IgM Ab Cancelled, Hepatitis C Ab Confirm Cancelled, Hep C Confirm Com 1 Cancelled 11/30/19 17:00: POC Glucose 202 H 11/30/19 17:30: Sodium 134 L, Potassium 5.4 H, Chloride 107, Carbon Dioxide 19.0 L, Anion Gap 8, BUN 106 H*, Creatinine 3.63 H, Estim Creat Clear Calc 30.89, Est GFR (MDRD) Af Amer 23 L, Est GFR (MDRD) Non-Af 19 L, BUN/Creatinine Ratio 29.2 H, Glucose 198 H, Calcium 7.7 L 11/30/19 21:47: POC Glucose 130 H 12/01/19 04:50: Sodium 134 L, Potassium 4.8, Chloride 106, Carbon Dioxide 21.0, Anion Gap 7, BUN 109 H*, Creatinine 3.96 H, Estim Creat Clear Calc 28.31, Est GFR (MDRD) Af Amer 21 L, Est GFR (MDRD) Non-Af 17 L, BUN/Creatinine Ratio 27.5 H, Glucose 68 L, Calcium 7.6 L 12/01/19 11:07: POC Glucose 104 Current Medications Allopurinol (Zyloprim) 300 mg PO DAILY [facility] Last Admin: 12/01/19 10:53 Dose: 300 mg Documented by: Apixaban (Eliquis) 2.5 mg PO BID [facility] Last Admin: 12/01/19 10:53 Dose: 2.5 mg Documented by: Aspirin (Aspirin, Baby) 81 mg PO DAILY@0800 [facility] Last Admin: 12/01/19 10:54 Dose: 81 mg Documented by: Atorvastatin Calcium (Lipitor) 40 mg PO QHS [facility] Last Admin: 11/30/19 21:55 Dose: 40 mg Documented by: Bupropion HCl (Wellbutrin Xl) 150 mg PO DAILY [facility] Last Admin: 12/01/19 10:54 Dose: 150 mg Documented by: Dextrose (D50w Syringe) 0 gm IV X1 PRN; Protocol PRN Reason: Hypoglycemia Glucagon () 1 mg IM .X1 PRN PRN Reason: Hypoglycemia Sodium Chloride () 250 mls @ 15 mls/hr IV .[id number] PRN PRN Reason: Additional IVPB Infusion Insulin Human Lispro (Humalog Kwikpen ([facility])) 0 unit SC ACHS [facility]; Protocol Last Admin: 12/01/19 11:08 Dose: Not Given Documented by: Insulin Human Regular (Humulin R U-500 ([facility])) 135 units SC BIDAC [facility] Last Admin: 12/01/19 10:52 Dose: Not Given Documented by: Loratadine (Claritin) 10 mg PO DAILY [facility] Last Admin: 12/01/19 10:54 Dose: 10 mg Documented by: Metoprolol Tartrate (Lopressor (Beta Ezra)) 50 mg PO BID [facility] Last Admin: 12/01/19 10:53 Dose: 50 mg Documented by: Nitroglycerin (Nitrostat) 0.4 mg SUBLINGUAL Q5M PRN PRN Reason: CARDIAC/CHEST PAIN Nystatin (Mycostatin Powder) 1 applic TOPICAL BID [facility]; Protocol Last Admin: 12/01/19 10:54 Dose: 1 applicatio Documented by: Pantoprazole Sodium (Protonix) 20 mg PO DAILY [facility] Last Admin: 12/01/19 10:54 Dose: 20 mg Documented by: Sodium Chloride () 10 - 40 ml IV UD PRN PRN Reason: SALINE FLUSH Last Admin: 11/30/19 17:13 Dose: 10 ml Documented by: Tamsulosin HCl (Flomax) 0.4 mg PO DAILY@1730 [facility] Last Admin: 11/30/19 17:06 Dose: 0.4 mg Documented by: Assessment/Plan Hospitalist note: I am seeing this patient in conjunction with Cesia Blanchard. I independently seen and examined the patient. Progress note above, laboratory data reviewed and I concur with above plan. Breathing remained almost the same, still on oxygen at 2 L. No new complaints. Urine output has been declining. Other vital signs are stable. - Physical Exam General: Alert, Oriented x3, Cooperative, No apparent distress. HEENT: Atraumatic, PERRLA, EOMI. Neck: Supple, No JVD, Negative Carotid Bruits, Trachea Midline, Thyroid Normal. Lungs: Diminished breath sounds bilateral, otherwise clear, No rhonchi, No wheeze, No rales. Cardiovascular: Regular rate, Regular Rhythm, Normal S1, Normal S2, PMI Normal. Abdomen: Bowel Sounds Present, Soft, Non Tender, Non-Distended, No Hepato-splenomegaly, morbidly obese. Extremities: Status post below right knee amputation, status post above left knee amputation, edema at the amputation stump bilaterally. Skin: No rashes, No breakdown Neurological: Cranial nerves are intact, neuro grossly intact Vital Signs are stable. Assessment and plan: #1 acute kidney injury/hyperkalemia: Unclear if this patient had a history of chronic kidney disease. Serum creatinine has been trending up again, urine output is declining. Today's BUN is 109, creatinine is 3.96, worsening. Today's potassium is 4.8, normalized. unsatisfactory urine output. CT scan abdomen pelvis without contrast revealed normal kidneys, no evidence of hydronephrosis, revealed small right pleural effusion. Nephrology on the case. Serum protein electrophoresis and urine protein electrophoresis ordered. Today, nephrology recommended transfer to [facility] for for further evaluation and treatment. We are awaiting a bed availability at the [facility]. #2 abnormal cardiac enzymes: Likely due to acute kidney injury. EKG revealed normal sinus rhythm, low voltage QRS, no acute segment changes. Troponin is trending down. 2D echocardiogram revealed normal LV size and function, no evidence of regional wall abnormalities. Patient denied any chest pain throughout admission. He is on aspirin, statins and metoprolol. No indication for any further cardiac work-up at this time. #3 hypoxia: Multifactorial secondary to #1 in addition to history of obstructive sleep apnea and morbid obesity. Patient uses CPAP at home at night mainly. He has been on oxygen, at 2 L. Plan as above. #5 other chronic medical problems: Stable, continue current medications as above. This note was generated with [employer] dictation software. It may contain incorrect words, spelling, and punctuation that were not noted in checking the note before signing. Inpatient E&M: 24258 Subs Hosp L2
--- NOTE | 2019-12-01 14:04 | PCM.DC.SUM ---
<Cesia Blanchard - Last Filed: 12/01/19 14:11> Discharge Date and Diagnosis Date of Admission: 11/25/19 Date of Discharge: 12/01/19 - Primary Discharge Diagnosis Acute Problems: Active Problems (Last Reviewed 08/05/17 @ 13:02 by Brooklyn Pleitez) 1. Acute kidney injury with hyperkalemia on chronic kidney disease stage III, acute urinary retention 2. Abnormal troponin 3. Acute hypoxia with small right pleural effusion 4. Type 2 diabetes mellitus 5. Hypertension 6. Hyperlipidemia 7. Factor V Leiden deficiency 8. MAICOL 9. Super morbid obesity 10. 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 11. Depression 12. Gout 13. GERD 14. Mild leukocytosis-appears chronic. No evidence of infectious etiology. 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 Diabetes mellitus type 2 in obese (Chronic) Ulcer of right lower extremity (Chronic) History of left below knee amputation (Chronic) Allergic rhinitis (Chronic) Morbid obesity (Chronic) GERD (gastroesophageal reflux disease) (Chronic) HTN (hypertension) (Chronic) Diabetes (Chronic) Hospital Course and Treatment Imaging Results: Diagnostic Data Abdomen/Pelvis CT 11/26/19 09:47 IMPRESSION: Limited examination. No evidence of hydronephrosis. Small right pleural effusion with right basilar atelectasis and/or infiltration. Findings suggestive of gallstones. Electronically Signed: Tad Dubois at 10:53 EDT , Service support , Chest X-Ray 11/30/19 12:51 IMPRESSION: Development of diffuse interstitial edema since the previous study, follow-up recommended to assure resolution Electronically Signed: Braden Stringer MD at 13:14 EDT , Service support , Dr. Soto/Dr. Sevilla- Nephrology Operations: None Procedures: 2-D Echocardiogram Summary of Care Provided: The patient is a 49 year old M admitted 11/25/2019 due to difficulty urinating. 1. Acute kidney injury with hyperkalemia on chronic kidney disease stage III, acute urinary retention-patient presented with urinary retention. Fuentes placed on admission with 1 L of urine drained. CT of abdomen and pelvis shows no evidence of hydronephrosis, small right pleural effusion with right basilar atelectasis. Gallstones. Initiated on Flomax. FENA 1.7%. Nephrology consulted. SPEP/UPEP/TRISTAN/serologies pending. Lasix attempted 12/01/19 with no significant urine output. Creatinine trending up. Urine output low. Discussed with nephrology and patient and plan to proceed with [facility] transfer for kidney biopsy and further evaluation. 2. Abnormal troponin-troponin did not trend. EKG without ST-T changes. Patient denies chest pain, shortness of breath or other cardiac symptoms. Echocardiogram demonstrates normal left ventricular systolic function. No regional wall motion abnormalities. Technically difficult study due to patient habitus. 3. Acute hypoxia with small right pleural effusion-suspect secondary to mild fluid overload related to #1. Continue supplement oxygen to maintain O2 at or above 90%. Patient may have chronic hypoxia related to MAICOL and super morbid obesity as well. 4. Type 2 diabetes mellitus-metformin on hold. Accu-Cheks with sliding scale insulin. Continue home insulin regimen. 5. Hypertension-stable. HCTZ, lisinopril on hold due to acute kidney injury. Continue metoprolol regimen. 6. Hyperlipidemia-continue statin. 7. Factor V Leiden deficiency-transition from Xarelto to Eliquis given renal function. Heparin drip attempted however patient reached maximum dose limit and still remains subtherapeutic. On Eliquis 2.5 mg p.o. twice daily. 8. MAICOL-continue home CPAP regimen. 9. Super morbid obesity-encouraged diet and lifestyle modifications. Dietitian consult. 10. 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 Complicated by super morbid obesity. PT/OT. Anticipate SNF when medically stable for discharge for rehab. 11. Depression-continue bupropion regimen. 12. Gout-continue allopurinol. 13. GERD-continue omeprazole regimen. 14. Mild leukocytosis-appears chronic. No evidence of infectious etiology. General: Alert, Oriented x3, Cooperative HEENT: Atraumatic, PERRLA, EOMI, Normocephalic Neck: Supple, No JVD, Negative Carotid Bruits Lungs: Clear to auscultation, Normal air movement Cardiovascular: Regular rate, No murmurs Abdomen: Bowel Sounds Present, Soft, Non Tender, Non-Distended, Obese Extremities: No clubbing, No cyanosis, No edema, Capillary Refill Less than 3 Seconds, - - Bilateral AKA Skin: No rashes, No breakdown Musculoskeletal: No Tenderness to Palpation of Joints or Extremities Neurological: Cranial nerves II-XII grossly intact, Neuro grossly intact Psych/Mental Status: Normal Affect, Appropriate Patient seen and examined prior to discharge. Physical assessment as noted above. Transfer to tertiary facility for further nephrology evaluation. This patient was seen by JESS Huynh under the supervision of Dr. Vinson. - Physical Exam Vitals/I&O's: Vital Signs Temp Pulse Resp BP Pulse Ox 97.8 F 78 18 135/66 H 95 12/01/19 10:41 12/01/19 12:11 12/01/19 10:41 12/01/19 10:53 12/01/19 10:41 Oxygen Flow Rate (L/min) 2 Oxygen Delivery Method Nasal Cannula Weight: 589 lb 9.597 oz Body Mass Index (BMI) 70.2 Intake and Output for Last 24 Hours 11/29/19 11/30/19 12/01/19 23:59 23:59 23:59 Intake Total 3688.0 / 3688.0 1220 / 1220 120 / 120 Output Total 2000 / 2000 600 / 600 75 / 75 Balance 1688.0 / 1688.0 620 / 620 45 / 45 Laboratory Results 11/30/19 13:04: Total Protein (PEP) Pending, Albumin (PEP) Pending, Globulin (PEP) Pending, Albumin/Globulin (PEP) Pending, Xtrsw-3-Weornvhbx Pending, Qmtoe-5-Vbhjhtuds Pending, Beta Globulins Pending, Gamma Globulins Pending, M-Sadiq Pending, Urine Total Protein Pending, Urine Albumin Pending, U Jfhsj-4-Liuashfw Pending, U Ydfcm-9-Myxuafge Pending, U Beta Globulin Pending, U Gamma Globulin Pending, U PEP M-Sadiq Pending, c-ANCA Antibody Pending, p-ANCA Antibody Pending, Glomerular Base Memb Ab Pending, Complement C3 Pending, Complement C4 Pending, Hepatitis A IgM Ab Pending, Hepatitis A Ab Total Pending, Hep Bs Antigen Pending, Hep B Core Total Ab Pending, Hep B Core IgM Ab Pending 11/30/19 13:04: Hepatitis A IgM Ab Cancelled, Hepatitis A Ab Total Cancelled, Hepatitis A Interp Cancelled, Hep Bs Antigen Cancelled, Hep Bs Ag Confirmation Cancelled, Hep B Surface Ag Comm Cancelled, Hep Bs Antibody Interp Cancelled, Hep B Core Total Ab Cancelled, Hep B Core IgM Ab Cancelled, Hepatitis C Ab Confirm Cancelled, Hep C Confirm Com 1 Cancelled 11/30/19 13:04: HIV 1&2 Antibody Non-Reactive 11/30/19 13:04: RPR Pending 11/30/19 13:04: ANCA Immunofluorescen Cancelled, c-ANCA Antibody Cancelled, Atypical p-ANCA Cancelled, p-ANCA Antibody Cancelled, Glomerular Base Memb Ab Cancelled, Complement C3 Cancelled, Complement C4 Cancelled, Hepatitis A IgM Ab Cancelled, Hepatitis A Ab Total Cancelled, Hepatitis A Interp Cancelled, Hep Bs Antigen Cancelled, Hep Bs Ag Confirmation Cancelled, Hep B Surface Ag Comm Cancelled, Hep Bs Antibody Interp Cancelled, Hep B Core Total Ab Cancelled, Hep B Core IgM Ab Cancelled, Hepatitis C Ab Confirm Cancelled, Hep C Confirm Com 1 Cancelled 11/30/19 17:00: POC Glucose 202 H 11/30/19 17:30: Sodium 134 L, Potassium 5.4 H, Chloride 107, Carbon Dioxide 19.0 L, Anion Gap 8, BUN 106 H*, Creatinine 3.63 H, Estim Creat Clear Calc 30.89, Est GFR (MDRD) Af Amer 23 L, Est GFR (MDRD) Non-Af 19 L, BUN/Creatinine Ratio 29.2 H, Glucose 198 H, Calcium 7.7 L 11/30/19 21:47: POC Glucose 130 H 12/01/19 04:50: Sodium 134 L, Potassium 4.8, Chloride 106, Carbon Dioxide 21.0, Anion Gap 7, BUN 109 H*, Creatinine 3.96 H, Estim Creat Clear Calc 28.31, Est GFR (MDRD) Af Amer 21 L, Est GFR (MDRD) Non-Af 17 L, BUN/Creatinine Ratio 27.5 H, Glucose 68 L, Calcium 7.6 L 12/01/19 11:07: POC Glucose 104 Current Medications Allopurinol (Zyloprim) 300 mg PO DAILY [facility] Last Admin: 12/01/19 10:53 Dose: 300 mg Documented by: Apixaban (Eliquis) 2.5 mg PO BID [facility] Last Admin: 12/01/19 10:53 Dose: 2.5 mg Documented by: Aspirin (Aspirin, Baby) 81 mg PO DAILY@0800 [facility] Last Admin: 12/01/19 10:54 Dose: 81 mg Documented by: Atorvastatin Calcium (Lipitor) 40 mg PO QHS [facility] Last Admin: 11/30/19 21:55 Dose: 40 mg Documented by: Bupropion HCl (Wellbutrin Xl) 150 mg PO DAILY [facility] Last Admin: 12/01/19 10:54 Dose: 150 mg Documented by: Dextrose (D50w Syringe) 0 gm IV X1 PRN; Protocol PRN Reason: Hypoglycemia Glucagon () 1 mg IM .X1 PRN PRN Reason: Hypoglycemia Sodium Chloride () 250 mls @ 15 mls/hr IV .[id number] PRN PRN Reason: Additional IVPB Infusion Insulin Human Lispro (Humalog Kwikpen ([facility])) 0 unit SC ACHS [facility]; Protocol Last Admin: 12/01/19 11:08 Dose: Not Given Documented by: Insulin Human Regular (Humulin R U-500 ([facility])) 135 units SC BIDAC [facility] Last Admin: 12/01/19 10:52 Dose: Not Given Documented by: Loratadine (Claritin) 10 mg PO DAILY [facility] Last Admin: 12/01/19 10:54 Dose: 10 mg Documented by: Metoprolol Tartrate (Lopressor (Beta Ezra)) 50 mg PO BID [facility] Last Admin: 12/01/19 10:53 Dose: 50 mg Documented by: Nitroglycerin (Nitrostat) 0.4 mg SUBLINGUAL Q5M PRN PRN Reason: CARDIAC/CHEST PAIN Nystatin (Mycostatin Powder) 1 applic TOPICAL BID [facility]; Protocol Last Admin: 12/01/19 10:54 Dose: 1 applicatio Documented by: Pantoprazole Sodium (Protonix) 20 mg PO DAILY [facility] Last Admin: 12/01/19 10:54 Dose: 20 mg Documented by: Sodium Chloride () 10 - 40 ml IV UD PRN PRN Reason: SALINE FLUSH Last Admin: 11/30/19 17:13 Dose: 10 ml Documented by: Tamsulosin HCl (Flomax) 0.4 mg PO DAILY@1730 [facility] Last Admin: 11/30/19 17:06 Dose: 0.4 mg Documented by: Home Medications: Medications to take at Discharge Hydrochlorothiazide [Hctz] 25 mg PO DAILY 01/17/16 Lisinopril [Zestril] 40 mg PO DAILY 01/17/16 metoprolol tartrate 100 mg tablet 100 mg PO BID 07/16/17 Allopurinol [Zyloprim] 300 mg PO DAILY 11/25/19 Atorvastatin Calcium [Lipitor] 40 mg PO QHS 11/25/19 Cetirizine HCl 10 mg PO DAILY 11/25/19 Esomeprazole Mag Trihydrate [Nexium] 20 mg PO DAILY 11/25/19 Insulin Regular, Human [Humulin R U-500 Kwikpen] 135 unit SQ BIDAC 11/25/19 Rivaroxaban [Xarelto] 20 mg PO DINNER 11/25/19 buPROPion XL [Wellbutrin Xl] 150 mg PO DAILY 11/25/19 metFORMIN HCl [Glucophage] 1,000 mg PO BIDCM 11/25/19 Primary Care Physician: Arian Couch MD [Primary Care Provider] - Please Follow Up With: Arian Couch MD Disposition: Acute [facility] Minutes spent on discharge:: 35 Patient Condition:: Stable Medical Necessity - Tobacco Use Smoking Status: Never smoker Meaningful Use Info Meaningful Use Diagnoses (Choose all that apply): None applicable <Mari Vinson - Last Filed: 12/02/19 10:39> Discharge Date and Diagnosis - Secondary Discharge Diagnosis Chronic Problems: Chronic Problems (Last Reviewed 08/05/17 @ 13:02 by Brooklyn Pleitez) 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 Diabetes mellitus type 2 in obese (Chronic) Ulcer of right lower extremity (Chronic) History of left below knee amputation (Chronic) Allergic rhinitis (Chronic) Morbid obesity (Chronic) GERD (gastroesophageal reflux disease) (Chronic) HTN (hypertension) (Chronic) Diabetes (Chronic) Hospital Course and Treatment Summary of Care Provided: Hospitalist note: Transfer to [facility] was initiated but there was no bed available that day. Discharge was canceled. Please discard this discharge summary. - Physical Exam Vitals/I&O's: Vital Signs Temp Pulse Resp BP Pulse Ox 97.8 F 78 18 135/66 H 95 12/01/19 10:41 12/01/19 12:11 12/01/19 10:41 12/01/19 10:53 12/01/19 10:41 Oxygen Flow Rate (L/min) 2 Oxygen Delivery Method Nasal Cannula Weight: 589 lb 9.597 oz Body Mass Index (BMI) 70.2 Intake and Output for Last 24 Hours 11/29/19 11/30/19 12/01/19 23:59 23:59 23:59 Intake Total 3688.0 / 3688.0 1220 / 1220 120 / 120 Output Total 1999 / 1999 600 / 600 75 / 75 Balance 1688.0 / 1688.0 620 / 620 45 / 45 Microbiology Past 72 Hours 11/30/19 13:00 Urine Catheter - Catheter Urine Culture - Preliminary Staphylococcus aureus Laboratory Results 11/30/19 13:04: Total Protein (PEP) Pending, Albumin (PEP) Pending, Globulin (PEP) Pending, Albumin/Globulin (PEP) Pending, Suore-1-Daottvydb Pending, Ulfmi-5-Turlienoa Pending, Beta Globulins Pending, Gamma Globulins Pending, M-Sadiq Pending, Urine Total Protein Pending, Urine Albumin Pending, U Awzed-3-Iguaevix Pending, U Osebr-8-Dpbizpro Pending, U Beta Globulin Pending, U Gamma Globulin Pending, U PEP M-Sadiq Pending, c-ANCA Antibody Pending, p-ANCA Antibody Pending, Glomerular Base Memb Ab Pending, Complement C3 Pending, Complement C4 Pending, Hepatitis A IgM Ab Pending, Hepatitis A Ab Total Pending, Hep Bs Antigen Pending, Hep B Core Total Ab Pending, Hep B Core IgM Ab Pending 11/30/19 13:04: Hepatitis A IgM Ab Cancelled, Hepatitis A Ab Total Cancelled, Hepatitis A Interp Cancelled, Hep Bs Antigen Cancelled, Hep Bs Ag Confirmation Cancelled, Hep B Surface Ag Comm Cancelled, Hep Bs Antibody Interp Cancelled, Hep B Core Total Ab Cancelled, Hep B Core IgM Ab Cancelled, Hepatitis C Ab Confirm Cancelled, Hep C Confirm Com 1 Cancelled 11/30/19 13:04: HIV 1&2 Antibody Non-Reactive 11/30/19 13:04: RPR Pending 11/30/19 13:04: ANCA Immunofluorescen Cancelled, c-ANCA Antibody Cancelled, Atypical p-ANCA Cancelled, p-ANCA Antibody Cancelled, Glomerular Base Memb Ab Cancelled, Complement C3 Cancelled, Complement C4 Cancelled, Hepatitis A IgM Ab Cancelled, Hepatitis A Ab Total Cancelled, Hepatitis A Interp Cancelled, Hep Bs Antigen Cancelled, Hep Bs Ag Confirmation Cancelled, Hep B Surface Ag Comm Cancelled, Hep Bs Antibody Interp Cancelled, Hep B Core Total Ab Cancelled, Hep B Core IgM Ab Cancelled, Hepatitis C Ab Confirm Cancelled, Hep C Confirm Com 1 Cancelled 11/30/19 17:00: POC Glucose 202 H 11/30/19 17:30: Sodium 134 L, Potassium 5.4 H, Chloride 107, Carbon Dioxide 19.0 L, Anion Gap 8, BUN 106 H*, Creatinine 3.63 H, Estim Creat Clear Calc 30.89, Est GFR (MDRD) Af Amer 23 L, Est GFR (MDRD) Non-Af 19 L, BUN/Creatinine Ratio 29.2 H, Glucose 198 H, Calcium 7.7 L 11/30/19 21:47: POC Glucose 130 H 12/01/19 04:50: Sodium 134 L, Potassium 4.8, Chloride 106, Carbon Dioxide 21.0, Anion Gap 7, BUN 109 H*, Creatinine 3.96 H, Estim Creat Clear Calc 28.31, Est GFR (MDRD) Af Amer 21 L, Est GFR (MDRD) Non-Af 17 L, BUN/Creatinine Ratio 27.5 H, Glucose 68 L, Calcium 7.6 L 12/01/19 11:07: POC Glucose 104 Current Medications Allopurinol (Zyloprim) 300 mg PO DAILY [facility] Last Admin: 12/01/19 10:53 Dose: 300 mg Documented by: Apixaban (Eliquis) 2.5 mg PO BID [facility] Last Admin: 12/01/19 10:53 Dose: 2.5 mg Documented by: Aspirin (Aspirin, Baby) 81 mg PO DAILY@0800 [facility] Last Admin: 12/01/19 10:54 Dose: 81 mg Documented by: Atorvastatin Calcium (Lipitor) 40 mg PO QHS [facility] Last Admin: 11/30/19 21:55 Dose: 40 mg Documented by: Bupropion HCl (Wellbutrin Xl) 150 mg PO DAILY [facility] Last Admin: 12/01/19 10:54 Dose: 150 mg Documented by: Dextrose (D50w Syringe) 0 gm IV X1 PRN; Protocol PRN Reason: Hypoglycemia Glucagon () 1 mg IM .X1 PRN PRN Reason: Hypoglycemia Sodium Chloride () 250 mls @ 15 mls/hr IV .[id number] PRN PRN Reason: Additional IVPB Infusion Insulin Human Lispro (Humalog Kwikpen ([facility])) 0 unit SC ACHS [facility]; Protocol Last Admin: 12/01/19 11:08 Dose: Not Given Documented by: Insulin Human Regular (Humulin R U-500 ([facility])) 135 units SC BIDAC [facility] Last Admin: 12/01/19 10:52 Dose: Not Given Documented by: Loratadine (Claritin) 10 mg PO DAILY [facility] Last Admin: 12/01/19 10:54 Dose: 10 mg Documented by: Metoprolol Tartrate (Lopressor (Beta Ezra)) 50 mg PO BID [facility] Last Admin: 12/01/19 10:53 Dose: 50 mg Documented by: Nitroglycerin (Nitrostat) 0.4 mg SUBLINGUAL Q5M PRN PRN Reason: CARDIAC/CHEST PAIN Nystatin (Mycostatin Powder) 1 applic TOPICAL BID [facility]; Protocol Last Admin: 12/01/19 10:54 Dose: 1 applicatio Documented by: Pantoprazole Sodium (Protonix) 20 mg PO DAILY [facility] Last Admin: 12/01/19 10:54 Dose: 20 mg Documented by: Sodium Chloride () 10 - 40 ml IV UD PRN PRN Reason: SALINE FLUSH Last Admin: 11/30/19 17:13 Dose: 10 ml Documented by: Tamsulosin HCl (Flomax) 0.4 mg PO DAILY@1730 [facility] Last Admin: 11/30/19 17:06 Dose: 0.4 mg Documented by: Disposition: Acute care Hospital Minutes spent on discharge:: 32 Patient Condition:: Stable Meaningful Use Info Meaningful Use Diagnoses (Choose all that apply): None applicable
[2019-12-01 14:08] LABS: ANTINUCLEAR ANTIBODIES DIRECT Positive (Negative); Anti-Centromere B Ab <0.2 AI (0.0-0.9); Anti-Chromatin <0.2 AI (0.0-0.9); Anti-Jo <0.2 AI (0.0-0.9); Anti-Scleroderma-70 AB <0.2 AI (0.0-0.9); RNP Ab 0.3 AI (0.0-0.9); SJOGREN'S Anti-SS-A test 1.4 AI (0.0-0.9); SJOGREN'S Anti-SS-B test < 0.2 AI (0.0-0.9); Smith Ab <0.2 AI (0.0-0.9)
--- NOTE | 2019-12-01 14:50 | CASEMGMT ---
The only facility that has not responded to SW regarding whether or not they could accept patient is [facility]. SW called [facility] and they would like at the referral. SW faxed referral to [facility]. There is a possibility that patient will be transferred to [facility], but SW will continue to work on placement until he is transferred. Marybeth HERCULES MSW
[2019-12-01 15:39] LABS: Anti-dsDNA Ab <1 IU/mL (0-9)
[2019-12-01] MEDS: Insulin Lispro 100 UNIT/ML INSULN.PEN SC ×2 (16:56→21:17)
[2019-12-01] MEDS: Tamsulosin HCl 0.4 MG Capsule PO (16:56)
[2019-12-01 17:26] LABS: Bedside Glucose 160 mg/dL (70-110)
[2019-12-01] MEDS: Atorvastatin Calcium 40 MG Tablet PO (21:19)
[2019-12-01 22:21] LABS: Bedside Glucose 176 mg/dL (70-110)
[2019-12-02] VITALS (13 sets, daily range): BP systolic 114–137; BP diastolic 63–75; PULSE 65–93; RESP 16–20; TEMP 36.1–36.6; O2SAT 93–97
[2019-12-02 02:25] LABS: Rapid Plasmin Reagin (RPR) NONREACTIVE (NONREACTIVE)
[2019-12-02 07:01] LABS: Bedside Glucose 137 mg/dL (70-110)
--- NOTE | 2019-12-02 07:39 | CASEMGMT ---
SW received a call from Ana at [facility] and they cannot accept patient. She does not know of any of their facilities that take someone at patient's weight. SW received a voice mail from [facility] and they are not able to accept patient. SW has made referrals to 8 SNF's none of which agreed to accept patient. SW also called at least 6 other facilities none of which were agreeable to look at referral. Facilities are not able to accept patient due to his weight. They either do not have the equipment to handle patient or the staffing. He is not mobile right now which makes it even more difficult for a SNF to manage with limited staffing and equipment. Patient has been accepted at [facility], but no beds are currently available. SW will continue to try and find a facility for patient in the event the transfer to [facility] does not work out. Facility may be further away, but this may be unavoidable. Marybeth HERCULES MSW
[2019-12-02 07:46] LABS: Anion Gap 10 (5-15); BUN 117 mg/dL (7-18); BUN/Creat Ratio 34.4 RATIO (10-20); Calcium,Total 7.4 mg/dL (8.5-10.1); Chloride 104 mmol/L (98-107); EST Glomerular Filtration Rate 21 mL/min (>60); Est Glom Filt Rate - Afr Amer 25 mL/min (>60); Estimated Creatinine Clearance 32.98 ml/min; Glucose 131 mg/dL (74-106); Potassium 5.3 mmol/L (3.5-5.1); Sodium Level 134 mmol/L (136-145)
[2019-12-02] MEDS: Aspirin 81 MG TAB.CHEW PO (08:52)
[2019-12-02] MEDS: Pantoprazole Sodium 20 MG Tablet PO (08:52)
[2019-12-02] MEDS: Allopurinol 300 MG Tablet PO (08:52)
[2019-12-02] MEDS: Loratadine 10 MG Tablet PO (08:52)
[2019-12-02] MEDS: APIXABAN 2.5 MG TABLET PO ×2 (08:53→21:21)
[2019-12-02] MEDS: buPROPion (XL) 150 MG TABLET.XL PO (08:53)
[2019-12-02] MEDS: Metoprolol Tartrate 50 MG Tablet PO ×2 (09:02→21:21)
[2019-12-02] MEDS: Nystatin Powder 15gm Bottle 1 APPLIC TOPICAL ×2 (09:03→21:21)
[2019-12-02 09:09] LABS: Absolute Lymphocyte Count 2.94 X10^3/uL (0.83-4.51); Absolute Neutrophil Count 9.4 X10^3/uL (2.0-7.7); Basophil# 0.06 X10^3/uL; Basophil% 0.4 % (0-1); Eosinophil# 0.23 X10^3/uL; Eosinophils% 1.7 % (0-5); Hematocrit 34.8 % (40-54); Lymphocyte # 2.94 X10^3/ul (4.0); Lymphocyte % 21.2 % (19-41); Mean Corp Hgb Conc 28.7 g/dL (32-36); Mean Corpuscular Hgb 23.9 pg (27.0-32.0); Mean Corpuscular Volume 83.3 fL (80-94); Mean Platelet Vol. 10.9 fl (6.2-12.0); Monocyte# 1.25 X10^3/uL; NRBC Flagged by Analyzer 0.3 % (0-5); Neutrophil # 9.36 X10^3/uL (2.7-7.7); Neutrophil % 67.3 % (47-70); Platelet Count 388 K/mm3 (150-450); RBC Distribution Width CV 17.5 % (11.6-14.6); Red Blood Count 4.18 M/mm3 (4.6-6.2); White Blood Count 13.9 K/mm3 (4.4-11.0)
--- NOTE | 2019-12-02 09:17 | CASEMGMT ---
LEE called [facility] in [place], [place] and left a message for Carla in admissions. LEE was referred to this facility by 2 different facilities as they take bariatric patients. LEE did not call them initially as the facility is far away from patient's home. However, LEE has not been able to locate any that are closer. Marybeth HERCULES MSW
--- NOTE | 2019-12-02 09:55 | EKG12_ITS ---
Test Reason : Blood Pressure : / mmHG Vent. Rate : 075 BPM Atrial Rate : 075 BPM P-R Int : 208 ms QRS Dur : 098 ms QT Int : 370 ms P-R-T Axes : 086 -13 068 degrees QTc Int : 413 ms Normal sinus rhythm Normal ECG When compared with ECG of 30-NOV-2019 15:37, MANUAL COMPARISON REQUIRED, DATA IS UNCONFIRMED Confirmed by EUGENIO MINER ([id number]), publication editor SHALINI HURT ([id number]) on 12/06/2019 12:47:09 PM Referred By: SHARI Confirmed By:EUGENIO MINER
[2019-12-02] MEDS: Sodium Polystyrene Sulfonate 15 GM/60 ML UDC PO (10:57)
[2019-12-02 12:00] LABS: Bedside Glucose 144 mg/dL (70-110)
--- NOTE | 2019-12-02 12:10 | CASEMGMT ---
LEE received a call from [facility] and based on the message SW left regarding patient they would not be able to meet his needs. Marybeth HERCULES MSW
--- NOTE | 2019-12-02 12:51 | PN.RENAL_ITS ---
Subjective: no sob/cp no c/o still has very good appetite no change in taste - Physical Exam Vitals/I&O's: Vital Signs Temp Pulse Resp BP Pulse Ox 97.8 F 75 18 137/63 H 96 12/02/19 08:00 12/02/19 09:02 12/02/19 08:00 12/02/19 09:02 12/02/19 08:00 Oxygen Flow Rate (L/min) 2 Oxygen Delivery Method Nasal Cannula Weight: 267.438 kg Body Mass Index (BMI) 70.2 Intake and Output for Last 24 Hours 11/30/19 12/01/19 12/02/19 23:59 23:59 23:59 Intake Total 1220 / 1220 670 / 1150 600 / 600 Output Total 600 / 600 975 / 1275 750 / 750 Balance 620 / 620 -305 / -125 -150 / -150 General: Alert, Cooperative HEENT: Atraumatic, EOMI Neck: Supple Lungs: Clear to auscultation, Normal air movement, No rhonchi Cardiovascular: Regular rate, Regular Rhythm, Normal S1, Normal S2 Abdomen: Bowel Sounds Present, Non-Distended - b/l AKa, Obese Microbiology Past 72 Hours 11/30/19 13:00 Urine Catheter - Catheter Urine Culture - Final Meth. resistant Staph. aureus Laboratory Results 11/30/19 13:04: TRISTAN Screen Positive H, CANDI-1 Antibody <0.2, SS-A/Ro IgG Antibody 1.4 H, SS-B/La IgG Antibody < 0.2, Sm (Hinds) Antibody <0.2, SOLAR ELECT[employer]IC [employer]ACTITIONER Antibody 0.3, Scl-70 Scleroderma Ab <0.2, Double Strand DNA Ab <1, Centromere B Antibody <0.2 11/30/19 13:04: RPR NONREACTIVE 12/01/19 16:54: POC Glucose 160 H 12/01/19 21:16: POC Glucose 176 H 12/02/19 05:35: Ur Total Protein 24 Hr Pending, Urine Total Protein Pending, Urine Albumin Pending, U Fjgtr-4-Liafyklb Pending, U Ckhxk-2-Atbmtqkr Pending, U Beta Globulin Pending, U Gamma Globulin Pending 12/02/19 05:50: Ur Total Protein 24 Hr Pending, Urine Total Protein Pending, Urine Albumin Pending, U Wtwij-7-Eulqqtyu Pending, U Bamhc-5-Rwdftcss Pending, U Beta Globulin Pending, U Gamma Globulin Pending 12/02/19 05:50: Ur Collection Duration Pending, Urine Total Volume Pending, Urine Creatinine Pending, Ur Creatinine 24 Hour Pending 12/02/19 06:42: Sodium 134 L, Potassium 5.3 H, Chloride 104, Carbon Dioxide 20.0 L, Anion Gap 10, BUN 117 H*, Creatinine 3.40 H, Estim Creat Clear Calc 32.98, Est GFR (MDRD) Af Amer 25 L, Est GFR (MDRD) Non-Af 21 L, BUN/Creatinine Ratio 34.4 H, Glucose 131 H, Calcium 7.4 L 12/02/19 06:42: WBC 13.9 H, RBC 4.18 L, Hgb 10.0 L, Hct 34.8 L, MCV 83.3, MCH 23.9 L, MCHC 28.7 L, RDW Std Deviation 53.0 H, RDW Coeff of Lucy 17.5 H, Plt Count 388, MPV 10.9, Immature Gran % (Auto) 0.400, Neut % (Auto) 67.3, Lymph % (Auto) 21.2, [place] % (Auto) 9.0, Eos % (Auto) 1.7, Baso % (Auto) 0.4, Absolute Neuts (auto) 9.4 H, Absolute Lymphs (auto) 2.94, Nucleated RBC % 0.3 12/02/19 06:47: POC Glucose 137 H 12/02/19 11:42: POC Glucose 144 H Current Medications Allopurinol (Zyloprim) 300 mg PO DAILY [facility] Last Admin: 12/02/19 08:52 Dose: 300 mg Documented by: Apixaban (Eliquis) 2.5 mg PO BID [facility] Last Admin: 12/02/19 08:53 Dose: 2.5 mg Documented by: Aspirin (Aspirin, Baby) 81 mg PO DAILY@0800 [facility] Last Admin: 12/02/19 08:52 Dose: 81 mg Documented by: Atorvastatin Calcium (Lipitor) 40 mg PO QHS [facility] Last Admin: 12/01/19 21:19 Dose: 40 mg Documented by: Bupropion HCl (Wellbutrin Xl) 150 mg PO DAILY [facility] Last Admin: 12/02/19 08:53 Dose: 150 mg Documented by: Dextrose (D50w Syringe) 0 gm IV X1 PRN; Protocol PRN Reason: Hypoglycemia Glucagon () 1 mg IM .X1 PRN PRN Reason: Hypoglycemia Sodium Chloride () 250 mls @ 15 mls/hr IV .[id number] PRN PRN Reason: Additional IVPB Infusion Vancomycin IV Pharmacy to Dose (1 ea/ Sodium Chloride) 500 mls @ 250 mls/hr IV X1 PRN; Protocol PRN Reason: Rx to Dose Insulin Human Lispro (Humalog Kwikpen ([facility])) 0 unit SC ACHS [facility]; Protocol Last Admin: 12/02/19 11:50 Dose: Not Given Documented by: Insulin Human Regular (Humulin R U-500 ([facility])) 135 units SC BIDAC [facility] Last Admin: 12/02/19 08:53 Dose: 135 units Documented by: Loratadine (Claritin) 10 mg PO DAILY [facility] Last Admin: 12/02/19 08:52 Dose: 10 mg Documented by: Metoprolol Tartrate (Lopressor (Beta Ezra)) 50 mg PO BID [facility] Last Admin: 12/02/19 09:02 Dose: 50 mg Documented by: Nitroglycerin (Nitrostat) 0.4 mg SUBLINGUAL Q5M PRN PRN Reason: CARDIAC/CHEST PAIN Nystatin (Mycostatin Powder) 1 applic TOPICAL BID [facility]; Protocol Last Admin: 12/02/19 09:03 Dose: 1 applicatio Documented by: Pantoprazole Sodium (Protonix) 20 mg PO DAILY [facility] Last Admin: 12/02/19 08:52 Dose: 20 mg Documented by: Sodium Chloride () 10 - 40 ml IV UD PRN PRN Reason: SALINE FLUSH Last Admin: 11/30/19 17:13 Dose: 10 ml Documented by: Tamsulosin HCl (Flomax) 0.4 mg PO DAILY@1730 [facility] Last Admin: 12/01/19 16:56 Dose: 0.4 mg Documented by: Medical Necessity - Tobacco Use Smoking Status: Never smoker Assessment/Plan All Active Problems (Last Reviewed 08/05/17 @ 13:02 by Brooklyn Pleitez) Acute urinary retention (Acute) Acute kidney injury (Acute) Hyperglycemia (Acute) Elevated troponin (Acute) VIOLETTE multifactorial obstructive uropathy with possible superimposed prerenal VIOLETTE with ACEI/diuretic/possible HF CKD baseline 1.38 Hyperkalemia Proteinuria not nephrotic Obstructive uropathy Scr 3.4 not uremic no emergent need for dialysis Kayexalate given for K 5.3 check bmp in am hold ACEI and hctz renal US cannot be done per radiology department urology consult will need voiding trial and further eval of obstructive uropathy can use diuretics prn f/u 24 hour collection spep upep f/u pending serologies further w/u per clinical course avoid nephrotoxins the patient would like to proceed with renal biopsy and second opinion at [facility]. Awaiting bed at [facility] d/w patient and RN
[2019-12-02 13:02] LABS: 24HR. Urine Creatinine 3.14 g/24 HR (0.90-2.10)
[2019-12-02 13:28] LABS: Magnesium 1.6 mg/dL (1.6-2.6)
--- NOTE | 2019-12-02 14:25 | PN_ITS ---
<Juan Gaines - Last Filed: 12/02/19 14:25> Reason for Visit: Renal failure Subjective: Patient is awaiting transfer to [facility]. He reports he has had no issues overnight. He does not complain of dysuria at this time. No fevers or chills. No abdominal pain. He complains of some pain over his sacrum, which will need checked later when he is able to be helped roll over. No cough, shortness of breath, no open wounds that he is aware of, no nausea, vomiting, diarrhea. He has no increased pain or change in his stump site. Patient states other than his back pain he feels like his normal self. Vitals/I&O's: Vital Signs Temp Pulse Resp BP Pulse Ox 97.8 F 75 18 137/63 H 96 12/02/19 08:00 12/02/19 09:02 12/02/19 08:00 12/02/19 09:02 12/02/19 08:00 Oxygen Flow Rate (L/min) 2 Oxygen Delivery Method Nasal Cannula Weight: 589 lb 9.597 oz Body Mass Index (BMI) 70.2 Intake and Output for Last 24 Hours 11/30/19 12/01/19 12/02/19 23:59 23:59 23:59 Intake Total 1220 / 1220 670 / 1150 600 / 600 Output Total 600 / 600 975 / 1275 750 / 750 Balance 620 / 620 -305 / -125 -150 / -150 General: Alert, Oriented x3, Cooperative HEENT: Atraumatic, PERRLA, EOMI, Normocephalic Neck: Supple, No JVD, Negative Carotid Bruits Lungs: Clear to auscultation, Normal air movement Cardiovascular: Regular rate, No murmurs Abdomen: Bowel Sounds Present, Soft, Non Tender, Obese - Morbidly Extremities: No edema, Capillary Refill Less than 3 Seconds Skin: No rashes, No breakdown Musculoskeletal: No Tenderness to Palpation of Joints or Extremities, - - Status post bilateral AKA Neurological: Cranial nerves II-XII grossly intact Psych/Mental Status: Normal Affect, Appropriate, Alert and oriented to time, place, person, mood and affect Microbiology Past 72 Hours 11/30/19 13:00 Urine Catheter - Catheter Urine Culture - Final Meth. resistant Staph. aureus Laboratory Results 11/30/19 13:04: TRISTAN Screen Positive H, CANDI-1 Antibody <0.2, SS-A/Ro IgG Antibody 1.4 H, SS-B/La IgG Antibody < 0.2, Sm (Hinds) Antibody <0.2, FERN PICKER Antibody 0.3, Scl-70 Scleroderma Ab <0.2, Double Strand DNA Ab <1, Centromere B Antibody <0.2 11/30/19 13:04: RPR NONREACTIVE 12/01/19 16:54: POC Glucose 160 H 12/01/19 21:16: POC Glucose 176 H 12/02/19 05:35: Ur Total Protein 24 Hr Pending, Urine Total Protein Pending, Urine Albumin Pending, U Clkwm-3-Eksyrjuz Pending, U Izuib-0-Ubdzkjbn Pending, U Beta Globulin Pending, U Gamma Globulin Pending 12/02/19 05:50: Ur Total Protein 24 Hr Pending, Urine Total Protein Pending, Urine Albumin Pending, U Ldbrp-2-Shzxqhop Pending, U Vlara-7-Gidukzrb Pending, U Beta Globulin Pending, U Gamma Globulin Pending 12/02/19 05:50: Ur Collection Duration 24.0, Urine Total Volume 2.00, Urine Creatinine 161.00, Ur Creatinine 24 Hour 3.14 H 12/02/19 06:42: Sodium 134 L, Potassium 5.3 H, Chloride 104, Carbon Dioxide 20.0 L, Anion Gap 10, BUN 117 H*, Creatinine 3.40 H, Estim Creat Clear Calc 32.98, Est GFR (MDRD) Af Amer 25 L, Est GFR (MDRD) Non-Af 21 L, BUN/Creatinine Ratio 34.4 H, Glucose 131 H, Calcium 7.4 L 12/02/19 06:42: WBC 13.9 H, RBC 4.18 L, Hgb 10.0 L, Hct 34.8 L, MCV 83.3, MCH 23.9 L, MCHC 28.7 L, RDW Std Deviation 53.0 H, RDW Coeff of Lucy 17.5 H, Plt Count 388, MPV 10.9, Immature Gran % (Auto) 0.400, Neut % (Auto) 67.3, Lymph % (Auto) 21.2, [place] % (Auto) 9.0, Eos % (Auto) 1.7, Baso % (Auto) 0.4, Absolute Neuts (auto) 9.4 H, Absolute Lymphs (auto) 2.94, Nucleated RBC % 0.3 12/02/19 06:42: Magnesium 1.6 12/02/19 06:47: POC Glucose 137 H 12/02/19 11:42: POC Glucose 144 H Current Medications Allopurinol (Zyloprim) 300 mg PO DAILY [facility] Last Admin: 12/02/19 08:52 Dose: 300 mg Documented by: Apixaban (Eliquis) 2.5 mg PO BID [facility] Last Admin: 12/02/19 08:53 Dose: 2.5 mg Documented by: Aspirin (Aspirin, Baby) 81 mg PO DAILY@0800 [facility] Last Admin: 12/02/19 08:52 Dose: 81 mg Documented by: Atorvastatin Calcium (Lipitor) 40 mg PO QHS [facility] Last Admin: 12/01/19 21:19 Dose: 40 mg Documented by: Bupropion HCl (Wellbutrin Xl) 150 mg PO DAILY [facility] Last Admin: 12/02/19 08:53 Dose: 150 mg Documented by: Dextrose (D50w Syringe) 0 gm IV X1 PRN; Protocol PRN Reason: Hypoglycemia Glucagon () 1 mg IM .X1 PRN PRN Reason: Hypoglycemia Sodium Chloride () 250 mls @ 15 mls/hr IV .[id number] PRN PRN Reason: Additional IVPB Infusion Vancomycin IV Pharmacy to Dose (1 ea/ Sodium Chloride) 500 mls @ 250 mls/hr IV X1 PRN; Protocol PRN Reason: Rx to Dose Insulin Human Lispro (Humalog Kwikpen ([facility])) 0 unit SC ACHS [facility]; Protocol Last Admin: 12/02/19 11:50 Dose: Not Given Documented by: Insulin Human Regular (Humulin R U-500 (Bk)) 135 units SC BIDAC [facility] Last Admin: 12/02/19 08:53 Dose: 135 units Documented by: Loratadine (Claritin) 10 mg PO DAILY [facility] Last Admin: 12/02/19 08:52 Dose: 10 mg Documented by: Metoprolol Tartrate (Lopressor (Beta Ezra)) 50 mg PO BID [facility] Last Admin: 12/02/19 09:02 Dose: 50 mg Documented by: Nitroglycerin (Nitrostat) 0.4 mg SUBLINGUAL Q5M PRN PRN Reason: CARDIAC/CHEST PAIN Nystatin (Mycostatin Powder) 1 applic TOPICAL BID [facility]; Protocol Last Admin: 12/02/19 09:03 Dose: 1 applicatio Documented by: Pantoprazole Sodium (Protonix) 20 mg PO DAILY [facility] Last Admin: 12/02/19 08:52 Dose: 20 mg Documented by: Sodium Chloride () 10 - 40 ml IV UD PRN PRN Reason: SALINE FLUSH Last Admin: 11/30/19 17:13 Dose: 10 ml Documented by: Tamsulosin HCl (Flomax) 0.4 mg PO DAILY@1730 [facility] Last Admin: 12/01/19 16:56 Dose: 0.4 mg Documented by: Medical Necessity - Tobacco Use Smoking Status: Never smoker Assessment/Plan All Active Problems (Last Reviewed 08/05/17 @ 13:02 by Brooklyn Pleitez) Acute urinary retention (Acute) Acute kidney injury (Acute) Hyperglycemia (Acute) Elevated troponin (Acute) 1. Acute kidney injury on CKD 3 with hyperkalemia, MRSA UTI-urinary retention. Continue Fuentes. Mild leukocytosis. No fever. Blood cultures pending. Nephrology following. Patient awaiting transfer to [facility]. Urine protein electrophoresis pending. Urine demonstrates MRSA. Vancomycin started. 2. Abnormal troponin-no chest pain, EKG negative. Likely due to renal failure. Echo demonstrated normal LV systolic function, no regional wall abnormalities 3. Acute hypoxia with small right pleural effusion-volume overload-continue to monitor intake and output, PRN Lasix. 4. Type 2 diabetes-Metformin held, continue sliding scale insulin plus home insulin regimen 5. Hypertension-HCTZ and lisinopril held, continue metoprolol 6. Hyperlipidemia-statin 7. Factor V Leiden-transition from Xarelto to Eliquis for renal dosing 8. Obstructive sleep apnea-on CPAP nightly 9. Super morbid obesity-needs aggressive outpatient management of obesity 10. 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 Related debility. PT OT. 11. Depression-bupropion 12 gout-allopurinol 13. GERD -continue PPI <Mari Vinson E - Last Filed: 12/02/19 14:37> Vitals/I&O's: Vital Signs Temp Pulse Resp BP Pulse Ox 97.8 F 75 18 137/63 H 96 12/02/19 08:00 12/02/19 09:02 12/02/19 08:00 12/02/19 09:02 12/02/19 08:00 Oxygen Flow Rate (L/min) 2 Oxygen Delivery Method Nasal Cannula Weight: 589 lb 9.597 oz Body Mass Index (BMI) 70.2 Intake and Output for Last 24 Hours 11/30/19 12/01/19 12/02/19 23:59 23:59 23:59 Intake Total 1220 / 1220 670 / 1150 600 / 600 Output Total 600 / 600 975 / 1275 750 / 750 Balance 620 / 620 -305 / -125 -150 / -150 Microbiology Past 72 Hours 11/30/19 13:00 Urine Catheter - Catheter Urine Culture - Final Meth. resistant Staph. aureus Laboratory Results 11/30/19 13:04: TRISTAN Screen Positive H, CANDI-1 Antibody <0.2, SS-A/Ro IgG Antibody 1.4 H, SS-B/La IgG Antibody < 0.2, Sm (Hinds) Antibody <0.2, FERN PICKER Antibody 0.3, Scl-70 Scleroderma Ab <0.2, Double Strand DNA Ab <1, Centromere B Antibody <0.2 11/30/19 13:04: RPR NONREACTIVE 12/01/19 16:54: POC Glucose 160 H 12/01/19 21:16: POC Glucose 176 H 12/02/19 05:35: Ur Total Protein 24 Hr Pending, Urine Total Protein Pending, Urine Albumin Pending, U Eqeya-3-Egczslup Pending, U Wpgsg-7-Phujimuy Pending, U Beta Globulin Pending, U Gamma Globulin Pending 12/02/19 05:50: Ur Total Protein 24 Hr Pending, Urine Total Protein Pending, Urine Albumin Pending, U Mzlpc-6-Vxcfgeih Pending, U Hljyh-3-Khvwdifs Pending, U Beta Globulin Pending, U Gamma Globulin Pending 12/02/19 05:50: Ur Collection Duration 24.0, Urine Total Volume 2.00, Urine Creatinine 161.00, Ur Creatinine 24 Hour 3.14 H 12/02/19 06:42: Sodium 134 L, Potassium 5.3 H, Chloride 104, Carbon Dioxide 20.0 L, Anion Gap 10, BUN 117 H*, Creatinine 3.40 H, Estim Creat Clear Calc 32.98, Est GFR (MDRD) Af Amer 25 L, Est GFR (MDRD) Non-Af 21 L, BUN/Creatinine Ratio 34.4 H, Glucose 131 H, Calcium 7.4 L 12/02/19 06:42: WBC 13.9 H, RBC 4.18 L, Hgb 10.0 L, Hct 34.8 L, MCV 83.3, MCH 23.9 L, MCHC 28.7 L, RDW Std Deviation 53.0 H, RDW Coeff of Lucy 17.5 H, Plt Count 388, MPV 10.9, Immature Gran % (Auto) 0.400, Neut % (Auto) 67.3, Lymph % (Auto) 21.2, [place] % (Auto) 9.0, Eos % (Auto) 1.7, Baso % (Auto) 0.4, Absolute Neuts (auto) 9.4 H, Absolute Lymphs (auto) 2.94, Nucleated RBC % 0.3 12/02/19 06:42: Magnesium 1.6 12/02/19 06:47: POC Glucose 137 H 12/02/19 11:42: POC Glucose 144 H Current Medications Allopurinol (Zyloprim) 300 mg PO DAILY [facility] Last Admin: 12/02/19 08:52 Dose: 300 mg Documented by: Apixaban (Eliquis) 2.5 mg PO BID [facility] Last Admin: 12/02/19 08:53 Dose: 2.5 mg Documented by: Aspirin (Aspirin, Baby) 81 mg PO DAILY@0800 [facility] Last Admin: 12/02/19 08:52 Dose: 81 mg Documented by: Atorvastatin Calcium (Lipitor) 40 mg PO QHS [facility] Last Admin: 12/01/19 21:19 Dose: 40 mg Documented by: Bupropion HCl (Wellbutrin Xl) 150 mg PO DAILY [facility] Last Admin: 12/02/19 08:53 Dose: 150 mg Documented by: Dextrose (D50w Syringe) 0 gm IV X1 PRN; Protocol PRN Reason: Hypoglycemia Glucagon () 1 mg IM .X1 PRN PRN Reason: Hypoglycemia Sodium Chloride () 250 mls @ 15 mls/hr IV .[id number] PRN PRN Reason: Additional IVPB Infusion Vancomycin IV Pharmacy to Dose (1 ea/ Sodium Chloride) 500 mls @ 250 mls/hr IV X1 PRN; Protocol PRN Reason: Rx to Dose Insulin Human Lispro (Humalog Kwikpen (Bk)) 0 unit SC ACHS [facility]; Protocol Last Admin: 12/02/19 11:50 Dose: Not Given Documented by: Insulin Human Regular (Humulin R U-500 ([facility])) 135 units SC BIDAC [facility] Last Admin: 12/02/19 08:53 Dose: 135 units Documented by: Loratadine (Claritin) 10 mg PO DAILY [facility] Last Admin: 12/02/19 08:52 Dose: 10 mg Documented by: Metoprolol Tartrate (Lopressor (Beta Ezra)) 50 mg PO BID [facility] Last Admin: 12/02/19 09:02 Dose: 50 mg Documented by: Nitroglycerin (Nitrostat) 0.4 mg SUBLINGUAL Q5M PRN PRN Reason: CARDIAC/CHEST PAIN Nystatin (Mycostatin Powder) 1 applic TOPICAL BID [facility]; Protocol Last Admin: 12/02/19 09:03 Dose: 1 applicatio Documented by: Pantoprazole Sodium (Protonix) 20 mg PO DAILY [facility] Last Admin: 12/02/19 08:52 Dose: 20 mg Documented by: Sodium Chloride () 10 - 40 ml IV UD PRN PRN Reason: SALINE FLUSH Last Admin: 11/30/19 17:13 Dose: 10 ml Documented by: Tamsulosin HCl (Flomax) 0.4 mg PO DAILY@1730 [facility] Last Admin: 12/01/19 16:56 Dose: 0.4 mg Documented by: Assessment/Plan Hospitalist note: I am seeing this patient in conjunction with Juan Gaines. I independently seen and examined the patient. Progress note above, laboratory data reviewed and I concur with above plan. Today, he has no specific complaints. He remains on oxygen at 2 L, no worsening shortness of breath. Denied fever or chills. He is afebrile, blood pressure and heart rate are stable, pulse ox is 96% on 2 L. - Physical Exam General: Alert, Oriented x3, Cooperative, No apparent distress. HEENT: Atraumatic, PERRLA, EOMI. Neck: Supple, No JVD, Negative Carotid Bruits, Trachea Midline, Thyroid Normal. Lungs: Diminished breath sounds bilateral, otherwise clear, No rhonchi, No wheeze, No rales. Cardiovascular: Regular rate, Regular Rhythm, Normal S1, Normal S2, PMI Normal. Abdomen: Bowel Sounds Present, Soft, Non Tender, Non-Distended, No Hepato- splenomegaly, morbidly obese. Extremities: Status post below right knee amputation, status post above left knee amputation, edema at the amputation stump bilaterally. Skin: No rashes, No breakdown Neurological: Cranial nerves are intact, neuro grossly intact Vital Signs are stable. Assessment and plan: #1 acute kidney injury/hyperkalemia: Unclear if this patient had a history of chronic kidney disease. BUN kept going up, creatinine is fluctuating. Patient has very poor urine output. Today's BUN is 117, creatinine is 3.40. Today's potassium is 5.3. unsatisfactory urine output. CT scan abdomen pelvis without contrast revealed normal kidneys, no evidence of hydronephrosis, revealed small right pleural effusion. Nephrology on the case. Serum protein electrophoresis and urine protein electrophoresis ordered. Today, nephrology recommended transfer to [facility] for for further evaluation and treatment. We are still waiting for bed availability at [facility]. #2 urine culture came back positive for MRSA: Urinalysis done on admission and revealed turbid urine, it was negative for nitrite, there was 25 leukocyte esterase, more than 100 RBCs, 10-25 WBCs and 1+ bacteria. No overt or obvious infection. Plan: Start empiric IV vancomycin, blood culture. #3 abnormal cardiac enzymes: Likely due to acute kidney injury. EKG revealed normal sinus rhythm, low voltage QRS, no acute segment changes. Troponin is trending down. 2D echocardiogram revealed normal LV size and function, no ev idence of regional wall abnormalities. Patient denied any chest pain throughout admission. He is on aspirin, statins and metoprolol. No indication for any further cardiac work-up at this time. #4 hypoxia: Multifactorial secondary to #1 in addition to history of obstructive sleep apnea and morbid obesity. Patient uses CPAP at home at night mainly. He has been on oxygen, at 2 L. Plan as above. #5 other chronic medical problems: Stable, continue current medications as above. This note was generated with [employer] dictation software. It may contain incorrect words, spelling, and punctuation that were not noted in checking the note before signing. Inpatient E&M: 28718 Subs Hosp L2
--- NOTE | 2019-12-02 16:50 | PCM.RX.CS ---
Consult Pharmacy has been consulted to manage selected antiobiotic: Vancomycin Type of Consult: New start Suspected Infection: Skin/Soft tissue Prior Doses of Antibiotics Received/Current Regimen: 1 X 2 GRAMS 12/02/19 AT 1145 Labs: Sodium 134 mmol/L (136-145) L 12/02/19 06:42 Potassium 5.3 mmol/L (3.5-5.1) H 12/02/19 06:42 Chloride 104 mmol/L (98-107) 12/02/19 06:42 Carbon Dioxide 20.0 mmol/L (21.0-32.0) L 12/02/19 06:42 Anion Gap 10 (5-15) 12/02/19 06:42 BUN 117 mg/dL (7-18) H* 12/02/19 06:42 Creatinine 3.40 mg/dL (0.70-1.30) H 12/02/19 06:42 Est GFR (MDRD) Af Amer 25 mL/min (>60) L 12/02/19 06:42 Est GFR (MDRD) Non-Af 21 mL/min (>60) L 12/02/19 06:42 BUN/Creatinine Ratio 34.4 RATIO (10-20) H 12/02/19 06:42 Glucose 131 mg/dL (74-106) H 12/02/19 06:42 TROUGH LEVEL ORDERED PRIOR TO 3RD DOSE = 12/04/19 AT 1130 Microbiology: Microbiology 11/30/19 13:00 Urine Catheter - Catheter Urine Culture - Final Meth. resistant Staph. aureus Weight used for dosin kg Estimated Creatinine Clearance: 33 Goal Trough: 15-20 mcg/mL - 1500MG IVPB Q24H, TROUGH LEVEL ORDERED 30 MIN PRIOR TO 3RD DOSE = 12/04/19 1130 Pharmacy Plan for Drug Dosing: Pharmacy Service will continue to monitor and adjust dosing as required.
[2019-12-02] MEDS: Tamsulosin HCl 0.4 MG Capsule PO (16:51)
[2019-12-02] MEDS: Acetaminophen 325 MG Tablet 650 MG PO (16:54)
[2019-12-02 17:10] LABS: Bedside Glucose 140 mg/dL (70-110)
--- NOTE | 2019-12-02 20:15 | NURSING ---
RN ATTEMPTED TO GET BP, PATIENT ASKED RN TO COME BACK DUE TO BEING ON THE PHONE.
[2019-12-02] MEDS: Atorvastatin Calcium 40 MG Tablet PO (21:21)
[2019-12-02 22:31] LABS: Bedside Glucose 134 mg/dL (70-110)
[2019-12-03] VITALS (14 sets, daily range): BP systolic 107–140; BP diastolic 57–75; PULSE 51–75; RESP 16–24; TEMP 36.4–36.7; O2SAT 91–96
[2019-12-03 04:41] LABS: Bedside Glucose 84 mg/dL (70-110)
[2019-12-03 04:41] LABS: Bedside Glucose 58 mg/dL (70-110)
[2019-12-03 07:03] LABS: Absolute Lymphocyte Count 3.08 X10^3/uL (0.83-4.51); Absolute Neutrophil Count 8.8 X10^3/uL (2.0-7.7); Basophil# 0.05 X10^3/uL; Basophil% 0.4 % (0-1); Eosinophil# 0.25 X10^3/uL; Eosinophils% 1.9 % (0-5); Hematocrit 34.4 % (40-54); Hemoglobin 10.1 g/dL (13.0-16.5); Lymphocyte # 3.08 X10^3/ul (4.0); Lymphocyte % 22.9 % (19-41); Mean Corp Hgb Conc 29.4 g/dL (32-36); Mean Corpuscular Hgb 24.2 pg (27.0-32.0); Mean Corpuscular Volume 82.5 fL (80-94); Mean Platelet Vol. 10.6 fl (6.2-12.0); Monocyte# 1.21 X10^3/uL; NRBC Flagged by Analyzer 0.3 % (0-5); Neutrophil # 8.79 X10^3/uL (2.7-7.7); Neutrophil % 65.1 % (47-70); Platelet Count 385 K/mm3 (150-450); RBC Distribution Width CV 17.3 % (11.6-14.6); RBC Distribution Width SD 51.9 fl (35.1-43.9); Red Blood Count 4.17 M/mm3 (4.6-6.2); White Blood Count 13.5 K/mm3 (4.4-11.0)
[2019-12-03 07:30] LABS: Anion Gap 8 (5-15); BUN 125 mg/dL (7-18); BUN/Creat Ratio 38.2 RATIO (10-20); Calcium,Total 7.4 mg/dL (8.5-10.1); Chloride 105 mmol/L (98-107); Creatinine, Serum 3.27 mg/dL (0.70-1.30); EST Glomerular Filtration Rate 22 mL/min (>60); Est Glom Filt Rate - Afr Amer 26 mL/min (>60); Estimated Creatinine Clearance 34.29 ml/min; Glucose 104 mg/dL (74-106); Potassium 5.2 mmol/L (3.5-5.1); Sodium Level 134 mmol/L (136-145)
[2019-12-03] MEDS: Pantoprazole Sodium 20 MG Tablet PO (08:58)
[2019-12-03] MEDS: Metoprolol Tartrate 50 MG Tablet PO ×2 (08:58→20:49)
[2019-12-03] MEDS: Aspirin 81 MG TAB.CHEW PO (08:58)
[2019-12-03] MEDS: Loratadine 10 MG Tablet PO (08:58)
[2019-12-03] MEDS: APIXABAN 2.5 MG TABLET PO ×2 (08:59→20:49)
[2019-12-03] MEDS: Nystatin Powder 15gm Bottle 1 APPLIC TOPICAL (08:59)
[2019-12-03] MEDS: Allopurinol 300 MG Tablet PO (08:59)
[2019-12-03] MEDS: buPROPion (XL) 150 MG TABLET.XL PO (08:59)
[2019-12-03 11:11] LABS: Bedside Glucose 126 mg/dL (70-110)
--- NOTE | 2019-12-03 11:57 | PCM.PN.HOSP ---
<Juan Gaines - Last Filed: 12/03/19 11:57> Reason for Visit: renal failure Subjective: Pt c/o sinus congestion this AM. Mild dyspnea. No Nausea/vomiting / diarrhea. No suprapubic discomfort. No fever/chills. Low blood glucose this AM, appetite has been poor. Pt denies hx of afib. Vitals/I&O's: Vital Signs Temp Pulse Resp BP Pulse Ox 97.6 F L 73 18 125/57 H 94 12/03/19 08:46 12/03/19 08:58 12/03/19 08:46 12/03/19 08:58 12/03/19 08:46 Oxygen Flow Rate (L/min) 2 Oxygen Delivery Method Nasal Cannula Weight: 589 lb 9.597 oz Body Mass Index (BMI) 70.2 Intake and Output for Last 24 Hours 12/01/19 12/02/19 12/03/19 23:59 23:59 23:59 Intake Total 670 / 1150 2140 / 2390 970 / 970 Output Total 975 / 1275 1500 / 1850 600 / 600 Balance -305 / -125 640 / 540 370 / 370 General: Alert, Oriented x3, Cooperative HEENT: Atraumatic, PERRLA, EOMI, Normocephalic Neck: Supple, No JVD, Negative Carotid Bruits Lungs: Clear to auscultation, Normal air movement Cardiovascular: Regular rate, No murmurs Abdomen: Bowel Sounds Present, Soft, Non Tender Extremities: No edema, Capillary Refill Less than 3 Seconds Skin: No rashes, No breakdown Musculoskeletal: No Tenderness to Palpation of Joints or Extremities Neurological: Cranial nerves II-XII grossly intact Psych/Mental Status: Normal Affect, Appropriate, Alert and oriented to time, place, person, mood and affect Microbiology Past 72 Hours 11/30/19 13:00 Urine Catheter - Catheter Urine Culture - Final Meth. resistant Staph. aureus Laboratory Results 12/02/19 05:50: Ur Collection Duration 24.0, Urine Total Volume 2.00, Urine Creatinine 161.00, Ur Creatinine 24 Hour 3.14 H 12/02/19 06:42: Magnesium 1.6 12/02/19 11:42: POC Glucose 144 H 12/02/19 16:49: POC Glucose 140 H 12/02/19 21:19: POC Glucose 134 H 12/03/19 03:06: POC Glucose 58 L 12/03/19 03:52: POC Glucose 84 12/03/19 06:54: WBC 13.5 H, RBC 4.17 L, Hgb 10.1 L, Hct 34.4 L, MCV 82.5, MCH 24.2 L, MCHC 29.4 L, RDW Std Deviation 51.9 H, RDW Coeff of Lucy 17.3 H, Plt Count 385, MPV 10.6, Immature Gran % (Auto) 0.700, Neut % (Auto) 65.1, Lymph % (Auto) 22.9, [place] % (Auto) 9.0, Eos % (Auto) 1.9, Baso % (Auto) 0.4, Absolute Neuts (auto) 8.8 H, Absolute Lymphs (auto) 3.08, Nucleated RBC % 0.3 12/03/19 06:54: Sodium 134 L, Potassium 5.2 H, Chloride 105, Carbon Dioxide 21.0, Anion Gap 8, BUN 125 H*, Creatinine 3.27 H, Estim Creat Clear Calc 34.29, Est GFR (MDRD) Af Amer 26 L, Est GFR (MDRD) Non-Af 22 L, BUN/Creatinine Ratio 38.2 H, Glucose 104, Calcium 7.4 L 12/03/19 08:44: POC Glucose 126 H Current Medications Acetaminophen (Tylenol) 650 mg PO Q6H PRN PRN PRN Reason: Pain 1-10 or Fever Last Admin: 12/02/19 16:54 Dose: 650 mg Documented by: Allopurinol (Zyloprim) 300 mg PO DAILY [facility] Last Admin: 12/03/19 08:59 Dose: 300 mg Documented by: Apixaban (Eliquis) 2.5 mg PO BID [facility] Last Admin: 12/03/19 08:59 Dose: 2.5 mg Documented by: Aspirin (Aspirin, Baby) 81 mg PO DAILY@0800 [facility] Last Admin: 12/03/19 08:58 Dose: 81 mg Documented by: Atorvastatin Calcium (Lipitor) 40 mg PO QHS [facility] Last Admin: 12/02/19 21:21 Dose: 40 mg Documented by: Bupropion HCl (Wellbutrin Xl) 150 mg PO DAILY [facility] Last Admin: 12/03/19 08:59 Dose: 150 mg Documented by: Dextrose (D50w Syringe) 0 gm IV X1 PRN; Protocol PRN Reason: Hypoglycemia Glucagon () 1 mg IM .X1 PRN PRN Reason: Hypoglycemia Sodium Chloride () 250 mls @ 15 mls/hr IV .[id number] PRN PRN Reason: Additional IVPB Infusion Vancomycin IV Pharmacy to Dose (1 ea/ Sodium Chloride) 500 mls @ 250 mls/hr IV PRN PRN; Protocol PRN Reason: Rx to Dose Vancomycin HCl 1,500 mg/ (Sodium Chloride) 530 mls @ 250 mls/hr IV Q24H [facility] Insulin Human Lispro (Humalog Kwikpen ([facility])) 0 unit SC ACHS [facility]; Protocol Last Admin: 12/03/19 08:57 Dose: Not Given Documented by: Insulin Human Regular (Humulin R U-500 ([facility])) 130 units SC BIDAC [facility] Loratadine (Claritin) 10 mg PO DAILY [facility] Last Admin: 12/03/19 08:58 Dose: 10 mg Documented by: Magnesium Ox[facility] (Mag-Ox 400) [facility] Stop: 12/05/19 08:01 Metoprolol Tartrate (Lopressor (Beta Ezra)) 50 mg PO BID [facility] Last Admin: 12/03/19 08:58 Dose: 50 mg Documented by: Nitroglycerin (Nitrostat) 0.4 mg SUBLINGUAL Q5M PRN PRN Reason: CARDIAC/CHEST PAIN Nystatin (Mycostatin Powder) 1 applic TOPICAL BID [facility]; Protocol Last Admin: 12/03/19 08:59 Dose: 1 applicatio Documented by: Pantoprazole Sodium (Protonix) 20 mg PO DAILY [facility] Last Admin: 12/03/19 08:58 Dose: 20 mg Documented by: Sodium Chloride () 10 - 40 ml IV UD PRN PRN Reason: SALINE FLUSH Last Admin: 11/30/19 17:13 Dose: 10 ml Documented by: Tamsulosin HCl (Flomax) 0.4 mg PO DAILY@1730 [facility] Last Admin: 12/02/19 16:51 Dose: 0.4 mg Documented by: STROKE Vital Signs/Narrative: Vital Signs Temp Pulse Resp BP Pulse Ox 12/03/19 08:58 73 125/57 H 12/03/19 08:46 97.6 F L 73 18 125/57 H 94 Medical Necessity - Tobacco Use Smoking Status: Never smoker Assessment/Plan All Active Problems (Last Reviewed 08/05/17 @ 13:02 by Brooklyn Pleitez) Acute urinary retention (Acute) Acute kidney injury (Acute) Hyperglycemia (Acute) Elevated troponin (Acute) 1. Acute kidney injury on CKD 3 with hyperkalemia, MRSA UTI-urinary retention. Continue Fuentes. Mild leukocytosis. No fever. Blood cultures pending. Nephrology following. Patient awaiting transfer to [facility]. Urine protein electrophoresis pending. Urine demonstrates MRSA. Vancomycin started. 2. Abnormal troponin-no chest pain, EKG negative. Likely due to renal failure. Echo demonstrated normal LV systolic function, no regional wall abnormalities 3. paroxysmal Afib - rate controlled. off and on on monitor. already on metoprolol and eliquis. echo done. currently NSR. Recommend outpatient follow up with cardiology. 4. Acute hypoxia with small right pleural effusion-volume overload-continue to monitor intake and output, PRN Lasix. 5. Type 2 diabetes-Metformin held, continue sliding scale insulin plus home insulin regimen 6. Hypertension-HCTZ and lisinopril held, continue metoprolol 7. Hyperlipidemia-statin 8. Factor V Leiden-transition from Xarelto to Eliquis for renal dosing 9. Obstructive sleep apnea-on CPAP nightly 10. Super morbid obesity-needs aggressive outpatient management of obesity 11. 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 Related debility. PT OT. 12. Depression-bupropion 13 gout-allopurinol 14. GERD -continue PPI DVT ppx : Eliquis DC planning: tx to [facility] This patient was seen by Juan Gaines PA-C under the supervision of Doctor Vinson. <Mari Vinson E - Last Filed: 12/03/19 12:16> Vitals/I&O's: Vital Signs Temp Pulse Resp BP Pulse Ox 97.6 F L 73 18 125/57 H 94 12/03/19 08:46 12/03/19 08:58 12/03/19 08:46 12/03/19 08:58 12/03/19 08:46 Oxygen Flow Rate (L/min) 2 Oxygen Delivery Method Nasal Cannula Weight: 589 lb 9.597 oz Body Mass Index (BMI) 70.2 Intake and Output for Last 24 Hours 12/01/19 12/02/19 12/03/19 23:59 23:59 23:59 Intake Total 670 / 1150 2140 / 2390 970 / 970 Output Total 975 / 1275 1500 / 1850 850 / 850 Balance -305 / -125 640 / 540 120 / 120 Microbiology Past 72 Hours 11/30/19 13:00 Urine Catheter - Catheter Urine Culture - Final Meth. resistant Staph. aureus Laboratory Results 12/02/19 05:50: Ur Collection Duration 24.0, Urine Total Volume 2.00, Urine Creatinine 161.00, Ur Creatinine 24 Hour 3.14 H 12/02/19 06:42: Magnesium 1.6 12/02/19 16:49: POC Glucose 140 H 12/02/19 21:19: POC Glucose 134 H 12/03/19 03:06: POC Glucose 58 L 12/03/19 03:52: POC Glucose 84 12/03/19 06:54: WBC 13.5 H, RBC 4.17 L, Hgb 10.1 L, Hct 34.4 L, MCV 82.5, MCH 24.2 L, MCHC 29.4 L, RDW Std Deviation 51.9 H, RDW Coeff of Lucy 17.3 H, Plt Count 385, MPV 10.6, Immature Gran % (Auto) 0.700, Neut % (Auto) 65.1, Lymph % (Auto) 22.9, [place] % (Auto) 9.0, Eos % (Auto) 1.9, Baso % (Auto) 0.4, Absolute Neuts (auto) 8.8 H, Absolute Lymphs (auto) 3.08, Nucleated RBC % 0.3 12/03/19 06:54: Sodium 134 L, Potassium 5.2 H, Chloride 105, Carbon Dioxide 21.0, Anion Gap 8, BUN 125 H*, Creatinine 3.27 H, Estim Creat Clear Calc 34.29, Est GFR (MDRD) Af Amer 26 L, Est GFR (MDRD) Non-Af 22 L, BUN/Creatinine Ratio 38.2 H, Glucose 104, Calcium 7.4 L 12/03/19 08:44: POC Glucose 126 H Current Medications Acetaminophen (Tylenol) 650 mg PO Q6H PRN PRN PRN Reason: Pain 1-10 or Fever Last Admin: 12/02/19 16:54 Dose: 650 mg Documented by: Allopurinol (Zyloprim) 300 mg PO DAILY [facility] Last Admin: 12/03/19 08:59 Dose: 300 mg Documented by: Apixaban (Eliquis) 2.5 mg PO BID [facility] Last Admin: 12/03/19 08:59 Dose: 2.5 mg Documented by: Aspirin (Aspirin, Baby) 81 mg PO DAILY@0800 [facility] Last Admin: 12/03/19 08:58 Dose: 81 mg Documented by: Atorvastatin Calcium (Lipitor) 40 mg PO QHS [facility] Last Admin: 12/02/19 21:21 Dose: 40 mg Documented by: Bupropion HCl (Wellbutrin Xl) 150 mg PO DAILY [facility] Last Admin: 12/03/19 08:59 Dose: 150 mg Documented by: Dextrose (D50w Syringe) 0 gm IV X1 PRN; Protocol PRN Reason: Hypoglycemia Glucagon () 1 mg IM .X1 PRN PRN Reason: Hypoglycemia Sodium Chloride () 250 mls @ 15 mls/hr IV .[id number] PRN PRN Reason: Additional IVPB Infusion Vancomycin IV Pharmacy to Dose (1 ea/ Sodium Chloride) 500 mls @ 250 mls/hr IV PRN PRN; Protocol PRN Reason: Rx to Dose Vancomycin HCl 1,500 mg/ (Sodium Chloride) 530 mls @ 250 mls/hr IV Q24H [facility] Last Admin: 12/03/19 12:07 Dose: 250 mls/hr Documented by: Insulin Human Lispro (Humalog Kwikpen ([facility])) 0 unit SC ACHS [facility]; Protocol Last Admin: 12/03/19 12:06 Dose: 3 u Documented by: Insulin Human Regular (Humulin R U-500 ([facility])) 130 units SC BIDAC [facility] Loratadine (Claritin) 10 mg PO DAILY [facility] Last Admin: 12/03/19 08:58 Dose: 10 mg Documented by: Magnesium Oxide (Mag-Ox 400) [facility] Stop: 12/05/19 08:01 Metoprolol Tartrate (Lopressor (Beta Ezra)) 50 mg PO BID [facility] Last Admin: 12/03/19 08:58 Dose: 50 mg Documented by: Nitroglycerin (Nitrostat) 0.4 mg SUBLINGUAL Q5M PRN PRN Reason: CARDIAC/CHEST PAIN Nystatin (Mycostatin Powder) 1 applic TOPICAL BID [facility]; Protocol Last Admin: 12/03/19 08:59 Dose: 1 applicatio Documented by: Pantoprazole Sodium (Protonix) 20 mg PO DAILY [facility] Last Admin: 12/03/19 08:58 Dose: 20 mg Documented by: Sodium Chloride () 10 - 40 ml IV UD PRN PRN Reason: SALINE FLUSH Last Admin: 11/30/19 17:13 Dose: 10 ml Documented by: Tamsulosin HCl (Flomax) 0.4 mg PO DAILY@1730 [facility] Last Admin: 12/02/19 16:51 Dose: 0.4 mg Documented by: STROKE Vital Signs/Narrative: Vital Signs Temp Pulse Resp BP Pulse Ox 12/03/19 08:58 73 125/57 H 12/03/19 08:46 97.6 F L 73 18 125/57 H 94 Assessment/Plan Hospitalist note: I am seeing this patient in conjunction with Juan Gaines. I independently seen and examined the patient. Progress note above, laboratory data reviewed and I concur with above plan. This morning, he complained of mild shortness of breath, he was off oxygen. Denied abdominal pain, nausea or vomiting. He has no fever. Pulse ox is 94% on 2 L, other vital signs are stable. - Physical Exam General: Alert, Oriented x3, Cooperative, No apparent distress. HEENT: Atraumatic, PERRLA, EOMI. Neck: Supple, No JVD, Negative Carotid Bruits, Trachea Midline, Thyroid Normal. Lungs: Diminished breath sounds bilateral, otherwise clear, No rhonchi, No wheeze, No rales. Cardiovascular: Regular rate, Regular Rhythm, Normal S1, Normal S2, PMI Normal. Abdomen: Bowel Sounds Present, Soft, Non Tender, Non-Distended, No Hepato-splenomegaly, morbidly obese. Extremities: Status post below right knee amputation, status post above left knee amputation, edema at the amputation stump bilaterally. Skin: No rashes, No breakdown Neurological: Cranial nerves are intact, neuro grossly intact Vital Signs are stable. Assessment and plan: #1 acute kidney injury/hyperkalemia: Unclear if this patient had a history of chronic kidney disease. BUN is still going up, creatinine is trending down. He does have very poor urine output, urine is very concentrated. Today's BUN is 125, creatinine is 3.27. Today's potassium is 5.2. unsatisfactory urine output. CT scan abdomen pelvis without contrast revealed normal kidneys, no evidence of hydronephrosis, revealed small right pleural effusion. Nephrology on the case. Serum protein electrophoresis and urine protein electrophoresis ordered. Nephrology recommended to transfer patient to [facility] for further evaluation and treatment. We are still awaiting bed availability at [facility]. #2 urine culture came back positive for MRSA: He is on IV vancomycin. WBC is still the same, has been afebrile. Blood cultures pending. #3 abnormal cardiac enzymes: Likely due to acute kidney injury. EKG revealed normal sinus rhythm, low voltage QRS, no acute segment changes. Troponin is trending down. 2D echocardiogram revealed normal LV size and function, no evidence of regional wall abnormalities. This has been stable. #4 paroxysmal atrial fibrillation: This was seen on telemetry. Heart rate is controlled. Patient is already on metoprolol and Eliquis. 2D echocardiogram reviewed as above. #5 hypoxia: Multifactorial secondary to #1 in addition to history of obstructive sleep apnea and morbid obesity. Patient uses CPAP at home at night mainly. He has been on oxygen, at 2 L. Plan as above. #6 other chronic medical problems: Stable, continue current medications as above. This note was generated with [employer] dictation software. It may contain incorrect words, spelling, and punctuation that were not noted in checking the note before signing. Inpatient E&M: 49689 Subs Hosp L2
[2019-12-03] MEDS: Insulin Lispro 100 UNIT/ML INSULN.PEN SC ×2 (12:06→17:02)
--- NOTE | 2019-12-03 13:27 | PCM.RX.CS ---
Consult Pharmacy has been consulted to manage selected antiobiotic: Vancomycin Type of Consult: Follow-up Suspected Infection: Skin/Soft tissue Labs: Sodium 134 mmol/L (136-145) L 12/03/19 06:54 Potassium 5.2 mmol/L (3.5-5.1) H 12/03/19 06:54 Chloride 105 mmol/L (98-107) 12/03/19 06:54 Carbon Dioxide 21.0 mmol/L (21.0-32.0) 12/03/19 06:54 Anion Gap 8 (5-15) 12/03/19 06:54 BUN 125 mg/dL (7-18) H* 12/03/19 06:54 Creatinine 3.27 mg/dL (0.70-1.30) H 12/03/19 06:54 Est GFR (MDRD) Af Amer 26 mL/min (>60) L 12/03/19 06:54 Est GFR (MDRD) Non-Af 22 mL/min (>60) L 12/03/19 06:54 BUN/Creatinine Ratio 38.2 RATIO (10-20) H 12/03/19 06:54 Glucose 104 mg/dL (74-106) 12/03/19 06:54 Microbiology: Microbiology 11/30/19 13:00 Urine Catheter - Catheter Urine Culture - Final Meth. resistant Staph. aureus Goal Trough: 15-20 mcg/mL Pharmacy Plan for Drug Dosing: DAILY ASSESSMENT Current Vancomcyin Dose: 1500mg q24h Number of Doses Received: x1 of current dose, 1 of loading dose Current Renal Function: 3.27 Renal Function Trend: Lab/Micro: Any Change in Vanc Plan: will increase Vancomycin to 1500mg q12h due to pt's weight and age. Pt's CrCl is 62.82 when using adjusted body weight Pending Level: 12/04 @ 2330 Pharmacy Service will continue to monitor and adjust dosing as required. Follow-Up Labs: Trough Vancomycin - 12/04 @ 1611
[2019-12-03] MEDS: Sodium Polystyrene Sulfonate 15 GM/60 ML UDC PO (14:14)
[2019-12-03] MEDS: Tamsulosin HCl 0.4 MG Capsule PO (17:03)
--- NOTE | 2019-12-03 17:05 | PN.RENAL_ITS ---
Subjective: no new complaints - Physical Exam Vitals/I&O's: Vital Signs Temp Pulse Resp BP Pulse Ox 97.6 F L 55 L 18 114/60 95 12/03/19 14:10 12/03/19 14:10 12/03/19 14:10 12/03/19 14:10 12/03/19 14:10 Oxygen Flow Rate (L/min) 2 Oxygen Delivery Method Nasal Cannula Weight: 267.438 kg Body Mass Index (BMI) 70.2 Intake and Output for Last 24 Hours 12/01/19 12/02/19 12/03/19 23:59 23:59 23:59 Intake Total 670 / 1150 2140 / 2390 1500 / 1500 Output Total 975 / 1275 1500 / 1850 850 / 850 Balance -305 / -125 640 / 540 650 / 650 General: Alert, Oriented x3, Cooperative HEENT: Atraumatic, PERRLA, EOMI, Normocephalic Neck: Supple, No JVD, Negative Carotid Bruits Lungs: Clear to auscultation, Normal air movement Cardiovascular: Regular rate, No murmurs Abdomen: Bowel Sounds Present, Soft, Non Tender Extremities: No edema, Capillary Refill Less than 3 Seconds Skin: No rashes, No breakdown Musculoskeletal: No Tenderness to Palpation of Joints or Extremities Neurological: Cranial nerves II-XII grossly intact Psych/Mental Status: Normal Affect, Appropriate Microbiology Past 72 Hours 11/30/19 13:00 Urine Catheter - Catheter Urine Culture - Final Meth. resistant Staph. aureus Laboratory Results 12/02/19 16:49: POC Glucose 140 H 12/02/19 21:19: POC Glucose 134 H 12/03/19 03:06: POC Glucose 58 L 12/03/19 03:52: POC Glucose 84 12/03/19 06:54: WBC 13.5 H, RBC 4.17 L, Hgb 10.1 L, Hct 34.4 L, MCV 82.5, MCH 24.2 L, MCHC 29.4 L, RDW Std Deviation 51.9 H, RDW Coeff of Lucy 17.3 H, Plt Count 385, MPV 10.6, Immature Gran % (Auto) 0.700, Neut % (Auto) 65.1, Lymph % (Auto) 22.9, [place] % (Auto) 9.0, Eos % (Auto) 1.9, Baso % (Auto) 0.4, Absolute Neuts (auto) 8.8 H, Absolute Lymphs (auto) 3.08, Nucleated RBC % 0.3 12/03/19 06:54: Sodium 134 L, Potassium 5.2 H, Chloride 105, Carbon Dioxide 21.0, Anion Gap 8, BUN 125 H*, Creatinine 3.27 H, Estim Creat Clear Calc 34.29, Est GFR (MDRD) Af Amer 26 L, Est GFR (MDRD) Non-Af 22 L, BUN/Creatinine Ratio 38.2 H, Glucose 104, Calcium 7.4 L 12/03/19 08:44: POC Glucose 126 H Current Medications Acetaminophen (Tylenol) 650 mg PO Q6H PRN PRN PRN Reason: Pain 1-10 or Fever Last Admin: 12/02/19 16:54 Dose: 650 mg Documented by: Allopurinol (Zyloprim) 300 mg PO DAILY [facility] Last Admin: 12/03/19 08:59 Dose: 300 mg Documented by: Apixaban (Eliquis) 2.5 mg PO BID [facility] Last Admin: 12/03/19 08:59 Dose: 2.5 mg Documented by: Aspirin (Aspirin, Baby) 81 mg PO DAILY@0800 [facility] Last Admin: 12/03/19 08:58 Dose: 81 mg Documented by: Atorvastatin Calcium (Lipitor) 40 mg PO QHS [facility] Last Admin: 12/02/19 21:21 Dose: 40 mg Documented by: Bupropion HCl (Wellbutrin Xl) 150 mg PO DAILY [facility] Last Admin: 12/03/19 08:59 Dose: 150 mg Documented by: Dextrose (D50w Syringe) 0 gm IV X1 PRN; Protocol PRN Reason: Hypoglycemia Glucagon () 1 mg IM .X1 PRN PRN Reason: Hypoglycemia Sodium Chloride () 250 mls @ 15 mls/hr IV .[id number] PRN PRN Reason: Additional IVPB Infusion Vancomycin IV Pharmacy to Dose (1 ea/ Sodium Chloride) 500 mls @ 250 mls/hr IV PRN PRN; Protocol PRN Reason: Rx to Dose Vancomycin HCl 1,500 mg/ (Sodium Chloride) 530 mls @ 250 mls/hr IV Q12H [facility] Insulin Human Lispro (Humalog [place] ([facility])) 0 unit SC ACHS [facility]; Protocol Last Admin: 12/03/19 17:02 Dose: 3 u Documented by: Insulin Human Regular (Humulin R U-500 ([facility])) 130 units SC BIDAC [facility] Last Admin: 12/03/19 17:01 Dose: 130 u Documented by: Loratadine (Claritin) 10 mg PO DAILY [facility] Last Admin: 12/03/19 08:58 Dose: 10 mg Documented by: Magnesium Oxide (Mag-Ox 400) 800 mg PO DAILYCM [facility] Stop: 12/05/19 08:01 Metoprolol Tartrate (Lopressor (Beta Ezra)) 50 mg PO BID [facility] Last Admin: 12/03/19 08:58 Dose: 50 mg Documented by: Nitroglycerin (Nitrostat) 0.4 mg SUBLINGUAL Q5M PRN PRN Reason: CARDIAC/CHEST PAIN Nystatin (Mycostatin Powder) 1 applic TOPICAL BID [facility]; Protocol Last Admin: 12/03/19 08:59 Dose: 1 applicatio Documented by: Pantoprazole Sodium (Protonix) 20 mg PO DAILY [facility] Last Admin: 12/03/19 08:58 Dose: 20 mg Documented by: Sodium Chloride () 10 - 40 ml IV UD PRN PRN Reason: SALINE FLUSH Last Admin: 11/30/19 17:13 Dose: 10 ml Documented by: Tamsulosin HCl (Flomax) 0.4 mg PO DAILY@1730 [facility] Last Admin: 12/03/19 17:03 Dose: 0.4 mg Documented by: Medical Necessity - Tobacco Use Smoking Status: Never smoker Assessment/Plan All Active Problems (Last Reviewed 08/05/17 @ 13:02 by Brooklyn Pleitez) Acute urinary retention (Acute) Acute kidney injury (Acute) Hyperglycemia (Acute) Elevated troponin (Acute) VIOLETTE multifactorial obstructive uropathy with possible superimposed prerenal VIOLETTE with ACEI/diuretic/possible HF CKD baseline 1.38 Hyperkalemia Proteinuria Obstructive uropathy Scr 3.4 not uremic no emergent need for dialysis hold ACEI and hctz renal US cannot be done per radiology department can use diuretics prn f/u 24 hour collection spep upep f/u pending serologies renal biopsy can not be done locally. has been waiting for main campus bed called IR at [facility] and spoke to Dr Severo Arenas. wont be able to fit on a CT table due to habitus and weight. might be a candidate for transjugular kidney biopsy. agreed to do it on friday. transfer to [facility] mikey ruiz
[2019-12-03 17:20] LABS: Bedside Glucose 164 mg/dL (70-110)
[2019-12-03 17:20] LABS: Bedside Glucose 166 mg/dL (70-110)
--- NOTE | 2019-12-03 17:37 | PCM.DC.SUM ---
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 Diabetes mellitus type 2 in obese (Chronic) Ulcer of right lower extremity (Chronic) History of left below knee amputation (Chronic) Allergic rhinitis (Chronic) Morbid obesity (Chronic) GERD (gastroesophageal reflux disease) (Chronic) HTN (hypertension) (Chronic) Diabetes (Chronic) Hospital Course and Treatment Imaging Results: IMAGING: RAD/Chest 1 View (Portable) IMPRESSION: Cardiomegaly Mild bilateral pulmonary opacities cannot exclude atypical viral pneumonia versus pulmonary venous congestion 2D TTE: Interpretation Summary Normal LV size. Left ventricular systolic function is normal. The study was technically limited. The study was technically difficult. Limited views were obtained. Contrast injection was performed. CT/Abdomen/Pelvis without Cont IMPRESSION: Limited examination. No evidence of hydronephrosis. Small right pleural effusion with right basilar atelectasis and/or infiltration. Findings suggestive of gallstones. RAD/Chest 1 View (Portable) IMPRESSION: Development of diffuse interstitial edema since the previous study, follow-up recommended to assure resolution Consultations: Nephrology - [facility] Operations: None Procedures: 2-D Echocardiogram Summary of Care Provided: Hospital course: The patient is a 49 year old M with past medical history of super morbid obesity with a BMI of 71, type 2 diabetes, CKD stage III secondary to diabetic nephropathy, prior [id number] amputations bilaterally, factor V Leiden, hypertension, GERD, who presented to the emergency room with decreased urination. The patient noted that he could not fully urinate, only passed small amounts, and felt that his abdomen was distended. In the emergency room he appeared to have acute kidney injury with a BUN of 65, creatinine of 2.68, sodium 133 and potassium elevated at 5.5. Chest x-ray showed some pulmonary vascular congestion. Beta natriuretic peptide was mildly elevated at 111.3. His troponin was indeterminate at 0.362, his white blood cell count was mildly elevated at 13.3. He has some urinary retention with about a liter of urine drained with the placement of a Fuentes catheter. Patient was admitted to the PCU and placed on telemetry with nephrology consulted. His hydrochlorothiazide and lisinopril were discontinued. Patient's troponins were cycled and remained flat, EKG showed no acute ST changes, echocardiogram showed no LV's dysfunction and his indeterminate troponin was felt to be secondary to his acute kidney injury. The patient had been taking Xarelto for DVT, based on his renal function this was transitioned to a renally dosed Eliquis. CT of the abdomen was obtained and demonstrated no hydronephrosis, small right pleural effusion with right basilar atelectasis and/or infiltrate, and gallstones. The second day that he was here his creatinine improved to 2.48 however the third day his serum creatinine increased the next day to 3.2, his BUN continued to rise, and he produced little urine. Fena was 1.7% indicating prerenal azotemia. PSA was 0.06. He developed some worsening breathing, repeat chest x-ray showed some effusions and he was treated with IV Lasix as needed. His urinalysis was suspicious for UTI, he had leukocytosis, and did grow MRSA in his urine, therefore he was placed on vancomycin. He has since had very mild improvement in his renal failure and continues to be intermittently hyperkalemic. Nephrology recommended that he have a renal biopsy, as the etiologies for his renal failure are unclear and likely multifactorial. This is unable to be obtained here as the patient is very large in body habitus (BMI 71, weight 589 lbs). Referral was made to the [facility] for biopsy. Dr. Hogan spoke with an interventional radiologist at [facility], Dr. Tk Mantilla, who felt that he would be able to perform a transjugular biopsy possibly on Friday the . The patient was agreeable to transfer to [facility]. The patient was accepted under the care of Dr. Deni Jenkins. Additionally the patient developed paroxysmal afib while here however his rate remained controlled on his prior dose of metoprolol and he is already anticoagulated with eliquis due to his hx of factor V disorder. His echo was unremarkable (report as above) however notably limited due to poor window. This patient was seen by Juan Gaines PA-C under the supervision of Doctor Alisson. [] - Physical Exam Vitals/I&O's: Vital Signs Temp Pulse Resp BP Pulse Ox 97.6 F L 73 18 127/70 H 94 12/03/19 17:17 12/03/19 17:17 12/03/19 17:17 12/03/19 17:17 12/03/19 17:17 Oxygen Flow Rate (L/min) 2 Oxygen Delivery Method Nasal Cannula Weight: 589 lb 9.597 oz Body Mass Index (BMI) 70.2 Intake and Output for Last 24 Hours 12/01/19 12/02/19 12/03/19 23:59 23:59 23:59 Intake Total 670 / 1150 2140 / 2390 1500 / 1500 Output Total 975 / 1275 1500 / 1850 1150 / 1150 Balance -305 / -125 640 / 540 350 / 350 General: Alert, Oriented x3, Cooperative HEENT: Atraumatic, PERRLA, EOMI, Normocephalic Neck: Supple, No JVD, Negative Carotid Bruits Lungs: Clear to auscultation, Diminished Cardiovascular: Regular rate, No murmurs Abdomen: Bowel Sounds Present, Soft, Non Tender, Obese Extremities: No edema, Capillary Refill Less than 3 Seconds Skin: No rashes, No breakdown Musculoskeletal: - - s/p BL AKA Neurological: Cranial nerves II-XII grossly intact Psych/Mental Status: Normal Affect, Appropriate, Alert and oriented to time, place, person, mood and affect Microbiology Past 72 Hours 11/30/19 13:00 Urine Catheter - Catheter Urine Culture - Final Meth. resistant Staph. aureus Laboratory Results 12/02/19 21:19: POC Glucose 134 H 12/03/19 03:06: POC Glucose 58 L 12/03/19 03:52: POC Glucose 84 12/03/19 06:54: WBC 13.5 H, RBC 4.17 L, Hgb 10.1 L, Hct 34.4 L, MCV 82.5, MCH 24.2 L, MCHC 29.4 L, RDW Std Deviation 51.9 H, RDW Coeff of Lucy 17.3 H, Plt Count 385, MPV 10.6, Immature Gran % (Auto) 0.700, Neut % (Auto) 65.1, Lymph % (Auto) 22.9, Toole % (Auto) 9.0, Eos % (Auto) 1.9, Baso % (Auto) 0.4, Absolute Neuts (auto) 8.8 H, Absolute Lymphs (auto) 3.08, Nucleated RBC % 0.3 12/03/19 06:54: Sodium 134 L, Potassium 5.2 H, Chloride 105, Carbon Dioxide 21.0, Anion Gap 8, BUN 125 H*, Creatinine 3.27 H, Estim Creat Clear Calc 34.29, Est GFR (MDRD) Af Amer 26 L, Est GFR (MDRD) Non-Af 22 L, BUN/Creatinine Ratio 38.2 H, Glucose 104, Calcium 7.4 L 12/03/19 08:44: POC Glucose 126 H 12/03/19 11:53: POC Glucose 164 H 12/03/19 17:00: POC Glucose 166 H Current Medications Acetaminophen (Tylenol) 650 mg PO Q6H PRN PRN PRN Reason: Pain 1-10 or Fever Last Admin: 12/02/19 16:54 Dose: 650 mg Documented by: Allopurinol (Zyloprim) 300 mg PO DAILY [facility] Last Admin: 12/03/19 08:59 Dose: 300 mg Documented by: Apixaban (Eliquis) 2.5 mg PO BID [facility] Last Admin: 12/03/19 08:59 Dose: 2.5 mg Documented by: Aspirin (Aspirin, Baby) 81 mg PO DAILY@0800 [facility] Last Admin: 12/03/19 08:58 Dose: 81 mg Documented by: Atorvastatin Calcium (Lipitor) 40 mg PO QHS [facility] Last Admin: 12/02/19 21:21 Dose: 40 mg Documented by: Bupropion HCl (Wellbutrin Xl) 150 mg PO DAILY [facility] Last Admin: 12/03/19 08:59 Dose: 150 mg Documented by: Dextrose (D50w Syringe) 0 gm IV X1 PRN; Protocol PRN Reason: Hypoglycemia Glucagon () 1 mg IM .X1 PRN PRN Reason: Hypoglycemia Sodium Chloride () 250 mls @ 15 mls/hr IV .[id number] PRN PRN Reason: Additional IVPB Infusion Vancomycin IV Pharmacy to Dose (1 ea/ Sodium Chloride) 500 mls @ 250 mls/hr IV PRN PRN; Protocol PRN Reason: Rx to Dose Vancomycin HCl 1,500 mg/ (Sodium Chloride) 530 mls @ 250 mls/hr IV Q12H [facility] Insulin Human Lispro (Humalog Kwikpen ([facility])) 0 unit SC ACHS [facility]; Protocol Last Admin: 12/03/19 17:02 Dose: 3 u Documented by: Insulin Human Regular (Humulin R U-500 ([facility])) 130 units SC BIDAC [facility] Last Admin: 12/03/19 17:01 Dose: 130 u Documented by: Loratadine (Claritin) 10 mg PO DAILY [facility] Last Admin: 12/03/19 08:58 Dose: 10 mg Documented by: Magnesium [facility] (Mag-Ox 400) [facility] Stop: 12/05/19 08:01 Metoprolol Tartrate (Lopressor (Beta Ezra)) 50 mg PO BID [facility] Last Admin: 12/03/19 08:58 Dose: 50 mg Documented by: Nitroglycerin (Nitrostat) 0.4 mg SUBLINGUAL Q5M PRN PRN Reason: CARDIAC/CHEST PAIN Nystatin (Mycostatin Powder) 1 applic TOPICAL BID [facility]; Protocol Last Admin: 12/03/19 08:59 Dose: 1 applicatio Documented by: Pantoprazole Sodium (Protonix) 20 mg PO DAILY [facility] Last Admin: 12/03/19 08:58 Dose: 20 mg Documented by: Sodium Chloride () 10 - 40 ml IV UD PRN PRN Reason: SALINE FLUSH Last Admin: 11/30/19 17:13 Dose: 10 ml Documented by: Tamsulosin HCl (Flomax) 0.4 mg PO DAILY@1730 [facility] Last Admin: 12/03/19 17:03 Dose: 0.4 mg Documented by: Discharge Diet: - - as directed Discharge Activity: - - as directed Home Medications: Medications to take at Discharge Hydrochlorothiazide [Hctz] 25 mg PO DAILY 01/17/16 Lisinopril [Zestril] 40 mg PO DAILY 01/17/16 metoprolol tartrate 100 mg tablet 100 mg PO BID 07/16/17 Allopurinol [Zyloprim] 300 mg PO DAILY 11/25/19 Atorvastatin Calcium [Lipitor] 40 mg PO QHS 11/25/19 Cetirizine HCl 10 mg PO DAILY 11/25/19 Esomeprazole Mag Trihydrate [Nexium] 20 mg PO DAILY 11/25/19 Insulin Regular, Human [Humulin R U-500 Kwikpen] 135 unit SQ BIDAC 11/25/19 Rivaroxaban [Xarelto] 20 mg PO DINNER 11/25/19 buPROPion XL [Wellbutrin Xl] 150 mg PO DAILY 11/25/19 metFORMIN HCl [Glucophage] 1,000 mg PO BIDCM 11/25/19 Primary Care Physician: Arian Couch MD [Primary Care Provider] - Please Follow Up With: Arian Couch MD Disposition: Acute care Hospital Minutes spent on discharge:: 45 Patient Condition:: Stable Medical Necessity - Tobacco Use Smoking Status: Never smoker Meaningful Use Info Meaningful Use Diagnoses (Choose all that apply): None applicable <Mari Vinson E - Last Filed: 12/04/19 12:35> Discharge Date and Diagnosis - Secondary Discharge Diagnosis Chronic Problems: Chronic Problems (Last Reviewed 08/05/17 @ 13:02 by Brooklyn Pleitez) 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 Diabetes mellitus type 2 in obese (Chronic) Ulcer of right lower extremity (Chronic) History of left below knee amputation (Chronic) Allergic rhinitis (Chronic) Morbid obesity (Chronic) GERD (gastroesophageal reflux disease) (Chronic) HTN (hypertension) (Chronic) Diabetes (Chronic) Hospital Course and Treatment Summary of Care Provided: Hospitalist note: Discharge summary above reviewed and I concur with the above transfer plan. Patient presented to the emergency room because of abdominal distention, not able to completely empty his bladder as well as decreased urine output, found to have acute renal failure, hyperkalemia, abnormal cardiac enzymes, new onset paroxysmal atrial fibrillation as well as hypoxia. On admission, BUN was 65 and creatinine was 2.68. His potassium was elevated and maximum was 5.9 mmol/L. Patient had CT scan abdomen and pelvis without contrast that showed no evidence of hydronephrosis, both kidneys were normal, there was small right pleural effusion. He was treated initially with IV fluids. Nephrology consulted and later, nephrology recommended to stop IV fluids and to start patient on IV Lasix for diuresis because he was volume overloaded. Patient was started on IV Lasix and his BUN just kept worsening and his creatinine also kept worsening with some fluctuation. Patient had very poor urine output without improvement of his kidney function. Nephrology recommended renal ultrasound which was not done here because of the patient's size which makes doing ultrasound very difficult. Patient was found to have abnormal cardiac enzymes which is mainly attributed to acute renal failure. His EKG revealed normal sinus rhythm, low voltage QRS and no acute ischemic changes. 2D echocardiogram revealed normal LV size and function, no evidence of regional wall abnormalities. Patient did require oxygen during this hospital stay mainly at 2 L which is attributed to history of obstructive sleep apnea and morbid obesity in addition to volume overload due to acute renal failure. Although urinalysis showed no evidence of significant acute cystitis, urine culture came back positive for MRSA. Patient was started on IV vancomycin. Blood culture showed no growth in 48 hours. Because patient's kidney function did not improve and just kept worsening, nephrology recommended to transfer the patient to a tertiary care center for kidney biopsy and further treatment. Initially, we made a referral to [facility] and because of with availability, patient was not transferred waiting for beds to open. On the day of transfer, Dr. Hogan discussed the case with an interventional radiologist at [facility] and stated that they should be able to perform transjugular kidney biopsy at [facility]. Later, patient developed paroxysmal atrial fibrillation, heart rate remained controlled and patient was already on Eliquis for history of factor V Leiden. Patient transferred to [facility] in stable medical condition. - Physical Exam General: Alert, Oriented x3, Cooperative, No apparent distress. HEENT: Atraumatic, PERRLA, EOMI. Neck: Supple, No JVD, Negative Carotid Bruits, Trachea Midline, Thyroid Normal. Lungs: Diminished breath sounds bilateral, otherwise clear, No rhonchi, No wheeze, No rales. Cardiovascular: Regular rate, Regular Rhythm, Normal S1, Normal S2, PMI Normal. Abdomen: Bowel Sounds Present, Soft, Non Tender, Non-Distended, No Hepato-splenomegaly, morbidly obese. Extremities: Status post below right knee amputation, status post above left knee amputation, edema at the amputation stump bilaterally. Skin: No rashes, No breakdown Neurological: Cranial nerves are intact, neuro grossly intact Vital Signs are stable. This note was generated with [employer] software. It may contain incorrect words, spelling, and punctuation that were not noted in checking the note before signing. - Physical Exam Vitals/I&O's: Vital Signs Temp Pulse Resp BP Pulse Ox 98.0 F 74 16 135/61 H 95 12/03/19 20:47 12/03/19 20:49 12/03/19 20:47 12/03/19 20:49 12/03/19 20:47 Oxygen Flow Rate (L/min) 2 Oxygen Delivery Method Nasal Cannula Weight: 589 lb 9.597 oz Body Mass Index (BMI) 70.2 Intake and Output for Last 24 Hours 12/01/19 12/02/19 12/03/19 23:59 23:59 23:59 Intake Total 670 / 1150 2140 / 2390 1500 / 1500 Output Total 975 / 1275 1500 / 1850 1150 / 1150 Balance -305 / -125 640 / 540 350 / 350 Microbiology Past 72 Hours 11/30/19 13:00 Urine Catheter - Catheter Urine Culture - Final Meth. resistant Staph. aureus Laboratory Results 12/02/19 21:19: POC Glucose 134 H 12/03/19 03:06: POC Glucose 58 L 12/03/19 03:52: POC Glucose 84 12/03/19 06:54: WBC 13.5 H, RBC 4.17 L, Hgb 10.1 L, Hct 34.4 L, MCV 82.5, MCH 24.2 L, MCHC 29.4 L, RDW Std Deviation 51.9 H, RDW Coeff of Lucy 17.3 H, Plt Count 385, MPV 10.6, Immature Gran % (Auto) 0.700, Neut % (Auto) 65.1, Lymph % (Auto) 22.9, Toole % (Auto) 9.0, Eos % (Auto) 1.9, Baso % (Auto) 0.4, Absolute Neuts (auto) 8.8 H, Absolute Lymphs (auto) 3.08, Nucleated RBC % 0.3 12/03/19 06:54: Sodium 134 L, Potassium 5.2 H, Chloride 105, Carbon Dioxide 21.0, Anion Gap 8, BUN 125 H*, Creatinine 3.27 H, Estim Creat Clear Calc 34.29, Est GFR (MDRD) Af Amer 26 L, Est GFR (MDRD) Non-Af 22 L, BUN/Creatinine Ratio 38.2 H, Glucose 104, Calcium 7.4 L 12/03/19 08:44: POC Glucose 126 H 12/03/19 11:53: POC Glucose 164 H 12/03/19 17:00: POC Glucose 166 H 12/03/19 20:54: POC Glucose 184 H Current Medications Acetaminophen (Tylenol) 650 mg PO Q6H PRN PRN PRN Reason: Pain 1-10 or Fever Last Admin: 12/02/19 16:54 Dose: 650 mg Documented by: Allopurinol (Zyloprim) 300 mg PO DAILY [facility] Last Admin: 12/03/19 08:59 Dose: 300 mg Documented by: Apixaban (Eliquis) 2.5 mg PO BID [facility] Last Admin: 12/03/19 20:49 Dose: 2.5 mg Documented by: Aspirin (Aspirin, Baby) 81 mg PO DAILY@0800 [facility] Last Admin: 12/03/19 08:58 Dose: 81 mg Documented by: Atorvastatin Calcium (Lipitor) 40 mg PO QHS [facility] Last Admin: 12/03/19 20:49 Dose: 40 mg Documented by: Bupropion HCl (Wellbutrin Xl) 150 mg PO DAILY [facility] Last Admin: 12/03/19 08:59 Dose: 150 mg Documented by: Dextrose (D50w Syringe) 0 gm IV X1 PRN; Protocol PRN Reason: Hypoglycemia Glucagon () 1 mg IM .X1 PRN PRN Reason: Hypoglycemia Sodium Chloride () 250 mls @ 15 mls/hr IV .[id number] PRN PRN Reason: Additional IVPB Infusion Vancomycin IV Pharmacy to Dose (1 ea/ Sodium Chloride) 500 mls @ 250 mls/hr IV PRN PRN; Protocol PRN Reason: Rx to Dose Vancomycin HCl 1,500 mg/ (Sodium Chloride) 530 mls @ 250 mls/hr IV Q12H [facility] Insulin Human Lispro (Humalog Kwikpen ([facility])) 0 unit SC ACHS [facility]; Protocol Last Admin: 12/03/19 20:56 Dose: Not Given Documented by: Insulin Human Regular (Humulin R U-500 ([facility])) 130 units SC BIDAC [facility] Last Admin: 12/03/19 17:01 Dose: 130 u Documented by: Loratadine (Claritin) 10 mg PO DAILY [facility] Last Admin: 12/03/19 08:58 Dose: 10 mg Documented by: Magnesium Oxide (Mag-Ox 400) [facility] Stop: 12/05/19 08:01 Metoprolol Tartrate (Lopressor (Beta Ezra)) 50 mg PO BID [facility] Last Admin: 12/03/19 20:49 Dose: 50 mg Documented by: Nitroglycerin (Nitrostat) 0.4 mg SUBLINGUAL Q5M PRN PRN Reason: CARDIAC/CHEST PAIN Nystatin (Mycostatin Powder) 1 applic TOPICAL BID [facility]; Protocol Last Admin: 12/03/19 20:49 Dose: Not Given Documented by: Pantoprazole Sodium (Protonix) 20 mg PO DAILY [facility] Last Admin: 12/03/19 08:58 Dose: 20 mg Documented by: Sodium Chloride () 10 - 40 ml IV UD PRN PRN Reason: SALINE FLUSH Last Admin: 11/30/19 17:13 Dose: 10 ml Documented by: Tamsulosin HCl (Flomax) 0.4 mg PO DAILY@1730 [facility] Last Admin: 12/03/19 17:03 Dose: 0.4 mg Documented by: Disposition: Acute care Hospital Minutes spent on discharge:: 36 Patient Condition:: Stable Meaningful Use Info Meaningful Use Diagnoses (Choose all that apply): None applicable Inpatient E&M: 36057 Disch Hosp
[2019-12-03] MEDS: Atorvastatin Calcium 40 MG Tablet PO (20:49)
[2019-12-03 21:01] LABS: Bedside Glucose 184 mg/dL (70-110)
[2019-12-04 00:39] VITALS: BP 120/66; PULSE 74; RESP 16; TEMP 36.4; O2SAT 94
[2019-12-04 00:46] VITALS: BP 120/66; PULSE 74; RESP 16; TEMP 36.4; O2SAT 94
[2019-12-04 01:30] VITALS: BP 120/66; PULSE 74; RESP 16; TEMP 36.4; O2SAT 94
[2019-12-06 12:06] LABS: Complement C3 186 mg/dL (82-167); Cytoplasmic Ab (C-ANCA) <1:20 titer (Neg:<1:20); HEPATITIS B SURFACE AG Negative (Negative); Hepatitis A AB, Total Negative (Negative); Hepatitis A IgM Antibody Negative (Negative); Hepatitis B Core AB IgM Negative (Negative); Hepatitis B Core Ab Total Negative (Negative); Hepatitis C Ab 0.2 s/co ratio (0.0-0.9); PROEL- A/G Ratio 0.8 (0.7-1.7); PROEL- Albumin 3.1 g/dL (2.9-4.4); PROEL- Alpha-1 Globulin 0.2 g/dL (0.0-0.4); PROEL- Alpha-2 Globulin 0.9 g/dL (0.4-1.0); PROEL- Gamma Globulin 1.6 g/dL (0.4-1.8); PROEL- Globulin, Total 3.7 g/dL (2.2-3.9); PROEL- TOTAL PROTEIN 6.8 g/dL (6.0-8.5); PROELU- Albumin, Urine 51.7 % (.); PROELU- Alpha-1-Globulin,Ur 2.9 % (.); PROELU- Alpha-2-Globulin,Ur 12.2 % (.); PROELU- Beta Globulin, Ur 19.4 % (.); PROELU- Gamma Globulin, Ur 13.9 % (.)
[2019-12-06 13:54] LABS: Hep B Surface Antibodies Non Reactive (.)
[2019-12-06 13:55] LABS: Anti-Glomerular Basement Memb 3 units (0-20); Perinuclear Ab (P-ANCA) <1:20 titer (Neg:<1:20); Total Protein, Ur 1827.7 mg/dL (Not Estab.)
[2019-12-06 14:08] LABS: Albumin, Ur 46.5 % (.); Alpha-1-Globulin, Ur 3.2 % (.); Alpha-2-Globulins, Ur 10.9 % (.); Beta Globulin, Ur 23.5 % (.); Gamma Globulin, Ur 15.9 % (.); Protein, 24Ur 19833 mg/24 hr (30-150)
[2019-12-06 14:08] LABS: Alpha-1-Globulin, Ur 3.7 % (.); Beta Globulin, Ur 24.7 % (.); Gamma Globulin, Ur 14.8 % (.); Protein, 24Ur 19465 mg/24 hr (30-150)
[2019-12-06 15:27] LABS: M-Spike, Ur % Comment: % (Not Observed); PE Ur Interpretation Comment: (.); Total Protein, Ur 998.2 mg/dL (Not Estab.)
[2019-12-06 15:27] LABS: IFE Result, Ur Comment: (.); M-Spike, Ur % Comment: % (Not Observed); Total Protein, Ur 1017.1 mg/dL (Not Estab.)
== END 2019-12-04 01:30 | disposition short-term general hospital (02) | DRG 469 ==
LOC: ED 16:58 → PCU 18:34
PROVIDERS: Family Medicine; Internal Medicine; Nurse Practitioner Family; Physician Assistant; Admitting Provider Student in an Organized Health Care Education/Training Program; Emergency Provider Emergency Medicine; Visit Provider Hospitalist
DX: N17.9 Acute kidney failure, unspecified (principal); E11.22 Type 2 diabetes mellitus with diabetic chronic kidney disease; I13.10 Hypertensive heart and chronic kidney disease without heart failure, with stage 1 through stage 4 chronic kidney disease, or unspecified chronic kidney disease; N18.3 Chronic kidney disease, stage 3 (moderate); N13.9 Obstructive and reflux uropathy, unspecified; N39.0 Urinary tract infection, site not specified; B95.62 Methicillin resistant Staphylococcus aureus infection as the cause of diseases classified elsewhere; R33.9 Retention of urine, unspecified; E11.42 Type 2 diabetes mellitus with diabetic polyneuropathy; E11.65 Type 2 diabetes mellitus with hyperglycemia; E87.5 Hyperkalemia; D68.51 Activated protein C resistance; R79.89 Other specified abnormal findings of blood chemistry; I48.0 Paroxysmal atrial fibrillation; E87.70 Fluid overload, unspecified; R34 Anuria and oliguria; Z75.1 Person awaiting admission to adequate facility elsewhere; R09.02 Hypoxemia; M10.9 Gout, unspecified; E78.5 Hyperlipidemia, unspecified; K21.9 Gastro-esophageal reflux disease without esophagitis; F32.9 Major depressive disorder, single episode, unspecified; G47.33 Obstructive sleep apnea (adult) (pediatric); E66.01 Morbid (severe) obesity due to excess calories; Z68.45 Body mass index [BMI] 70 or greater, adult; Z79.4 Long term (current) use of insulin; Z79.82 Long term (current) use of aspirin; Z79.01 Long term (current) use of anticoagulants; Z79.899 Other long term (current) drug therapy; Z86.718 Personal history of other venous thrombosis and embolism; Z86.31 Personal history of diabetic foot ulcer; Z86.711 Personal history of pulmonary embolism; Z89.612 Acquired absence of left leg above knee
CPT/HCPCS: 36415; 71045; 74176; 80048; 80053; 81001; 82570; 82962; 83520; 83690; 83735; 83880; 84153; 84156; 84165; 84166; 84300; 84484; 84540; 85025; 85027; 85610; 85730; 86038; 86160; 86225; 86235; 86256; 86335; 86592; 86703; 86704; 86705; 86706; 86708; 86709; 86803; 87040; 87077; 87086; 87088; 87186; 87340; 87635; 93005; 93306; 94003; 94660; 97110; 97163; 97167; 97530; 97802; 99284; G2023; J7030; J7040; Q9957; A4216; C8929; J1940; U0003